=== PATIENT | male | born 1950 | race Caucasian/White ===

== ENCOUNTER 2017-12-09 11:18 | Inpatient (IN) ==
[~2017-12-09 11:18] MED LIST: Calcium Chloride Inj 1 GM/10 ML Syringe IV.PUSH ONE; Lidocaine 2% 100 MG/5 ML Syringe IV.PUSH ONE; Magnesium Sulfate Inj 40 MEQ/10 ML Vial IV.SIG ONE; Naloxone Inj 4 MG/10 ML MDV IV.SIG ONE; Sodium Bicarbonate 8.4% Inj 50 MEQ/50 ML Syringe IV.PUSH ONE
[2017-12-09] MEDS ORDERED: Midazolam Inj 5 MG/ML 1 ML Vial ONE (11:25)
[2017-12-09] MEDS ORDERED: Magnesium Sulfate Inj 2 GM in Sodium Chlor 0.9% Inj 96 ML IV.SIG ONE (11:36)
[2017-12-09] MEDS ORDERED: Lidocaine 2% 100 MG/5 ML Syringe IV.PUSH ONE (11:38)
[2017-12-09] MEDS ORDERED: Midazolam Inj 5 MG/ML 1 ML Vial IV.PUSH ONE (11:40)
[2017-12-09 11:58] LABS: Baso % (Auto) 0.4 % (0.0-2.0); Hematocrit 36.5 % (39.0-51.0); Hemoglobin 11.9 gm/dL (13.0-17.0); Lymph # (Auto) 1.3 th/mm3 (1.0-4.8); Lymph % (Auto) 21.5 % (9.0-44.0); Mean Corpuscular HGB Conc 32.6 % (32.0-36.0); Mean Corpuscular Hemoglobin 36.1 pg (27.0-34.0); Mean Corpuscular Volume 110.7 fL (80.0-100.0); Mean Platelet Volume 9.3 fL (7.0-11.0); Mono # (Auto) 0.4 th/mm3 (0.0-0.9); Mono % (Auto) 6.2 % (0.0-8.0); Neut # (Auto) 4.3 th/mm3 (1.8-7.7); Neut % (Auto) 71.9 % (16.0-70.0); Platelet Count 89 th/mm3 (150-450); Red Cell Distribution Width 15.1 % (11.6-17.2)
[2017-12-09 12:18] LABS: Anion Gap 16 meq/L (5-15); Blood Urea Nitrogen 29 mg/dL (7-18); Calcium 8.8 mg/dL (8.5-10.1); Carbon Dioxide 16.1 meq/L (21.0-32.0); Chloride 113 meq/L (98-107); Glomerular Filtration Rate 31 mL/min (>89); Magnesium 2.1 mg/dL (1.5-2.5); Potassium 4.3 meq/L (3.5-5.1); Sodium 145 meq/L (136-145)
--- NOTE | 2017-12-09 12:18 | XR ---
EXAM DATE: 12/09/2017 12:14 PM EDT AGE/SEX: 67 years / Male INDICATIONS: Chest pain today CLINICAL DATA: This is the patient's initial encounter. Patient reports that signs and symptoms have been present for 1 day and indicates a pain score of Nonresponsive. MEDICAL/SURGICAL HISTORY: Non-responsive. Non-responsive. COMPARISON: No prior exams available for comparison. FINDINGS: Heart is mildly enlarged. Lungs are free of acute airspace disease or significant congestion. Osseous structures are intact. CONCLUSION: Mild cardiomegaly without evidence of acute process. Electronically signed by: Gray Gonzalez MD 12/09/2017 12:17 PM EDT
[2017-12-09 12:20] LABS: Creatine Kinase 177 U/L (39-308); Glucose,Random 44 mg/dL (74-106); Troponin I 0.12 ng/mL (0.02-0.05)
[2017-12-09 12:37] LABS: Prothrombin Time 40.4 sec (9.8-11.6)
[2017-12-09 12:38] LABS: Activated Partial Thrombo Time 61.9 sec (24.3-30.1)
[2017-12-09 12:45] LABS: Creatine Kinase MB 4.8 ng/mL (0.5-3.6)
[2017-12-09] MEDS ORDERED: Sod Chloride 0.9% Inj 1,000 ML IV.SIG ONE (12:48)
--- NOTE | 2017-12-09 12:53 | ED ---
HPI General Chief complaint: Arrhythmia/Palpitations Stated complaint: Medical Time Seen by Provider: 12/09/17 11:36 Source: patient, EMS and RN notes reviewed Mode of arrival: EMS History of Present Illness HPI narrative: 67yM presenting with arrhythmia. The patient called EMS because he "wasn't feeling well", was found to be in monomorphic V tach with a pulse. He received 1/2 of a 150 mg amiodarone bolus prior to arrival with no change in rhythm. The patient reports dizziness and generalized weakness but denies chest pain, cough, palpitations, or vomiting. He says that he has a history of HTN and "heart problems" but does not remember the names of his medications or what kind of heart problems he has. Related Data Home Medications Medication Instructions Recorded Confirmed No Known Home Medications 12/09/17 12/09/17 Allergies Allergy/AdvReac Type Severity Reaction Status Date / Time No Known Allergies Allergy Verified 12/09/17 12:23 Review of Systems Except as stated in HPI: all other systems reviewed are negative [facility] Medical History Medical History Hypertension (Acute) Social History Social History Substance History: No History of Abuse Second Hand Smoke Exposure: No Smoking Status: Heavy tobacco smoker Tobacco Type: Cigarettes How Often Do You Have a Drink Containing Alcohol: 4 or more times a week Recent Travel in [facility] within the Last 8 Weeks: No Recent Out of Country Travel within the Last 8 Weeks: No Immunization History Tetanus Immunization: Unable to Assess Hx Influenza Vaccine This Season: Unable to Assess Exam Const Other: Alert, diaphoretic HENWA Head: normocephalic and atraumatic Eyes Pupils: PERRL Chest Chest: normal inspection of the chest Other: No sternotomy scar or pacemaker present Resp Other: Clear to auscultation bilaterally Cardio Other: Monomorphic V tach seen on monitoring engineer at rate of 180-200 Strong radial pulses GI Inspection: non-distended Palpation: soft and nontender Neuro General: alert, awake and oriented x3 Other: Moves all extremities, answers questions appropriately Course Hospital Course: ED Procedure Note- Electrical cardioversion Time out called, patient identified by 2 identifiers Given 2 mg IV versed prior to procedure for sedation Kept on monitoring engineer/ defibrillator/ continuous pulse ox throughout the procedure The pads were placed on right upper and left lateral chest The patient received synchronized cardioversion at 150 J He immediately converted to normal sinus tachycardia in 110s Tolerated the procedure well, no immediate complications Initial Documented Vital Signs Pulse Rate 224 H 12/09/17 11:20 Respiratory Rate 20 12/09/17 11:20 Blood Pressure 153/84 H 12/09/17 11:20 Last Documented Vital Signs Temperature 99 F 12/09/17 11:22 Pulse Rate 112 H 12/09/17 14:05 Respiratory Rate 20 12/09/17 14:05 Blood Pressure 142/93 H 12/09/17 14:05 Pulse Oximetry 99 12/09/17 14:05 Critical Care Time Critical Care Time: Yes Total Critical Care Time: 30 Attestation: Total critical care time 30 minutes. This includes examining and stabilizing the patient, gathering a history from a source other than the patient (i.e., chart review, EMS providers), formulating a differential diagnosis, ordering and interpreting laboratory tests and EKG, ordering and interpreting radiology tests, discussing the patient's care with other providers (HEP), management of arrhythmias and profound hypoglycemia, re- evaluation at frequent intervals, and documentation. Amount of time is separate from teaching, counseling the patient and/or family, and exclusive of procedures. Medical Decision Making MDM Narrative Medical decision making narrative: Assessment: 67yM presenting with V tach Plan: Patient received amio bolus prior to arrival Attempted to give IV lidocaine with no change in rhythm Electrical cardioversion successfully performed with conversion to sinus tachycardia Patient also received 2 g magnesium sulfate IVP Labs showed profound hypoglycemia which improved after 1 amp D50. Patient reports that he does not have a known history of diabetes. CXR Patient will require admission for cardiac monitoring and further workup. He understands and agrees. Consult placed to EP, case discussed with Dr. Amaral of [facility]. Differential Diagnosis Differential Diagnosis: Differential diagnosis includes, but is not limited to: ACS, electrolyte abnormality, cardiomyopathy, infection, hypoglycemia Lab Data Result diagrams: 12/09/17 11:30 12/09/17 11:30 Lab Results 12/09/17 12/09/17 12/09/17 Range/Units 11:30 11:30 11:30 WBC 6.0 (4.0-11.0) th/mm3 RBC 3.30 L (4.50-5.90) mil/mm3 Hgb 11.9 L (13.0-17.0) gm/dL POC Hgb (Calc) (13.0-17.0) g/dL Hct 36.5 L (39.0-51.0) % POC Hct (39-51.0) % MCV 110.7 H (80.0-100.0) fL MCH 36.1 H (27.0-34.0) pg MCHC 32.6 (32.0-36.0) % RDW 15.1 (11.6-17.2) % Plt Count 89 L (150-450) th/mm3 MPV 9.3 (7.0-11.0) fL Prelim Diff (Auto) Slide review pending Neut % (Auto) 71.9 H (16.0-70.0) % Lymph % (Auto) 21.5 (9.0-44.0) % Craven % (Auto) 6.2 (0.0-8.0) % Eos % (Auto) 0.0 (0.0-4.0) % Baso % (Auto) 0.4 (0.0-2.0) % Neut # (Auto) 4.3 (1.8-7.7) th/mm3 Lymph # (Auto) 1.3 (1.0-4.8) th/mm3 Craven # (Auto) 0.4 (0.0-0.9) th/mm3 Eos # (Auto) 0.0 (0.0-0.4) th/mm3 Baso # (Auto) 0.0 (0.0-0.2) th/mm3 WBC Differential . Diff Scan Auto diff confirmed Differential Comment . PT 40.4 H (9.8-11.6) sec INR 4.0 Ratio APTT 61.9 H (24.3-30.1) sec POC Sodium (137-144) mmol/L Sodium 145 (136-145) meq/L POC Potassium (3.6-5.0) mmol/L Potassium 4.3 (3.5-5.1) meq/L POC Chloride (102-111) mmol/L Chloride 113 H (98-107) meq/L Carbon Dioxide 16.1 L (21.0-32.0) meq/L Anion Gap 16 H (5-15) meq/L POC BUN (5-21) mg/dL BUN 29 H (7-18) mg/dL Creatinine 2.15 H (0.60-1.30) mg/dL POC Creatinine (0.6-1.3) mg/dL Estimated GFR 31 L (>89) mL/min POC Glucose (68-110) mg/dL Random Glucose 44 L* (74-106) mg/dL Calcium 8.8 (8.5-10.1) mg/dL Magnesium 2.1 (1.5-2.5) mg/dL Total Creatine Kinase 177 (39-308) U/L CK-MB (CK-2) 4.8 H (0.5-3.6) ng/mL Troponin I 0.12 H (0.02-0.05) ng/mL B-Natriuretic Peptide (0-100) pg/mL 12/09/17 12/09/17 12/09/17 Range/Units 11:30 11:30 12:16 WBC (4.0-11.0) th/mm3 RBC (4.50-5.90) mil/mm3 Hgb (13.0-17.0) gm/dL POC Hgb (Calc) 16.0 (13.0-17.0) g/dL Hct (39.0-51.0) % POC Hct 47.0 (39-51.0) % MCV (80.0-100.0) fL MCH (27.0-34.0) pg MCHC (32.0-36.0) % RDW (11.6-17.2) % Plt Count (150-450) th/mm3 MPV (7.0-11.0) fL Prelim Diff (Auto) Neut % (Auto) (16.0-70.0) % Lymph % (Auto) (9.0-44.0) % Craven % (Auto) (0.0-8.0) % Eos % (Auto) (0.0-4.0) % Baso % (Auto) (0.0-2.0) % Neut # (Auto) (1.8-7.7) th/mm3 Lymph # (Auto) (1.0-4.8) th/mm3 Craven # (Auto) (0.0-0.9) th/mm3 Eos # (Auto) (0.0-0.4) th/mm3 Baso # (Auto) (0.0-0.2) th/mm3 WBC Differential Diff Scan Differential Comment PT (9.8-11.6) sec INR Ratio APTT (24.3-30.1) sec POC Sodium 144 (137-144) mmol/L Sodium (136-145) meq/L POC Potassium 4.2 (3.6-5.0) mmol/L Potassium (3.5-5.1) meq/L POC Chloride 115 H (102-111) mmol/L Chloride (98-107) meq/L Carbon Dioxide (21.0-32.0) meq/L Anion Gap (5-15) meq/L POC BUN 26 H (5-21) mg/dL BUN (7-18) mg/dL Creatinine (0.60-1.30) mg/dL POC Creatinine 1.8 H (0.6-1.3) mg/dL Estimated GFR (>89) mL/min POC Glucose 47 L* 35 L* (68-110) mg/dL Random Glucose (74-106) mg/dL Calcium (8.5-10.1) mg/dL Magnesium (1.5-2.5) mg/dL Total Creatine Kinase (39-308) U/L CK-MB (CK-2) (0.5-3.6) ng/mL Troponin I (0.02-0.05) ng/mL B-Natriuretic Peptide 490 H (0-100) pg/mL 12/09/17 12/09/17 Range/Units 12:40 14:28 WBC (4.0-11.0) th/mm3 RBC (4.50-5.90) mil/mm3 Hgb (13.0-17.0) gm/dL POC Hgb (Calc) (13.0-17.0) g/dL Hct (39.0-51.0) % POC Hct (39-51.0) % MCV (80.0-100.0) fL MCH (27.0-34.0) pg MCHC (32.0-36.0) % RDW (11.6-17.2) % Plt Count (150-450) th/mm3 MPV (7.0-11.0) fL Prelim Diff (Auto) Neut % (Auto) (16.0-70.0) % Lymph % (Auto) (9.0-44.0) % Craven % (Auto) (0.0-8.0) % Eos % (Auto) (0.0-4.0) % Baso % (Auto) (0.0-2.0) % Neut # (Auto) (1.8-7.7) th/mm3 Lymph # (Auto) (1.0-4.8) th/mm3 Craven # (Auto) (0.0-0.9) th/mm3 Eos # (Auto) (0.0-0.4) th/mm3 Baso # (Auto) (0.0-0.2) th/mm3 WBC Differential Diff Scan Differential Comment PT (9.8-11.6) sec INR Ratio APTT (24.3-30.1) sec POC Sodium (137-144) mmol/L Sodium (136-145) meq/L POC Potassium (3.6-5.0) mmol/L Potassium (3.5-5.1) meq/L POC Chloride (102-111) mmol/L Chloride (98-107) meq/L Carbon Dioxide (21.0-32.0) meq/L Anion Gap (5-15) meq/L POC BUN (5-21) mg/dL BUN (7-18) mg/dL Creatinine (0.60-1.30) mg/dL POC Creatinine (0.6-1.3) mg/dL Estimated GFR (>89) mL/min POC Glucose 108 73 (68-110) mg/dL Random Glucose (74-106) mg/dL Calcium (8.5-10.1) mg/dL Magnesium (1.5-2.5) mg/dL Total Creatine Kinase (39-308) U/L CK-MB (CK-2) (0.5-3.6) ng/mL Troponin I (0.02-0.05) ng/mL B-Natriuretic Peptide (0-100) pg/mL Imaging Data Radiologist's impression: Abdomen/Bladder Ultrasound 12/09/17 00:00 CONCLUSION: 1. Mild right-sided hydronephrosis. Mild ascites and bilateral pleural effusions. Chest X-Ray 12/09/17 11:36 CONCLUSION: Mild cardiomegaly without evidence of acute process. ECG Data Attestation: I personally reviewed and interpreted this ECG as follows: Interpretation: Rate: 118 BPM Rhythm: Sinus [place]: Normal Intervals: RBBB, LAFB, QTc 420 ms Q waves: III, aVF T waves: Inverted in V2-V5 ST segments: No significant elevations or depressions Impression: Sinus tachycardia, T wave inversions in anterior leads, new when compared to EKG from 09/29/2013. Discharge Plan Discharge Disposition Patient Disposition: 30 Still Patient Discharge Condition Condition: Stable Discharge Details Diagnosis: V tach, Hypoglycemia, Encounter for cardioversion procedure, Elevated troponin Physicians Team ED Provider: Hayde Petty Primary Care Provider: Primary Care Mary Glaser Attending Provider: Yusuf Amaral Discharge Interventions Interventions: Vital Signs Last Done: 12/09/17 11:29 Status ED Status: Admitted Patient
[2017-12-09] MEDS ORDERED: Bisacodyl 10 MG Supp RECTAL PRN (13:31)
[2017-12-09] MEDS ORDERED: Temazepam 15 MG Capsule PO PRN (13:31)
[2017-12-09] MEDS ORDERED: KCL 20 mEq/D5W/NaCl 0.45% Inj 1,000 ML IV.CONT SCH (13:45)
--- NOTE | 2017-12-09 14:41 | US ---
EXAM DATE: 12/09/2017 2:13 PM EDT AGE/SEX: 67 years / Male INDICATIONS: Elevated lab values. CLINICAL DATA: This is the patient's initial encounter. Patient reports that signs and symptoms have been present for 1 day and indicates a pain score of 1/10. MEDICAL/SURGICAL HISTORY: Hypertension. None. COMPARISON: No prior exams available for comparison. MEASUREMENTS: Right Kidney:__11.0 x 5.8 x 5.8 cm Left Kidney:__9.5 x 4.6 x 5.2 cm FINDINGS: Right Kidney: Mild dilatation of the right renal pelvis. Left Kidney: Normal echotexture and cortical thickness. No mass or hydronephrosis. Bladder: Within normal limits given the degree of distension. Other: Mild ascites. Incidental pleural effusions. CONCLUSION: 1. Mild right-sided hydronephrosis. Mild ascites and bilateral pleural effusions. Electronically signed by: Mohinder Price MD 12/09/2017 2:40 PM EDT
--- NOTE | 2017-12-09 18:52 | MB ---
cc: Efe Mcconnell MD DATE: 12/09/2017 REASON FOR CONSULTATION: Sustained ventricular tachycardia. HISTORY OF PRESENT ILLNESS: Jaxson Saunders is a 67-year-old homeless admitted with sustained V-tach. He did not convert with amiodarone and had to be cardioverted in the ER. He has been is mild sinus tachycardia since then. The patient states he has not been able to walk the last 2 months, that he has been dizzy any time he gets up for the last 2 months. He drinks 6 beers a day and smokes 1/2 to 2 packs a day since he was 16. He [address] on the streets. He says he has 12 siblings, but does have contact with any of them. Denies any chest pain or shortness of breath. He does have some swelling in his feet. He says he last went to the doctor [place] 5 [place] ago. The patient has a chronic right bundle branch block. He denies any acute shortness of breath, or anginal symptoms. PAST MEDICAL HISTORY: Notable for previous abnormal EKG, previous acid reflux, right bundle branch block, tobacco use and alcohol use disorder. He says he quit drinking; however, a month ago. SOCIAL HISTORY: Notable for living on the street. He spent 2 years in the [employer] in 1968. He did go to [place]. He smokes and drinks as described above. REVIEW OF SYSTEMS: Otherwise noncontributory. PHYSICAL EXAMINATION: GENERAL: Reveals a man who appears older than his stated age. There is fresh vomit on the floor. He says he vomited prior to my coming in. VITAL SIGNS: Charted. He has got mild sinus tachycardia. HEENT: Unremarkable. NECK: No bruits. CHEST: Shows diminished breath sounds. CARDIAC: Soft S1, S2. Regular rate and rhythm. Mildly tachycardic. ABDOMEN: Soft. EXTREMITIES: Reveal diminished pedal pulses, but intact femoral pulses. DIAGNOSTIC STUDIES: EKG shows sinus tachycardia, right bundle branch block, left anterior fascicular block. The strips show ventricular tachycardia, rate of 223 beats per minute. LABORATORY STUDIES: Charted. ____ is 1.8. Hematocrit is 36.5. INR is elevated at 4.0. Creatinine is elevated at 2.15. Troponin is elevated at 0.12. BNP is elevated at 490. IMAGING STUDIES: His chest x-ray was read as well as cardiomegaly without evidence of an acute process. IMPRESSION: Acute sustained ventricular tachycardia, status post cardioversion, now on IV amiodarone, currently stable, mildly tachycardic. PLAN: We will add a beta jennie. He will need a cardiac catheterization, but the creatinine is elevated. I would like to see if this comes down with him being more stable. He is to be watched for delirium tremens. There is going to be difficulty manage him since he does not have a home. Likely will need a catheterization, possible revascularization and probably will need an AICD. He will probably need to stay on the amiodarone. Further therapy to be determined. MD KYARA Tompkins/RONEY , 06:33 PM , 06:41 PM
[2017-12-09] MEDS ORDERED: Haloperidol Inj 5 MG/ML Ampul IV.PUSH PRN (19:29)
[2017-12-09] MEDS ORDERED: LORazepam 1 MG Tablet PO PRN (19:29)
--- NOTE | 2017-12-09 19:35 | P.HPIM ---
History of Present Illness Primary Care Physician: No Primary Care Physician History of Present Illness: 67-year-old homeless with a self-reported history of hypertension who called 911 due to a 1 day history of shortness of breath, fatigue. He was brought in by EMS, found to have monomorphic tachycardia which did not convert with amiodarone, however did convert after electric cardioversion. Patient says he is feeling better. He denies having any fevers, chills, nausea, vomiting, however has vomited on the floor. He does say that due to his shortness of breath, he has not eaten in over 2 days. Inpatient Certification: I certify that the inpatient services were ordered in accordance with Medicare regulations governing the order. This includes certification that hospital inpatient services are reasonable and necessary and in the case of services not specified as inpatient-only under 42 CFR 419.22(n), that they are appropriately provided as inpatient services in accordance to with the 2-midnight benchmark under 43 CFR 412.3(e) Estimated Total Length of Stay (Days): 2 Plans for Post Hospital Care: Home Review of Systems All other systems reviewed negative except as stated in HPI PMFSH - History History Provided By: Harvest Crew Supervisor / EMT - Medical History Medical History: Medical History (Last Reviewed 12/09/17 @ 12:51 by Hayde Petty DO) Hypertension - Surgical History Surgical History: Surgical History (Last Updated 12/09/17 @ 19:32 by Yusuf Amaral MD) No history of previous surgery - Family History Family History: Family History (Last Updated 12/09/17 @ 19:32 by Yusuf Amaral MD) Father CAD (coronary artery disease) - Tobacco History Second Hand Smoke Exposure: No Tobacco Use In Past 30 Days: Yes Smoking Status: Heavy tobacco smoker Tobacco Type: Cigarettes - Alcohol History How Often Do You Have a Drink Containing Alcohol: 4 or more times a week - Substance Use History Substance History: No History of Abuse - Travel History Recent Travel in the [place] Within the Last 8 Weeks: No Recent Travel Out of the Country Within the Last 8 Weeks: No - Immunization History Tetanus Immunization: Unable to Assess Hx Influenza Vaccine This Season: Unable to Assess Medications and Allergies Active Medications: Active Medications Al Hydroxide/Mg Hydroxide (Milk Of Magnesia Liq) 30 ml PO Q12H PRN PRN Reason: Mild Constipation Bisacodyl (Dulcolax Supp) 10 mg RECTAL DAILY PRN PRN Reason: SEVERE CONSITIPATION Flumazenil (Romazecon Inj) 0.2 mg IV.PUSH Q1M PRN PRN Reason: OVERSEDATION Haloperidol Lactate (Haldol Inj) 1 mg IV.PUSH Q15M PRN PRN Reason: for severe agitation Amiodarone HCl 450 mg/ (Dextrose) 250 mls @ 33.33 mls/hr IV.CONT TITRATE PRN; Protocol PRN Reason: Per Protocol Last Titration: 12/09/17 15:13 Dose: 1 mg/min, 33.33 mls/hr Potassium Chloride/Dextrose/Sod Cl (D5w/1/2ns + Kcl 20 Meq Inj) 1,000 mls @ 100 mls/hr IV.CONT .Q10H ORTIZ Last Infusion: 12/09/17 14:16 Dose: 100 mls/hr Lactulose (Lactulose Liq) 30 ml PO DAILY PRN PRN Reason: SEVERE CONSITIPATION Lorazepam (Ativan) 1 mg PO Q4H PRN PRN Reason: for CIWA 8-10 Lorazepam (Ativan) 2 mg PO Q2H PRN PRN Reason: for CIWA 11-14 Lorazepam (Ativan Inj) 2 mg IV.PUSH Q2H PRN PRN Reason: for CIWA 11-14 Lorazepam (Ativan Inj) 2 mg IV.PUSH Q1H PRN PRN Reason: for CIWA 15-20 Lorazepam (Ativan Inj) 2 mg IV.PUSH Q15M PRN PRN Reason: for CIWA > 20 Lorazepam (Ativan Inj) 1 mg IV.PUSH Q4H PRN PRN Reason: for CIWA 8-10 Multivitamins (Theragran) 1 tab PO DAILY ORTIZ Sennosides (Senokot) 17.2 mg PO Q12H PRN PRN Reason: Moderate Constipation Sodium Chloride (Ns Flush) 2 ml IV.FLUSH UNSCH PRN PRN Reason: FLUSH AFTER USING IV ACCESS Allergies Allergy/AdvReac Type Severity Reaction Status Date / Time No Known Allergies Allergy Verified 12/09/17 12:23 Home Medications Medication Instructions Recorded Confirmed Type No Known Home Medications 12/09/17 12/09/17 History Exam Vital signs: Vital Signs 12/09/17 11:20 12/09/17 11:22 12/09/17 11:26 Temperature 99 F Pulse Rate 224 H 220 H 240 H Respiratory Rate 20 20 Blood Pressure 153/84 H 121/60 153/84 H Pulse Oximetry 96 12/09/17 11:27 12/09/17 11:28 12/09/17 11:29 Temperature Pulse Rate 222 H 240 H 118 H Respiratory Rate Blood Pressure Pulse Oximetry 12/09/17 11:30 12/09/17 11:35 12/09/17 11:46 Temperature Pulse Rate 120 H 117 H 113 H Respiratory Rate 20 Blood Pressure 94/42 L 103/63 108/70 Pulse Oximetry 100 12/09/17 11:47 12/09/17 11:55 12/09/17 12:11 Temperature Pulse Rate 117 H 116 H 115 H Respiratory Rate 18 18 Blood Pressure 107/72 112/76 Pulse Oximetry 93 L 96 95 12/09/17 12:20 12/09/17 12:45 12/09/17 13:28 Temperature Pulse Rate 116 H 116 H 112 H Respiratory Rate 18 18 Blood Pressure 121/88 132/83 142/93 H Pulse Oximetry 95 96 12/09/17 14:05 12/09/17 15:39 Temperature Pulse Rate 112 H 105 H Respiratory Rate 20 16 Blood Pressure 142/93 H 105/64 Pulse Oximetry 99 99 Intake & Output 12/09/17 12/09/17 12/10/17 06:59 18:59 06:59 Intake Total 1240 / 1240 Balance 1240 / 1240 Weight 77.111 kg Intake: IV 1000 / 1000 NS Inj 1,000 ML @ Wide Open IV. 1000 / 1000 SIG BOLUS ONE Rx#:[id number] Oral 240 / 240 Narrative: GENERAL: Patient lying in bed. Sleeping, wakes up for exam. Somnolent, oriented 3. SKIN: Warm and dry. HEAD: Atraumatic. Normocephalic. EYES: Pupils equal and round. No scleral icterus. No injection or drainage. ENT: No nasal bleeding or discharge. Mucous membranes pink and moist. NECK: Trachea midline. No JVD. CARDIOVASCULAR: Regular rate and rhythm. RESPIRATORY: No accessory muscle use. Clear to auscultation. Breath sounds equal bilaterally. GASTROINTESTINAL: Abdomen soft, non-tender, nondistended. Hepatic and splenic margins not palpable. MUSCULOSKELETAL: Extremities without clubbing, cyanosis, or edema. No obvious deformities. NEUROLOGICAL: Awake and alert. No obvious cranial nerve deficits. Motor grossly within normal limits. Five out of 5 muscle strength in the arms and legs. Normal speech. PSYCHIATRIC: Appropriate mood and affect; insight and judgment normal. Results - Labs CBC & Chem 7: 12/09/17 11:30 12/09/17 11:30 Labs: Short CBC 12/09/17 Range/Units 11:30 WBC 6.0 (4.0-11.0) th/mm3 Hgb 11.9 L (13.0-17.0) gm/dL Hct 36.5 L (39.0-51.0) % Plt Count 89 L (150-450) th/mm3 BMP 12/09/17 11:30 Sodium 145 Potassium 4.3 Chloride 113 H Carbon Dioxide 16.1 L BUN 29 H Creatinine 2.15 H Calcium 8.8 Cardiac Enzymes 12/09/17 Range/Units 11:30 Total Creatine Kinase 177 (39-308) U/L CK-MB (CK-2) 4.8 H (0.5-3.6) ng/mL Troponin I 0.12 H (0.02-0.05) ng/mL - Imaging Impressions Abdomen/Bladder Ultrasound 12/09/17 00:00 CONCLUSION: 1. Mild right-sided hydronephrosis. Mild ascites and bilateral pleural effusions. Chest X-Ray 12/09/17 11:36 CONCLUSION: Mild cardiomegaly without evidence of acute process. Caprini VTE Risk Assessment Caprini VTE Risk Assessment: Moderate/High Risk (score >= 2) Caprini Risk Assessment Model: Point Value = 1 Point Value = 2 Point Value = 3 Point Value = 5 Age 41-60 Minor surgery BMI > 25 kg/m2 Swollen legs Varicose veins or History of unexplained or recurrent spontaneous Oral contraceptives or hormone replacement Sepsis (< 1 month) Serious lung disease, including pneumonia (< 1 month) Abnormal pulmonary function Acute myocardial infarction Congestive heart failure (< 1 month) History of inflammatory bowel disease Medical patient at bed rest Age 61-74 Arthroscopic surgery Major open surgery (> 45 min) Laparoscopic surgery (> 45 min) Malignancy Confined to bed (> 72 hours) Immobilizing plaster cast Central venous access Age >= 75 History of VTE Family history of VTE Factor V Leiden Prothrombin [id number] Lupus anticoagulant Anticardiolipin antibodies Elevated serum homocysteine Heparin-induced thrombocytopenia Other congenital or acquired thrombophilia Stroke (< 1 month) Elective arthroplasty Hip, pelvis, or leg fracture Acute spinal cord injury (< 1 month) Prophylaxis Regimen: Total Risk Factor Score Risk Level Prophylaxis Regimen 0-1 Low Early ambulation 2 Moderate Order ONE of the following: *Sequential Compression Device (SCD) *Heparin 5000 units SQ BID 3-4 Higher Order ONE of the following medications: *Heparin 5000 units SQ TID *Enoxaparin/Lovenox 40 mg SQ daily (WT < 150 kg, CrCl > 30 mL/min) *Enoxaparin/Lovenox 30 mg SQ daily (WT < 150 kg, CrCl > 10-29 mL/min) *Enoxaparin/Lovenox 30 mg SQ BID (WT < 150 kg, CrCl > 30 mL/min) AND/OR *Sequential Compression Device (SCD) 5 or more Highest Order ONE of the following medications: *Heparin 5000 units SQ TID (Preferred with Epidurals) *Enoxaparin/Lovenox 40 mg SQ daily (WT < 150 kg, CrCl > 30 mL/min) *Enoxaparin/Lovenox 30 mg SQ daily (WT < 150 kg, CrCl > 10-29 mL/min) *Enoxaparin/Lovenox 30 mg SQ BID (WT < 150 kg, CrCl > 30 mL/min) AND *Sequential Compression Device (SCD) Assessment and Plan - Plan //Monomorphic V. tach //Troponin elevation to 0.12. This is likely demand related secondary to ventricular tachycardia. = On amiodarone drip = Patient does not appear to be clinically fluid overloaded. BNP elevation likely secondary to tachycardia. = Urine drug screen pending. = Negative chest x-ray for acute process = Admit CIC. Cardiology consulted. Echocardiogram pending. Trend EKGs and troponins. //Hypoglycemia. Likely secondary to 2 day fast per patient history. Will place on D5 half-normal. Monitor labs. = We will check cortisol, TSH //Renal insufficiency. Creatinine 2.1 on admission. Uncertain chronicity. IV fluids and continue to monitor. //Tobacco abuse. Cessation counseling provided. //Alcohol abuse. Patient reports heavy drinking 2 other physicians, however reports quitting [address] on CIWA protocol. Discussed Condition With: Patient, nurse, ER physician.
[2017-12-09 19:38] LABS: Troponin I 0.36 ng/mL (0.02-0.05)
[2017-12-09 20:02] LABS: CKMB Percent 2.4 % (0.0-4.0); Creatine Kinase MB 7.7 ng/mL (0.5-3.6)
[2017-12-09 21:20] LABS: Alanine Aminotransferase 399 U/L (12-78); Alkaline Phosphatase 101 U/L (45-117); Anion Gap 23 meq/L (5-15); Aspartate Aminotransferase 892 U/L (15-37); Blood Urea Nitrogen 32 mg/dL (7-18); Calcium 8.9 mg/dL (8.5-10.1); Carbon Dioxide 7.9 meq/L (21.0-32.0); Chloride 110 meq/L (98-107); Glomerular Filtration Rate 25 mL/min (>89); Glucose,Random 89 mg/dL (74-106); Potassium 5.3 meq/L (3.5-5.1); Sodium 141 meq/L (136-145); Total Protein 7.4 g/dL (6.4-8.2)
[2017-12-09] MEDS ORDERED: Thiamine Inj 500 MG in Sodium Chlor 0.9% Inj 500 ML IV.SIG ONE (23:23)
[2017-12-10 00:13] LABS: ABG PCO2 19 mmHg (38-42); ABG PO2 96 mmHG (61-120)
[2017-12-10] MEDS: Sodium Bicarbonate 8.4% Inj 50 MEQ in Dextrose 5% in Water Inj 950 ML IV.CONT SCH ×2 (01:16)
[2017-12-10 03:12] LABS: Baso % (Auto) 0.3 % (0.0-2.0); Hematocrit 47.8 % (39.0-51.0); Hemoglobin 14.8 gm/dL (13.0-17.0); Lymph # (Auto) 1.3 th/mm3 (1.0-4.8); Lymph % (Auto) 9.2 % (9.0-44.0); Mean Corpuscular Volume 116.2 fL (80.0-100.0); Mean Platelet Volume 9.8 fL (7.0-11.0); Mono # (Auto) 1.3 th/mm3 (0.0-0.9); Mono % (Auto) 9.3 % (0.0-8.0); Neut # (Auto) 11.4 th/mm3 (1.8-7.7); Neut % (Auto) 81.2 % (16.0-70.0); Platelet Count 97 th/mm3 (150-450); Red Blood Count 4.12 mil/mm3 (4.50-5.90); Red Cell Distribution Width 16.3 % (11.6-17.2)
[2017-12-10 03:39] LABS: Alanine Aminotransferase 791 U/L (12-78); Albumin 3.7 g/dL (3.4-5.0); Alkaline Phosphatase 104 U/L (45-117); Anion Gap 25 meq/L (5-15); Aspartate Aminotransferase 2148 U/L (15-37); Blood Urea Nitrogen 36 mg/dL (7-18); Calcium 8.8 mg/dL (8.5-10.1); Carbon Dioxide 9.4 meq/L (21.0-32.0); Chloride 109 meq/L (98-107); Glomerular Filtration Rate 23 mL/min (>89); Glucose,Random 92 mg/dL (74-106); Potassium 6.2 meq/L (3.5-5.1); Sodium 143 meq/L (136-145); Total Protein 7.1 g/dL (6.4-8.2); Troponin I 0.41 ng/mL (0.02-0.05)
[2017-12-10 03:41] LABS: Platelet Morphology Normal (Normal)
[2017-12-10] MEDS ORDERED: Dextrose 50% in Water 50 ML Vial IV.PUSH ONE (04:24)
[2017-12-10] MEDS ORDERED: Sodium Polystyrene Sulfonate/Sorbitol Liq 15 GM/60 ML UDC PO ONE (04:28)
[2017-12-10] MEDS ORDERED: Calcium Chloride Inj 1 GM in Sodium Chlor 0.9% Inj 100 ML IV.SIG ONE (05:00)
[2017-12-10 05:07] LABS: INR 2.8 Ratio; Prothrombin Time 28.4 sec (9.8-11.6)
[2017-12-10 05:09] LABS: Amphetamine Screen,Urine Neg (Neg); Barbiturate Screen,Urine Neg (Neg); Cannabinoid Screen,Urine Neg (Neg); Cocaine Screen,Urine Neg (Neg)
[2017-12-10 05:09] LABS: Amorphous Sediment,Urine Rare /hpf; Bacteria,Urine Rare /hpf; Bilirubin,Urine Negative (Negative); Clarity,Urine Cloudy (Clear); Color,Urine Amber (Yellw/Straw); Glucose,Urine (UA) 50 mg/dL (Negative); Hyaline Casts,Urine 57 /lpf (0-3); Leukocyte Esterase,Urine Negative (Negative); Mucus,Urine Few /lpf (Occasional); Nitrite,Urine Negative (Negative); Specific Gravity,Urine 1.018 (1.002-1.035); Squamous Epithelial Cell,Urine <1 /hpf (0-5); Urobilinogen,Urine 4 or Greater mg/dL (Less than 2)
[2017-12-10 05:11] LABS: Opiate Screen,Urine Neg (Neg)
[2017-12-10] MEDS ORDERED: Sod Chloride 0.9% Inj 1,000 ML IV.SIG ONE (06:18)
--- NOTE | 2017-12-10 09:15 | P.PNIM ---
Subjective Interval history: Patient sleeping, wakes up for exam. Tells me the year. He denies any pain. Somnolent. Physical Exam Vital signs: Vital Signs 12/09/17 11:20 12/09/17 11:22 12/09/17 11:26 Temperature 99 F Pulse Rate 224 H 220 H 240 H Respiratory Rate 20 20 Blood Pressure 153/84 H 121/60 153/84 H Pulse Oximetry 96 12/09/17 11:27 12/09/17 11:28 12/09/17 11:29 Temperature Pulse Rate 222 H 240 H 118 H Respiratory Rate Blood Pressure Pulse Oximetry 12/09/17 11:30 12/09/17 11:35 12/09/17 11:46 Temperature Pulse Rate 120 H 117 H 113 H Respiratory Rate 20 Blood Pressure 94/42 L 103/63 108/70 Pulse Oximetry 100 12/09/17 11:47 12/09/17 11:55 12/09/17 12:11 Temperature Pulse Rate 117 H 116 H 115 H Respiratory Rate 18 18 Blood Pressure 107/72 112/76 Pulse Oximetry 93 L 96 95 12/09/17 12:20 12/09/17 12:45 12/09/17 13:28 Temperature Pulse Rate 116 H 116 H 112 H Respiratory Rate 18 18 Blood Pressure 121/88 132/83 142/93 H Pulse Oximetry 95 96 12/09/17 14:05 12/09/17 15:39 12/09/17 20:00 Temperature 97.6 F Pulse Rate 112 H 105 H 100 H Respiratory Rate 20 16 16 Blood Pressure 142/93 H 105/64 121/82 Pulse Oximetry 99 99 100 12/10/17 00:00 12/10/17 03:00 12/10/17 04:00 Temperature 97.5 F L 97.3 F L Pulse Rate 100 H 101 H 102 H Respiratory Rate 16 16 Blood Pressure 115/82 112/68 Pulse Oximetry 100 100 12/10/17 05:00 12/10/17 06:00 Temperature Pulse Rate 100 H 100 H Respiratory Rate Blood Pressure Pulse Oximetry Intake & Output 12/09/17 12/10/17 12/10/17 18:59 06:59 18:59 Intake Total 1240 / 1240 Output Total 400 / 400 Balance 1240 / 1240 -400 / -400 Weight 77.111 kg 77 kg Intake: IV 1000 / 1000 NS Inj 1,000 ML @ Wide Open IV. 1000 / 1000 SIG BOLUS ONE Rx#:[id number] Oral 240 / 240 Output: Urine 400 / 400 Results - Labs CBC & Chem 7: 12/10/17 02:52 12/10/17 02:52 Laboratory Results - last 24 hr 12/09/17 12/09/17 12/09/17 04:44 11:30 11:30 WBC 6.0 RBC 3.30 L Hgb 11.9 L POC Hgb (Calc) Hct 36.5 L POC Hct MCV 110.7 H MCH 36.1 H MCHC 32.6 RDW 15.1 Plt Count 89 L MPV 9.3 Prelim Diff (Auto) Slide review pending Neut % (Auto) 71.9 H Lymph % (Auto) 21.5 [place] % (Auto) 6.2 Eos % (Auto) 0.0 Baso % (Auto) 0.4 Neut # (Auto) 4.3 Lymph # (Auto) 1.3 [place] # (Auto) 0.4 Eos # (Auto) 0.0 Baso # (Auto) 0.0 WBC Differential . Diff Scan Auto diff confirmed Differential Comment . Platelet Estimate Platelet Morphology PT 40.4 H INR 4.0 APTT 61.9 H Puncture Site Patient Temperature O2 Saturation ABG pH ABG pCO2 ABG pO2 ABG HCO3 ABG O2 Content ABG Base Excess ABG Methemoglobin Cornelio Test Hemoglobin Carboxyhemoglobin O2 Delivery Device Inspired O2 Critical Value POC Sodium Sodium POC Potassium Potassium POC Chloride Chloride Carbon Dioxide Anion Gap POC BUN BUN Creatinine POC Creatinine Estimated GFR POC Glucose Random Glucose Osmolality Lactic Acid Calcium Magnesium Total Bilirubin Direct Bilirubin Indirect Bilirubin AST ALT Alkaline Phosphatase Total Creatine Kinase CK-MB (CK-2) CK-MB (CK-2) % Troponin I B-Natriuretic Peptide Total Protein Albumin TSH Cortisol Urine Color Fide Urine Clarity Cloudy H Urine pH 5.0 Ur Specific [place] 1.018 Urine Protein 100 H Urine Glucose (UA) 50 Urine Ketones Trace Urine Occult Blood Moderate H Urine Nitrate Negative Urine Bilirubin Negative Urine Urobilinogen 4 or greater Ur Leukocyte Esterase Negative Urine RBC 3 Urine WBC 3 Ur Squamous Epith Cells <1 Amorphous Sediment Rare H Urine Bacteria Rare H Hyaline Casts 57 Urine Mucus Few H Micro UA Comment Cath-culture ind Urine Culture Comments Cath-cult indicated Urine Opiates Screen Ur Barbiturates Screen Ur Amphetamines Screen U Benzodiazepines Scrn Urine Cocaine Screen U Cannabinoids Screen 12/09/17 12/09/17 12/09/17 11:30 11:30 11:30 WBC RBC Hgb POC Hgb (Calc) 16.0 Hct POC Hct 47.0 MCV MCH MCHC RDW Plt Count MPV Prelim Diff (Auto) Neut % (Auto) Lymph % (Auto) [place] % (Auto) Eos % (Auto) Baso % (Auto) Neut # (Auto) Lymph # (Auto) [place] # (Auto) Eos # (Auto) Baso # (Auto) WBC Differential Diff Scan Differential Comment Platelet Estimate Platelet Morphology PT INR APTT Puncture Site Patient Temperature O2 Saturation ABG pH ABG pCO2 ABG pO2 ABG HCO3 ABG O2 Content ABG Base Excess ABG Methemoglobin Cornelio Test Hemoglobin Carboxyhemoglobin O2 Delivery Device Inspired O2 Critical Value POC Sodium 144 Sodium 145 POC Potassium 4.2 Potassium 4.3 POC Chloride 115 H Chloride 113 H Carbon Dioxide 16.1 L Anion Gap 16 H POC BUN 26 H BUN 29 H Creatinine 2.15 H POC Creatinine 1.8 H Estimated GFR 31 L POC Glucose 47 L* Random Glucose 44 L* Osmolality Lactic Acid Calcium 8.8 Magnesium 2.1 Total Bilirubin Direct Bilirubin Indirect Bilirubin AST ALT Alkaline Phosphatase Total Creatine Kinase 177 CK-MB (CK-2) 4.8 H CK-MB (CK-2) % Troponin I 0.12 H B-Natriuretic Peptide 490 H Total Protein Albumin TSH Cortisol Urine Color Urine Clarity Urine pH Ur Specific [place] Urine Protein Urine Glucose (UA) Urine Ketones Urine Occult Blood Urine Nitrate Urine Bilirubin Urine Urobilinogen Ur Leukocyte Esterase Urine RBC Urine WBC Ur Squamous Epith Cells Amorphous Sediment Urine Bacteria Hyaline Casts Urine Mucus Micro UA Comment Urine Culture Comments Urine Opiates Screen Ur Barbiturates Screen Ur Amphetamines Screen U Benzodiazepines Scrn Urine Cocaine Screen U Cannabinoids Screen 12/09/17 12/09/17 12/09/17 12:16 12:40 14:28 WBC RBC Hgb POC Hgb (Calc) Hct POC Hct MCV MCH MCHC RDW Plt Count MPV Prelim Diff (Auto) Neut % (Auto) Lymph % (Auto) [place] % (Auto) Eos % (Auto) Baso % (Auto) Neut # (Auto) Lymph # (Auto) [place] # (Auto) Eos # (Auto) Baso # (Auto) WBC Differential Diff Scan Differential Comment Platelet Estimate Platelet Morphology PT INR APTT Puncture Site Patient Temperature O2 Saturation ABG pH ABG pCO2 ABG pO2 ABG HCO3 ABG O2 Content ABG Base Excess ABG Methemoglobin Cornelio Test Hemoglobin Carboxyhemoglobin O2 Delivery Device Inspired O2 Critical Value POC Sodium Sodium POC Potassium Potassium POC Chloride Chloride Carbon Dioxide Anion Gap POC BUN BUN Creatinine POC Creatinine Estimated GFR POC Glucose 35 L* 108 73 Random Glucose Osmolality Lactic Acid Calcium Magnesium Total Bilirubin Direct Bilirubin Indirect Bilirubin AST ALT Alkaline Phosphatase Total Creatine Kinase CK-MB (CK-2) CK-MB (CK-2) % Troponin I B-Natriuretic Peptide Total Protein Albumin TSH Cortisol Urine Color Urine Clarity Urine pH Ur Specific [place] Urine Protein Urine Glucose (UA) Urine Ketones Urine Occult Blood Urine Nitrate Urine Bilirubin Urine Urobilinogen Ur Leukocyte Esterase Urine RBC Urine WBC Ur Squamous Epith Cells Amorphous Sediment Urine Bacteria Hyaline Casts Urine Mucus Micro UA Comment Urine Culture Comments Urine Opiates Screen Ur Barbiturates Screen Ur Amphetamines Screen U Benzodiazepines Scrn Urine Cocaine Screen U Cannabinoids Screen 12/09/17 12/09/17 12/09/17 15:54 18:42 20:28 WBC RBC Hgb POC Hgb (Calc) Hct POC Hct MCV MCH MCHC RDW Plt Count MPV Prelim Diff (Auto) Neut % (Auto) Lymph % (Auto) [place] % (Auto) Eos % (Auto) Baso % (Auto) Neut # (Auto) Lymph # (Auto) [place] # (Auto) Eos # (Auto) Baso # (Auto) WBC Differential Diff Scan Differential Comment Platelet Estimate Platelet Morphology PT INR APTT Puncture Site Patient Temperature O2 Saturation ABG pH ABG pCO2 ABG pO2 ABG HCO3 ABG O2 Content ABG Base Excess ABG Methemoglobin Cornelio Test Hemoglobin Carboxyhemoglobin O2 Delivery Device Inspired O2 Critical Value POC Sodium Sodium POC Potassium Potassium POC Chloride Chloride Carbon Dioxide Anion Gap POC BUN BUN Creatinine POC Creatinine Estimated GFR POC Glucose 73 Random Glucose Osmolality Lactic Acid Calcium Magnesium Total Bilirubin Direct Bilirubin Indirect Bilirubin AST ALT Alkaline Phosphatase Total Creatine Kinase 323 H CK-MB (CK-2) 7.7 H CK-MB (CK-2) % 2.4 Troponin I 0.36 H B-Natriuretic Peptide Total Protein Albumin TSH Cortisol 71.9 Urine Color Urine Clarity Urine pH Ur Specific [place] Urine Protein Urine Glucose (UA) Urine Ketones Urine Occult Blood Urine Nitrate Urine Bilirubin Urine Urobilinogen Ur Leukocyte Esterase Urine RBC Urine WBC Ur Squamous Epith Cells Amorphous Sediment Urine Bacteria Hyaline Casts Urine Mucus Micro UA Comment Urine Culture Comments Urine Opiates Screen Ur Barbiturates Screen Ur Amphetamines Screen U Benzodiazepines Scrn Urine Cocaine Screen U Cannabinoids Screen 12/09/17 12/09/17 12/10/17 20:28 23:55 02:02 WBC RBC Hgb POC Hgb (Calc) Hct POC Hct MCV MCH MCHC RDW Plt Count MPV Prelim Diff (Auto) Neut % (Auto) Lymph % (Auto) [place] % (Auto) Eos % (Auto) Baso % (Auto) Neut # (Auto) Lymph # (Auto) [place] # (Auto) Eos # (Auto) Baso # (Auto) WBC Differential Diff Scan Differential Comment Platelet Estimate Platelet Morphology PT INR APTT Puncture Site Left radial Patient Temperature 98.6 O2 Saturation 94 ABG pH 7.25 L* ABG pCO2 19 L* ABG pO2 96 ABG HCO3 8 L* ABG O2 Content 19.1 ABG Base Excess -18.0 L ABG Methemoglobin 1.3 Cornelio Test Y Hemoglobin 14.4 Carboxyhemoglobin 0.7 O2 Delivery Device Room air Inspired O2 21 Critical Value Yes POC Sodium Sodium 141 POC Potassium Potassium 5.3 H D POC Chloride Chloride 110 H Carbon Dioxide 7.9 L Anion Gap 23 H POC BUN BUN 32 H Creatinine 2.52 H POC Creatinine Estimated GFR 25 L POC Glucose Random Glucose 89 Osmolality Lactic Acid 12.1 H* Calcium 8.9 Magnesium Total Bilirubin 5.4 H Direct Bilirubin 3.5 H Indirect Bilirubin 1.9 H AST 892 H ALT 399 H Alkaline Phosphatase 101 Total Creatine Kinase CK-MB (CK-2) CK-MB (CK-2) % Troponin I B-Natriuretic Peptide Total Protein 7.4 Albumin 3.0 L TSH 6.680 H Cortisol Urine Color Urine Clarity Urine pH Ur Specific [place] Urine Protein Urine Glucose (UA) Urine Ketones Urine Occult Blood Urine Nitrate Urine Bilirubin Urine Urobilinogen Ur Leukocyte Esterase Urine RBC Urine WBC Ur Squamous Epith Cells Amorphous Sediment Urine Bacteria Hyaline Casts Urine Mucus Micro UA Comment Urine Culture Comments Urine Opiates Screen Ur Barbiturates Screen Ur Amphetamines Screen U Benzodiazepines Scrn Urine Cocaine Screen U Cannabinoids Screen 12/10/17 12/10/17 12/10/17 02:52 02:52 02:52 WBC 14.0 H D RBC 4.12 L Hgb 14.8 D POC Hgb (Calc) Hct 47.8 POC Hct MCV 116.2 H D MCH 36.0 H MCHC 31.0 L RDW 16.3 Plt Count 97 L MPV 9.8 Prelim Diff (Auto) Slide review pending Neut % (Auto) 81.2 H Lymph % (Auto) 9.2 [place] % (Auto) 9.3 H Eos % (Auto) 0.0 Baso % (Auto) 0.3 Neut # (Auto) 11.4 H Lymph # (Auto) 1.3 [place] # (Auto) 1.3 H Eos # (Auto) 0.0 Baso # (Auto) 0.0 WBC Differential . Diff Scan Auto diff confirmed Differential Comment . Platelet Estimate Low L Platelet Morphology Normal PT INR APTT Puncture Site Patient Temperature O2 Saturation ABG pH ABG pCO2 ABG pO2 ABG HCO3 ABG O2 Content ABG Base Excess ABG Methemoglobin Cornelio Test Hemoglobin Carboxyhemoglobin O2 Delivery Device Inspired O2 Critical Value POC Sodium Sodium 143 POC Potassium Potassium 6.2 H D POC Chloride Chloride 109 H Carbon Dioxide 9.4 L Anion Gap 25 H POC BUN BUN 36 H Creatinine 2.80 H POC Creatinine Estimated GFR 23 L POC Glucose Random Glucose 92 Osmolality Lactic Acid Calcium 8.8 Magnesium Total Bilirubin 6.2 H Direct Bilirubin Indirect Bilirubin AST 2148 H ALT 791 H Alkaline Phosphatase 104 Total Creatine Kinase CK-MB (CK-2) CK-MB (CK-2) % Troponin I 0.41 H B-Natriuretic Peptide 741 H Total Protein 7.1 Albumin 3.7 D TSH Cortisol Urine Color Urine Clarity Urine pH Ur Specific [place] Urine Protein Urine Glucose (UA) Urine Ketones Urine Occult Blood Urine Nitrate Urine Bilirubin Urine Urobilinogen Ur Leukocyte Esterase Urine RBC Urine WBC Ur Squamous Epith Cells Amorphous Sediment Urine Bacteria Hyaline Casts Urine Mucus Micro UA Comment Urine Culture Comments Urine Opiates Screen Ur Barbiturates Screen Ur Amphetamines Screen U Benzodiazepines Scrn Urine Cocaine Screen U Cannabinoids Screen 12/10/17 12/10/17 12/10/17 02:52 04:41 04:41 WBC RBC Hgb POC Hgb (Calc) Hct POC Hct MCV MCH MCHC RDW Plt Count MPV Prelim Diff (Auto) Neut % (Auto) Lymph % (Auto) [place] % (Auto) Eos % (Auto) Baso % (Auto) Neut # (Auto) Lymph # (Auto) [place] # (Auto) Eos # (Auto) Baso # (Auto) WBC Differential Diff Scan Differential Comment Platelet Estimate Platelet Morphology PT 28.4 H D INR 2.8 APTT Puncture Site Patient Temperature O2 Saturation ABG pH ABG pCO2 ABG pO2 ABG HCO3 ABG O2 Content ABG Base Excess ABG Methemoglobin Cornelio Test Hemoglobin Carboxyhemoglobin O2 Delivery Device Inspired O2 Critical Value POC Sodium Sodium POC Potassium Potassium POC Chloride Chloride Carbon Dioxide Anion Gap POC BUN BUN Creatinine POC Creatinine Estimated GFR POC Glucose Random Glucose Osmolality 323 H Lactic Acid 10.6 H* Calcium Magnesium Total Bilirubin Direct Bilirubin Indirect Bilirubin AST ALT Alkaline Phosphatase Total Creatine Kinase CK-MB (CK-2) CK-MB (CK-2) % Troponin I B-Natriuretic Peptide Total Protein Albumin TSH Cortisol Urine Color Urine Clarity Urine pH Ur Specific [place] Urine Protein Urine Glucose (UA) Urine Ketones Urine Occult Blood Urine Nitrate Urine Bilirubin Urine Urobilinogen Ur Leukocyte Esterase Urine RBC Urine WBC Ur Squamous Epith Cells Amorphous Sediment Urine Bacteria Hyaline Casts Urine Mucus Micro UA Comment Urine Culture Comments Urine Opiates Screen Ur Barbiturates Screen Ur Amphetamines Screen U Benzodiazepines Scrn Urine Cocaine Screen U Cannabinoids Screen 12/10/17 04:44 WBC RBC Hgb POC Hgb (Calc) Hct POC Hct MCV MCH MCHC RDW Plt Count MPV Prelim Diff (Auto) Neut % (Auto) Lymph % (Auto) [place] % (Auto) Eos % (Auto) Baso % (Auto) Neut # (Auto) Lymph # (Auto) [place] # (Auto) Eos # (Auto) Baso # (Auto) WBC Differential Diff Scan Differential Comment Platelet Estimate Platelet Morphology PT INR APTT Puncture Site Patient Temperature O2 Saturation ABG pH ABG pCO2 ABG pO2 ABG HCO3 ABG O2 Content ABG Base Excess ABG Methemoglobin Cornelio Test Hemoglobin Carboxyhemoglobin O2 Delivery Device Inspired O2 Critical Value POC Sodium Sodium POC Potassium Potassium POC Chloride Chloride Carbon Dioxide Anion Gap POC BUN BUN Creatinine POC Creatinine Estimated GFR POC Glucose Random Glucose Osmolality Lactic Acid Calcium Magnesium Total Bilirubin Direct Bilirubin Indirect Bilirubin AST ALT Alkaline Phosphatase Total Creatine Kinase CK-MB (CK-2) CK-MB (CK-2) % Troponin I B-Natriuretic Peptide Total Protein Albumin TSH Cortisol Urine Color Urine Clarity Urine pH Ur Specific [place] Urine Protein Urine Glucose (UA) Urine Ketones Urine Occult Blood Urine Nitrate Urine Bilirubin Urine Urobilinogen Ur Leukocyte Esterase Urine RBC Urine WBC Ur Squamous Epith Cells Amorphous Sediment Urine Bacteria Hyaline Casts Urine Mucus Micro UA Comment Urine Culture Comments Urine Opiates Screen Neg Ur Barbiturates Screen Neg Ur Amphetamines Screen Neg U Benzodiazepines Scrn Pos H Urine Cocaine Screen Neg U Cannabinoids Screen Neg - Imaging Impressions Abdomen/Bladder Ultrasound 12/09/17 00:00 CONCLUSION: 1. Mild right-sided hydronephrosis. Mild ascites and bilateral pleural effusions. Chest X-Ray 12/09/17 11:36 CONCLUSION: Mild cardiomegaly without evidence of acute process. Assessment and Plan - Plan //Monomorphic V. tach //Troponin elevation to 0.3. This is likely demand related secondary to ventricular tachycardia. = On amiodarone drip = Patient does not appear to be clinically fluid overloaded. BNP elevation likely secondary to tachycardia. = Urine drug screen pending. = Negative chest x-ray for acute process = Admit CIC. Cardiology consulted. Echocardiogram pending. Trend EKGs and troponins. = Continues on telemetry. //Hypoglycemia. //Malnutrition = likely secondary to 2 day fast per patient history. Also could be secondary to liver failure. Will place on D5 half-normal. Monitor labs. = We will check cortisol, TSH = Cortisol within expected range. TSH 6.6, = Continue D5 fluids. //Acute kidney injury. Creatinine 2.1 on admission. Uncertain chronicity. IV fluids and continue to monitor. = 12/10. Worsening. Creatinine 2.8. With BNP elevated in the 700s. Continue on moderate fluids. Consult nephrology. //Hyperkalemia. Potassium 6.2. = Received insulin, D50 overnight, as well as Kayexalate. = Recheck level stat and consult nephrology. //Anion gap metabolic acidosis //Lactic acidosis = likely secondary to lactic acid. Could be secondary to fulminant liver failure. -Recheck lactate. 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 = Start on steroids for suspected alcoholic liver failure. consult gastroenterology. Appreciate assistance. //Leukocytosis. Likely secondary to stress. No signs of infection. = Nonetheless, given patient's current palate, will order a CT abdomen, start on broad-spectrum antibiotics. //Tobacco abuse. Cessation counseling provided. //Alcohol abuse. Patient reports heavy drinking to other physicians, however reports quitting [address] on CIWA protocol. Discharge Planning: Continue inpatient management. Patient is homeless.
[2017-12-10] MEDS ORDERED: Piperacil/Tazo 4.5 GM Premix 4.5 GM/100 ML BAG IV.SIG SCH (10:15)
[2017-12-10] MEDS ORDERED: Atropine Inj 1 MG/10 ML Syringe ONE (10:40)
[2017-12-10] MEDS ORDERED: Lidocaine 2% 100 MG/5 ML Syringe ONE (10:41)
[2017-12-10 10:45] LABS: Calcium 7.8 mg/dL (8.5-10.1); Carbon Dioxide 20.2 meq/L (21.0-32.0); Potassium 4.6 meq/L (3.5-5.1)
--- NOTE | 2017-12-10 11:03 | P.PNCA ---
Subjective Interval history: Recived IV ativan early AM. Very lethargic. No angina Physical Exam Vital signs: Vital Signs 12/09/17 11:20 12/09/17 11:22 12/09/17 11:26 Temperature 99 F Pulse Rate 224 H 220 H 240 H Respiratory Rate 20 20 Blood Pressure 153/84 H 121/60 153/84 H Pulse Oximetry 96 12/09/17 11:27 12/09/17 11:28 12/09/17 11:29 Temperature Pulse Rate 222 H 240 H 118 H Respiratory Rate Blood Pressure Pulse Oximetry 12/09/17 11:30 12/09/17 11:35 12/09/17 11:46 Temperature Pulse Rate 120 H 117 H 113 H Respiratory Rate 20 Blood Pressure 94/42 L 103/63 108/70 Pulse Oximetry 100 12/09/17 11:47 12/09/17 11:55 12/09/17 12:11 Temperature Pulse Rate 117 H 116 H 115 H Respiratory Rate 18 18 Blood Pressure 107/72 112/76 Pulse Oximetry 93 L 96 95 12/09/17 12:20 12/09/17 12:45 12/09/17 13:28 Temperature Pulse Rate 116 H 116 H 112 H Respiratory Rate 18 18 Blood Pressure 121/88 132/83 142/93 H Pulse Oximetry 95 96 12/09/17 14:05 12/09/17 15:39 12/09/17 20:00 Temperature 97.6 F Pulse Rate 112 H 105 H 100 H Respiratory Rate 20 16 16 Blood Pressure 142/93 H 105/64 121/82 Pulse Oximetry 99 99 100 12/10/17 00:00 12/10/17 03:00 12/10/17 04:00 Temperature 97.5 F L 97.3 F L Pulse Rate 100 H 101 H 102 H Respiratory Rate 16 16 Blood Pressure 115/82 112/68 Pulse Oximetry 100 100 12/10/17 05:00 12/10/17 06:00 12/10/17 07:00 Temperature Pulse Rate 100 H 100 H 100 H Respiratory Rate Blood Pressure Pulse Oximetry 12/10/17 08:00 12/10/17 09:00 12/10/17 09:43 Temperature 97.6 F Pulse Rate 100 H 100 H Respiratory Rate 24 Blood Pressure 114/70 Pulse Oximetry 100 98 12/10/17 10:00 08/08/18 10:05 Temperature Pulse Rate 110 H Respiratory Rate Blood Pressure Pulse Oximetry 90 L Intake & Output 12/09/17 12/10/17 12/10/17 18:59 06:59 18:59 Intake Total 1240 / 1240 Output Total 400 / 400 Balance 1240 / 1240 -400 / -400 Weight 77.111 kg 77 kg Intake: IV 1000 / 1000 NS Inj 1,000 ML @ Wide Open IV. 1000 / 1000 SIG BOLUS ONE Rx#:[id number] Oral 240 / 240 Output: Urine 400 / 400 Narrative: Lethargic. No resp distress. Chest clear. CV S1S2 RRR. +S3. Abd soft Ext no edema Echo dilated RA/RV severe TR. LVEF about 20% with global hypo Tele: no further VT on IV amio Assessment and Plan - Assessment (1) Acute renal failure Code(s): N17.9 - Acute kidney failure, unspecified Status: Acute (2) High transaminase levels Code(s): R74.0 - Nonspecific elevation of levels of transaminase and lactic acid dehydrogenase [LDH] Status: Acute (3) Cardiomyopathy Code(s): I42.9 - Cardiomyopathy, unspecified Status: Acute - Plan Will need cardiac cath with poss revasc and will need AICD. Need creatinine to stabilize before cath.
[2017-12-10 11:10] LABS: Creatine Kinase 628 U/L (39-308)
[2017-12-10] MEDS: MethylPREDNISolone Sod Succinate Inj 40 MG/ML Vial IV.PUSH SCH ×3 (11:30→23:15)
[2017-12-10 11:32] LABS: CKMB Percent 2.7 % (0.0-4.0); Creatine Kinase MB 17.2 ng/mL (0.5-3.6)
[2017-12-10 11:54] LABS: Hepatitis A IgM Antibody Nonreactive (Nonreactive); Hepatitits B Surface Antigen Nonreactive (Nonreactive)
[2017-12-10] MEDS: Sodium Bicarbonate 8.4% Inj 150 MEQ in Dextrose 5% in Water Inj 850 ML IV.CONT SCH ×2 (12:02)
--- NOTE | 2017-12-10 13:05 | P.CONGI ---
History of Present Illness Consult date: 12/10/17 Consult reason: Liver failure Chief complaint: V Tach, Hypoglycemia, elevated troponin History of Present Illness: This is a 67 yo M who was brought to the hospital by EMS with complaints of weakness and SOB, was found to be in V tach on transfer that was unresponsive to Amiodarone but eventually converted to sinus rhythm after cardioversion. Pt was initially being managed on cardiac intermediate care but was transferred to ICU today due to increasing somnolence. Our service has been consulted to evaluate pt for elevated LFTs with coagulopathy and thrombocytopenia. Pt would open his yes during my exam but then fell right back asleep so I was unable to obtain any history from him. According to chart pt did admit to heavy drinking but reported that he quit three days prior to admission. Pt has also been found to be Hepatitic C positive, unable to evaluate for risk factors and unsure if he has received treatment in the past. <Yanna Huynh - Last Filed: 12/10/17 14:35> Review of Systems unobtainable due to mental condition <Yanna Huynh - Last Filed: 12/10/17 14:35> PMFSH - History History Provided By: Membership Sales Representative / EMT - Medical History Medical History: Medical History (Last Reviewed 12/10/17 @ 07:14 by Saul Gan RN) Hypertension - Surgical History Surgical History: Surgical History (Last Updated 12/09/17 @ 19:32 by Yusuf Amaral MD) No history of previous surgery - Family History Family History: Family History (Last Updated 12/09/17 @ 19:32 by Yusuf Amaral MD) Father CAD (coronary artery disease) - Tobacco History Second Hand Smoke Exposure: No Tobacco Use In Past 30 Days: Yes Smoking Status: Heavy tobacco smoker Tobacco Type: Cigarettes - Alcohol History How Often Do You Have a Drink Containing Alcohol: 4 or more times a week - Substance Use History Substance History: No History of Abuse - Travel History Recent Travel in the [place] Within the Last 8 Weeks: No Recent Travel Out of the Country Within the Last 8 Weeks: No - Immunization History Tetanus Immunization: Unable to Assess Hx Influenza Vaccine This Season: Unable to Assess <Yanna Huynh - Last Filed: 12/10/17 14:35> - Medical History Medical History: Medical History (Last Reviewed 12/10/17 @ 07:14 by Saul Gan RN) Hypertension - Surgical History Surgical History: Surgical History (Last Updated 12/09/17 @ 19:32 by Yusuf Amaral MD) No history of previous surgery - Family History Family History: Family History (Last Updated 12/09/17 @ 19:32 by Yusuf Amaral MD) Father CAD (coronary artery disease) <Bree Lofton - Last Filed: 12/10/17 18:15> Medications and Allergies Active Medications: Active Medications Al Hydroxide/Mg Hydroxide (Milk Of Magnesia Liq) 30 ml PO Q12H PRN PRN Reason: Mild Constipation Bisacodyl (Dulcolax Supp) 10 mg RECTAL DAILY PRN PRN Reason: SEVERE CONSITIPATION Flumazenil (Romazecon Inj) 0.2 mg IV.PUSH Q1M PRN PRN Reason: OVERSEDATION Haloperidol Lactate (Haldol Inj) 1 mg IV.PUSH Q15M PRN PRN Reason: for severe agitation Amiodarone HCl 450 mg/ (Dextrose) 250 mls @ 33.33 mls/hr IV.CONT TITRATE PRN; Protocol PRN Reason: Per Protocol Last Admin: 12/10/17 12:30 Dose: 0.5 mg/min, 16.66 mls/hr Piperacillin/Tazobactam/Dextrose (Zosyn 4.5 Gm Premix) 4.5 gm in 100 mls @ 200 mls/hr IV.SIG Q8H SRAVAN Last Infusion: 12/10/17 12:23 Dose: Infused Sodium Bicarbonate 150 meq/ (Dextrose) 1,000 mls @ 84 mls/hr IV.CONT .[id number] SRAVAN Last Admin: 12/10/17 12:02 Dose: 84 mls/hr Lactulose (Lactulose Liq) 30 ml PO DAILY PRN PRN Reason: SEVERE CONSITIPATION Lactulose (Lactulose Liq) 30 ml PO BID SRAVAN Lorazepam (Ativan) 1 mg PO Q4H PRN PRN Reason: for CIWA 8-10 Last Admin: 12/09/17 21:25 Dose: 1 mg Lorazepam (Ativan) 2 mg PO Q2H PRN PRN Reason: for CIWA 11-14 Lorazepam (Ativan Inj) 2 mg IV.PUSH Q2H PRN PRN Reason: for CIWA 11-14 Last Admin: 12/10/17 04:31 Dose: 2 mg Lorazepam (Ativan Inj) 2 mg IV.PUSH Q1H PRN PRN Reason: for CIWA 15-20 Lorazepam (Ativan Inj) 2 mg IV.PUSH Q15M PRN PRN Reason: for CIWA > 20 Lorazepam (Ativan Inj) 1 mg IV.PUSH Q4H PRN PRN Reason: for CIWA 8-10 Methylprednisolone Sodium Succinate (Solumedrol Inj) 40 mg IV.PUSH Q6H [facility] Last Admin: 12/10/17 11:30 Dose: 40 mg Multivitamins (Theragran) 1 tab PO DAILY [facility] Last Admin: 12/10/17 12:13 Dose: Not Given Pentoxifylline (Trental Sr) 400 mg PO TID SRAVAN Prochlorperazine Edisylate (Compazine Inj) 5 mg IV.PUSH Q4H PRN PRN Reason: NAUSEA OR VOMITING Last Admin: 12/10/17 00:13 Dose: 5 mg Rifaximin (Xifaxan) 550 mg PO Q12HR [facility] Sennosides (Senokot) 17.2 mg PO Q12H PRN PRN Reason: Moderate Constipation Sodium Chloride (Ns Flush) 2 ml IV.FLUSH UNSCH PRN PRN Reason: FLUSH AFTER USING IV ACCESS Thiamine HCl (Vitamin B1) 100 mg PO BID [facility] Last Admin: 12/10/17 12:13 Dose: Not Given <Yanna Huynh - Last Filed: 12/10/17 14:35> Active Medications: Active Medications Al Hydroxide/Mg Hydroxide (Milk Of Saadia Liq) 30 ml PO Q12H PRN PRN Reason: Mild Constipation Albuterol (Duoneb Neb (Sravan)) 1 ampul NEB Q6HR NEB SRAVAN Albuterol (Duoneb Neb (Prn)) 1 ampul NEB Q2HR NEB PRN PRN Reason: SHORTNESS OF BREATH Last Admin: 12/10/17 17:56 Dose: 1 ampul Bisacodyl (Dulcolax Supp) 10 mg RECTAL DAILY PRN PRN Reason: SEVERE CONSITIPATION Carvedilol (Coreg) 3.125 mg PO BID [facility] Flumazenil (Romazecon Inj) 0.2 mg IV.PUSH Q1M PRN PRN Reason: OVERSEDATION Haloperidol Lactate (Haldol Inj) 1 mg IV.PUSH Q15M PRN PRN Reason: for severe agitation Amiodarone HCl 450 mg/ (Dextrose) 250 mls @ 33.33 mls/hr IV.CONT TITRATE PRN; Protocol PRN Reason: Per Protocol Last Admin: 12/10/17 12:30 Dose: 0.5 mg/min, 16.66 mls/hr Sodium Bicarbonate 150 meq/ (Dextrose) 1,000 mls @ 50 mls/hr IV.CONT .Q20H [facility] Last Admin: 12/10/17 12:02 Dose: 84 mls/hr Piperacillin/Tazobactam/Dextrose (Zosyn 3.375 Gm Premix) 50 mls @ 100 mls/hr IV.SIG Q8H [facility] Esmolol HCl (Brevibloc 2,500 Mg/Ns 250 Ml Premix) 2,500 mg in 250 mls @ 23.1 mls/hr IV.CONT TITRATE PRN; Protocol PRN Reason: Per Protocol Lactulose (Lactulose Liq) 30 ml PO BID [facility] Methylprednisolone Sodium Succinate (Solumedrol Inj) 40 mg IV.PUSH Q6H [facility] Last Admin: 12/10/17 17:00 Dose: 40 mg Multivitamins (Theragran) 1 tab PO DAILY [facility] Last Admin: 12/10/17 12:13 Dose: Not Given Pentoxifylline (Trental Sr) 400 mg PO TID [facility] Last Admin: 12/10/17 18:02 Dose: 400 mg Prochlorperazine Edisylate (Compazine Inj) 5 mg IV.PUSH Q4H PRN PRN Reason: NAUSEA OR VOMITING Last Admin: 12/10/17 00:13 Dose: 5 mg Rifaximin (Xifaxan) 550 mg PO Q12HR [facility] Sennosides (Senokot) 17.2 mg PO Q12H PRN PRN Reason: Moderate Constipation Sodium Chloride (Ns Flush) 2 ml IV.FLUSH UNSCH PRN PRN Reason: FLUSH AFTER USING IV ACCESS Thiamine HCl (Vitamin B1) 100 mg PO BID [facility] Last Admin: 12/10/17 12:13 Dose: Not Given <Bree Lofton - Last Filed: 12/10/17 18:15> Allergies Allergy/AdvReac Type Severity Reaction Status Date / Time No Known Allergies Allergy Verified 12/09/17 12:23 Home Medications Medication Instructions Recorded Confirmed Type No Known Home Medications 12/09/17 12/09/17 History Exam Vital signs: Vital Signs 12/09/17 13:28 12/09/17 14:05 12/09/17 15:39 Temperature Pulse Rate 112 H 112 H 105 H Respiratory Rate 20 16 Blood Pressure 142/93 H 142/93 H 105/64 Pulse Oximetry 99 99 12/09/17 20:00 12/10/17 00:00 12/10/17 03:00 Temperature 97.6 F 97.5 F L Pulse Rate 100 H 100 H 101 H Respiratory Rate 16 16 Blood Pressure 121/82 115/82 Pulse Oximetry 100 100 12/10/17 04:00 12/10/17 05:00 12/10/17 06:00 Temperature 97.3 F L Pulse Rate 102 H 100 H 100 H Respiratory Rate 16 Blood Pressure 112/68 Pulse Oximetry 100 12/10/17 07:00 12/10/17 08:00 12/10/17 09:00 Temperature 97.6 F Pulse Rate 100 H 100 H 100 H Respiratory Rate 24 Blood Pressure 114/70 Pulse Oximetry 100 12/10/17 09:43 12/10/17 10:00 12/10/17 10:05 Temperature Pulse Rate 110 H Respiratory Rate Blood Pressure Pulse Oximetry 98 90 L Intake & Output 12/09/17 12/10/17 12/10/17 18:59 06:59 18:59 Intake Total 1240 / 1240 350 / 350 Output Total 400 / 400 Balance 1240 / 1240 -400 / -400 350 / 350 Weight 77.111 kg 77 kg Intake: IV 1000 / 1000 350 / 350 Cordarone Inj 450 MG In D5W Inj 250 / 250 241 ML @ 1 MG/MIN 33.33 mls/hr IV.CONT TITRATE PRN Rx#: [id number] Zosyn 4.5 GM Premix 4.5 gm In 100 / 100 100 ml @ 200 mls/hr IV.SIG Q8H SRAVAN Rx#:[id number] NS Inj 1,000 ML @ Wide Open IV. 1000 / 1000 SIG BOLUS ONE Rx#:[id number] Oral 240 / 240 Output: Urine 400 / 400 - Constitutional somnolent - Routine HEENT Exam Head: Present: normocephalic, atraumatic Eye: Present: conjunctival icterus - Routine Respiratory Exam Absent: accessory muscle use - Routine Abdominal Exam Present: soft, normoactive bowel sounds, distended - Routine Skin Exam Present: dry, warm <Yanna Huynh - Last Filed: 12/10/17 14:35> Vital signs: Vital Signs 12/09/17 20:00 12/10/17 00:00 12/10/17 03:00 Temperature 97.6 F 97.5 F L Pulse Rate 100 H 100 H 101 H Respiratory Rate 16 16 Blood Pressure 121/82 115/82 Pulse Oximetry 100 100 12/10/17 04:00 12/10/17 05:00 12/10/17 06:00 Temperature 97.3 F L Pulse Rate 102 H 100 H 100 H Respiratory Rate 16 Blood Pressure 112/68 Pulse Oximetry 100 12/10/17 07:00 12/10/17 08:00 12/10/17 09:00 Temperature 97.6 F Pulse Rate 100 H 100 H 100 H Respiratory Rate 24 Blood Pressure 114/70 Pulse Oximetry 100 12/10/17 09:43 12/10/17 10:00 12/10/17 10:05 Temperature Pulse Rate 110 H Respiratory Rate Blood Pressure Pulse Oximetry 98 90 L 12/10/17 16:11 12/10/17 17:56 Temperature Pulse Rate 93 H Respiratory Rate 24 Blood Pressure Pulse Oximetry 97 Intake & Output 12/09/17 12/10/17 12/10/17 18:59 06:59 18:59 Intake Total 1240 / 1240 350 / 350 Output Total 400 / 400 Balance 1240 / 1240 -400 / -400 350 / 350 Weight 77.111 kg 77 kg Intake: IV 1000 / 1000 350 / 350 Cordarone Inj 450 MG In D5W Inj 250 / 250 241 ML @ 1 MG/MIN 33.33 mls/hr IV.CONT TITRATE PRN Rx#: [id number] Zosyn 4.5 GM Premix 4.5 gm In 100 / 100 100 ml @ 200 mls/hr IV.SIG Q8H SRAVAN Rx#:[id number] NS Inj 1,000 ML @ Wide Open IV. 1000 / 1000 SIG BOLUS ONE Rx#:[id number] Oral 240 / 240 Output: Urine 400 / 400 Other: Date of Last Bowel Movement 12/10/17 <Bree Lofton - Last Filed: 12/10/17 18:15> Results - Labs CBC & Chem 7: 12/10/17 02:52 12/10/17 09:21 Labs: Laboratory Results - last 24 hr 12/09/17 12/09/17 12/09/17 04:44 11:30 14:28 WBC RBC Hgb Hct MCV MCH MCHC RDW Plt Count MPV Prelim Diff (Auto) Neut % (Auto) Lymph % (Auto) [place] % (Auto) Eos % (Auto) Baso % (Auto) Neut # (Auto) Lymph # (Auto) [place] # (Auto) Eos # (Auto) Baso # (Auto) WBC Differential Diff Scan Differential Comment Platelet Estimate Platelet Morphology PT INR Puncture Site Patient Temperature O2 Saturation ABG pH ABG pCO2 ABG pO2 ABG HCO3 ABG O2 Content ABG Base Excess ABG Methemoglobin Cornelio Test Hemoglobin Carboxyhemoglobin O2 Delivery Device Inspired O2 Critical Value Sodium Potassium Chloride Carbon Dioxide Anion Gap BUN Creatinine Estimated GFR POC Glucose 73 Random Glucose Osmolality Lactic Acid Calcium Total Bilirubin Direct Bilirubin Indirect Bilirubin AST ALT Alkaline Phosphatase Total Creatine Kinase CK-MB (CK-2) CK-MB (CK-2) % Troponin I B-Natriuretic Peptide 490 H Total Protein Albumin Vitamin B12 Folate TSH Cortisol Urine Color Fide Urine Clarity Cloudy H Urine pH 5.0 Ur Specific [place] 1.018 Urine Protein 100 H Urine Glucose (UA) 50 Urine Ketones Trace Urine Occult Blood Moderate H Urine Nitrate Negative Urine Bilirubin Negative Urine Urobilinogen 4 or greater Ur Leukocyte Esterase Negative Urine RBC 3 Urine WBC 3 Ur Squamous Epith Cells <1 Amorphous Sediment Rare H Urine Bacteria Rare H Hyaline Casts 57 Urine Mucus Few H Micro UA Comment Cath-culture ind Urine Culture Comments Cath-cult indicated Urine Opiates Screen Ur Barbiturates Screen Ur Amphetamines Screen U Benzodiazepines Scrn Urine Cocaine Screen U Cannabinoids Screen Hepatitis A IgM Ab Hep Bs Antigen Hep B Core IgM Ab Hep C IgG Ab 12/09/17 12/09/17 12/09/17 15:54 18:42 20:28 WBC RBC Hgb Hct MCV MCH MCHC RDW Plt Count MPV Prelim Diff (Auto) Neut % (Auto) Lymph % (Auto) [place] % (Auto) Eos % (Auto) Baso % (Auto) Neut # (Auto) Lymph # (Auto) [place] # (Auto) Eos # (Auto) Baso # (Auto) WBC Differential Diff Scan Differential Comment Platelet Estimate Platelet Morphology PT INR Puncture Site Patient Temperature O2 Saturation ABG pH ABG pCO2 ABG pO2 ABG HCO3 ABG O2 Content ABG Base Excess ABG Methemoglobin Cornelio Test Hemoglobin Carboxyhemoglobin O2 Delivery Device Inspired O2 Critical Value Sodium Potassium Chloride Carbon Dioxide Anion Gap BUN Creatinine Estimated GFR POC Glucose 73 Random Glucose Osmolality Lactic Acid Calcium Total Bilirubin Direct Bilirubin Indirect Bilirubin AST ALT Alkaline Phosphatase Total Creatine Kinase 323 H CK-MB (CK-2) 7.7 H CK-MB (CK-2) % 2.4 Troponin I 0.36 H B-Natriuretic Peptide Total Protein Albumin Vitamin B12 Folate TSH Cortisol 71.9 Urine Color Urine Clarity Urine pH Ur Specific [place] Urine Protein Urine Glucose (UA) Urine Ketones Urine Occult Blood Urine Nitrate Urine Bilirubin Urine Urobilinogen Ur Leukocyte Esterase Urine RBC Urine WBC Ur Squamous Epith Cells Amorphous Sediment Urine Bacteria Hyaline Casts Urine Mucus Micro UA Comment Urine Culture Comments Urine Opiates Screen Ur Barbiturates Screen Ur Amphetamines Screen U Benzodiazepines Scrn Urine Cocaine Screen U Cannabinoids Screen Hepatitis A IgM Ab Hep Bs Antigen Hep B Core IgM Ab Hep C IgG Ab 12/09/17 12/09/17 12/10/17 20:28 23:55 02:02 WBC RBC Hgb Hct MCV MCH MCHC RDW Plt Count MPV Prelim Diff (Auto) Neut % (Auto) Lymph % (Auto) [place] % (Auto) Eos % (Auto) Baso % (Auto) Neut # (Auto) Lymph # (Auto) [place] # (Auto) Eos # (Auto) Baso # (Auto) WBC Differential Diff Scan Differential Comment Platelet Estimate Platelet Morphology PT INR Puncture Site Left radial Patient Temperature 98.6 O2 Saturation 94 ABG pH 7.25 L* ABG pCO2 19 L* ABG pO2 96 ABG HCO3 8 L* ABG O2 Content 19.1 ABG Base Excess -18.0 L ABG Methemoglobin 1.3 Cornelio Test Y Hemoglobin 14.4 Carboxyhemoglobin 0.7 O2 Delivery Device Room air Inspired O2 21 Critical Value Yes Sodium 141 Potassium 5.3 H D Chloride 110 H Carbon Dioxide 7.9 L Anion Gap 23 H BUN 32 H Creatinine 2.52 H Estimated GFR 25 L POC Glucose Random Glucose 89 Osmolality Lactic Acid 12.1 H* Calcium 8.9 Total Bilirubin 5.4 H Direct Bilirubin 3.5 H Indirect Bilirubin 1.9 H AST 892 H ALT 399 H Alkaline Phosphatase 101 Total Creatine Kinase CK-MB (CK-2) CK-MB (CK-2) % Troponin I B-Natriuretic Peptide Total Protein 7.4 Albumin 3.0 L Vitamin B12 Folate TSH 6.680 H Cortisol Urine Color Urine Clarity Urine pH Ur Specific [place] Urine Protein Urine Glucose (UA) Urine Ketones Urine Occult Blood Urine Nitrate Urine Bilirubin Urine Urobilinogen Ur Leukocyte Esterase Urine RBC Urine WBC Ur Squamous Epith Cells Amorphous Sediment Urine Bacteria Hyaline Casts Urine Mucus Micro UA Comment Urine Culture Comments Urine Opiates Screen Ur Barbiturates Screen Ur Amphetamines Screen U Benzodiazepines Scrn Urine Cocaine Screen U Cannabinoids Screen Hepatitis A IgM Ab Hep Bs Antigen Hep B Core IgM Ab Hep C IgG Ab 12/10/17 12/10/17 12/10/17 02:52 02:52 02:52 WBC 14.0 H D RBC 4.12 L Hgb 14.8 D Hct 47.8 MCV 116.2 H D MCH 36.0 H MCHC 31.0 L RDW 16.3 Plt Count 97 L MPV 9.8 Prelim Diff (Auto) Slide review pending Neut % (Auto) 81.2 H Lymph % (Auto) 9.2 [place] % (Auto) 9.3 H Eos % (Auto) 0.0 Baso % (Auto) 0.3 Neut # (Auto) 11.4 H Lymph # (Auto) 1.3 [place] # (Auto) 1.3 H Eos # (Auto) 0.0 Baso # (Auto) 0.0 WBC Differential . Diff Scan Auto diff confirmed Differential Comment . Platelet Estimate Low L Platelet Morphology Normal PT INR Puncture Site Patient Temperature O2 Saturation ABG pH ABG pCO2 ABG pO2 ABG HCO3 ABG O2 Content ABG Base Excess ABG Methemoglobin Cornelio Test Hemoglobin Carboxyhemoglobin O2 Delivery Device Inspired O2 Critical Value Sodium 143 Potassium 6.2 H D Chloride 109 H Carbon Dioxide 9.4 L Anion Gap 25 H BUN 36 H Creatinine 2.80 H Estimated GFR 23 L POC Glucose Random Glucose 92 Osmolality Lactic Acid Calcium 8.8 Total Bilirubin 6.2 H Direct Bilirubin Indirect Bilirubin AST 2148 H ALT 791 H Alkaline Phosphatase 104 Total Creatine Kinase CK-MB (CK-2) CK-MB (CK-2) % Troponin I 0.41 H B-Natriuretic Peptide 741 H Total Protein 7.1 Albumin 3.7 D Vitamin B12 Folate TSH Cortisol Urine Color Urine Clarity Urine pH Ur Specific [place] Urine Protein Urine Glucose (UA) Urine Ketones Urine Occult Blood Urine Nitrate Urine Bilirubin Urine Urobilinogen Ur Leukocyte Esterase Urine RBC Urine WBC Ur Squamous Epith Cells Amorphous Sediment Urine Bacteria Hyaline Casts Urine Mucus Micro UA Comment Urine Culture Comments Urine Opiates Screen Ur Barbiturates Screen Ur Amphetamines Screen U Benzodiazepines Scrn Urine Cocaine Screen U Cannabinoids Screen Hepatitis A IgM Ab Hep Bs Antigen Hep B Core IgM Ab Hep C IgG Ab 12/10/17 12/10/17 12/10/17 02:52 04:41 04:41 WBC RBC Hgb Hct MCV MCH MCHC RDW Plt Count MPV Prelim Diff (Auto) Neut % (Auto) Lymph % (Auto) [place] % (Auto) Eos % (Auto) Baso % (Auto) Neut # (Auto) Lymph # (Auto) [place] # (Auto) Eos # (Auto) Baso # (Auto) WBC Differential Diff Scan Differential Comment Platelet Estimate Platelet Morphology PT 28.4 H D INR 2.8 Puncture Site Patient Temperature O2 Saturation ABG pH ABG pCO2 ABG pO2 ABG HCO3 ABG O2 Content ABG Base Excess ABG Methemoglobin Cornelio Test Hemoglobin Carboxyhemoglobin O2 Delivery Device Inspired O2 Critical Value Sodium Potassium Chloride Carbon Dioxide Anion Gap BUN Creatinine Estimated GFR POC Glucose Random Glucose Osmolality 323 H Lactic Acid 10.6 H* Calcium Total Bilirubin Direct Bilirubin Indirect Bilirubin AST ALT Alkaline Phosphatase Total Creatine Kinase CK-MB (CK-2) CK-MB (CK-2) % Troponin I B-Natriuretic Peptide Total Protein Albumin Vitamin B12 Folate TSH Cortisol Urine Color Urine Clarity Urine pH Ur Specific [place] Urine Protein Urine Glucose (UA) Urine Ketones Urine Occult Blood Urine Nitrate Urine Bilirubin Urine Urobilinogen Ur Leukocyte Esterase Urine RBC Urine WBC Ur Squamous Epith Cells Amorphous Sediment Urine Bacteria Hyaline Casts Urine Mucus Micro UA Comment Urine Culture Comments Urine Opiates Screen Ur Barbiturates Screen Ur Amphetamines Screen U Benzodiazepines Scrn Urine Cocaine Screen U Cannabinoids Screen Hepatitis A IgM Ab Hep Bs Antigen Hep B Core IgM Ab Hep C IgG Ab 12/10/17 12/10/17 12/10/17 04:44 09:21 09:21 WBC RBC Hgb Hct MCV MCH MCHC RDW Plt Count MPV Prelim Diff (Auto) Neut % (Auto) Lymph % (Auto) [place] % (Auto) Eos % (Auto) Baso % (Auto) Neut # (Auto) Lymph # (Auto) [place] # (Auto) Eos # (Auto) Baso # (Auto) WBC Differential Diff Scan Differential Comment Platelet Estimate Platelet Morphology PT INR Puncture Site Patient Temperature O2 Saturation ABG pH ABG pCO2 ABG pO2 ABG HCO3 ABG O2 Content ABG Base Excess ABG Methemoglobin Cornelio Test Hemoglobin Carboxyhemoglobin O2 Delivery Device Inspired O2 Critical Value Sodium 142 Potassium 4.6 D Chloride 109 H Carbon Dioxide 20.2 L D Anion Gap 13 BUN 42 H Creatinine 2.48 H Estimated GFR 26 L POC Glucose Random Glucose 183 H Osmolality Lactic Acid Calcium 7.8 L D Total Bilirubin Direct Bilirubin Indirect Bilirubin AST ALT Alkaline Phosphatase Total Creatine Kinase CK-MB (CK-2) CK-MB (CK-2) % Troponin I B-Natriuretic Peptide Total Protein Albumin Vitamin B12 Folate TSH Cortisol Urine Color Urine Clarity Urine pH Ur Specific [place] Urine Protein Urine Glucose (UA) Urine Ketones Urine Occult Blood Urine Nitrate Urine Bilirubin Urine Urobilinogen Ur Leukocyte Esterase Urine RBC Urine WBC Ur Squamous Epith Cells Amorphous Sediment Urine Bacteria Hyaline Casts Urine Mucus Micro UA Comment Urine Culture Comments Urine Opiates Screen Neg Ur Barbiturates Screen Neg Ur Amphetamines Screen Neg U Benzodiazepines Scrn Pos H Urine Cocaine Screen Neg U Cannabinoids Screen Neg Hepatitis A IgM Ab Nonreactive Hep Bs Antigen Nonreactive Hep B Core IgM Ab Nonreactive Hep C IgG Ab Reactive H 12/10/17 09:21 WBC RBC Hgb Hct MCV MCH MCHC RDW Plt Count MPV Prelim Diff (Auto) Neut % (Auto) Lymph % (Auto) [place] % (Auto) Eos % (Auto) Baso % (Auto) Neut # (Auto) Lymph # (Auto) [place] # (Auto) Eos # (Auto) Baso # (Auto) WBC Differential Diff Scan Differential Comment Platelet Estimate Platelet Morphology PT INR Puncture Site Patient Temperature O2 Saturation ABG pH ABG pCO2 ABG pO2 ABG HCO3 ABG O2 Content ABG Base Excess ABG Methemoglobin Cornelio Test Hemoglobin Carboxyhemoglobin O2 Delivery Device Inspired O2 Critical Value Sodium Potassium Chloride Carbon Dioxide Anion Gap BUN Creatinine Estimated GFR POC Glucose Random Glucose Osmolality Lactic Acid Calcium Total Bilirubin Direct Bilirubin Indirect Bilirubin AST ALT Alkaline Phosphatase Total Creatine Kinase 628 H CK-MB (CK-2) 17.2 H CK-MB (CK-2) % 2.7 Troponin I B-Natriuretic Peptide Total Protein Albumin Vitamin B12 Greater than 2000 H Folate Greater than 20.0 H TSH Cortisol Urine Color Urine Clarity Urine pH Ur Specific [place] Urine Protein Urine Glucose (UA) Urine Ketones Urine Occult Blood Urine Nitrate Urine Bilirubin Urine Urobilinogen Ur Leukocyte Esterase Urine RBC Urine WBC Ur Squamous Epith Cells Amorphous Sediment Urine Bacteria Hyaline Casts Urine Mucus Micro UA Comment Urine Culture Comments Urine Opiates Screen Ur Barbiturates Screen Ur Amphetamines Screen U Benzodiazepines Scrn Urine Cocaine Screen U Cannabinoids Screen Hepatitis A IgM Ab Hep Bs Antigen Hep B Core IgM Ab Hep C IgG Ab - Imaging Impressions Abdomen/Bladder Ultrasound 12/09/17 00:00 CONCLUSION: 1. Mild right-sided hydronephrosis. Mild ascites and bilateral pleural effusions. <Yanna Huynh - Last Filed: 12/10/17 14:35> - Labs CBC & Chem 7: 12/10/17 02:52 12/10/17 09:21 Labs: Laboratory Results - last 24 hr 12/09/17 12/09/17 12/09/17 04:44 18:42 20:28 WBC RBC Hgb Hct MCV MCH MCHC RDW Plt Count MPV Prelim Diff (Auto) Neut % (Auto) Lymph % (Auto) [place] % (Auto) Eos % (Auto) Baso % (Auto) Neut # (Auto) Lymph # (Auto) [place] # (Auto) Eos # (Auto) Baso # (Auto) WBC Differential Diff Scan Differential Comment Platelet Estimate Platelet Morphology PT INR APTT Puncture Site Patient Temperature O2 Saturation ABG pH ABG pCO2 ABG pO2 ABG HCO3 ABG O2 Content ABG Base Excess ABG Methemoglobin Cornelio Test Hemoglobin Carboxyhemoglobin O2 Delivery Device Liter Flow Inspired O2 Critical Value Sodium Potassium Chloride Carbon Dioxide Anion Gap BUN Creatinine Estimated GFR POC Glucose Random Glucose Osmolality Lactic Acid Calcium Iron TIBC % Saturation Ferritin Total Bilirubin Direct Bilirubin Indirect Bilirubin AST ALT Alkaline Phosphatase Ammonia Total Creatine Kinase 323 H CK-MB (CK-2) 7.7 H CK-MB (CK-2) % 2.4 Troponin I 0.36 H B-Natriuretic Peptide Total Protein Albumin Vitamin B12 Folate TSH Cortisol 71.9 Urine Color Fide Urine Clarity Cloudy H Urine pH 5.0 Ur Specific [place] 1.018 Urine Protein 100 H Urine Glucose (UA) 50 Urine Ketones Trace Urine Occult Blood Moderate H Urine Nitrate Negative Urine Bilirubin Negative Urine Urobilinogen 4 or greater Ur Leukocyte Esterase Negative Urine RBC 3 Urine WBC 3 Ur Squamous Epith Cells <1 Amorphous Sediment Rare H Urine Bacteria Rare H Hyaline Casts 57 Urine Mucus Few H Micro UA Comment Cath-culture ind Urine Culture Comments Cath-cult indicated Urine Opiates Screen Acetaminophen Ur Barbiturates Screen Ur Amphetamines Screen U Benzodiazepines Scrn Urine Cocaine Screen U Cannabinoids Screen Hepatitis A IgM Ab Hep Bs Antigen Hep B Core IgM Ab Hep C IgG Ab 12/09/17 12/09/17 12/10/17 20:28 23:55 02:02 WBC RBC Hgb Hct MCV MCH MCHC RDW Plt Count MPV Prelim Diff (Auto) Neut % (Auto) Lymph % (Auto) [place] % (Auto) Eos % (Auto) Baso % (Auto) Neut # (Auto) Lymph # (Auto) [place] # (Auto) Eos # (Auto) Baso # (Auto) WBC Differential Diff Scan Differential Comment Platelet Estimate Platelet Morphology PT INR APTT Puncture Site Left radial Patient Temperature 98.6 O2 Saturation 94 ABG pH 7.25 L* ABG pCO2 19 L* ABG pO2 96 ABG HCO3 8 L* ABG O2 Content 19.1 ABG Base Excess -18.0 L ABG Methemoglobin 1.3 Cornelio Test Y Hemoglobin 14.4 Carboxyhemoglobin 0.7 O2 Delivery Device Room air Liter Flow Inspired O2 21 Critical Value Yes Sodium 141 Potassium 5.3 H D Chloride 110 H Carbon Dioxide 7.9 L Anion Gap 23 H BUN 32 H Creatinine 2.52 H Estimated GFR 25 L POC Glucose Random Glucose 89 Osmolality Lactic Acid 12.1 H* Calcium 8.9 Iron TIBC % Saturation Ferritin Total Bilirubin 5.4 H Direct Bilirubin 3.5 H Indirect Bilirubin 1.9 H AST 892 H ALT 399 H Alkaline Phosphatase 101 Ammonia Total Creatine Kinase CK-MB (CK-2) CK-MB (CK-2) % Troponin I B-Natriuretic Peptide Total Protein 7.4 Albumin 3.0 L Vitamin B12 Folate TSH 6.680 H Cortisol Urine Color Urine Clarity Urine pH Ur Specific [place] Urine Protein Urine Glucose (UA) Urine Ketones Urine Occult Blood Urine Nitrate Urine Bilirubin Urine Urobilinogen Ur Leukocyte Esterase Urine RBC Urine WBC Ur Squamous Epith Cells Amorphous Sediment Urine Bacteria Hyaline Casts Urine Mucus Micro UA Comment Urine Culture Comments Urine Opiates Screen Acetaminophen Ur Barbiturates Screen Ur Amphetamines Screen U Benzodiazepines Scrn Urine Cocaine Screen U Cannabinoids Screen Hepatitis A IgM Ab Hep Bs Antigen Hep B Core IgM Ab Hep C IgG Ab 12/10/17 12/10/17 12/10/17 02:52 02:52 02:52 WBC 14.0 H D RBC 4.12 L Hgb 14.8 D Hct 47.8 MCV 116.2 H D MCH 36.0 H MCHC 31.0 L RDW 16.3 Plt Count 97 L MPV 9.8 Prelim Diff (Auto) Slide review pending Neut % (Auto) 81.2 H Lymph % (Auto) 9.2 [place] % (Auto) 9.3 H Eos % (Auto) 0.0 Baso % (Auto) 0.3 Neut # (Auto) 11.4 H Lymph # (Auto) 1.3 [place] # (Auto) 1.3 H Eos # (Auto) 0.0 Baso # (Auto) 0.0 WBC Differential . Diff Scan Auto diff confirmed Differential Comment . Platelet Estimate Low L Platelet Morphology Normal PT INR APTT Puncture Site Patient Temperature O2 Saturation ABG pH ABG pCO2 ABG pO2 ABG HCO3 ABG O2 Content ABG Base Excess ABG Methemoglobin Cornelio Test Hemoglobin Carboxyhemoglobin O2 Delivery Device Liter Flow Inspired O2 Critical Value Sodium 143 Potassium 6.2 H D Chloride 109 H Carbon Dioxide 9.4 L Anion Gap 25 H BUN 36 H Creatinine 2.80 H Estimated GFR 23 L POC Glucose Random Glucose 92 Osmolality Lactic Acid Calcium 8.8 Iron TIBC % Saturation Ferritin Total Bilirubin 6.2 H Direct Bilirubin Indirect Bilirubin AST 2148 H ALT 791 H Alkaline Phosphatase 104 Ammonia Total Creatine Kinase CK-MB (CK-2) CK-MB (CK-2) % Troponin I 0.41 H B-Natriuretic Peptide 741 H Total Protein 7.1 Albumin 3.7 D Vitamin B12 Folate TSH Cortisol Urine Color Urine Clarity Urine pH Ur Specific [place] Urine Protein Urine Glucose (UA) Urine Ketones Urine Occult Blood Urine Nitrate Urine Bilirubin Urine Urobilinogen Ur Leukocyte Esterase Urine RBC Urine WBC Ur Squamous Epith Cells Amorphous Sediment Urine Bacteria Hyaline Casts Urine Mucus Micro UA Comment Urine Culture Comments Urine Opiates Screen Acetaminophen Ur Barbiturates Screen Ur Amphetamines Screen U Benzodiazepines Scrn Urine Cocaine Screen U Cannabinoids Screen Hepatitis A IgM Ab Hep Bs Antigen Hep B Core IgM Ab Hep C IgG Ab 12/10/17 12/10/17 12/10/17 02:52 04:41 04:41 WBC RBC Hgb Hct MCV MCH MCHC RDW Plt Count MPV Prelim Diff (Auto) Neut % (Auto) Lymph % (Auto) [place] % (Auto) Eos % (Auto) Baso % (Auto) Neut # (Auto) Lymph # (Auto) [place] # (Auto) Eos # (Auto) Baso # (Auto) WBC Differential Diff Scan Differential Comment Platelet Estimate Platelet Morphology PT 28.4 H D INR 2.8 APTT Puncture Site Patient Temperature O2 Saturation ABG pH ABG pCO2 ABG pO2 ABG HCO3 ABG O2 Content ABG Base Excess ABG Methemoglobin Cornelio Test Hemoglobin Carboxyhemoglobin O2 Delivery Device Liter Flow Inspired O2 Critical Value Sodium Potassium Chloride Carbon Dioxide Anion Gap BUN Creatinine Estimated GFR POC Glucose Random Glucose Osmolality 323 H Lactic Acid 10.6 H* Calcium Iron TIBC % Saturation Ferritin Total Bilirubin Direct Bilirubin Indirect Bilirubin AST ALT Alkaline Phosphatase Ammonia Total Creatine Kinase CK-MB (CK-2) CK-MB (CK-2) % Troponin I B-Natriuretic Peptide Total Protein Albumin Vitamin B12 Folate TSH Cortisol Urine Color Urine Clarity Urine pH Ur Specific [place] Urine Protein Urine Glucose (UA) Urine Ketones Urine Occult Blood Urine Nitrate Urine Bilirubin Urine Urobilinogen Ur Leukocyte Esterase Urine RBC Urine WBC Ur Squamous Epith Cells Amorphous Sediment Urine Bacteria Hyaline Casts Urine Mucus Micro UA Comment Urine Culture Comments Urine Opiates Screen Acetaminophen Ur Barbiturates Screen Ur Amphetamines Screen U Benzodiazepines Scrn Urine Cocaine Screen U Cannabinoids Screen Hepatitis A IgM Ab Hep Bs Antigen Hep B Core IgM Ab Hep C IgG Ab 12/10/17 12/10/17 12/10/17 04:44 09:21 09:21 WBC RBC Hgb Hct MCV MCH MCHC RDW Plt Count MPV Prelim Diff (Auto) Neut % (Auto) Lymph % (Auto) [place] % (Auto) Eos % (Auto) Baso % (Auto) Neut # (Auto) Lymph # (Auto) [place] # (Auto) Eos # (Auto) Baso # (Auto) WBC Differential Diff Scan Differential Comment Platelet Estimate Platelet Morphology PT INR APTT Puncture Site Patient Temperature O2 Saturation ABG pH ABG pCO2 ABG pO2 ABG HCO3 ABG O2 Content ABG Base Excess ABG Methemoglobin Cornelio Test Hemoglobin Carboxyhemoglobin O2 Delivery Device Liter Flow Inspired O2 Critical Value Sodium 142 Potassium 4.6 D Chloride 109 H Carbon Dioxide 20.2 L D Anion Gap 13 BUN 42 H Creatinine 2.48 H Estimated GFR 26 L POC Glucose Random Glucose 183 H Osmolality Lactic Acid Calcium 7.8 L D Iron TIBC % Saturation Ferritin Total Bilirubin Direct Bilirubin Indirect Bilirubin AST ALT Alkaline Phosphatase Ammonia Total Creatine Kinase CK-MB (CK-2) CK-MB (CK-2) % Troponin I B-Natriuretic Peptide Total Protein Albumin Vitamin B12 Folate TSH Cortisol Urine Color Urine Clarity Urine pH Ur Specific [place] Urine Protein Urine Glucose (UA) Urine Ketones Urine Occult Blood Urine Nitrate Urine Bilirubin Urine Urobilinogen Ur Leukocyte Esterase Urine RBC Urine WBC Ur Squamous Epith Cells Amorphous Sediment Urine Bacteria Hyaline Casts Urine Mucus Micro UA Comment Urine Culture Comments Urine Opiates Screen Neg Acetaminophen Ur Barbiturates Screen Neg Ur Amphetamines Screen Neg U Benzodiazepines Scrn Pos H Urine Cocaine Screen Neg U Cannabinoids Screen Neg Hepatitis A IgM Ab Nonreactive Hep Bs Antigen Nonreactive Hep B Core IgM Ab Nonreactive Hep C IgG Ab Reactive H 12/10/17 12/10/17 12/10/17 09:21 15:23 16:50 WBC RBC Hgb Hct MCV MCH MCHC RDW Plt Count MPV Prelim Diff (Auto) Neut % (Auto) Lymph % (Auto) [place] % (Auto) Eos % (Auto) Baso % (Auto) Neut # (Auto) Lymph # (Auto) [place] # (Auto) Eos # (Auto) Baso # (Auto) WBC Differential Diff Scan Differential Comment Platelet Estimate Platelet Morphology PT INR APTT Puncture Site Right radial Patient Temperature 98.6 O2 Saturation 93 ABG pH 7.39 ABG pCO2 33 L ABG pO2 80 ABG HCO3 20 L ABG O2 Content 18.1 ABG Base Excess -4.2 L ABG Methemoglobin 0.9 Cornelio Test Present Hemoglobin 13.8 Carboxyhemoglobin 1.3 O2 Delivery Device Nasal cannula Liter Flow 4.00 Inspired O2 21 Critical Value No Sodium Potassium Chloride Carbon Dioxide Anion Gap BUN Creatinine Estimated GFR POC Glucose Random Glucose Osmolality Lactic Acid Calcium Iron 116 TIBC 398 % Saturation 29.2 Ferritin 4137 H Total Bilirubin Direct Bilirubin Indirect Bilirubin AST ALT Alkaline Phosphatase Ammonia Total Creatine Kinase 628 H CK-MB (CK-2) 17.2 H CK-MB (CK-2) % 2.7 Troponin I B-Natriuretic Peptide Total Protein Albumin Vitamin B12 Greater than 2000 H Folate Greater than 20.0 H TSH Cortisol Urine Color Urine Clarity Urine pH Ur Specific [place] Urine Protein Urine Glucose (UA) Urine Ketones Urine Occult Blood Urine Nitrate Urine Bilirubin Urine Urobilinogen Ur Leukocyte Esterase Urine RBC Urine WBC Ur Squamous Epith Cells Amorphous Sediment Urine Bacteria Hyaline Casts Urine Mucus Micro UA Comment Urine Culture Comments Urine Opiates Screen Acetaminophen Ur Barbiturates Screen Ur Amphetamines Screen U Benzodiazepines Scrn Urine Cocaine Screen U Cannabinoids Screen Hepatitis A IgM Ab Hep Bs Antigen Hep B Core IgM Ab Hep C IgG Ab 12/10/17 12/10/17 12/10/17 17:09 17:09 17:09 WBC RBC Hgb Hct MCV MCH MCHC RDW Plt Count MPV Prelim Diff (Auto) Neut % (Auto) Lymph % (Auto) [place] % (Auto) Eos % (Auto) Baso % (Auto) Neut # (Auto) Lymph # (Auto) [place] # (Auto) Eos # (Auto) Baso # (Auto) WBC Differential Diff Scan Differential Comment Platelet Estimate Platelet Morphology PT INR APTT Puncture Site Patient Temperature O2 Saturation ABG pH ABG pCO2 ABG pO2 ABG HCO3 ABG O2 Content ABG Base Excess ABG Methemoglobin Cornelio Test Hemoglobin Carboxyhemoglobin O2 Delivery Device Liter Flow Inspired O2 Critical Value Sodium Potassium Chloride Carbon Dioxide Anion Gap BUN Creatinine Estimated GFR POC Glucose Random Glucose Osmolality Lactic Acid 3.6 H Calcium Iron TIBC % Saturation Ferritin Total Bilirubin Direct Bilirubin Indirect Bilirubin AST ALT Alkaline Phosphatase Ammonia 38 H Total Creatine Kinase CK-MB (CK-2) CK-MB (CK-2) % Troponin I B-Natriuretic Peptide Total Protein Albumin Vitamin B12 Folate TSH Cortisol Urine Color Urine Clarity Urine pH Ur Specific [place] Urine Protein Urine Glucose (UA) Urine Ketones Urine Occult Blood Urine Nitrate Urine Bilirubin Urine Urobilinogen Ur Leukocyte Esterase Urine RBC Urine WBC Ur Squamous Epith Cells Amorphous Sediment Urine Bacteria Hyaline Casts Urine Mucus Micro UA Comment Urine Culture Comments Urine Opiates Screen Acetaminophen Less than 2.0 L Ur Barbiturates Screen Ur Amphetamines Screen U Benzodiazepines Scrn Urine Cocaine Screen U Cannabinoids Screen Hepatitis A IgM Ab Hep Bs Antigen Hep B Core IgM Ab Hep C IgG Ab 12/10/17 12/10/17 17:09 18:03 WBC RBC Hgb Hct MCV MCH MCHC RDW Plt Count MPV Prelim Diff (Auto) Neut % (Auto) Lymph % (Auto) [place] % (Auto) Eos % (Auto) Baso % (Auto) Neut # (Auto) Lymph # (Auto) [place] # (Auto) Eos # (Auto) Baso # (Auto) WBC Differential Diff Scan Differential Comment Platelet Estimate Platelet Morphology PT 29.3 H INR 2.9 APTT 34.0 H D Puncture Site Patient Temperature O2 Saturation ABG pH ABG pCO2 ABG pO2 ABG HCO3 ABG O2 Content ABG Base Excess ABG Methemoglobin Cornelio Test Hemoglobin Carboxyhemoglobin O2 Delivery Device Liter Flow Inspired O2 Critical Value Sodium Potassium Chloride Carbon Dioxide Anion Gap BUN Creatinine Estimated GFR POC Glucose 119 H Random Glucose Osmolality Lactic Acid Calcium Iron TIBC % Saturation Ferritin Total Bilirubin Direct Bilirubin Indirect Bilirubin AST ALT Alkaline Phosphatase Ammonia Total Creatine Kinase CK-MB (CK-2) CK-MB (CK-2) % Troponin I B-Natriuretic Peptide Total Protein Albumin Vitamin B12 Folate TSH Cortisol Urine Color Urine Clarity Urine pH Ur Specific [place] Urine Protein Urine Glucose (UA) Urine Ketones Urine Occult Blood Urine Nitrate Urine Bilirubin Urine Urobilinogen Ur Leukocyte Esterase Urine RBC Urine WBC Ur Squamous Epith Cells Amorphous Sediment Urine Bacteria Hyaline Casts Urine Mucus Micro UA Comment Urine Culture Comments Urine Opiates Screen Acetaminophen Ur Barbiturates Screen Ur Amphetamines Screen U Benzodiazepines Scrn Urine Cocaine Screen U Cannabinoids Screen Hepatitis A IgM Ab Hep Bs Antigen Hep B Core IgM Ab Hep C IgG Ab - Imaging Impressions Chest X-Ray 12/10/17 00:00 CONCLUSION: Increasing bibasilar parenchymal changes much worse on the left. Developing pleural effusions. Liver Ultrasound 12/10/17 00:00 CONCLUSION: 1. Ultrasound findings suggesting some hepatic insufficiency. Liver is somewhat nodular with increased hepatic echotexture suggesting fatty infiltration/cirrhosis. 2. Abdominal ascites. Bilateral pleural effusions. 3. Mild pelvocaliectasis of the right renal collecting system. 4. Mild mural thickening of the gallbladder. This is nonspecific and may be secondary to passive congestion associated with the presumed hepatic insufficiency <Bree Lofton - Last Filed: 12/10/17 18:15> Assessment and Plan - Plan Assessment: - Elevated LFTs Labs consistent with cirrhosis. Hypoalbuminemia, coagulopathy, and thrombocytopenia Pt grunts but will not stay awake to answer any questions LFTs likely multifactorial given recent V tach, possibly shocked liver, also noted to have (+) Hep C antibody According to record, pt reported heavy drinking however according to admission note pt stated that he quit drinking 3 days prior to admission. Labs consistent with ETOH hepatitis Unsure of risk factors for Hepatitis C because pt unable to provide any history Unsure of any family history - V-tach in route to hospital- no response to Amiodarone- converted after cardioversion- cardiology following, planning on cardiac cath when creatinine improves Plan: [id number] agree with Methylprednisolone, will add Pentoxifylline STAT ammonia level Added Xifaxan and Lactulose- pt encephalopathic CHARIS, ASMA, AMA to r/o autoimmune etiology Iron profile to rule out hemochromatosis Ceruloplasmin to rule out Wilsons disease AAT to rule out deficiency Liver US Hep C antibody positive - ordered quant and genotype Pt may need NG tube if not taking PO and remains encephalopathic- discussed this with SHEILA Harper Alcohol withdraw protocol Further recommendations to follow Pt has been seen and examined by myself and Dr. Lofton and this note is written on her behalf <Yanna Huynh - Last Filed: 12/10/17 14:35> - Attending Attestation seen, examined agree with above lactulose/rifaximin if not able to take po insert ngt, lactulose enema <Bree Lofton - Last Filed: 12/10/17 18:15>
[2017-12-10] MEDS ORDERED: Diatrizoate Meglum/Diatrizoate Sod Liq 9 ML UDC PO ONE (13:48)
--- NOTE | 2017-12-10 14:27 | US ---
EXAM DATE: 12/10/2017 1:59 PM EDT AGE/SEX: 67 years / Male INDICATIONS: Abnormal labs. CLINICAL DATA: This is the patient's initial encounter. Patient reports that signs and symptoms have been present for 1 day and indicates a pain score of 0/10. MEDICAL/SURGICAL HISTORY: Hypertension. Gastroesophageal reflux disease. Cardiac issues. None . COMPARISON: [facility] [place], [place] KIDNEY/RENAL/BLADDER, 12/09/2017. . MEASUREMENTS: Liver:__ 16.5 cm. Common Bile Duct:__ 5mm. Right Kidney:__ 11.2 x 6.0 x 6.2 cm. FINDINGS: Liver: Liver is somewhat nodular with increased hepatic echotexture characteristic of some degree of fatty infiltration. Portal Vein: Hepatopedal flow seen in portal vein. Common Duct: No intraluminal mass or stone visualized. Gallbladder: Mural thickening measuring upwards of 5 mm in diameter. No gallstones or pericholecystic fluid, however Pancreas: The visualized portions are within normal limits Right Kidney: 2.2 cm midpole cyst. Suggestion of some mild pelvocaliectasis of the right renal colle cting system Other: Abdominal ascites. Bilateral pleural effusions. CONCLUSION: 1. Ultrasound findings suggesting some hepatic insufficiency. Liver is somewhat nodular with increas ed hepatic echotexture suggesting fatty infiltration/cirrhosis. 2. Abdominal ascites. Bilateral pleural effusions. 3. Mild pelvocaliectasis of the right renal collecting system. 4. Mild mural thickening of the gallbladder. This is nonspecific and may be secondary to passive con gestion associated with the presumed hepatic insufficiency Electronically signed by: Gilson Dumont MD 12/10/2017 2:25 PM EDT
--- NOTE | 2017-12-10 14:42 | ECHRPT ---
Indication: CARDIOMYOPATHY CONCLUSIONS The left ventricular systolic function is [id number] reduced with an estimated ejection fra ction in the range of 35-40%. Normal left ventricular size. Wall thickness is normal. No regional wall motion abnormalities are present. There is a flattened septum in systole consistent with right ventricle pressure overload. The right ventricle is moderately dilated. The right atrial size is moderately dilated. moderate to severe mitral valve regurgitation with posterior directed flow severe tricuspid valve regurgitation possible mild mitral stenosis with peak gradient = 6 mm hg severe hypokinesis to akinesis of apex with possible thrombus @ apex @ 5x6 mm BP: / HR: Rhythm: Sinus MEASUREMENTS (Male / Female) Normal Values Technical Quality:Excellent 2D ECHO LV Diastolic Diameter PLAX 5.0 cm 4.2 - 5.9 / 3.9 - 5.3 cm LV Systolic Diameter PLAX 4.3 cm IVS Diastolic Thickness 0.9 cm 0.6 - 1.0 / 0.6 - 0.9 cm LVPW Diastolic Thickness 0.9 cm 0.6 - 1.0 / 0.6 - 0.9 cm LV Relative Wall Thickness 0.4 RV Internal Dim ED PLAX 4.0 cm LVOT Diameter 1.9 cm LA Systolic Diameter LX 3.9 cm 3.0 - 4.0 / 2.7 - 3.8 cm LV Ejection Fraction MOD 4C 38.2 % LV Ejection Fraction 4C AL 36.6 % M-MODE Aortic Root Diameter MM 2.1 cm LA Systolic Diameter MM 3.8 cm LA Ao Ratio MM 1.8 AV Cusp Separation MM 1.1 cm DOPPLER AV Peak Velocity 137.0 cm/s AV Peak Gradient 7.5 mmHg LVOT Peak Velocity 83.4 cm/s LVOT Peak Gradient 2.8 mmHg AV Area Cont Eq pk 1.7 cm MV Area PHT 4.7 cm Mitral E Point Velocity 118.0 cm/s Mitral A Point Velocity 66.6 cm/s Mitral E to A Ratio 1.8 LV E' Lateral Velocity 11.6 cm/s Mitral E to LV E' Lateral Ratio 10.2 LV E' Septal Velocity 7.2 cm/s Mitral E to LV E' Septal Ratio 16.4 PV Peak Velocity 71.9 cm/s PV Peak Gradient 2.1 mmHg FINDINGS LEFT VENTRICLE The left ventricular systolic function is [id number] reduced with an estimated ejection fra ction in the range of 35-40%. Normal left ventricular size. Wall thickness is normal. No regional wall motion abnormalities are present. There is a flattened septum in systole consistent with right ventricle pressure overload. RIGHT VENTRICLE The right ventricle is moderately dilated. RIGHT ATRIUM The right atrial size is moderately dilated. MITRAL VALVE Structurally normal mitral valve. Mild mitral valve regurgitation. Kenny Alfredo MD, FACC, [facility] [place] (Electronically Signed) Final Date:10 December 2017 14:41
[2017-12-10 16:18] LABS: % Iron Saturation 29.2 % (20-50)
[2017-12-10] MEDS ORDERED: Heparin 10,000 UNITS/10 ML Vial (for IV use) IV.PUSH STA (16:20)
--- NOTE | 2017-12-10 16:22 | P.CONNP ---
<Xena Ferrara - Last Filed: 12/10/17 16:02> History of Present Illness Service: Nephrology Consult date: 12/10/17 Reason for Consult: Acute Renal Failure Primary Care Provider: No Primary Care Physician History of Present Illness: This is a 67 y/o home less man who came to ER for shortness of breath, dizziness , palpitations. He was in V tach, required cardioversion after no response to Amiodarone. He was on CIC, apparently became increasingly lethargic therefore was transferred to [facility]. He is in renal failure on arrival, Creatinine 2.1 that had increased to 2.8 and is 2.4 today. He is making urine. In addition he is in severe metabolic acidosis, per ABG his bicarb was 8. BMP today show improvement HcO3 was 9 and is now 22. Lactic acid elevated at 10. He is on a bicarb gtt. He is also in A fib, on amiodarone gtt. We were consulted for renal management. US showed mild right sided hydronephrosis. The patient is sleeping, very lethargic and does not awaken to answer questions. Of note he is a heavy smoker and drinker, apparently quit drinking a few days ago. Review of Systems unobtainable due to mental status PMFSH - History History Provided By: Leader Writer / EMT - Medical / Surgical Hx Neg / Unobtainable Medical Problems Denied: Unable to Obtain Surgical History: Unable to Obtain - Medical History Medical History: Medical History (Last Reviewed 12/10/17 @ 07:14 by Saul Gan RN) Hypertension - Surgical History Surgical History: Surgical History (Last Updated 12/09/17 @ 19:32 by Yusuf Amaral MD) No history of previous surgery - Family History Family History: Family History (Last Updated 12/09/17 @ 19:32 by Yusuf Amaral MD) Father CAD (coronary artery disease) - Tobacco History Second Hand Smoke Exposure: No Tobacco Use In Past 30 Days: Yes Smoking Status: Heavy tobacco smoker Tobacco Type: Cigarettes - Alcohol History How Often Do You Have a Drink Containing Alcohol: 4 or more times a week - Substance Use History Substance History: No History of Abuse - Travel History Recent Travel in the [place] Within the Last 8 Weeks: No Recent Travel Out of the Country Within the Last 8 Weeks: No - Immunization History Tetanus Immunization: Unable to Assess Hx Influenza Vaccine This Season: Unable to Assess Medications and Allergies Allergies Allergy/AdvReac Type Severity Reaction Status Date / Time No Known Allergies Allergy Verified 12/09/17 12:23 Home Medications Medication Instructions Recorded Confirmed Type No Known Home Medications 12/09/17 12/09/17 History Active Medications: Active Medications Al Hydroxide/Mg Hydroxide (Milk Of Magnesia Liq) 30 ml PO Q12H PRN PRN Reason: Mild Constipation Bisacodyl (Dulcolax Supp) 10 mg RECTAL DAILY PRN PRN Reason: SEVERE CONSITIPATION Flumazenil (Romazecon Inj) 0.2 mg IV.PUSH Q1M PRN PRN Reason: OVERSEDATION Haloperidol Lactate (Haldol Inj) 1 mg IV.PUSH Q15M PRN PRN Reason: for severe agitation Amiodarone HCl 450 mg/ (Dextrose) 250 mls @ 33.33 mls/hr IV.CONT TITRATE PRN; Protocol PRN Reason: Per Protocol Last Admin: 12/10/17 12:30 Dose: 0.5 mg/min, 16.66 mls/hr Sodium Bicarbonate 150 meq/ (Dextrose) 1,000 mls @ 84 mls/hr IV.CONT .[id number] SRAVAN Last Admin: 12/10/17 12:02 Dose: 84 mls/hr Piperacillin/Tazobactam/Dextrose (Zosyn 3.375 Gm Premix) 50 mls @ 100 mls/hr IV.SIG Q8H SRAVAN Lactulose (Lactulose Liq) 30 ml PO BID SRAVAN Lorazepam (Ativan) 1 mg PO Q4H PRN PRN Reason: for CIWA 8-10 Last Admin: 12/09/17 21:25 Dose: 1 mg Lorazepam (Ativan) 2 mg PO Q2H PRN PRN Reason: for CIWA 11-14 Lorazepam (Ativan Inj) 2 mg IV.PUSH Q2H PRN PRN Reason: for CIWA 11-14 Last Admin: 12/10/17 04:31 Dose: 2 mg Lorazepam (Ativan Inj) 2 mg IV.PUSH Q1H PRN PRN Reason: for CIWA 15-20 Lorazepam (Ativan Inj) 2 mg IV.PUSH Q15M PRN PRN Reason: for CIWA > 20 Lorazepam (Ativan Inj) 1 mg IV.PUSH Q4H PRN PRN Reason: for CIWA 8-10 Methylprednisolone Sodium Succinate (Solumedrol Inj) 40 mg IV.PUSH Q6H [facility] Last Admin: 12/10/17 11:30 Dose: 40 mg Multivitamins (Theragran) 1 tab PO DAILY [facility] Last Admin: 12/10/17 12:13 Dose: Not Given Pentoxifylline (Trental Sr) 400 mg PO TID [facility] Prochlorperazine Edisylate (Compazine Inj) 5 mg IV.PUSH Q4H PRN PRN Reason: NAUSEA OR VOMITING Last Admin: 12/10/17 00:13 Dose: 5 mg Rifaximin (Xifaxan) 550 mg PO Q12HR [facility] Sennosides (Senokot) 17.2 mg PO Q12H PRN PRN Reason: Moderate Constipation Sodium Chloride (Ns Flush) 2 ml IV.FLUSH UNSCH PRN PRN Reason: FLUSH AFTER USING IV ACCESS Thiamine HCl (Vitamin B1) 100 mg PO BID [facility] Last Admin: 12/10/17 12:13 Dose: Not Given Exam Vital signs: Vital Signs 12/09/17 20:00 12/10/17 00:00 12/10/17 03:00 Temperature 97.6 F 97.5 F L Pulse Rate 100 H 100 H 101 H Respiratory Rate 16 16 Blood Pressure 121/82 115/82 Pulse Oximetry 100 100 12/10/17 04:00 12/10/17 05:00 12/10/17 06:00 Temperature 97.3 F L Pulse Rate 102 H 100 H 100 H Respiratory Rate 16 Blood Pressure 112/68 Pulse Oximetry 100 12/10/17 07:00 12/10/17 08:00 12/10/17 09:00 Temperature 97.6 F Pulse Rate 100 H 100 H 100 H Respiratory Rate 24 Blood Pressure 114/70 Pulse Oximetry 100 12/10/17 09:43 12/10/17 10:00 12/10/17 10:05 Temperature Pulse Rate 110 H Respiratory Rate Blood Pressure Pulse Oximetry 98 90 L Intake & Output 12/09/17 12/10/17 12/10/17 18:59 06:59 18:59 Intake Total 1240 / 1240 350 / 350 Output Total 400 / 400 Balance 1240 / 1240 -400 / -400 350 / 350 Weight 77.111 kg 77 kg Intake: IV 1000 / 1000 350 / 350 Cordarone Inj 450 MG In D5W Inj 250 / 250 241 ML @ 1 MG/MIN 33.33 mls/hr IV.CONT TITRATE PRN Rx#: [id number] Zosyn 4.5 GM Premix 4.5 gm In 100 / 100 100 ml @ 200 mls/hr IV.SIG Q8H SRAVAN Rx#:[id number] NS Inj 1,000 ML @ Wide Open IV. 1000 / 1000 SIG BOLUS ONE Rx#:[id number] Oral 240 / 240 Output: Urine 400 / 400 - Constitutional no acute distress, chronically ill appearing, disheveled Comments: sleeping, restful, not in distress - Routine HEENT Exam Head: Present: normocephalic - Routine Neck Exam Present: supple, full ROM - Routine Respiratory Exam Present: CTA bilaterally. Absent: accessory muscle use - Routine Cardiovascular Exam Present: S1, S2, irregular rhythm, irregularly irregular - Routine Abdominal Exam Present: soft, normoactive bowel sounds. Absent: tenderness, guarding - Routine Extremities Exam Present: full ROM, pulses intact. Absent: edema - Routine Skin Exam Present: intact, dry, warm - Routine Neurological Exam Present: altered mental status, moving all extremities. Absent: facial asymmetry Results - Lab Results 12/10/17 02:52 12/10/17 09:21 Most recent lab results ABG pH 7.25 (7.380-7.420) L* 12/09/17 23:55 ABG pCO2 19 mmHg (38-42) L* 12/09/17 23:55 ABG pO2 96 mmHG (61-120) 12/09/17 23:55 ABG HCO3 8 mmol/L (22-26) L* 12/09/17 23:55 Calcium 7.8 mg/dL (8.5-10.1) L D 12/10/17 09:21 Magnesium 2.1 mg/dL (1.5-2.5) 12/09/17 11:30 - Image Kidney/bladder ultrasound: report reviewed Assessment and Plan - Assessment (1) Acute renal failure Code(s): N17.9 - Acute kidney failure, unspecified Status: Acute Plan: No labs available for comparison NATASHA most likely due to decreased renal perfusion due to hypotension; this may be secondary to V tach or A fib. Possibly infection. His renal function has improved overnight Hyperkalemia has corrected, IVF containing potassium were stopped. US shows right sided mild hydronephrosis, the significance of which is unclear. Repeat imaging in a few days. Have asked the RN for bladder scan, he has a condom cath on currently, is non oliguric. Repeat labs Avoid nephrotoxins. There is discussion about cardiac catheterization that ideally should wait until his renal function improves. Monitor fluid status, reduce IVF to 50 cc/hr given EF around 20%. (2) A-fib Code(s): I48.91 - Unspecified atrial fibrillation Status: Acute Plan: On amiodarone gtt. Cardiology following On Coumadin. (3) Metabolic acidosis Code(s): E87.2 - Acidosis Status: Acute Plan: Due to combination of renal failure and metabolic acidosis Continue bicarb drip. Follow labs. (4) Lactic acidosis Code(s): E87.2 - Acidosis Status: Acute Plan: Etiology unclear. Ct abdomen/pelvis ordered. (5) Elevated troponin Code(s): R74.8 - Abnormal levels of other serum enzymes Status: Acute Plan: Cardiology has evaluate Echo reviewed, severe CM May need heart cath this admission. (6) High transaminase levels Code(s): R74.0 - Nonspecific elevation of levels of transaminase and lactic acid dehydrogenase [LDH] Status: Acute Plan: With coagulopathy and thrombocytopenia. GI is following May have shock liver vs. intraabdominal process Ct ordered <Crispin Gastelum - Last Filed: 12/10/17 17:45> History of Present Illness Primary Care Provider: No Primary Care Physician [facility] - Medical History Medical History: Medical History (Last Reviewed 12/10/17 @ 07:14 by Saul Gan RN) Hypertension - Surgical History Surgical History: Surgical History (Last Updated 12/09/17 @ 19:32 by Yusuf Amaral MD) No history of previous surgery - Family History Family History: Family History (Last Updated 12/09/17 @ 19:32 by Yusuf Amaral MD) Father CAD (coronary artery disease) Medications and Allergies Active Medications: Active Medications Al Hydroxide/Mg Hydroxide (Milk Of Saadia Liq) 30 ml PO Q12H PRN PRN Reason: Mild Constipation Albuterol (Duoneb Neb (Sravan)) 1 ampul NEB Q6HR NEB SRAVAN Albuterol (Duoneb Neb (Prn)) 1 ampul NEB Q2HR NEB PRN PRN Reason: SHORTNESS OF BREATH Bisacodyl (Dulcolax Supp) 10 mg RECTAL DAILY PRN PRN Reason: SEVERE CONSITIPATION Carvedilol (Coreg) 3.125 mg PO BID SRAVAN Flumazenil (Romazecon Inj) 0.2 mg IV.PUSH Q1M PRN PRN Reason: OVERSEDATION Haloperidol Lactate (Haldol Inj) 1 mg IV.PUSH Q15M PRN PRN Reason: for severe agitation Amiodarone HCl 450 mg/ (Dextrose) 250 mls @ 33.33 mls/hr IV.CONT TITRATE PRN; Protocol PRN Reason: Per Protocol Last Admin: 12/10/17 12:30 Dose: 0.5 mg/min, 16.66 mls/hr Sodium Bicarbonate 150 meq/ (Dextrose) 1,000 mls @ 50 mls/hr IV.CONT .Q20H [facility] Last Admin: 12/10/17 12:02 Dose: 84 mls/hr Piperacillin/Tazobactam/Dextrose (Zosyn 3.375 Gm Premix) 50 mls @ 100 mls/hr IV.SIG Q8H SRAVAN Piperacillin/Tazobactam/Dextrose (Zosyn 3.375 Gm Premix) 50 mls @ 100 mls/hr IV.SIG Q8H SRAVAN Lactulose (Lactulose Liq) 30 ml PO BID [facility] Methylprednisolone Sodium Succinate (Solumedrol Inj) 40 mg IV.PUSH Q6H [facility] Last Admin: 12/10/17 17:00 Dose: 40 mg Multivitamins (Theragran) 1 tab PO DAILY [facility] Last Admin: 12/10/17 12:13 Dose: Not Given Pentoxifylline (Trental Sr) 400 mg PO TID [facility] Prochlorperazine Edisylate (Compazine Inj) 5 mg IV.PUSH Q4H PRN PRN Reason: NAUSEA OR VOMITING Last Admin: 12/10/17 00:13 Dose: 5 mg Rifaximin (Xifaxan) 550 mg PO Q12HR [facility] Sennosides (Senokot) 17.2 mg PO Q12H PRN PRN Reason: Moderate Constipation Sodium Chloride (Ns Flush) 2 ml IV.FLUSH UNSCH PRN PRN Reason: FLUSH AFTER USING IV ACCESS Thiamine HCl (Vitamin B1) 100 mg PO BID [facility] Last Admin: 12/10/17 12:13 Dose: Not Given Exam Vital signs: Vital Signs 12/09/17 20:00 12/10/17 00:00 12/10/17 03:00 Temperature 97.6 F 97.5 F L Pulse Rate 100 H 100 H 101 H Respiratory Rate 16 16 Blood Pressure 121/82 115/82 Pulse Oximetry 100 100 12/10/17 04:00 12/10/17 05:00 12/10/17 06:00 Temperature 97.3 F L Pulse Rate 102 H 100 H 100 H Respiratory Rate 16 Blood Pressure 112/68 Pulse Oximetry 100 12/10/17 07:00 12/10/17 08:00 12/10/17 09:00 Temperature 97.6 F Pulse Rate 100 H 100 H 100 H Respiratory Rate 24 Blood Pressure 114/70 Pulse Oximetry 100 12/10/17 09:43 12/10/17 10:00 12/10/17 10:05 Temperature Pulse Rate 110 H Respiratory Rate Blood Pressure Pulse Oximetry 98 90 L 12/10/17 16:11 Temperature Pulse Rate Respiratory Rate Blood Pressure Pulse Oximetry 97 Intake & Output 12/09/17 12/10/17 12/10/17 18:59 06:59 18:59 Intake Total 1240 / 1240 350 / 350 Output Total 400 / 400 Balance 1240 / 1240 -400 / -400 350 / 350 Weight 77.111 kg 77 kg Intake: IV 1000 / 1000 350 / 350 Cordarone Inj 450 MG In D5W Inj 250 / 250 241 ML @ 1 MG/MIN 33.33 mls/hr IV.CONT TITRATE PRN Rx#: [id number] Zosyn 4.5 GM Premix 4.5 gm In 100 / 100 100 ml @ 200 mls/hr IV.SIG Q8H SRAVAN Rx#:[id number] NS Inj 1,000 ML @ Wide Open IV. 1000 / 1000 SIG BOLUS ONE Rx#:[id number] Oral 240 / 240 Output: Urine 400 / 400 Other: Date of Last Bowel Movement 12/10/17 Results - Lab Results 12/10/17 02:52 12/10/17 09:21 Most recent lab results ABG pH 7.39 (7.380-7.420) 12/10/17 16:50 ABG pCO2 33 mmHg (38-42) L 12/10/17 16:50 ABG pO2 80 mmHg (61-120) 12/10/17 16:50 ABG HCO3 20 mmol/L (22-26) L 12/10/17 16:50 Calcium 7.8 mg/dL (8.5-10.1) L D 12/10/17 09:21 Magnesium 2.1 mg/dL (1.5-2.5) 12/09/17 11:30 Assessment and Plan - Assessment (1) Acute renal failure Code(s): N17.9 - Acute kidney failure, unspecified Status: Acute (2) A-fib Code(s): I48.91 - Unspecified atrial fibrillation Status: Acute (3) Metabolic acidosis Code(s): E87.2 - Acidosis Status: Acute (4) Lactic acidosis Code(s): E87.2 - Acidosis Status: Acute (5) Elevated troponin Code(s): R74.8 - Abnormal levels of other serum enzymes Status: Acute (6) High transaminase levels Code(s): R74.0 - Nonspecific elevation of levels of transaminase and lactic acid dehydrogenase [LDH] Status: Acute - Attending Attestation patient was seen and examined in the morning. Changed IVF to bicarbonate drip. Avoid nephrotoxins. Hyperkalemia was noted in the morning, improved with bicarbonate drip. Severe lactic acidosis could be due to tissue hypoperfusion, rule out mesenteric ischemia.
[2017-12-10] MEDS ORDERED: Heparin Drip 25,000 UNIT/250 ML BAG IV.CONT PRN (16:30)
--- NOTE | 2017-12-10 16:53 | XR ---
EXAM DATE: 12/10/2017 4:47 PM EDT AGE/SEX: 67 years / Male INDICATIONS: Short of breath. CLINICAL DATA: This is the patient's subsequent encounter. Patient reports that signs and symptoms h ave been present for 4 - 6 days and indicates a pain score of 0/10. MEDICAL/SURGICAL HISTORY: Non-responsive. Non-responsive. COMPARISON: C, CHEST 1V SINGLE AP, 12/09/2017. . FINDINGS: The heart is enlarged with increasing bibasilar parenchymal changes much worse on the left than the r ight. Trace bilateral pleural effusions are evident. Vascularity is congested. The portion of the bony skeleton visualized is unremarkable. CONCLUSION: Increasing bibasilar parenchymal changes much worse on the left. Developing pleural effusions. Electronically signed by: Swapnil Pedro MD 12/10/2017 4:51 PM EDT
[2017-12-10 16:54] LABS: ABG Base Excess -4.2 mmol/L (-2-2); ABG PCO2 33 mmHg (38-42); ABG PO2 80 mmHg (61-120)
--- NOTE | 2017-12-10 17:07 | P.CONCC ---
History of Present Illness Service: CRITICAL CARE Consult date: 12/10/17 Requesting Physician: Yusuf Amaral Reason for Consult: AMS, MEtabolic acidosis, CHF, VTAC Primary Care Provider: No Primary Care Physician Chief Complaint: AMS, metabolic acidosis, probable sepsis History of Present Illness: Patient is a 67-year-old homeless who was brought into the emergency department 12/09/17 for shortness of breath and tachycardia and was found to have sustained V-tach. He did not convert with amiodarone and was cardioverted in the ER. He is a very poor historian but gives history of long-standing alcohol and tobacco abuse. His workup in the ER revealed multiple abnormal labs including BUN 32 creatinine 2.5, bicarb was only 8 and lactic acid was 12.1. His liver enzymes were elevated and INR was 4. His bilirubin was 5.4 AST was 842 and ALT of 399. His discriminant function was elevated and patient was placed on IV steroids for alcoholic hepatitis. But patient gives a history of stopping alcohol approximately a month ago. Dr. Efe Mcconnell was consulted for V. tach and elevated troponin. He recommended continuing amiodarone possible cardiac catheterization and evaluation for AICD once the creatinine improves. A 2D echo official read: showed EF 35-40%, RV pressure overload RV dilation and severe TR and a possible apical thrombus with severe apical hypokinesis. I discussed with Dr. Mcconnell-his impression is global hypokinesis with EF 20%, he did not see an apical thrombus but he will re-evaluate. With possible apical thrombus patient was started on IV heparin by hospitalist. Patient was also continued on IV amiodarone Today patient was found to be more lethargic, less responsive and was transferred to the ICU. Critical care medicine was consulted. I evaluated the patient immediately. He is lethargic but wakes up on stimulation protecting airway. Chest x-ray shows increasing pulmonary infiltrates. CT abdomen pelvis chest and brain is pending at this time. Ammonia level is also pending but GI has started Xifaxan and lactulose. Lactic acid today is 10.3 and patient is currently receiving bicarbonate infusion. His metabolic acidosis has improved on ABG. However clinically his respiratory status has worsened. I will discontinue amiodarone infusion due to acute liver failure. Start him on Coreg 3.125 mg twice daily. Use as needed IV Lopressor for tachycardia. I will also discontinue the IV heparin due to severe coagulopathy. Discussed with Dr. Mcconnell Review of Systems unobtainable due to mental condition PMFSH - History History Provided By: [employer] / EMT - Medical / Surgical Hx Neg / Unobtainable Medical Problems Denied: Unable to Obtain - Medical History Medical History: Medical History (Last Reviewed 12/10/17 @ 07:14 by Saul Gan RN) Hypertension - Surgical History Surgical History: Surgical History (Last Updated 12/09/17 @ 19:32 by Yusuf Amaral MD) No history of previous surgery - Family History Family History: Family History (Last Updated 12/09/17 @ 19:32 by Yusuf Amaral MD) Father CAD (coronary artery disease) - Tobacco History Second Hand Smoke Exposure: No Tobacco Use In Past 30 Days: Yes Smoking Status: Heavy tobacco smoker Tobacco Type: Cigarettes - Alcohol History How Often Do You Have a Drink Containing Alcohol: 4 or more times a week - Substance Use History Substance History: No History of Abuse - Travel History Recent Travel in the [place] Within the Last 8 Weeks: No Recent Travel Out of the Country Within the Last 8 Weeks: No - Immunization History Tetanus Immunization: Unable to Assess Hx Influenza Vaccine This Season: Unable to Assess Medications and Allergies Active Medications: Active Medications Al Hydroxide/Mg Hydroxide (Milk Of Saadia Morfin) 30 ml PO Q12H PRN PRN Reason: Mild Constipation Bisacodyl (Dulcolax Supp) 10 mg RECTAL DAILY PRN PRN Reason: SEVERE CONSITIPATION Flumazenil (Romazecon Inj) 0.2 mg IV.PUSH Q1M PRN PRN Reason: OVERSEDATION Haloperidol Lactate (Haldol Inj) 1 mg IV.PUSH Q15M PRN PRN Reason: for severe agitation Heparin Sodium (Porcine) (Heparin Inj) 2,500 units IV.PUSH UNSCH PRN PRN Reason: aPTT 25-39 Amiodarone HCl 450 mg/ (Dextrose) 250 mls @ 33.33 mls/hr IV.CONT TITRATE PRN; Protocol PRN Reason: Per Protocol Last Admin: 12/10/17 12:30 Dose: 0.5 mg/min, 16.66 mls/hr Sodium Bicarbonate 150 meq/ (Dextrose) 1,000 mls @ 50 mls/hr IV.CONT .Q20H ORTIZ Last Admin: 12/10/17 12:02 Dose: 84 mls/hr Piperacillin/Tazobactam/Dextrose (Zosyn 3.375 Gm Premix) 50 mls @ 100 mls/hr IV.SIG Q8H [facility] Heparin Sodium/Dextrose (Heparin/D5w 25,000 U/250 Ml) 25,000 unit in 250 mls @ 14 mls/hr IV.CONT TITRATE PRN; Protocol PRN Reason: Per Protocol Lactulose (Lactulose Liq) 30 ml PO BID [facility] Lorazepam (Ativan) 1 mg PO Q4H PRN PRN Reason: for CIWA 8-10 Last Admin: 12/09/17 21:25 Dose: 1 mg Lorazepam (Ativan) 2 mg PO Q2H PRN PRN Reason: for CIWA 11-14 Lorazepam (Ativan Inj) 2 mg IV.PUSH Q2H PRN PRN Reason: for CIWA 11-14 Last Admin: 12/10/17 04:31 Dose: 2 mg Lorazepam (Ativan Inj) 2 mg IV.PUSH Q1H PRN PRN Reason: for CIWA 15-20 Lorazepam (Ativan Inj) 2 mg IV.PUSH Q15M PRN PRN Reason: for CIWA > 20 Lorazepam (Ativan Inj) 1 mg IV.PUSH Q4H PRN PRN Reason: for CIWA 8-10 Methylprednisolone Sodium Succinate (Solumedrol Inj) 40 mg IV.PUSH Q6H [facility] Last Admin: 12/10/17 17:00 Dose: 40 mg Multivitamins (Theragran) 1 tab PO DAILY [facility] Last Admin: 12/10/17 12:13 Dose: Not Given Pentoxifylline (Trental Sr) 400 mg PO TID [facility] Prochlorperazine Edisylate (Compazine Inj) 5 mg IV.PUSH Q4H PRN PRN Reason: NAUSEA OR VOMITING Last Admin: 12/10/17 00:13 Dose: 5 mg Rifaximin (Xifaxan) 550 mg PO Q12HR [facility] Sennosides (Senokot) 17.2 mg PO Q12H PRN PRN Reason: Moderate Constipation Sodium Chloride (Ns Flush) 2 ml IV.FLUSH UNSCH PRN PRN Reason: FLUSH AFTER USING IV ACCESS Thiamine HCl (Vitamin B1) 100 mg PO BID [facility] Last Admin: 12/10/17 12:13 Dose: Not Given Allergies Allergy/AdvReac Type Severity Reaction Status Date / Time No Known Allergies Allergy Verified 12/09/17 12:23 Home Medications Medication Instructions Recorded Confirmed Type No Known Home Medications 12/09/17 12/09/17 History Physical Exam Vital signs: Vital Signs 12/09/17 20:00 12/10/17 00:00 12/10/17 03:00 Temperature 97.6 F 97.5 F L Pulse Rate 100 H 100 H 101 H Respiratory Rate 16 16 Blood Pressure 121/82 115/82 Pulse Oximetry 100 100 12/10/17 04:00 12/10/17 05:00 12/10/17 06:00 Temperature 97.3 F L Pulse Rate 102 H 100 H 100 H Respiratory Rate 16 Blood Pressure 112/68 Pulse Oximetry 100 12/10/17 07:00 12/10/17 08:00 12/10/17 09:00 Temperature 97.6 F Pulse Rate 100 H 100 H 100 H Respiratory Rate 24 Blood Pressure 114/70 Pulse Oximetry 100 12/10/17 09:43 12/10/17 10:00 12/10/17 10:05 Temperature Pulse Rate 110 H Respiratory Rate Blood Pressure Pulse Oximetry 98 90 L 12/10/17 16:11 Temperature Pulse Rate Respiratory Rate Blood Pressure Pulse Oximetry 97 Intake & Output 12/09/17 12/10/17 12/10/17 18:59 06:59 18:59 Intake Total 1240 / 1240 350 / 350 Output Total 400 / 400 Balance 1240 / 1240 -400 / -400 350 / 350 Weight 77.111 kg 77 kg Intake: IV 1000 / 1000 350 / 350 Cordarone Inj 450 MG In D5W Inj 250 / 250 241 ML @ 1 MG/MIN 33.33 mls/hr IV.CONT TITRATE PRN Rx#: [id number] Zosyn 4.5 GM Premix 4.5 gm In 100 / 100 100 ml @ 200 mls/hr IV.SIG Q8H ORTIZ Rx#:[id number] NS Inj 1,000 ML @ Wide Open IV. 1000 / 1000 SIG BOLUS ONE Rx#:[id number] Oral 240 / 240 Output: Urine 400 / 400 Narrative: GENERAL: 67-year-old male, critically ill-appearing lethargic SKIN: Warm and dry. Mildly jaundiced HEAD: Atraumatic. Normocephalic. EYES: Pupils equal and round. Mild scleral icterus. ENT: No nasal bleeding or discharge. Mucous membranes dry NECK: Trachea midline. No JVD. CARDIOVASCULAR: Regular rate and rhythm. No murmurs RESPIRATORY: Mild to moderate accessory muscle use. Coarse rhonchi bilaterally GASTROINTESTINAL: Abdomen soft, non-tender, nondistended. Hepatic and splenic margins not palpable. MUSCULOSKELETAL: Extremities without clubbing, cyanosis, or edema. Poorly perfused extremities NEUROLOGICAL: Patient is very lethargic but wakes up follows commands. No obvious focal deficits Septic Shock Reassessment Septic shock perfusion: reassessment completed Assessment and Plan - Assessment and Plan Plan: NEURO: Acute metabolic encephalopathy Alcohol dependence -Metabolic encephalopathy could be secondary to sepsis versus hepatic encephalopathy -Check CT of the head -Ammonia level is pending however GI has started patient on lactulose and Xifaxan -Supplement multivitamin thiamine -Watch closely for alcohol withdrawal RESP: Respiratory insufficiency Probable COPD -DuoNeb every 6 hours scheduled and as needed -Aggressive pulmonary toilet -Check sputum culture, check CT of the chest CV: Sustained ventricular tachycardia Cardiomyopathy with ejection fraction approximately 20%, 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 If recurrent V. tach will start lidocaine infusion -Start Coreg 6.125 mg twice daily. Use as needed IV Lopressor for tachycardia -Discontinue IV heparin due to coagulopathy -Discussed with Dr. Mcconnell, patient will need cardiac catheterization once creatinine is improved -Lactic acidosis due to combination of poor perfusion, and liver failure -Continue to trend lactic acid GI: Acute hepatitis with liver failure Liver cirrhosis Alcohol dependence -N.p.o. except meds, IV Protonix -GI consult appreciated, await CT abdomen pelvis -Continue IV steroids for now as the discriminant function is elevated -Continue Xifaxan, lactulose : Acute kidney failure -Monitor renal function closely. Sesay catheter. -Nephrology following continue bicarb infusion -NATASHA most likely due to decreased renal perfusion -US shows right sided mild hydronephrosis ID: Probable sepsis -Follow-up on blood urine and sputum cultures -Started on empiric Zosyn HEME: Coagulopathy secondary to liver failure -Monitor CBC, coags -Correct INR with FFP if evidence of bleeding ENDO: Hyperkalemia Hypoglycemia -Currently potassium is corrected -Hypoglycemia secondary to liver failure and possible sepsis -Continue D5 bicarb infusion PROPH: -Bilateral lower extremity SCDs. Avoid chemical DVT prophylaxis -IV Protonix for GI prophylaxis LINES: -Utilize peripheral IVs, central line if needed CC time 77 min Very critical with multiorgan failure, worsening mental status and respiratory status. At high risk of decompensation and even . Prognosis is guarded Code Status: Full Discussed Condition With: Jayesh Mar
[2017-12-10] MEDS ORDERED: Piperacil/Tazo 3.375 GM Premix 50 ML IV.SIG SCH (17:08)
[2017-12-10] MEDS ORDERED: Metoprolol Inj 5 MG/5 ML Vial IV.PUSH ONE (17:46)
[2017-12-10] MEDS ORDERED: Metoprolol Inj 5 MG/5 ML Vial ONE (17:47)
[2017-12-10 17:49] LABS: INR 2.9 Ratio; Prothrombin Time 29.3 sec (9.8-11.6)
[2017-12-10] MEDS: Pentoxifylline 400 MG Controlled Release Tablet PO SCH ×3 (18:00→18:02)
[2017-12-10] MEDS ORDERED: Esmolol 2,500 mg/250 mL Premix 2,500 MG/250 ML BAG IV.CONT PRN (18:02)
--- NOTE | 2017-12-10 18:58 | CT ---
EXAM DATE: 12/10/2017 6:42 PM EDT AGE/SEX: 67 years / Male INDICATIONS: Distention. CLINICAL DATA: This is the patient's initial encounter. Patient reports that signs and symptoms have been present for 1 day and indicates a pain score of 4/10. MEDICAL/SURGICAL HISTORY: Hypertension. Renal failure, acute. None. RADIATION DOSE: 16.95 CTDI (mGy) ; Combined studies COMPARISON: No prior exams available for comparison. TECHNIQUE: Multiple contiguous axial images were obtained through the abdomen. Images were obtained using multiple row detector helical technique. Using automated exposure control and adjustment of the mA and/or kV according to patient size, radiation dose was kept as low as reasonably achievable to o btain optimal diagnostic quality images. DICOM format image data is available electronically for rev iew and comparison. FINDINGS: A noncontrast study was done. Moderate ascites present, etiology uncertain but the heart is enlarged. . No bowel obstruction or perceptible focal inflammatory changes. Noncontrast appearance of the liver, spleen, pancreas, adrenal glands and kidneys within normal limit s. Atherosclerotic abdominal aorta. No aneurysm. CONCLUSION: 1. No obstruction or focal acute inflammatory changes are demonstrated. 2. Moderate ascites. 3. Atherosclerotic aorta. 4. Enlarged heart. CT chest to follow. Electronically signed by: Zack Malave MD 12/10/2017 6:57 PM EDT
--- NOTE | 2017-12-10 19:03 | CT ---
EXAM DATE: 12/10/2017 6:34 PM EDT AGE/SEX: 67 years / Male INDICATIONS: Altered mental status. CLINICAL DATA: This is the patient's initial encounter. Patient reports that signs and symptoms have been present for 1 day and indicates a pain score of 0/10. MEDICAL/SURGICAL HISTORY: Hypertension. None. RADIATION DOSE: 67.49 CTDI (mGy) COMPARISON: No prior exams available for comparison. TECHNIQUE: CT of the head without contrast. Using automated exposure control and adjustment of the mA and/or kV according to patient size, radiation dose was kept as low as reasonably achievable to ob tain optimal diagnostic quality images. DICOM format image data is available electronically for revi ew and comparison. FINDINGS: Cerebrum: The ventricles are normal for age. No evidence of midline shift, mass lesion, hemorrhage or acute infarction. No extraaxial fluid collections are seen. 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 Posterior Fossa: The cerebellum and brainstem are intact. The 4th ventricle is midline. The cerebe llopontine angle is unremarkable. Extracranial: Intermediate attenuation debris seen in the visualized left maxillary air cell. Skull: The calvaria is intact. No evidence of skull fracture. CONCLUSION: 1. No acute intracranial abnormality. 2. Old left frontal lobe infarct. 3. Left maxillary sinus disease partly seen. Increased attenuation material present, probably inspis sated and desiccated debris although some blood in the sinus could appear similar. . Electronically signed by: Zack Malave MD 12/10/2017 7:02 PM EDT
--- NOTE | 2017-12-10 19:06 | CT ---
EXAM DATE: 12/10/2017 6:58 PM EDT AGE/SEX: 67 years / Male INDICATIONS: Respiratory distress. CLINICAL DATA: This is the patient's initial encounter. Patient reports that signs and symptoms have been present for 1 day and indicates a pain score of 2/10. MEDICAL/SURGICAL HISTORY: Hypertension. Renal failure, acute. None. RADIATION DOSE: 16.95 CTDI (mGy) ; Combined studies COMPARISON: No prior exams available for comparison. TECHNIQUE: Multiple contiguous axial images were obtained through the chest without contrast. Image s were obtained in suspended respiration using multiple row detector helical technique. Using automa luisa exposure control and adjustment of the mA and/or kV according to patient size, radiation dose was kept as low as reasonably achievable to obtain optimal diagnostic quality images. DICOM format imag e data is available electronically for review and comparison. FINDINGS: Moderate bilateral pleural effusions are present. There is bibasilar atelectasis. An area of pneumoni a possible in the left lower lobe, series 5 image 40. There is no pneumothorax. No mediastinal, hilar or axillary lymphadenopathy demonstrated. Heart is enlarged, especially right atrium. Coronary artery calcification present. CONCLUSION: 1. Moderate bilateral pleural effusions with compressive/dependent atelectasis. 2. A more focal area of consolidation involves the left lower lobe which may represent pneumonia in the proper clinical setting. Follow-up to resolution is recommended. 3. Enlarged heart, especially the right atrium. 4. Coronary artery calcification. Electronically signed by: Zack Malave MD 12/10/2017 7:05 PM EDT
[2017-12-10] MEDS ORDERED: Dextrose 50% in Water 50 ML Vial IV.PUSH PRN (20:00)
[2017-12-10] MEDS: rifAXIMin 550 MG Tablet PO SCH (20:08)
[2017-12-10] MEDS: Piperacil/Tazo 3.375 GM Premix 50 ML IV.SIG SCH (20:09)
[2017-12-10 20:29] LABS: Hematocrit 43.1 % (39.0-51.0); Mean Corpuscular HGB Conc 32.4 % (32.0-36.0); Mean Corpuscular Hemoglobin 35.6 pg (27.0-34.0); Mean Corpuscular Volume 109.7 fL (80.0-100.0); Mean Platelet Volume 9.9 fL (7.0-11.0); Platelet Count 75 th/mm3 (150-450); Red Blood Count 3.93 mil/mm3 (4.50-5.90); Red Cell Distribution Width 14.7 % (11.6-17.2); White Blood Count 16.3 th/mm3 (4.0-11.0)
[2017-12-10] MEDS ORDERED: Heparin 10,000 UNITS/10 ML Vial (for IV use) IV.PUSH PRN (22:11)
--- NOTE | 2017-12-10 22:43 | ECG ---
Date Performed: 12/09/2017 Time Performed: 13:04:57 PTAGE: 67 years EKG: SINUS TACHYCARDIA WITH OCCASIONAL SUPRAVENTRICULAR PREMATURE COMPLEXES LEFT ATRIAL ENLARGEM ENT RIGHT BUNDLE BRANCH BLOCK LEFT ANTERIOR FASCICULAR BLOCK ABNORMAL ECG PREVIOUS TRACING : 12/09/2017 11.31 Since the previous tracing, no significant change noted DOCTOR: Adeel Matamoros Interpretating Date/Time 12/10/2017 22:41:28
--- NOTE | 2017-12-10 22:46 | ECG ---
Date Performed: 12/09/2017 Time Performed: 11:31:41 PTAGE: 67 years EKG: SINUS TACHYCARDIA LEFT ATRIAL ENLARGEMENT RIGHT BUNDLE BRANCH BLOCK LEFT ANTERIOR FASCICULA R BLOCK ABNORMAL ECG INTERPRETATION BASED ON A DEFAULT AGE OF 40 YEARS PREVIOUS TRACING : 09/29/2013 11.28 Compared to previous tracing, SINUS TACHYCARDIA IS N EW DOCTOR: Adeel Matamoros Interpretating Date/Time 12/10/2017 22:44:49
[2017-12-11] MEDS: Sodium Bicarbonate 8.4% Inj 150 MEQ in Dextrose 5% in Water Inj 850 ML IV.CONT SCH ×2 (01:43)
[2017-12-11 04:43] LABS: Baso % (Auto) 0.1 % (0.0-2.0); Hematocrit 39.8 % (39.0-51.0); Hemoglobin 13.2 gm/dL (13.0-17.0); Lymph # (Auto) 0.6 th/mm3 (1.0-4.8); Lymph % (Auto) 4.2 % (9.0-44.0); Mean Corpuscular HGB Conc 33.1 % (32.0-36.0); Mean Corpuscular Hemoglobin 36.4 pg (27.0-34.0); Mean Platelet Volume 9.5 fL (7.0-11.0); Mono # (Auto) 0.4 th/mm3 (0.0-0.9); Mono % (Auto) 2.8 % (0.0-8.0); Neut # (Auto) 13.6 th/mm3 (1.8-7.7); Neut % (Auto) 92.9 % (16.0-70.0); Platelet Count 63 th/mm3 (150-450); Red Blood Count 3.62 mil/mm3 (4.50-5.90); Red Cell Distribution Width 14.8 % (11.6-17.2); White Blood Count 14.6 th/mm3 (4.0-11.0)
[2017-12-11 05:31] LABS: Alanine Aminotransferase 1306 U/L (12-78); Albumin 2.9 g/dL (3.4-5.0); Alkaline Phosphatase 84 U/L (45-117); Anion Gap 12 meq/L (5-15); Aspartate Aminotransferase 2861 U/L (15-37); Blood Urea Nitrogen 50 mg/dL (7-18); Calcium 8.5 mg/dL (8.5-10.1); Carbon Dioxide 23.5 meq/L (21.0-32.0); Chloride 106 meq/L (98-107); Glomerular Filtration Rate 32 mL/min (>89); Glucose,Random 135 mg/dL (74-106); Potassium 4.2 meq/L (3.5-5.1); Sodium 141 meq/L (136-145); Total Protein 5.9 g/dL (6.4-8.2)
[2017-12-11] MEDS: MethylPREDNISolone Sod Succinate Inj 40 MG/ML Vial IV.PUSH SCH ×4 (05:38→21:05)
[2017-12-11] MEDS: Piperacil/Tazo 3.375 GM Premix 50 ML IV.SIG SCH ×3 (05:38→20:08)
[2017-12-11 07:58] LABS: Platelet Morphology Normal (Normal)
[2017-12-11] MEDS: Pentoxifylline 400 MG Controlled Release Tablet PO SCH ×3 (08:11→18:05)
[2017-12-11] MEDS: rifAXIMin 550 MG Tablet PO SCH ×2 (08:11→21:05)
[2017-12-11] MEDS: Dextrose 5%/NaCl 0.45% Inj 1,000 ML IV.CONT SCH (10:13)
[2017-12-11] MEDS: Sodium Bicarbonate 8.4% Inj 50 MEQ in Dextrose 5% in Water Inj 950 ML IV.CONT SCH ×2 (10:14)
--- NOTE | 2017-12-11 10:38 | P.PNGI ---
Subjective Interval history: Pt awakens to name. Able to answer questions appropriately today. States was [facility] with [facility], has known Hepatitis C, treatment naive. <Yanna Huynh - Last Filed: 12/11/17 10:31> Physical Exam Vital signs: Vital Signs 12/10/17 11:00 12/10/17 12:00 12/10/17 13:00 Temperature 98 F Pulse Rate 97 H 100 H 106 H Respiratory Rate 20 Blood Pressure 104/66 Pulse Oximetry 94 L 12/10/17 14:00 12/10/17 15:00 12/10/17 16:00 Temperature 97.6 F Pulse Rate 99 H 73 99 H Respiratory Rate 19 Blood Pressure 112/85 Pulse Oximetry 100 12/10/17 16:11 12/10/17 17:00 12/10/17 17:56 Temperature Pulse Rate 98 H 93 H Respiratory Rate 24 Blood Pressure Pulse Oximetry 97 12/10/17 18:00 12/10/17 19:00 12/10/17 20:00 Temperature 97.9 F Pulse Rate 92 H 98 H 94 H Respiratory Rate 22 Blood Pressure 99/70 L Pulse Oximetry 97 12/10/17 20:34 12/10/17 21:00 12/10/17 22:00 Temperature Pulse Rate 91 H 85 84 Respiratory Rate 24 Blood Pressure Pulse Oximetry 95 12/10/17 23:00 12/11/17 00:00 12/11/17 01:00 Temperature 97.8 F Pulse Rate 87 86 86 Respiratory Rate 27 H Blood Pressure 113/71 Pulse Oximetry 98 12/11/17 02:00 12/11/17 03:00 12/11/17 04:00 Temperature 98.0 F Pulse Rate 86 84 86 Respiratory Rate 22 Blood Pressure 121/77 Pulse Oximetry 96 12/11/17 05:00 12/11/17 06:00 12/11/17 07:00 Temperature Pulse Rate 84 86 87 Respiratory Rate Blood Pressure Pulse Oximetry 12/11/17 08:00 12/11/17 08:18 12/11/17 08:19 Temperature 97.8 F Pulse Rate 92 H 96 H Respiratory Rate 23 24 Blood Pressure 114/81 Pulse Oximetry 93 L 91 L 12/11/17 09:00 12/11/17 10:00 Temperature Pulse Rate 88 92 H Respiratory Rate Blood Pressure Pulse Oximetry Intake & Output 12/10/17 12/11/17 12/11/17 18:59 06:59 18:59 Intake Total 820 / 820 1090 / 1090 1550 / 1550 Output Total 1150 / 1150 800 / 800 Balance -330 / -330 290 / 290 1550 / 1550 Weight 79.2 kg Intake: IV 460 / 460 1050 / 1050 1550 / 1550 Cordarone Inj 450 MG In D5W Inj 250 / 250 241 ML @ 1 MG/MIN 33.33 mls/hr IV.CONT TITRATE PRN Rx#: [id number] Sodium Bicarbonate 8.4% Inj 150 1000 / 1000 500 / 500 MEQ In D5W Inj 850 ML @ 50 mls /hr IV.CONT .Q20H ORTIZ Rx#: [id number] Zosyn 3.375 GM Premix 50 ML @ 50 / 50 50 / 50 100 mls/hr IV.SIG Q8H ORTIZ Rx#: [id number] Zosyn 4.5 GM Premix 4.5 gm In 100 / 100 100 ml @ 200 mls/hr IV.SIG Q8H ORTIZ Rx#:[id number] Oral 360 / 360 40 / 40 Output: Urine 700 / 700 Stool 100 / 100 Urine Amount (Catheter) 1150 / 1150 Condom 1150 / 1150 Other: # Incontinent Voids 1 Date of Last Bowel Movement 12/10/17 12/11/17 # Bowel Movements 3 - Constitutional no acute distress - Routine HEENT Exam Head: Present: normocephalic, atraumatic - Routine Respiratory Exam Absent: accessory muscle use - Routine Cardiovascular Exam Present: irregular rhythm - Routine Abdominal Exam Present: soft, normoactive bowel sounds, distended. Absent: tenderness - Routine Skin Exam Present: dry, warm - Routine Neurological Exam Present: alert, oriented X3 - Urinary Catheter Management Condom Cath placed during this visit: no <Yanna Huynh - Last Filed: 12/11/17 10:31> Vital signs: Vital Signs 12/10/17 17:56 12/10/17 18:00 12/10/17 19:00 Temperature Pulse Rate 93 H 92 H 98 H Respiratory Rate 24 Blood Pressure Pulse Oximetry 12/10/17 20:00 12/10/17 20:34 12/10/17 21:00 Temperature 97.9 F Pulse Rate 94 H 91 H 85 Respiratory Rate 22 24 Blood Pressure 99/70 L Pulse Oximetry 97 95 12/10/17 22:00 12/10/17 23:00 12/11/17 00:00 Temperature 97.8 F Pulse Rate 84 87 86 Respiratory Rate 27 H Blood Pressure 113/71 Pulse Oximetry 98 12/11/17 01:00 12/11/17 02:00 12/11/17 03:00 Temperature Pulse Rate 86 86 84 Respiratory Rate Blood Pressure Pulse Oximetry 12/11/17 04:00 12/11/17 05:00 12/11/17 06:00 Temperature 98.0 F Pulse Rate 86 84 86 Respiratory Rate 22 Blood Pressure 121/77 Pulse Oximetry 96 12/11/17 07:00 12/11/17 08:00 12/11/17 08:18 Temperature 97.8 F Pulse Rate 87 92 H Respiratory Rate 23 Blood Pressure 114/81 Pulse Oximetry 93 L 91 L 12/11/17 08:19 12/11/17 09:00 12/11/17 10:00 Temperature Pulse Rate 96 H 88 92 H Respiratory Rate 24 Blood Pressure Pulse Oximetry 12/11/17 11:00 12/11/17 12:00 12/11/17 12:44 Temperature 97.9 F Pulse Rate 83 82 82 Respiratory Rate 19 Blood Pressure 125/84 Pulse Oximetry 94 L 12/11/17 13:00 12/11/17 14:00 12/11/17 15:00 Temperature Pulse Rate 88 84 84 Respiratory Rate Blood Pressure Pulse Oximetry Intake & Output 12/10/17 12/11/17 12/11/17 18:59 06:59 18:59 Intake Total 820 / 820 1090 / 1090 1600 / 1600 Output Total 1150 / 1150 800 / 800 Balance -330 / -330 290 / 290 1600 / 1600 Weight 79.2 kg Intake: IV 460 / 460 1050 / 1050 1600 / 1600 Cordarone Inj 450 MG In D5W Inj 250 / 250 241 ML @ 1 MG/MIN 33.33 mls/hr IV.CONT TITRATE PRN Rx#: [id number] Sodium Bicarbonate 8.4% Inj 150 1000 / 1000 500 / 500 MEQ In D5W Inj 850 ML @ 50 mls /hr IV.CONT .Q20H ORTIZ Rx#: [id number] Zosyn 3.375 GM Premix 50 ML @ 50 / 50 100 / 100 100 mls/hr IV.SIG Q8H ORTIZ Rx#: [id number] Zosyn 4.5 GM Premix 4.5 gm In 100 / 100 100 ml @ 200 mls/hr IV.SIG Q8H ORTIZ Rx#:[id number] Oral 360 / 360 40 / 40 Output: Urine 700 / 700 Stool 100 / 100 Urine Amount (Catheter) 1150 / 1150 Condom 1150 / 1150 Other: # Incontinent Voids 1 Date of Last Bowel Movement 12/10/17 12/11/17 # Bowel Movements 3 - Urinary Catheter Management Condom Cath placed during this visit: no <Bree Lofton - Last Filed: 12/11/17 17:44> Results - Labs CBC & Chem 7: 12/11/17 04:15 12/11/17 04:15 Laboratory Results - last 24 hr 12/10/17 12/10/17 12/10/17 09:21 09:21 09:21 WBC RBC Hgb Hct MCV MCH MCHC RDW Plt Count MPV Prelim Diff (Auto) Neut % (Auto) Lymph % (Auto) [place] % (Auto) Eos % (Auto) Baso % (Auto) Neut # (Auto) Lymph # (Auto) [place] # (Auto) Eos # (Auto) Baso # (Auto) WBC Differential Diff Scan Differential Comment Platelet Estimate Platelet Morphology PT INR APTT Puncture Site Patient Temperature O2 Saturation ABG pH ABG pCO2 ABG pO2 ABG HCO3 ABG O2 Content ABG Base Excess ABG Methemoglobin Cornelio Test Hemoglobin Carboxyhemoglobin O2 Delivery Device Liter Flow Inspired O2 Critical Value Sodium 142 Potassium 4.6 D Chloride 109 H Carbon Dioxide 20.2 L D Anion Gap 13 BUN 42 H Creatinine 2.48 H Estimated GFR 26 L POC Glucose Random Glucose 183 H Lactic Acid Calcium 7.8 L D Iron TIBC % Saturation Ferritin Total Bilirubin AST ALT Alkaline Phosphatase Ammonia Total Creatine Kinase 628 H CK-MB (CK-2) 17.2 H CK-MB (CK-2) % 2.7 Total Protein Albumin Vitamin B12 Greater than 2000 H Folate Greater than 20.0 H Acetaminophen Hepatitis A IgM Ab Nonreactive Hep Bs Antigen Nonreactive Hep B Core IgM Ab Nonreactive Hep C IgG Ab Reactive H 12/10/17 12/10/17 12/10/17 15:23 16:50 17:09 WBC RBC Hgb Hct MCV MCH MCHC RDW Plt Count MPV Prelim Diff (Auto) Neut % (Auto) Lymph % (Auto) [place] % (Auto) Eos % (Auto) Baso % (Auto) Neut # (Auto) Lymph # (Auto) [place] # (Auto) Eos # (Auto) Baso # (Auto) WBC Differential Diff Scan Differential Comment Platelet Estimate Platelet Morphology PT INR APTT Puncture Site Right radial Patient Temperature 98.6 O2 Saturation 93 ABG pH 7.39 ABG pCO2 33 L ABG pO2 80 ABG HCO3 20 L ABG O2 Content 18.1 ABG Base Excess -4.2 L ABG Methemoglobin 0.9 Cornelio Test Present Hemoglobin 13.8 Carboxyhemoglobin 1.3 O2 Delivery Device Nasal cannula Liter Flow 4.00 Inspired O2 21 Critical Value No Sodium Potassium Chloride Carbon Dioxide Anion Gap BUN Creatinine Estimated GFR POC Glucose Random Glucose Lactic Acid Calcium Iron 116 TIBC 398 % Saturation 29.2 Ferritin 4137 H Total Bilirubin AST ALT Alkaline Phosphatase Ammonia 38 H Total Creatine Kinase CK-MB (CK-2) CK-MB (CK-2) % Total Protein Albumin Vitamin B12 Folate Acetaminophen Hepatitis A IgM Ab Hep Bs Antigen Hep B Core IgM Ab Hep C IgG Ab 12/10/17 12/10/17 12/10/17 17:09 17:09 17:09 WBC RBC Hgb Hct MCV MCH MCHC RDW Plt Count MPV Prelim Diff (Auto) Neut % (Auto) Lymph % (Auto) [place] % (Auto) Eos % (Auto) Baso % (Auto) Neut # (Auto) Lymph # (Auto) [place] # (Auto) Eos # (Auto) Baso # (Auto) WBC Differential Diff Scan Differential Comment Platelet Estimate Platelet Morphology PT 29.3 H INR 2.9 APTT 34.0 H D Puncture Site Patient Temperature O2 Saturation ABG pH ABG pCO2 ABG pO2 ABG HCO3 ABG O2 Content ABG Base Excess ABG Methemoglobin Cornelio Test Hemoglobin Carboxyhemoglobin O2 Delivery Device Liter Flow Inspired O2 Critical Value Sodium Potassium Chloride Carbon Dioxide Anion Gap BUN Creatinine Estimated GFR POC Glucose Random Glucose Lactic Acid 3.6 H Calcium Iron TIBC % Saturation Ferritin Total Bilirubin AST ALT Alkaline Phosphatase Ammonia Total Creatine Kinase CK-MB (CK-2) CK-MB (CK-2) % Total Protein Albumin Vitamin B12 Folate Acetaminophen Less than 2.0 L Hepatitis A IgM Ab Hep Bs Antigen Hep B Core IgM Ab Hep C IgG Ab 12/10/17 12/10/17 12/10/17 18:03 20:07 20:07 WBC 16.3 H RBC 3.93 L Hgb 14.0 Hct 43.1 MCV 109.7 H D MCH 35.6 H MCHC 32.4 RDW 14.7 Plt Count 75 L MPV 9.9 Prelim Diff (Auto) Neut % (Auto) Lymph % (Auto) [place] % (Auto) Eos % (Auto) Baso % (Auto) Neut # (Auto) Lymph # (Auto) [place] # (Auto) Eos # (Auto) Baso # (Auto) WBC Differential Diff Scan Differential Comment Platelet Estimate Platelet Morphology PT INR APTT Puncture Site Patient Temperature O2 Saturation ABG pH ABG pCO2 ABG pO2 ABG HCO3 ABG O2 Content ABG Base Excess ABG Methemoglobin Cornelio Test Hemoglobin Carboxyhemoglobin O2 Delivery Device Liter Flow Inspired O2 Critical Value Sodium Potassium Chloride Carbon Dioxide Anion Gap BUN Creatinine Estimated GFR POC Glucose 119 H Random Glucose Lactic Acid 2.5 H Calcium Iron TIBC % Saturation Ferritin Total Bilirubin AST ALT Alkaline Phosphatase Ammonia Total Creatine Kinase CK-MB (CK-2) CK-MB (CK-2) % Total Protein Albumin Vitamin B12 Folate Acetaminophen Hepatitis A IgM Ab Hep Bs Antigen Hep B Core IgM Ab Hep C IgG Ab 12/11/17 12/11/17 12/11/17 00:56 04:13 04:15 WBC 14.6 H RBC 3.62 L Hgb 13.2 Hct 39.8 MCV 110.0 H MCH 36.4 H MCHC 33.1 RDW 14.8 Plt Count 63 L MPV 9.5 Prelim Diff (Auto) Slide review pending Neut % (Auto) 92.9 H Lymph % (Auto) 4.2 L [place] % (Auto) 2.8 Eos % (Auto) 0.0 Baso % (Auto) 0.1 Neut # (Auto) 13.6 H Lymph # (Auto) 0.6 L [place] # (Auto) 0.4 Eos # (Auto) 0.0 Baso # (Auto) 0.0 WBC Differential . Diff Scan Auto diff confirmed Differential Comment . Platelet Estimate Low L Platelet Morphology Normal PT INR APTT Puncture Site Patient Temperature O2 Saturation ABG pH ABG pCO2 ABG pO2 ABG HCO3 ABG O2 Content ABG Base Excess ABG Methemoglobin Cornelio Test Hemoglobin Carboxyhemoglobin O2 Delivery Device Liter Flow Inspired O2 Critical Value Sodium Potassium Chloride Carbon Dioxide Anion Gap BUN Creatinine Estimated GFR POC Glucose 117 H Random Glucose Lactic Acid 2.5 H Calcium Iron TIBC % Saturation Ferritin Total Bilirubin AST ALT Alkaline Phosphatase Ammonia Total Creatine Kinase CK-MB (CK-2) CK-MB (CK-2) % Total Protein Albumin Vitamin B12 Folate Acetaminophen Hepatitis A IgM Ab Hep Bs Antigen Hep B Core IgM Ab Hep C IgG Ab 12/11/17 12/11/17 04:15 05:32 WBC RBC Hgb Hct MCV MCH MCHC RDW Plt Count MPV Prelim Diff (Auto) Neut % (Auto) Lymph % (Auto) [place] % (Auto) Eos % (Auto) Baso % (Auto) Neut # (Auto) Lymph # (Auto) [place] # (Auto) Eos # (Auto) Baso # (Auto) WBC Differential Diff Scan Differential Comment Platelet Estimate Platelet Morphology PT INR APTT Puncture Site Patient Temperature O2 Saturation ABG pH ABG pCO2 ABG pO2 ABG HCO3 ABG O2 Content ABG Base Excess ABG Methemoglobin Cornelio Test Hemoglobin Carboxyhemoglobin O2 Delivery Device Liter Flow Inspired O2 Critical Value Sodium 141 Potassium 4.2 Chloride 106 Carbon Dioxide 23.5 Anion Gap 12 BUN 50 H Creatinine 2.06 H Estimated GFR 32 L POC Glucose 141 H Random Glucose 135 H Lactic Acid Calcium 8.5 Iron TIBC % Saturation Ferritin Total Bilirubin 3.5 H AST 2861 H ALT 1306 H Alkaline Phosphatase 84 Ammonia Total Creatine Kinase CK-MB (CK-2) CK-MB (CK-2) % Total Protein 5.9 L D Albumin 2.9 L D Vitamin B12 Folate Acetaminophen Hepatitis A IgM Ab Hep Bs Antigen Hep B Core IgM Ab Hep C IgG Ab - Imaging Impressions Chest CT 12/10/17 00:00 CONCLUSION: 1. Moderate bilateral pleural effusions with compressive/dependent atelectasis. 2. A more focal area of consolidation involves the left lower lobe which may represent pneumonia in the proper clinical setting. Follow-up to resolution is recommended. 3. Enlarged heart, especially the right atrium. 4. Coronary artery calcification. Chest X-Ray 12/10/17 00:00 CONCLUSION: Increasing bibasilar parenchymal changes much worse on the left. Developing pleural effusions. Head CT 12/10/17 00:00 CONCLUSION: 1. No acute intracranial abnormality. 2. Old left frontal lobe infarct. 3. Left maxillary sinus disease partly seen. Increased attenuation material present, probably inspissated and desiccated debris although some blood in the sinus could appear similar. . Liver Ultrasound 12/10/17 00:00 CONCLUSION: 1. Ultrasound findings suggesting some hepatic insufficiency. Liver is somewhat nodular with increased hepatic echotexture suggesting fatty infiltration/cirrhosis. 2. Abdominal ascites. Bilateral pleural effusions. 3. Mild pelvocaliectasis of the right renal collecting system. 4. Mild mural thickening of the gallbladder. This is nonspecific and may be secondary to passive congestion associated with the presumed hepatic insufficiency Abdomen/Pelvis CT 12/10/17 09:15 CONCLUSION: 1. No obstruction or focal acute inflammatory changes are demonstrated. 2. Moderate ascites. 3. Atherosclerotic aorta. 4. Enlarged heart. CT chest to follow. <Yanna Huynh - Last Filed: 12/11/17 10:31> - Labs CBC & Chem 7: 12/11/17 04:15 12/11/17 04:15 Laboratory Results - last 24 hr 12/10/17 12/10/17 12/10/17 17:09 17:09 17:09 WBC RBC Hgb Hct MCV MCH MCHC RDW Plt Count MPV Prelim Diff (Auto) Neut % (Auto) Lymph % (Auto) [place] % (Auto) Eos % (Auto) Baso % (Auto) Neut # (Auto) Lymph # (Auto) [place] # (Auto) Eos # (Auto) Baso # (Auto) WBC Differential Diff Scan Differential Comment Platelet Estimate Platelet Morphology PT INR APTT Sodium Potassium Chloride Carbon Dioxide Anion Gap BUN Creatinine Estimated GFR POC Glucose Random Glucose Lactic Acid 3.6 H Calcium Total Bilirubin AST ALT Alkaline Phosphatase Ammonia 38 H Total Protein Albumin Acetaminophen Less than 2.0 L Blood Type Blood Type Recheck Blood Bank Comment 12/10/17 12/10/17 12/10/17 17:09 18:03 20:07 WBC 16.3 H RBC 3.93 L Hgb 14.0 Hct 43.1 MCV 109.7 H D MCH 35.6 H MCHC 32.4 RDW 14.7 Plt Count 75 L MPV 9.9 Prelim Diff (Auto) Neut % (Auto) Lymph % (Auto) [place] % (Auto) Eos % (Auto) Baso % (Auto) Neut # (Auto) Lymph # (Auto) [place] # (Auto) Eos # (Auto) Baso # (Auto) WBC Differential Diff Scan Differential Comment Platelet Estimate Platelet Morphology PT 29.3 H INR 2.9 APTT 34.0 H D Sodium Potassium Chloride Carbon Dioxide Anion Gap BUN Creatinine Estimated GFR POC Glucose 119 H Random Glucose Lactic Acid Calcium Total Bilirubin AST ALT Alkaline Phosphatase Ammonia Total Protein Albumin Acetaminophen Blood Type Blood Type Recheck Blood Bank Comment 12/10/17 12/11/17 12/11/17 20:07 00:56 04:13 WBC RBC Hgb Hct MCV MCH MCHC RDW Plt Count MPV Prelim Diff (Auto) Neut % (Auto) Lymph % (Auto) [place] % (Auto) Eos % (Auto) Baso % (Auto) Neut # (Auto) Lymph # (Auto) [place] # (Auto) Eos # (Auto) Baso # (Auto) WBC Differential Diff Scan Differential Comment Platelet Estimate Platelet Morphology PT INR APTT Sodium Potassium Chloride Carbon Dioxide Anion Gap BUN Creatinine Estimated GFR POC Glucose 117 H Random Glucose Lactic Acid 2.5 H 2.5 H Calcium Total Bilirubin AST ALT Alkaline Phosphatase Ammonia Total Protein Albumin Acetaminophen Blood Type Blood Type Recheck Blood Bank Comment 12/11/17 12/11/17 12/11/17 04:15 04:15 05:32 WBC 14.6 H RBC 3.62 L Hgb 13.2 Hct 39.8 MCV 110.0 H MCH 36.4 H MCHC 33.1 RDW 14.8 Plt Count 63 L MPV 9.5 Prelim Diff (Auto) Slide review pending Neut % (Auto) 92.9 H Lymph % (Auto) 4.2 L [place] % (Auto) 2.8 Eos % (Auto) 0.0 Baso % (Auto) 0.1 Neut # (Auto) 13.6 H Lymph # (Auto) 0.6 L [place] # (Auto) 0.4 Eos # (Auto) 0.0 Baso # (Auto) 0.0 WBC Differential . Diff Scan Auto diff confirmed Differential Comment . Platelet Estimate Low L Platelet Morphology Normal PT INR APTT Sodium 141 Potassium 4.2 Chloride 106 Carbon Dioxide 23.5 Anion Gap 12 BUN 50 H Creatinine 2.06 H Estimated GFR 32 L POC Glucose 141 H Random Glucose 135 H Lactic Acid Calcium 8.5 Total Bilirubin 3.5 H AST 2861 H ALT 1306 H Alkaline Phosphatase 84 Ammonia Total Protein 5.9 L D Albumin 2.9 L D Acetaminophen Blood Type Blood Type Recheck Blood Bank Comment 12/11/17 12/11/17 11:53 12:13 WBC RBC Hgb Hct MCV MCH MCHC RDW Plt Count MPV Prelim Diff (Auto) Neut % (Auto) Lymph % (Auto) [place] % (Auto) Eos % (Auto) Baso % (Auto) Neut # (Auto) Lymph # (Auto) [place] # (Auto) Eos # (Auto) Baso # (Auto) WBC Differential Diff Scan Differential Comment Platelet Estimate Platelet Morphology PT INR APTT Sodium Potassium Chloride Carbon Dioxide Anion Gap BUN Creatinine Estimated GFR POC Glucose 155 H Random Glucose Lactic Acid Calcium Total Bilirubin AST ALT Alkaline Phosphatase Ammonia Total Protein Albumin Acetaminophen Blood Type B Positive Blood Type Recheck Required Blood Bank Comment Microbiology 12/09/17 04:44 Catheterized Urine Urine Culture - Preliminary No growth in 24 hours - Imaging Impressions Chest CT 12/10/17 00:00 CONCLUSION: 1. Moderate bilateral pleural effusions with compressive/dependent atelectasis. 2. A more focal area of consolidation involves the left lower lobe which may represent pneumonia in the proper clinical setting. Follow-up to resolution is recommended. 3. Enlarged heart, especially the right atrium. 4. Coronary artery calcification. Head CT 12/10/17 00:00 CONCLUSION: 1. No acute intracranial abnormality. 2. Old left frontal lobe infarct. 3. Left maxillary sinus disease partly seen. Increased attenuation material present, probably inspissated and desiccated debris although some blood in the sinus could appear similar. . Abdomen/Pelvis CT 12/10/17 09:15 CONCLUSION: 1. No obstruction or focal acute inflammatory changes are demonstrated. 2. Moderate ascites. 3. Atherosclerotic aorta. 4. Enlarged heart. CT chest to follow. <Bree Lofton - Last Filed: 12/11/17 17:44> Assessment and Plan - Plan Assessment: - Elevated LFTs Labs consistent with cirrhosis. Hypoalbuminemia, coagulopathy, and thrombocytopenia Pt grunts but will not stay awake to answer any questions LFTs likely multifactorial given recent V tach, possibly shocked liver, also noted to have (+) Hep C antibody According to record, pt reported heavy drinking however according to admission note pt stated that he quit drinking 3 days prior to admission. Labs consistent with ETOH hepatitis Unsure of risk factors for Hepatitis C because pt unable to provide any history Unsure of any family history - V-tach in route to hospital- no response to Amiodarone- converted after cardioversion- cardiology following, planning on cardiac cath when creatinine improves (12/11) Pt easily awakens today to his name. States known cirrhosis, [facility], known Hepatitis C, treatment naive. Denies history of IV drug use, current or previous illicit drug use, tattoos, high risk sexual behavior, and previous blood transfusions. Pt reports he was drinking about four beers a day prior to coming in but has been trying to quit, states last ETOH was two days ago. Ammonia slightly elevated, pt on Xifaxan and Lactulose Liver GARIBAY pending Increase in LFTs today, likely shocked liver Liver US --> Ultrasound findings suggesting some hepatic insufficiency. Liver is somewhat nodular with increased hepatic echotexture suggesting fatty infiltration/cirrhosis. Abdominal ascites. Bilateral pleural effusions. Mild pelvocaliectasis of the right renal collecting system. Mild mural thickening of the gallbladder. This is nonspecific and may be secondary to passive congestion associated with the presumed hepatic insufficiency. Pt does not think he has had previous EGD or colonoscopy Plan: Liver work up pending Solumedrol and Pentoxifylline Lactulose and Xifaxan Hep C antibody positive - ordered quant and genotype Alcohol withdraw protocol Further recommendations to follow Pt has been seen and examined by myself and Dr. Lofton and this note is written on her behalf <Yanna Huynh - Last Filed: 12/11/17 10:31> - Attending Attestation seen, examined agree with above <Bree Lofton - Last Filed: 12/11/17 17:44>
--- NOTE | 2017-12-11 11:55 | P.PNCC ---
Subjective Subjective Remarks/Hospital Course: Patient is a 67-year-old homeless who was brought into the emergency department 12/09/17 for shortness of breath and tachycardia and was found to have sustained V-tach. He did not convert with amiodarone and was cardioverted in the ER. He is a very poor historian but gives history of long-standing alcohol and tobacco abuse. His workup in the ER revealed multiple abnormal labs including BUN 32 creatinine 2.5, bicarb was only 8 and lactic acid was 12.1. His liver enzymes were elevated and INR was 4. His bilirubin was 5.4 AST was 842 and ALT of 399. His discriminant function was elevated and patient was placed on IV steroids for alcoholic hepatitis. But patient gives a history of stopping alcohol approximately a month ago. Dr. Efe Mcconnell was consulted for V. tach and elevated troponin. He recommended continuing amiodarone possible cardiac catheterization and evaluation for AICD once the creatinine improves. A 2D echo official read: showed EF 35-40%, RV pressure overload RV dilation and severe TR and a possible apical thrombus with severe apical hypokinesis. I discussed with Dr. Mcconnell-his impression is global hypokinesis with EF 20%, he did not see an apical thrombus but he will re-evaluate. With possible apical thrombus patient was started on IV heparin by hospitalist. Patient was also continued on IV amiodarone Today patient was found to be more lethargic, less responsive and was transferred to the ICU. Critical care medicine was consulted. I evaluated the patient immediately. He is lethargic but wakes up on stimulation protecting airway. Chest x-ray shows increasing pulmonary infiltrates. CT abdomen pelvis chest and brain is pending at this time. Ammonia level is also pending but GI has started Xifaxan and lactulose. Lactic acid today is 10.3 and patient is currently receiving bicarbonate infusion. His metabolic acidosis has improved on ABG. However clinically his respiratory status has worsened. I will discontinue amiodarone infusion due to acute liver failure. Start him on Coreg 3.125 mg twice daily. Use as needed IV Lopressor for tachycardia. I will also discontinue the IV heparin due to severe coagulopathy. Discussed with Dr. Mcconnell SUBJ: Clinically slightly improved less lethargic. More awake. Creatinine slightly improved to 2 now. Lactic acid almost cleared 2.5 now. AST/ALT continues to increase 2861/1306. CT chest/abd shows moderate pleural effusion, moderate ascites, left lower lobe infiltrate. Urine output 700 mL in 24 hours. Plan for paracentesis to rule out SBP Objective Vital Signs / I&O: Vital Signs 12/10/17 12:00 12/10/17 13:00 12/10/17 14:00 Temperature 98 F Pulse Rate 100 H 106 H 99 H Respiratory Rate 20 Blood Pressure 104/66 Pulse Oximetry 94 L 12/10/17 15:00 12/10/17 16:00 12/10/17 16:11 Temperature 97.6 F Pulse Rate 73 99 H Respiratory Rate 19 Blood Pressure 112/85 Pulse Oximetry 100 97 12/10/17 17:00 12/10/17 17:56 12/10/17 18:00 Temperature Pulse Rate 98 H 93 H 92 H Respiratory Rate 24 Blood Pressure Pulse Oximetry 12/10/17 19:00 12/10/17 20:00 12/10/17 20:34 Temperature 97.9 F Pulse Rate 98 H 94 H 91 H Respiratory Rate 22 24 Blood Pressure 99/70 L Pulse Oximetry 97 95 12/10/17 21:00 12/10/17 22:00 12/10/17 23:00 Temperature Pulse Rate 85 84 87 Respiratory Rate Blood Pressure Pulse Oximetry 12/11/17 00:00 12/11/17 01:00 12/11/17 02:00 Temperature 97.8 F Pulse Rate 86 86 86 Respiratory Rate 27 H Blood Pressure 113/71 Pulse Oximetry 98 12/11/17 03:00 12/11/17 04:00 12/11/17 05:00 Temperature 98.0 F Pulse Rate 84 86 84 Respiratory Rate 22 Blood Pressure 121/77 Pulse Oximetry 96 12/11/17 06:00 12/11/17 07:00 12/11/17 08:00 Temperature 97.8 F Pulse Rate 86 87 92 H Respiratory Rate 23 Blood Pressure 114/81 Pulse Oximetry 93 L 12/11/17 08:18 12/11/17 08:19 12/11/17 09:00 Temperature Pulse Rate 96 H 88 Respiratory Rate 24 Blood Pressure Pulse Oximetry 91 L 12/11/17 10:00 Temperature Pulse Rate 92 H Respiratory Rate Blood Pressure Pulse Oximetry Intake & Output 12/10/17 12/11/17 12/11/17 18:59 06:59 18:59 Intake Total 820 / 820 1090 / 1090 1550 / 1550 Output Total 1150 / 1150 800 / 800 Balance -330 / -330 290 / 290 1550 / 1550 Weight 79.2 kg Intake: IV 460 / 460 1050 / 1050 1550 / 1550 Cordarone Inj 450 MG In D5W Inj 250 / 250 241 ML @ 1 MG/MIN 33.33 mls/hr IV.CONT TITRATE PRN Rx#: [id number] Sodium Bicarbonate 8.4% Inj 150 1000 / 1000 500 / 500 MEQ In D5W Inj 850 ML @ 50 mls /hr IV.CONT .Q20H ORTIZ Rx#: [id number] Zosyn 3.375 GM Premix 50 ML @ 50 / 50 50 / 50 100 mls/hr IV.SIG Q8H ORTIZ Rx#: [id number] Zosyn 4.5 GM Premix 4.5 gm In 100 / 100 100 ml @ 200 mls/hr IV.SIG Q8H ORTIZ Rx#:[id number] Oral 360 / 360 40 / 40 Output: Urine 700 / 700 Stool 100 / 100 Urine Amount (Catheter) 1150 / 1150 Condom 1150 / 1150 Other: # Incontinent Voids 1 Date of Last Bowel Movement 12/10/17 12/11/17 # Bowel Movements 3 Result Diagrams: 12/11/17 04:15 12/11/17 04:15 Objective Remarks: GENERAL: 67-year-old male, slightly lethargic somnolent but wakes up easily SKIN: Warm and dry. Mildly jaundiced HEAD: Atraumatic. Normocephalic. EYES: Pupils equal and round. Mild scleral icterus. ENT: No nasal bleeding or discharge. Mucous membranes dry NECK: Trachea midline. No JVD. CARDIOVASCULAR: Regular rate and rhythm. No murmurs RESPIRATORY: No accessory muscle use. Few Coarse rhonchi bilaterally GASTROINTESTINAL: Abdomen soft, non-tender, nondistended. Hepatic and splenic margins not palpable. Moderate ascites on ultrasound MUSCULOSKELETAL: Poorly perfused extremities NEUROLOGICAL: Patient is but improved level of alertness today. Follows commands no focal deficits Assessment and Plan - Assessment and Plan Plan: NEURO: Acute metabolic encephalopathy Alcohol dependence -Metabolic encephalopathy could be secondary to sepsis, possible hepatic encephalopathy -CT of the head-Old left frontal lobe infarct. -Ammonia level 34 GI has started patient on lactulose and Xifaxan -Supplement multivitamin thiamine -Watch closely for alcohol withdrawal, CIWA protocol discontinued due to lethargy RESP: Respiratory insufficiency Probable COPD -DuoNeb every 6 hours scheduled and as needed -Aggressive pulmonary toilet -F/u sputum culture, CT of the chest-left lower lobe infiltrate and moderate effusions -Effusions most likely from third spacing -Check urine for Legionella continue Zosyn CV: Sustained ventricular tachycardia Cardiomyopathy with ejection fraction approximately 20%, most likely alcoholic cardiomyopathy Mild troponin elevation Possible apical thrombus Severe lactic acidosis -Patient was cardioverted in the emergency department, and placed on IV amiodarone infusion -Discontinued amiodarone due to liver failure. If recurrent V. tach will start lidocaine infusion -Started on Coreg 6.125 mg twice daily. Use as needed IV Lopressor for tachycardia -Briefly on esmolol yesterday for A. fib flutter with RVR -Discontinued IV heparin due to coagulopathy -Discussed with Dr. Mcconnell, patient will need cardiac catheterization once creatinine is improved -Lactic acidosis due to combination of poor perfusion, and liver failure, now cleared GI: Acute hepatitis with liver failure Liver cirrhosis Ascites -N.p.o. except meds, IV Protonix -GI consult appreciated, CT abdomen pelvis with moderate ascites -Plan for diagnostic and therapeutic paracentesis -Continue IV steroids for now as the discriminant function is elevated -Continue Xifaxan, lactulose : Acute kidney failure -Monitor renal function closely. Sesay catheter. -Nephrology following continue bicarb infusion -NATASHA most likely due to decreased renal perfusion -US shows right sided mild hydronephrosis ID: Probable sepsis -R/o SBP. Await paracentesis -Follow-up on blood urine and sputum cultures. Check urine for Legionella -Started on empiric Zosyn HEME: Coagulopathy secondary to liver failure -Monitor CBC, coags -Correct INR with FFP for paracentesis ENDO: Hyperkalemia Hypoglycemia -Currently potassium is corrected -Hypoglycemia secondary to liver failure and possible sepsis -Continue bicarb infusion PROPH: -Bilateral lower extremity SCDs. Avoid chemical DVT prophylaxis due to coagulopathy -IV Protonix for GI prophylaxis LINES: -Utilize peripheral IVs, central line if needed Level 3 Re-consult hospitalist to assume care in am Critically ill but steadily improving. Code Status: Full
--- NOTE | 2017-12-11 12:39 | P.PNNP ---
Subjective Interval history: He is more alert today. Renal function improving. <Xena Ferrara - Last Filed: 12/11/17 12:36> Physical Exam Vital signs: Vital Signs 12/10/17 13:00 12/10/17 14:00 12/10/17 15:00 Temperature Pulse Rate 106 H 99 H 73 Respiratory Rate Blood Pressure Pulse Oximetry 12/10/17 16:00 12/10/17 16:11 12/10/17 17:00 Temperature 97.6 F Pulse Rate 99 H 98 H Respiratory Rate 19 Blood Pressure 112/85 Pulse Oximetry 100 97 12/10/17 17:56 12/10/17 18:00 12/10/17 19:00 Temperature Pulse Rate 93 H 92 H 98 H Respiratory Rate 24 Blood Pressure Pulse Oximetry 12/10/17 20:00 12/10/17 20:34 12/10/17 21:00 Temperature 97.9 F Pulse Rate 94 H 91 H 85 Respiratory Rate 22 24 Blood Pressure 99/70 L Pulse Oximetry 97 95 12/10/17 22:00 12/10/17 23:00 12/11/17 00:00 Temperature 97.8 F Pulse Rate 84 87 86 Respiratory Rate 27 H Blood Pressure 113/71 Pulse Oximetry 98 12/11/17 01:00 12/11/17 02:00 12/11/17 03:00 Temperature Pulse Rate 86 86 84 Respiratory Rate Blood Pressure Pulse Oximetry 12/11/17 04:00 12/11/17 05:00 12/11/17 06:00 Temperature 98.0 F Pulse Rate 86 84 86 Respiratory Rate 22 Blood Pressure 121/77 Pulse Oximetry 96 12/11/17 07:00 12/11/17 08:00 12/11/17 08:18 Temperature 97.8 F Pulse Rate 87 92 H Respiratory Rate 23 Blood Pressure 114/81 Pulse Oximetry 93 L 91 L 12/11/17 08:19 12/11/17 09:00 12/11/17 10:00 Temperature Pulse Rate 96 H 88 92 H Respiratory Rate 24 Blood Pressure Pulse Oximetry Intake & Output 12/10/17 12/11/17 12/11/17 18:59 06:59 18:59 Intake Total 820 / 820 1090 / 1090 1550 / 1550 Output Total 1150 / 1150 800 / 800 Balance -330 / -330 290 / 290 1550 / 1550 Weight 79.2 kg Intake: IV 460 / 460 1050 / 1050 1550 / 1550 Cordarone Inj 450 MG In D5W Inj 250 / 250 241 ML @ 1 MG/MIN 33.33 mls/hr IV.CONT TITRATE PRN Rx#: [id number] Sodium Bicarbonate 8.4% Inj 150 1000 / 1000 500 / 500 MEQ In D5W Inj 850 ML @ 50 mls /hr IV.CONT .Q20H ORTIZ Rx#: [id number] Zosyn 3.375 GM Premix 50 ML @ 50 / 50 50 / 50 100 mls/hr IV.SIG Q8H ORTIZ Rx#: [id number] Zosyn 4.5 GM Premix 4.5 gm In 100 / 100 100 ml @ 200 mls/hr IV.SIG Q8H ORTIZ Rx#:[id number] Oral 360 / 360 40 / 40 Output: Urine 700 / 700 Stool 100 / 100 Urine Amount (Catheter) 1150 / 1150 Condom 1150 / 1150 Other: # Incontinent Voids 1 Date of Last Bowel Movement 12/10/17 12/11/17 # Bowel Movements 3 - Constitutional no acute distress, average body habitus - Routine HEENT Exam Head: Present: normocephalic - Routine Neck Exam Present: supple, full ROM - Routine Respiratory Exam Present: CTA bilaterally. Absent: accessory muscle use - Routine Cardiovascular Exam Present: RRR, S1, S2 - Routine Abdominal Exam Present: soft, normoactive bowel sounds - Routine Skin Exam Present: intact, dry, warm - Routine Neurological Exam Present: alert, CN II-XII intact, moving all extremities - Detailed Neurological Exam: Coma Scale Eye Opening: Spontaneous Verbal Response: Oriented Motor Response: Obey commands Sean Coma Scale Total: 15 - Routine Psychiatric Exam Present: normal affect, normal thought process - Urinary Catheter Management Condom Cath placed during this visit: no <Xena Ferrara - Last Filed: 12/11/17 12:36> Vital signs: Vital Signs 12/10/17 17:00 12/10/17 17:56 12/10/17 18:00 Temperature Pulse Rate 98 H 93 H 92 H Respiratory Rate 24 Blood Pressure Pulse Oximetry 12/10/17 19:00 12/10/17 20:00 12/10/17 20:34 Temperature 97.9 F Pulse Rate 98 H 94 H 91 H Respiratory Rate 22 24 Blood Pressure 99/70 L Pulse Oximetry 97 95 12/10/17 21:00 12/10/17 22:00 12/10/17 23:00 Temperature Pulse Rate 85 84 87 Respiratory Rate Blood Pressure Pulse Oximetry 12/11/17 00:00 12/11/17 01:00 12/11/17 02:00 Temperature 97.8 F Pulse Rate 86 86 86 Respiratory Rate 27 H Blood Pressure 113/71 Pulse Oximetry 98 12/11/17 03:00 12/11/17 04:00 12/11/17 05:00 Temperature 98.0 F Pulse Rate 84 86 84 Respiratory Rate 22 Blood Pressure 121/77 Pulse Oximetry 96 12/11/17 06:00 12/11/17 07:00 12/11/17 08:00 Temperature 97.8 F Pulse Rate 86 87 92 H Respiratory Rate 23 Blood Pressure 114/81 Pulse Oximetry 93 L 12/11/17 08:18 12/11/17 08:19 12/11/17 09:00 Temperature Pulse Rate 96 H 88 Respiratory Rate 24 Blood Pressure Pulse Oximetry 91 L 12/11/17 10:00 12/11/17 11:00 12/11/17 12:00 Temperature 97.9 F Pulse Rate 92 H 83 82 Respiratory Rate 19 Blood Pressure 125/84 Pulse Oximetry 94 L 12/11/17 12:44 12/11/17 13:00 12/11/17 14:00 Temperature Pulse Rate 82 88 84 Respiratory Rate Blood Pressure Pulse Oximetry 12/11/17 15:00 Temperature Pulse Rate 84 Respiratory Rate Blood Pressure Pulse Oximetry Intake & Output 12/10/17 12/11/17 12/11/17 18:59 06:59 18:59 Intake Total 820 / 820 1090 / 1090 1600 / 1600 Output Total 1150 / 1150 800 / 800 Balance -330 / -330 290 / 290 1600 / 1600 Weight 79.2 kg Intake: IV 460 / 460 1050 / 1050 1600 / 1600 Cordarone Inj 450 MG In D5W Inj 250 / 250 241 ML @ 1 MG/MIN 33.33 mls/hr IV.CONT TITRATE PRN Rx#: [id number] Sodium Bicarbonate 8.4% Inj 150 1000 / 1000 500 / 500 MEQ In D5W Inj 850 ML @ 50 mls /hr IV.CONT .Q20H ORTIZ Rx#: [id number] Zosyn 3.375 GM Premix 50 ML @ 50 / 50 100 / 100 100 mls/hr IV.SIG Q8H ORTIZ Rx#: [id number] Zosyn 4.5 GM Premix 4.5 gm In 100 / 100 100 ml @ 200 mls/hr IV.SIG Q8H ORTIZ Rx#:[id number] Oral 360 / 360 40 / 40 Output: Urine 700 / 700 Stool 100 / 100 Urine Amount (Catheter) 1150 / 1150 Condom 1150 / 1150 Other: # Incontinent Voids 1 Date of Last Bowel Movement 12/10/17 12/11/17 # Bowel Movements 3 - Urinary Catheter Management Condom Cath placed during this visit: no <Crispin Gastelum - Last Filed: 12/11/17 16:55> Assessment and Plan - Assessment (1) Acute renal failure Code(s): N17.9 - Acute kidney failure, unspecified Status: Acute Plan: No labs available for comparison NATASHA most likely due to decreased renal perfusion due to hypotension; this may be secondary to V tach or A fib. Possibly infection. His renal function is improvign Stop bicarb gtt change IVF to D51/2. US shows right sided mild hydronephrosis, the significance of which is unclear. Repeat imaging in a few days. He has a condom cath on currently, is non oliguric. Repeat labs daily Avoid nephrotoxins. There is discussion about cardiac catheterization that ideally should wait until his renal function improves. Monitor fluid status. (2) A-fib Code(s): I48.91 - Unspecified atrial fibrillation Status: Acute Plan: Off amiodarone and heparin gtt. On esmolol gtt. Cardiology following (3) Metabolic acidosis Code(s): E87.2 - Acidosis Status: Acute Plan: Improved. Due to combination of renal failure and metabolic acidosis Follow labs. (4) Lactic acidosis Code(s): E87.2 - Acidosis Status: Acute Plan: Etiology unclear. Ct abdomen/pelvis negative. Improving. (5) Elevated troponin Code(s): R74.8 - Abnormal levels of other serum enzymes Status: Acute Plan: Cardiology following Echo reviewed, severe CM May need heart cath this admission. (6) High transaminase levels Code(s): R74.0 - Nonspecific elevation of levels of transaminase and lactic acid dehydrogenase [LDH] Status: Acute Plan: With coagulopathy and thrombocytopenia. GI is following hep C positive May have shock liver vs. intraabdominal process <Xena Ferrara - Last Filed: 12/11/17 12:36> - Assessment (1) Acute renal failure Code(s): N17.9 - Acute kidney failure, unspecified Status: Acute (2) A-fib Code(s): I48.91 - Unspecified atrial fibrillation Status: Acute (3) Metabolic acidosis Code(s): E87.2 - Acidosis Status: Acute (4) Lactic acidosis Code(s): E87.2 - Acidosis Status: Acute (5) Elevated troponin Code(s): R74.8 - Abnormal levels of other serum enzymes Status: Acute (6) High transaminase levels Code(s): R74.0 - Nonspecific elevation of levels of transaminase and lactic acid dehydrogenase [LDH] Status: Acute - Attending Attestation patient was seen and examined. Agree with above assessment and plan. <Crispin Gastelum - Last Filed: 12/11/17 16:55>
--- NOTE | 2017-12-11 14:04 | P.PNCA ---
Subjective Interval history: no complaints Physical Exam Vital signs: Vital Signs 12/10/17 15:00 12/10/17 16:00 12/10/17 16:11 Temperature 97.6 F Pulse Rate 73 99 H Respiratory Rate 19 Blood Pressure 112/85 Pulse Oximetry 100 97 12/10/17 17:00 12/10/17 17:56 12/10/17 18:00 Temperature Pulse Rate 98 H 93 H 92 H Respiratory Rate 24 Blood Pressure Pulse Oximetry 12/10/17 19:00 12/10/17 20:00 12/10/17 20:34 Temperature 97.9 F Pulse Rate 98 H 94 H 91 H Respiratory Rate 22 24 Blood Pressure 99/70 L Pulse Oximetry 97 95 12/10/17 21:00 12/10/17 22:00 12/10/17 23:00 Temperature Pulse Rate 85 84 87 Respiratory Rate Blood Pressure Pulse Oximetry 12/11/17 00:00 12/11/17 01:00 12/11/17 02:00 Temperature 97.8 F Pulse Rate 86 86 86 Respiratory Rate 27 H Blood Pressure 113/71 Pulse Oximetry 98 12/11/17 03:00 12/11/17 04:00 12/11/17 05:00 Temperature 98.0 F Pulse Rate 84 86 84 Respiratory Rate 22 Blood Pressure 121/77 Pulse Oximetry 96 12/11/17 06:00 12/11/17 07:00 12/11/17 08:00 Temperature 97.8 F Pulse Rate 86 87 92 H Respiratory Rate 23 Blood Pressure 114/81 Pulse Oximetry 93 L 12/11/17 08:18 12/11/17 08:19 12/11/17 09:00 Temperature Pulse Rate 96 H 88 Respiratory Rate 24 Blood Pressure Pulse Oximetry 91 L 12/11/17 10:00 12/11/17 11:00 12/11/17 12:00 Temperature 97.9 F Pulse Rate 92 H 83 82 Respiratory Rate 19 Blood Pressure 125/84 Pulse Oximetry 94 L 12/11/17 12:44 12/11/17 13:00 Temperature Pulse Rate 82 88 Respiratory Rate Blood Pressure Pulse Oximetry Intake & Output 12/10/17 12/11/17 12/11/17 18:59 06:59 18:59 Intake Total 820 / 820 1090 / 1090 1550 / 1550 Output Total 1150 / 1150 800 / 800 Balance -330 / -330 290 / 290 1550 / 1550 Weight 79.2 kg Intake: IV 460 / 460 1050 / 1050 1550 / 1550 Cordarone Inj 450 MG In D5W Inj 250 / 250 241 ML @ 1 MG/MIN 33.33 mls/hr IV.CONT TITRATE PRN Rx#: [id number] Sodium Bicarbonate 8.4% Inj 150 1000 / 1000 500 / 500 MEQ In D5W Inj 850 ML @ 50 mls /hr IV.CONT .Q20H ORTIZ Rx#: [id number] Zosyn 3.375 GM Premix 50 ML @ 50 / 50 50 / 50 100 mls/hr IV.SIG Q8H ORTIZ Rx#: [id number] Zosyn 4.5 GM Premix 4.5 gm In 100 / 100 100 ml @ 200 mls/hr IV.SIG Q8H ORTIZ Rx#:[id number] Oral 360 / 360 40 / 40 Output: Urine 700 / 700 Stool 100 / 100 Urine Amount (Catheter) 1150 / 1150 Condom 1150 / 1150 Other: # Incontinent Voids 1 Date of Last Bowel Movement 12/10/17 12/11/17 # Bowel Movements 3 Narrative: Awake Neck ++JVD Chest: diminished BS CV S1S2 soft, soft S3 Abd soft Ext tr edema - Urinary Catheter Management Condom Cath placed during this visit: no Assessment and Plan - Assessment (1) Acute renal failure Code(s): N17.9 - Acute kidney failure, unspecified Status: Acute (2) High transaminase levels Code(s): R74.0 - Nonspecific elevation of levels of transaminase and lactic acid dehydrogenase [LDH] Status: Acute (3) Cardiomyopathy Code(s): I42.9 - Cardiomyopathy, unspecified Status: Acute - Plan Amio D/C'd due to elevated LFT's. Creatinine still elevated.
[2017-12-11 22:08] LABS: Prothrombin Time 19.9 sec (9.8-11.6)
[2017-12-12] MEDS: MethylPREDNISolone Sod Succinate Inj 40 MG/ML Vial IV.PUSH SCH ×4 (05:12→21:33)
[2017-12-12] MEDS: Piperacil/Tazo 3.375 GM Premix 50 ML IV.SIG SCH ×3 (05:12→20:25)
[2017-12-12 05:19] LABS: Baso % (Auto) 0.1 % (0.0-2.0); Hematocrit 42.3 % (39.0-51.0); Hemoglobin 14.1 gm/dL (13.0-17.0); Lymph # (Auto) 0.5 th/mm3 (1.0-4.8); Lymph % (Auto) 3.3 % (9.0-44.0); Mean Corpuscular HGB Conc 33.4 % (32.0-36.0); Mean Corpuscular Hemoglobin 36.3 pg (27.0-34.0); Mean Corpuscular Volume 108.7 fL (80.0-100.0); Mean Platelet Volume 10.3 fL (7.0-11.0); Mono # (Auto) 0.4 th/mm3 (0.0-0.9); Mono % (Auto) 2.6 % (0.0-8.0); Neut # (Auto) 13.4 th/mm3 (1.8-7.7); Platelet Count 61 th/mm3 (150-450); Red Blood Count 3.89 mil/mm3 (4.50-5.90); Red Cell Distribution Width 14.9 % (11.6-17.2); White Blood Count 14.2 th/mm3 (4.0-11.0)
[2017-12-12 05:58] LABS: Platelet Morphology Normal (Normal)
--- NOTE | 2017-12-12 07:55 | P.PNCA ---
Subjective Interval history: no complaints elicited but he is always quiet/ sleeping but arousable Physical Exam Vital signs: Vital Signs 12/11/17 08:00 12/11/17 08:18 12/11/17 08:19 Temperature 97.8 F Pulse Rate 92 H 96 H Respiratory Rate 23 24 Blood Pressure 114/81 Pulse Oximetry 93 L 91 L 12/11/17 09:00 12/11/17 10:00 12/11/17 11:00 Temperature Pulse Rate 88 92 H 83 Respiratory Rate Blood Pressure Pulse Oximetry 12/11/17 12:00 12/11/17 12:44 12/11/17 13:00 Temperature 97.9 F Pulse Rate 82 82 88 Respiratory Rate 19 Blood Pressure 125/84 Pulse Oximetry 94 L 12/11/17 14:00 12/11/17 15:00 12/11/17 16:00 Temperature 97.9 F Pulse Rate 84 84 84 Respiratory Rate 22 Blood Pressure 120/88 Pulse Oximetry 22 L 12/11/17 17:00 12/11/17 18:00 12/11/17 18:12 Temperature 98.0 F Pulse Rate 87 87 85 Respiratory Rate 20 Blood Pressure 138/93 H Pulse Oximetry 93 L 12/11/17 18:31 12/11/17 19:00 12/11/17 20:00 Temperature 98.1 F 98.9 F Pulse Rate 85 84 86 Respiratory Rate 27 H 22 Blood Pressure 138/93 H 133/82 Pulse Oximetry 88 L 92 L 12/11/17 21:00 12/11/17 21:46 12/11/17 22:00 Temperature Pulse Rate 90 85 86 Respiratory Rate 22 Blood Pressure Pulse Oximetry 94 L 12/11/17 23:00 12/12/17 00:00 12/12/17 01:00 Temperature 98.8 F Pulse Rate 88 86 88 Respiratory Rate 18 Blood Pressure 140/93 H Pulse Oximetry 93 L 94 L 12/12/17 02:00 12/12/17 03:00 12/12/17 03:49 Temperature Pulse Rate 85 84 86 Respiratory Rate 18 Blood Pressure Pulse Oximetry 98 12/12/17 04:00 12/12/17 05:00 12/12/17 06:00 Temperature 97.6 F Pulse Rate 82 82 86 Respiratory Rate 17 Blood Pressure 126/74 Pulse Oximetry 96 Intake & Output 12/11/17 12/12/17 12/12/17 18:59 06:59 18:59 Intake Total 2181 / 2181 100 / 100 Output Total 1000 / 1000 850 / 850 Balance 1181 / 1181 -750 / -750 Weight 79.4 kg Intake: IV 1600 / 1600 100 / 100 Sodium Bicarbonate 8.4% Inj 150 500 / 500 MEQ In D5W Inj 850 ML @ 50 mls /hr IV.CONT .Q20H ORTIZ Rx#: [id number] Zosyn 3.375 GM Premix 50 ML @ 100 / 100 100 / 100 100 mls/hr IV.SIG Q8H ORTIZ Rx#: [id number] Intake (Blood Product) Amt 581 / 581 Plasma Thawed 5 Day Cp2d Unit 273 / 273 [id number] Plasma Thawed 5 Day Cp2d Unit 308 / 308 [id number] Output: Urine 650 / 650 Stool 400 / 400 200 / 200 Urine Amount (Catheter) 600 / 600 Condom 600 / 600 Other: # Voids 4 Date of Last Bowel Movement 12/12/17 Narrative: Lethargic Neck +JVD Chest: diminished BS CV S1S2 soft, soft S3 Abd soft Ext no edema Tele: 5 beat run of VT 20:58 - Urinary Catheter Management Condom Cath placed during this visit: no Assessment and Plan - Assessment (1) Acute renal failure Code(s): N17.9 - Acute kidney failure, unspecified Status: Acute Plan: creatinine is failing to improve. High risk for cardiac cath cath. Will wait as advised by renal. Even when we do a cath it will be somewhat pointless - he is not a good candidate for any form of revascularization (2) Cardiomyopathy Code(s): I42.9 - Cardiomyopathy, unspecified Status: Acute Plan: Severe. EF only 20%. Etiology unclear. Doubt recent [place] (3) Multi-organ system dysfunction Status: Acute Plan: Severe cardiac, liver and renal disease, prior CVA, reduced mental status (4) Homeless single person Code(s): Z59.0 - Homelessness Status: Acute (5) Advanced cirrhosis of liver Code(s): K74.60 - Unspecified cirrhosis of liver Status: Acute Plan: INR elevated. (6) V tach Code(s): I47.2 - Ventricular tachycardia Status: Acute Plan: Sustained VT on admision requiring cardioversion. off amio due to cirrhosis. - Plan Prognosis very poor - I don't see any "endgame" where he can ever be well. He has too much multiorgan system disease and is homeless on top of that. Consider palliative care consult. Dr. Barcenas crayon painter over weekend and will see prn. Please call if questions.
--- NOTE | 2017-12-12 09:07 | P.PN ---
Physical Exam Vital signs: Vital Signs 12/11/17 10:00 12/11/17 11:00 12/11/17 12:00 Temperature 97.9 F Pulse Rate 92 H 83 82 Respiratory Rate 19 Blood Pressure 125/84 Pulse Oximetry 94 L 12/11/17 12:44 12/11/17 13:00 12/11/17 14:00 Temperature Pulse Rate 82 88 84 Respiratory Rate Blood Pressure Pulse Oximetry 12/11/17 15:00 12/11/17 16:00 12/11/17 17:00 Temperature 97.9 F Pulse Rate 84 84 87 Respiratory Rate 22 Blood Pressure 120/88 Pulse Oximetry 22 L 12/11/17 18:00 12/11/17 18:12 12/11/17 18:31 Temperature 98.0 F 98.1 F Pulse Rate 87 85 85 Respiratory Rate 20 27 H Blood Pressure 138/93 H 138/93 H Pulse Oximetry 93 L 88 L 12/11/17 19:00 12/11/17 20:00 12/11/17 21:00 Temperature 98.9 F Pulse Rate 84 86 90 Respiratory Rate 22 Blood Pressure 133/82 Pulse Oximetry 92 L 12/11/17 21:46 12/11/17 22:00 12/11/17 23:00 Temperature Pulse Rate 85 86 88 Respiratory Rate 22 Blood Pressure Pulse Oximetry 94 L 12/12/17 00:00 12/12/17 01:00 12/12/17 02:00 Temperature 98.8 F Pulse Rate 86 88 85 Respiratory Rate 18 Blood Pressure 140/93 H Pulse Oximetry 93 L 94 L 12/12/17 03:00 12/12/17 03:49 12/12/17 04:00 Temperature 97.6 F Pulse Rate 84 86 82 Respiratory Rate 18 17 Blood Pressure 126/74 Pulse Oximetry 98 96 12/12/17 05:00 12/12/17 06:00 12/12/17 08:54 Temperature Pulse Rate 82 86 80 Respiratory Rate 16 Blood Pressure Pulse Oximetry 96 Intake & Output 12/11/17 12/12/17 12/12/17 18:59 06:59 18:59 Intake Total 2181 / 2181 100 / 100 Output Total 1000 / 1000 850 / 850 Balance 1181 / 1181 -750 / -750 Weight 79.4 kg Intake: IV 1600 / 1600 100 / 100 Sodium Bicarbonate 8.4% Inj 150 500 / 500 MEQ In D5W Inj 850 ML @ 50 mls /hr IV.CONT .Q20H ORTIZ Rx#: [id number] Zosyn 3.375 GM Premix 50 ML @ 100 / 100 100 / 100 100 mls/hr IV.SIG Q8H ORTIZ Rx#: [id number] Intake (Blood Product) Amt 581 / 581 Plasma Thawed 5 Day Cp2d Unit 273 / 273 [id number] Plasma Thawed 5 Day Cp2d Unit 308 / 308 [id number] Output: Urine 650 / 650 Stool 400 / 400 200 / 200 Urine Amount (Catheter) 600 / 600 Condom 600 / 600 Other: # Voids 4 Date of Last Bowel Movement 12/12/17 Narrative: Subjective In bed he is more awake and alert. less agitated off restraints. Oriented to name and place, knows the president, nor oriented in time. No fever ro chills./ Denies chest pain or sob No n/v/d/c. Physical exam GENERAL: 67-year-old male, slightly lethargic somnolent but wakes up easily SKIN: Warm and dry. Mildly jaundiced ENT: No nasal bleeding or discharge. Mucous membranes dry CARDIOVASCULAR: Regular rate and rhythm. No murmurs RESPIRATORY: No accessory muscle use. Few Coarse rhonchi bilaterally GASTROINTESTINAL: Abdomen soft, non-tender, nondistended. Hepatic and splenic margins not palpable. Moderate ascites on ultrasound MUSCULOSKELETAL: Poorly perfused extremities NEUROLOGICAL: Patient is but improved level of alertness today. Follows commands no focal deficits Assessment and Plan - Assessment and Plan Plan: NEURO: Acute metabolic encephalopathy Alcohol dependence -Metabolic encephalopathy could be secondary to sepsis, possible hepatic encephalopathy -CT of the head-Old left frontal lobe infarct. -Ammonia level 34 GI has started patient on lactulose and Xifaxan -Supplement multivitamin thiamine -Watch closely for alcohol withdrawal, CIWA protocol discontinued due to lethargy RESP: Respiratory insufficiency Probable COPD -DuoNeb every 6 hours scheduled and as needed -Aggressive pulmonary toilet -F/u sputum culture, CT of the chest-left lower lobe infiltrate and moderate effusions -Effusions most likely from third spacing -Check urine for Legionella continue Zosyn CV: Sustained ventricular tachycardia Cardiomyopathy with ejection fraction approximately 20%, most likely alcoholic cardiomyopathy Mild troponin elevation Possible apical thrombus Severe lactic acidosis -Patient was cardioverted in the emergency department, and placed on IV amiodarone infusion -Discontinued amiodarone due to liver failure. If recurrent V. tach will start lidocaine infusion -Started on Coreg 6.125 mg twice daily. Use as needed IV Lopressor for tachycardia -Briefly on esmolol yesterday for A. fib flutter with RVR -Discontinued IV heparin due to coagulopathy -Discussed with Dr. Mcconnell, patient will need cardiac catheterization once creatinine is improved -Lactic acidosis due to combination of poor perfusion, and liver failure, now cleared - Patient with very poor prognosis. Patient with multiorgan system disease, not a candidate for any intervention per cardiology and to Consider palliative care consult. -Consult palliative care GI: Acute hepatitis with liver failure Liver cirrhosis Ascites -N.p.o. except meds, IV Protonix -GI consult appreciated, CT abdomen pelvis with moderate ascites -Plan for diagnostic and therapeutic paracentesis -Continue IV steroids for now as the discriminant function is elevated -Continue Xifaxan, lactulose : Acute kidney failure -Monitor renal function closely. Sesay catheter. -Nephrology following continue bicarb infusion -NATASHA most likely due to decreased renal perfusion -US shows right sided mild hydronephrosis ID: Probable sepsis -R/o SBP. Await paracentesis -Follow-up on blood urine and sputum cultures. Check urine for Legionella -Started on empiric Zosyn HEME: Coagulopathy secondary to liver failure -Monitor CBC, coags -Correct INR with FFP for paracentesis ENDO: Hyperkalemia Hypoglycemia -Currently potassium is corrected -Hypoglycemia secondary to liver failure and possible sepsis -Continue bicarb infusion PROPH: -Bilateral lower extremity SCDs. Avoid chemical DVT prophylaxis due to coagulopathy -IV Protonix for GI prophylaxis LINES: -Utilize peripheral IVs, central line if needed Level 3 Re-consult hospitalist to assume care in am Steadily improving. Palliative care consult for goals of care Code Status: Full Discussed with ICU nurse, patient DC plan ; Patient is deteriorating with veru poor prognosis, consult palliative care - Urinary Catheter Management Condom Cath placed during this visit: no Results - Labs CBC & Chem 7: 12/12/17 03:57 12/12/17 12:42 Laboratory Results - last 24 hr 12/11/17 12/11/17 12/11/17 11:53 12:13 21:48 WBC RBC Hgb Hct MCV MCH MCHC RDW Plt Count MPV Prelim Diff (Auto) Neut % (Auto) Lymph % (Auto) Whitfield % (Auto) Eos % (Auto) Baso % (Auto) Neut # (Auto) Lymph # (Auto) Whitfield # (Auto) Eos # (Auto) Baso # (Auto) WBC Differential Diff Scan Differential Comment Platelet Estimate Platelet Morphology PT 19.9 H INR 2.0 POC Glucose 155 H Blood Type B Positive Blood Type Recheck Required Blood Bank Comment 12/12/17 12/12/17 12/12/17 01:35 03:57 05:31 WBC 14.2 H RBC 3.89 L Hgb 14.1 Hct 42.3 MCV 108.7 H MCH 36.3 H MCHC 33.4 RDW 14.9 Plt Count 61 L MPV 10.3 Prelim Diff (Auto) Slide review pending Neut % (Auto) 94.0 H Lymph % (Auto) 3.3 L Whitfield % (Auto) 2.6 Eos % (Auto) 0.0 Baso % (Auto) 0.1 Neut # (Auto) 13.4 H Lymph # (Auto) 0.5 L Whitfield # (Auto) 0.4 Eos # (Auto) 0.0 Baso # (Auto) 0.0 WBC Differential . Diff Scan Auto diff confirmed Differential Comment . Platelet Estimate Low L Platelet Morphology Normal PT INR POC Glucose 151 H 146 H Blood Type Blood Type Recheck Blood Bank Comment Microbiology 12/09/17 04:44 Catheterized Urine Urine Culture - Final No growth in 48 hours 12/11/17 16:12 Urine - Clean Catch Urine Legionella Antigen - Final Presumptive negative for Legionella pneumophila serogroup 1 antigen in urine, suggesting no recent or recurrent infection. Infection due to Legionella cannot be ruled out since other serogroups and species may cause disease, antigen may not be present in urine in early infection, and the level of antigen present in the urine may be below the detection limit of the test.
[2017-12-12] MEDS: rifAXIMin 550 MG Tablet PO SCH ×2 (09:59→20:26)
[2017-12-12] MEDS: Pentoxifylline 400 MG Controlled Release Tablet PO SCH ×3 (09:59→17:32)
[2017-12-12] MEDS: Dextrose 5%/NaCl 0.45% Inj 1,000 ML IV.CONT SCH (13:06)
[2017-12-12 13:16] LABS: Alpha 1 Antitrypsin 172 mg/dL (100 - 190); Smooth Muscle Total Auto Abs Negative (Negative)
[2017-12-12 13:20] LABS: Albumin 2.6 g/dL (3.4-5.0); Calcium 8.3 mg/dL (8.5-10.1); Carbon Dioxide 26.5 meq/L (21.0-32.0); Phosphorus 2.8 mg/dL (2.5-4.9); Potassium 3.8 meq/L (3.5-5.1)
--- NOTE | 2017-12-12 14:07 | P.PNNP ---
Subjective Interval history: He is sleeping, not in distress. Renal function is better. <Xena Ferrara - Last Filed: 12/12/17 14:02> Physical Exam Vital signs: Vital Signs 12/11/17 15:00 12/11/17 16:00 12/11/17 17:00 Temperature 97.9 F Pulse Rate 84 84 87 Respiratory Rate 22 Blood Pressure 120/88 Pulse Oximetry 22 L 12/11/17 18:00 12/11/17 18:12 12/11/17 18:31 Temperature 98.0 F 98.1 F Pulse Rate 87 85 85 Respiratory Rate 20 27 H Blood Pressure 138/93 H 138/93 H Pulse Oximetry 93 L 88 L 12/11/17 19:00 12/11/17 20:00 12/11/17 21:00 Temperature 98.9 F Pulse Rate 84 86 90 Respiratory Rate 22 Blood Pressure 133/82 Pulse Oximetry 92 L 12/11/17 21:46 12/11/17 22:00 12/11/17 23:00 Temperature Pulse Rate 85 86 88 Respiratory Rate 22 Blood Pressure Pulse Oximetry 94 L 12/12/17 00:00 12/12/17 01:00 12/12/17 02:00 Temperature 98.8 F Pulse Rate 86 88 85 Respiratory Rate 18 Blood Pressure 140/93 H Pulse Oximetry 93 L 94 L 12/12/17 03:00 12/12/17 03:49 12/12/17 04:00 Temperature 97.6 F Pulse Rate 84 86 82 Respiratory Rate 18 17 Blood Pressure 126/74 Pulse Oximetry 98 96 12/12/17 05:00 12/12/17 06:00 12/12/17 07:00 Temperature Pulse Rate 82 86 80 Respiratory Rate Blood Pressure Pulse Oximetry 12/12/17 08:00 12/12/17 08:54 12/12/17 09:00 Temperature 99.9 F H Pulse Rate 82 80 86 Respiratory Rate 19 16 Blood Pressure 166/67 H Pulse Oximetry 97 96 12/12/17 10:00 12/12/17 11:00 12/12/17 12:00 Temperature 99.3 F Pulse Rate 84 83 81 Respiratory Rate 19 Blood Pressure 128/88 Pulse Oximetry 95 12/12/17 13:00 Temperature Pulse Rate 81 Respiratory Rate Blood Pressure Pulse Oximetry 95 Intake & Output 12/11/17 12/12/17 12/12/17 18:59 06:59 18:59 Intake Total 2181 / 2181 100 / 100 1000 / 1000 Output Total 1000 / 1000 850 / 850 Balance 1181 / 1181 -750 / -750 1000 / 1000 Weight 79.4 kg Intake: IV 1600 / 1600 100 / 100 1000 / 1000 D5W/1/2 NS Inj 1,000 ML @ 42 1000 / 1000 mls/hr IV.CONT .[id number] [facility] Rx# :[id number] Sodium Bicarbonate 8.4% Inj 150 500 / 500 MEQ In D5W Inj 850 ML @ 50 mls /hr IV.CONT .Q20H [facility]TIZ Rx#: [id number] Zosyn 3.375 GM Premix 50 ML @ 100 / 100 100 / 100 100 mls/hr IV.SIG Q8H [facility]TIZ Rx#: [id number] Intake (Blood Product) Amt 581 / 581 Plasma Thawed 5 Day Cp2d Unit 273 / 273 [id number] Plasma Thawed 5 Day Cp2d Unit 308 / 308 [id number] Output: Urine 650 / 650 Stool 400 / 400 200 / 200 Urine Amount (Catheter) 600 / 600 Condom 600 / 600 Other: # Voids 4 Date of Last Bowel Movement 12/12/17 12/12/17 - Constitutional no acute distress, chronically ill appearing, disheveled, cooperative - Routine HEENT Exam Head: Present: normocephalic - Routine Respiratory Exam Present: CTA bilaterally. Absent: accessory muscle use - Routine Cardiovascular Exam Present: RRR, S1, S2 - Routine Abdominal Exam Present: soft, normoactive bowel sounds - Routine Extremities Exam Present: full ROM. Absent: edema - Routine Skin Exam Present: intact, dry, warm - Routine Neurological Exam Present: CN II-XII intact, moving all extremities. Absent: normal reflexes, altered mental status, abnormal gait - Detailed Neurological Exam: Coma Scale Eye Opening: Spontaneous Verbal Response: Oriented Motor Response: Localizing Sean Coma Scale Total: 14 - Routine Psychiatric Exam Present: normal affect, normal thought process, cooperative. Absent: depressed , agitated - Urinary Catheter Management Condom Cath placed during this visit: no <Xena Ferrara - Last Filed: 12/12/17 14:02> Vital signs: Vital Signs 12/11/17 15:00 12/11/17 16:00 12/11/17 17:00 Temperature 97.9 F Pulse Rate 84 84 87 Respiratory Rate 22 Blood Pressure 120/88 Pulse Oximetry 22 L 12/11/17 18:00 12/11/17 18:12 12/11/17 18:31 Temperature 98.0 F 98.1 F Pulse Rate 87 85 85 Respiratory Rate 20 27 H Blood Pressure 138/93 H 138/93 H Pulse Oximetry 93 L 88 L 12/11/17 19:00 12/11/17 20:00 12/11/17 21:00 Temperature 98.9 F Pulse Rate 84 86 90 Respiratory Rate 22 Blood Pressure 133/82 Pulse Oximetry 92 L 12/11/17 21:46 12/11/17 22:00 12/11/17 23:00 Temperature Pulse Rate 85 86 88 Respiratory Rate 22 Blood Pressure Pulse Oximetry 94 L 12/12/17 00:00 12/12/17 01:00 12/12/17 02:00 Temperature 98.8 F Pulse Rate 86 88 85 Respiratory Rate 18 Blood Pressure 140/93 H Pulse Oximetry 93 L 94 L 12/12/17 03:00 12/12/17 03:49 12/12/17 04:00 Temperature 97.6 F Pulse Rate 84 86 82 Respiratory Rate 18 17 Blood Pressure 126/74 Pulse Oximetry 98 96 12/12/17 05:00 12/12/17 06:00 12/12/17 07:00 Temperature Pulse Rate 82 86 80 Respiratory Rate Blood Pressure Pulse Oximetry 12/12/17 08:00 12/12/17 08:54 12/12/17 09:00 Temperature 99.9 F H Pulse Rate 82 80 86 Respiratory Rate 19 16 Blood Pressure 166/67 H Pulse Oximetry 97 96 12/12/17 10:00 12/12/17 11:00 12/12/17 12:00 Temperature 99.3 F Pulse Rate 84 83 81 Respiratory Rate 19 Blood Pressure 128/88 Pulse Oximetry 95 12/12/17 13:00 Temperature Pulse Rate 81 Respiratory Rate Blood Pressure Pulse Oximetry 95 Intake & Output 12/11/17 12/12/17 12/12/17 18:59 06:59 18:59 Intake Total 2181 / 2181 100 / 100 1000 / 1000 Output Total 1000 / 1000 850 / 850 Balance 1181 / 1181 -750 / -750 1000 / 1000 Weight 79.4 kg Intake: IV 1600 / 1600 100 / 100 1000 / 1000 D5W/1/2 NS Inj 1,000 ML @ 42 1000 / 1000 mls/hr IV.CONT .[id number] [facility]TIZ Rx# :[id number] Sodium Bicarbonate 8.4% Inj 150 500 / 500 MEQ In D5W Inj 850 ML @ 50 mls /hr IV.CONT .Q20H ORTIZ Rx#: [id number] Zosyn 3.375 GM Premix 50 ML @ 100 / 100 100 / 100 100 mls/hr IV.SIG Q8H ORTIZ Rx#: [id number] Intake (Blood Product) Amt 581 / 581 Plasma Thawed 5 Day Cp2d Unit 273 / 273 [id number] Plasma Thawed 5 Day Cp2d Unit 308 / 308 [id number] Output: Urine 650 / 650 Stool 400 / 400 200 / 200 Urine Amount (Catheter) 600 / 600 Condom 600 / 600 Other: # Voids 4 Date of Last Bowel Movement 12/12/17 12/12/17 - Urinary Catheter Management Condom Cath placed during this visit: no <Crispin Gastelum - Last Filed: 12/12/17 14:57> Assessment and Plan - Assessment (1) Acute renal failure Code(s): N17.9 - Acute kidney failure, unspecified Status: Acute Plan: No labs available for comparison NATASHA most likely due to decreased renal perfusion due to hypotension; this may be secondary to V tach or A fib. His renal function is improved. IVF is now D51/2. US shows right sided mild hydronephrosis, the significance of which is unclear. consider repeating imaging in a few days. He is non oliguric. Repeat labs daily Avoid nephrotoxins. There is discussion about cardiac catheterization that ideally should wait until his renal function improves. Monitor fluid status. (2) A-fib Code(s): I48.91 - Unspecified atrial fibrillation Status: Acute Plan: Off amiodarone, heparin, and esmolol gtt. Cardiology following (3) Metabolic acidosis Code(s): E87.2 - Acidosis Status: Acute Plan: Improved. Due to combination of renal failure and metabolic acidosis (4) Lactic acidosis Code(s): E87.2 - Acidosis Status: Acute Plan: Etiology unclear. Ct abdomen/pelvis negative. Improving. (5) Elevated troponin Code(s): R74.8 - Abnormal levels of other serum enzymes Status: Acute Plan: Cardiology following Echo reviewed, severe CM May need heart cath this admission. (6) High transaminase levels Code(s): R74.0 - Nonspecific elevation of levels of transaminase and lactic acid dehydrogenase [LDH] Status: Acute Plan: With coagulopathy and thrombocytopenia. GI is following hep C positive May have shock liver vs. intraabdominal process - Plan His renal function is normal. We will sign off at this time. <Xena Ferrara - Last Filed: 12/12/17 14:02> - Assessment (1) Acute renal failure Code(s): N17.9 - Acute kidney failure, unspecified Status: Acute (2) A-fib Code(s): I48.91 - Unspecified atrial fibrillation Status: Acute (3) Metabolic acidosis Code(s): E87.2 - Acidosis Status: Acute (4) Lactic acidosis Code(s): E87.2 - Acidosis Status: Acute (5) Elevated troponin Code(s): R74.8 - Abnormal levels of other serum enzymes Status: Acute (6) High transaminase levels Code(s): R74.0 - Nonspecific elevation of levels of transaminase and lactic acid dehydrogenase [LDH] Status: Acute - Attending Attestation patient was seen and examined. Agree with above assessment and plan. Renal function has improved. We will sign off at this time. IVF can be stopped. <Crispin Gastelum - Last Filed: 12/12/17 14:57>
--- NOTE | 2017-12-12 15:53 | P.PNGI ---
Subjective Interval history: No abdominal pain no nausea no vomiting Resting in the bed awake today and responds to verbal stimuli States he is hungry, plan to trial cardiac diet today Heart rhythm noted sinus arrhythmia in the 80s Physical Exam Vital signs: Vital Signs 12/11/17 16:00 12/11/17 17:00 12/11/17 18:00 Temperature 97.9 F Pulse Rate 84 87 87 Respiratory Rate 22 Blood Pressure 120/88 Pulse Oximetry 22 L 12/11/17 18:12 12/11/17 18:31 12/11/17 19:00 Temperature 98.0 F 98.1 F Pulse Rate 85 85 84 Respiratory Rate 20 27 H Blood Pressure 138/93 H 138/93 H Pulse Oximetry 93 L 88 L 12/11/17 20:00 12/11/17 21:00 12/11/17 21:46 Temperature 98.9 F Pulse Rate 86 90 85 Respiratory Rate 22 22 Blood Pressure 133/82 Pulse Oximetry 92 L 94 L 12/11/17 22:00 12/11/17 23:00 12/12/17 00:00 Temperature 98.8 F Pulse Rate 86 88 86 Respiratory Rate 18 Blood Pressure 140/93 H Pulse Oximetry 93 L 12/12/17 01:00 12/12/17 02:00 12/12/17 03:00 Temperature Pulse Rate 88 85 84 Respiratory Rate Blood Pressure Pulse Oximetry 94 L 12/12/17 03:49 12/12/17 04:00 12/12/17 05:00 Temperature 97.6 F Pulse Rate 86 82 82 Respiratory Rate 18 17 Blood Pressure 126/74 Pulse Oximetry 98 96 12/12/17 06:00 12/12/17 07:00 12/12/17 08:00 Temperature 99.9 F H Pulse Rate 86 80 82 Respiratory Rate 19 Blood Pressure 166/67 H Pulse Oximetry 97 12/12/17 08:54 12/12/17 09:00 12/12/17 10:00 Temperature Pulse Rate 80 86 84 Respiratory Rate 16 Blood Pressure Pulse Oximetry 96 12/12/17 11:00 12/12/17 12:00 12/12/17 13:00 Temperature 99.3 F Pulse Rate 83 81 81 Respiratory Rate 19 Blood Pressure 128/88 Pulse Oximetry 95 95 Intake & Output 12/11/17 12/12/17 12/12/17 18:59 06:59 18:59 Intake Total 2181 / 2181 100 / 100 1000 / 1000 Output Total 1000 / 1000 850 / 850 Balance 1181 / 1181 -750 / -750 1000 / 1000 Weight 79.4 kg Intake: IV 1600 / 1600 100 / 100 1000 / 1000 D5W/1/2 NS Inj 1,000 ML @ 42 1000 / 1000 mls/hr IV.CONT .[id number] ORTIZ Rx# :[id number] Sodium Bicarbonate 8.4% Inj 150 500 / 500 MEQ In D5W Inj 850 ML @ 50 mls /hr IV.CONT .Q20H ORTIZ Rx#: [id number] Zosyn 3.375 GM Premix 50 ML @ 100 / 100 100 / 100 100 mls/hr IV.SIG Q8H ORTIZ Rx#: [id number] Intake (Blood Product) Amt 581 / 581 Plasma Thawed 5 Day Cp2d Unit 273 / 273 [id number] Plasma Thawed 5 Day Cp2d Unit 308 / 308 [id number] Output: Urine 650 / 650 Stool 400 / 400 200 / 200 Urine Amount (Catheter) 600 / 600 Condom 600 / 600 Other: # Voids 4 Date of Last Bowel Movement 12/12/17 12/12/17 - Constitutional no acute distress (At wrist), average body habitus - Routine HEENT Exam Head: Present: normocephalic ENT: Present: mucous membranes dry - Routine Cardiovascular Exam Present: murmur (Sinus arrhythmia in the 80s) - Routine Abdominal Exam Present: normoactive bowel sounds (Round, no tenderness no abdominal pain) - Routine Skin Exam Present: intact - Routine Neurological Exam Present: alert (Responding to simple questions) - Urinary Catheter Management Condom Cath placed during this visit: no Results - Labs CBC & Chem 7: 12/12/17 03:57 12/12/17 12:42 Laboratory Results - last 24 hr 12/09/17 12/10/17 12/10/17 20:28 15:23 15:23 WBC RBC Hgb Hct MCV MCH MCHC RDW Plt Count MPV Prelim Diff (Auto) Neut % (Auto) Lymph % (Auto) [place] % (Auto) Eos % (Auto) Baso % (Auto) Neut # (Auto) Lymph # (Auto) [place] # (Auto) Eos # (Auto) Baso # (Auto) WBC Differential Diff Scan Differential Comment Platelet Estimate Platelet Morphology PT INR Sodium Potassium Chloride Carbon Dioxide Anion Gap BUN Creatinine Estimated GFR POC Glucose Random Glucose Calcium Phosphorus Albumin [id number] 172 Thiamine 204 H CHARIS Screen Neg Anti-Smooth Muscle Ab Negative Blood Type Blood Type Recheck Blood Bank Comment 12/11/17 12/11/17 12/12/17 11:53 21:48 01:35 WBC RBC Hgb Hct MCV MCH MCHC RDW Plt Count MPV Prelim Diff (Auto) Neut % (Auto) Lymph % (Auto) [place] % (Auto) Eos % (Auto) Baso % (Auto) Neut # (Auto) Lymph # (Auto) [place] # (Auto) Eos # (Auto) Baso # (Auto) WBC Differential Diff Scan Differential Comment Platelet Estimate Platelet Morphology PT 19.9 H INR 2.0 Sodium Potassium Chloride Carbon Dioxide Anion Gap BUN Creatinine Estimated GFR POC Glucose 151 H Random Glucose Calcium Phosphorus Albumin [id number]-[id number] Thiamine CHARIS Screen Anti-Smooth Muscle Ab Blood Type B Positive Blood Type Recheck Required Blood Bank Comment 12/12/17 12/12/17 12/12/17 03:57 05:31 12:42 WBC 14.2 H RBC 3.89 L Hgb 14.1 Hct 42.3 MCV 108.7 H MCH 36.3 H MCHC 33.4 RDW 14.9 Plt Count 61 L MPV 10.3 Prelim Diff (Auto) Slide review pending Neut % (Auto) 94.0 H Lymph % (Auto) 3.3 L [place] % (Auto) 2.6 Eos % (Auto) 0.0 Baso % (Auto) 0.1 Neut # (Auto) 13.4 H Lymph # (Auto) 0.5 L [place] # (Auto) 0.4 Eos # (Auto) 0.0 Baso # (Auto) 0.0 WBC Differential . Diff Scan Auto diff confirmed Differential Comment . Platelet Estimate Low L Platelet Morphology Normal PT INR Sodium 144 Potassium 3.8 Chloride 108 H Carbon Dioxide 26.5 Anion Gap 10 BUN 39 H Creatinine 1.25 Estimated GFR 57 L POC Glucose 146 H Random Glucose 154 H Calcium 8.3 L Phosphorus 2.8 Albumin 2.6 L Onmwa-9-Uykahjgbnba Thiamine CHARIS Screen Anti-Smooth Muscle Ab Blood Type Blood Type Recheck Blood Bank Comment Microbiology 12/11/17 04:15 Blood - Peripheral Aerobic Blood Culture - Preliminary No growth in 1 day 12/11/17 04:15 Blood - Peripheral Anaerobic Blood Culture - Preliminary No growth in 1 day 12/11/17 04:20 Blood - Peripheral Aerobic Blood Culture - Preliminary No growth in 1 day 12/11/17 04:20 Blood - Peripheral Anaerobic Blood Culture - Preliminary No growth in 1 day 12/09/17 04:44 Catheterized Urine Urine Culture - Final No growth in 48 hours 12/11/17 16:12 Urine - Clean Catch Urine Legionella Antigen - Final Presumptive negative for Legionella pneumophila serogroup 1 antigen in urine, suggesting no recent or recurrent infection. Infection due to Legionella cannot be ruled out since other serogroups and species may cause disease, antigen may not be present in urine in early infection, and the level of antigen present in the urine may be below the detection limit of the test. Assessment and Plan - Plan Assessment: - Elevated LFTs Labs consistent with cirrhosis. Hypoalbuminemia, coagulopathy, and thrombocytopenia Pt grunts but will not stay awake to answer any questions LFTs likely multifactorial given recent V tach, possibly shocked liver, also noted to have (+) Hep C antibody According to record, pt reported heavy drinking however according to admission note pt stated that he quit drinking 3 days prior to admission. Labs consistent with ETOH hepatitis Unsure of risk factors for Hepatitis C because pt unable to provide any history Unsure of any family history - V-tach in route to hospital- no response to Amiodarone- converted after cardioversion- cardiology following, planning on cardiac cath when creatinine improves (12/11) Pt easily awakens today to his name. States known cirrhosis, diagnosed a year ago by the [place], known Hepatitis C, treatment naive. Denies history of IV drug use, current or previous illicit drug use, tattoos, high risk sexual behavior, and previous blood transfusions. Pt reports he was drinking about four beers a day prior to coming in but has been trying to quit, states last ETOH was two days ago. Ammonia slightly elevated, pt on Xifaxan and Lactulose Liver GARIBAY pending Increase in LFTs today, likely shocked liver Liver US --> Ultrasound findings suggesting some hepatic insufficiency. Liver is somewhat nodular with increased hepatic echotexture suggesting fatty infiltration/cirrhosis. Abdominal ascites. Bilateral pleural effusions. Mild pelvocaliectasis of the right renal collecting system. Mild mural thickening of the gallbladder. This is nonspecific and may be secondary to passive congestion associated with the presumed hepatic insufficiency. Pt does not think he has had previous EGD or colonoscopy 12/12/17, patient resting in the bed more alert today and notes that he is hungry No abdominal pain no nausea no vomiting. Current liver workup in process , alcoholic hepatitis and cirrhosis workup Current labs show so far, hemoglobin 14.1, WBC count 14.2 elevated possibly related to steroids, PT/INR decreased to 2, hemochromatosis pending, reactive hep C with RNA genotype PCR pending. CHARIS negative IgA pending a.m. a pending a.m. as a negative IgA and celiac disease pending. Patient does appear to be gradually improving. Plan Diet cardiac today Liver workup labs pending Bowel regimen Lactulose, Xifaxan, Trental Vitamins, thiamine Monitor labs Further recommendations to follow after liver workup complete Patient was seen per myself and Dr. Lofton, note was written on her behalf
[2017-12-13] MEDS: Piperacil/Tazo 3.375 GM Premix 50 ML IV.SIG SCH ×3 (03:28→17:08)
[2017-12-13] MEDS: MethylPREDNISolone Sod Succinate Inj 40 MG/ML Vial IV.PUSH SCH ×4 (03:28→22:00)
[2017-12-13 04:37] LABS: Baso % (Auto) 0.2 % (0.0-2.0); Hematocrit 44.7 % (39.0-51.0); Hemoglobin 14.8 gm/dL (13.0-17.0); Lymph # (Auto) 0.3 th/mm3 (1.0-4.8); Lymph % (Auto) 2.5 % (9.0-44.0); Mean Corpuscular Hemoglobin 36.1 pg (27.0-34.0); Mean Corpuscular Volume 109.3 fL (80.0-100.0); Mean Platelet Volume 10.9 fL (7.0-11.0); Mono # (Auto) 0.5 th/mm3 (0.0-0.9); Mono % (Auto) 3.7 % (0.0-8.0); Neut # (Auto) 11.8 th/mm3 (1.8-7.7); Neut % (Auto) 93.6 % (16.0-70.0); Platelet Count 59 th/mm3 (150-450); Red Blood Count 4.09 mil/mm3 (4.50-5.90); Red Cell Distribution Width 14.8 % (11.6-17.2); White Blood Count 12.6 th/mm3 (4.0-11.0)
[2017-12-13 05:01] LABS: Alkaline Phosphatase 76 U/L (45-117); Total Protein 5.6 g/dL (6.4-8.2)
[2017-12-13 05:11] LABS: Alanine Aminotransferase 605 U/L (12-78); Albumin 2.6 g/dL (3.4-5.0); Anion Gap 8 meq/L (5-15); Aspartate Aminotransferase 521 U/L (15-37); Blood Urea Nitrogen 37 mg/dL (7-18); Calcium 8.4 mg/dL (8.5-10.1); Carbon Dioxide 29.6 meq/L (21.0-32.0); Chloride 107 meq/L (98-107); Glomerular Filtration Rate 56 mL/min (>89); Glucose,Random 146 mg/dL (74-106); Potassium 3.6 meq/L (3.5-5.1); Sodium 145 meq/L (136-145)
[2017-12-13 05:51] LABS: Platelet Morphology Normal (Normal)
[2017-12-13] MEDS: rifAXIMin 550 MG Tablet PO SCH ×2 (08:01→20:14)
[2017-12-13] MEDS: Pentoxifylline 400 MG Controlled Release Tablet PO SCH ×3 (08:01→17:08)
--- NOTE | 2017-12-13 08:30 | P.PN ---
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 He did not convert with amiodarone and was cardioverted in the ER. He is a very poor historian but gives history of long-standing alcohol and tobacco abuse. His workup in the ER revealed multiple abnormal labs including BUN 32 creatinine 2.5, bicarb was only 8 and lactic acid was 12.1. His liver enzymes were elevated and INR was 4. His bilirubin was 5.4 AST was 842 and ALT of 399. His discriminant function was elevated and patient was placed on IV steroids for alcoholic hepatitis. But patient gives a history of stopping alcohol approximately a month ago. Dr. Efe Mcconnell was consulted for V. tach and elevated troponin. He recommended continuing amiodarone possible cardiac catheterization and evaluation for AICD once the creatinine improves. A 2D echo official read: showed EF 35-40%, RV pressure overload RV dilation and severe TR and a possible apical thrombus with severe apical hypokinesis. I discussed with Dr. Mcconnell-his impression is global hypokinesis with EF 20%, he did not see an apical thrombus but he will re-evaluate. With possible apical thrombus patient was started on IV heparin by hospitalist. Patient was also continued on IV amiodarone Today patient was found to be more lethargic, less responsive and was transferred to the ICU. Critical care medicine was consulted. I evaluated the patient immediately. He is lethargic but wakes up on stimulation protecting airway. Chest x-ray shows increasing pulmonary infiltrates. CT abdomen pelvis chest and brain is pending at this time. Ammonia level is also pending but GI has started Xifaxan and lactulose. Lactic acid today is 10.3 and patient is currently receiving bicarbonate infusion. His metabolic acidosis has improved on ABG. However clinically his respiratory status has worsened. I will discontinue amiodarone infusion due to acute liver failure. Start him on Coreg 3.125 mg twice daily. Use as needed IV Lopressor for tachycardia. I will also discontinue the IV heparin due to severe coagulopathy. Discussed with Dr. Mcconnell Clinically slightly improved less lethargic. More awake. Creatinine slightly improved to 2 now. Lactic acid almost cleared 2.5 now. AST/ALT continues to increase 2861/1306. CT chest/abd shows moderate pleural effusion, moderate ascites, left lower lobe infiltrate. Urine output 700 mL in 24 hours. Plan for paracentesis to rule out SBP 12/13: Seen in his bedroom, at this time appropriate, alert and oriented, no nausea, vomit or diarrhea. Physical Exam Vital signs: Vital Signs 12/12/17 08:54 12/12/17 09:00 12/12/17 10:00 Temperature Pulse Rate 80 86 84 Respiratory Rate 16 Blood Pressure Pulse Oximetry 96 12/12/17 11:00 12/12/17 12:00 12/12/17 13:00 Temperature 99.3 F Pulse Rate 83 81 81 Respiratory Rate 19 Blood Pressure 128/88 Pulse Oximetry 95 95 12/12/17 14:00 12/12/17 15:00 12/12/17 15:59 Temperature Pulse Rate 85 85 87 Respiratory Rate 16 Blood Pressure Pulse Oximetry 12/12/17 16:00 12/12/17 17:00 12/12/17 18:00 Temperature 98.7 F Pulse Rate 85 85 85 Respiratory Rate 15 Blood Pressure 106/67 Pulse Oximetry 95 95 12/12/17 19:00 12/12/17 20:00 12/12/17 20:48 Temperature 97.9 F Pulse Rate 86 92 H 83 Respiratory Rate 23 19 Blood Pressure 122/79 Pulse Oximetry 95 93 L 12/12/17 21:00 12/12/17 22:00 12/12/17 23:00 Temperature Pulse Rate 86 86 86 Respiratory Rate Blood Pressure Pulse Oximetry 12/13/17 00:00 12/13/17 01:00 12/13/17 02:00 Temperature Pulse Rate 96 H 86 86 Respiratory Rate 22 Blood Pressure 145/90 H Pulse Oximetry 95 12/13/17 03:00 12/13/17 04:00 12/13/17 04:32 Temperature 95.9 F L Pulse Rate 86 87 81 Respiratory Rate 13 14 Blood Pressure 137/87 Pulse Oximetry 100 12/13/17 05:00 12/13/17 06:00 12/13/17 07:00 Temperature Pulse Rate 86 86 77 Respiratory Rate Blood Pressure Pulse Oximetry 12/13/17 07:40 Temperature Pulse Rate Respiratory Rate Blood Pressure Pulse Oximetry 92 L Intake & Output 12/12/17 12/13/17 12/13/17 18:59 06:59 18:59 Intake Total 1470 / 1470 340 / 340 Output Total 1850 / 1850 775 / 775 Balance -380 / -380 -435 / -435 Weight 81.3 kg Intake: IV 1050 / 1050 100 / 100 D5W/1/2 NS Inj 1,000 ML @ 42 1000 / 1000 mls/hr IV.CONT .[id number] ORTIZ Rx# :[id number] Zosyn 3.375 GM Premix 50 ML @ 50 / 50 100 / 100 100 mls/hr IV.SIG Q8H ORTIZ Rx#: [id number] Oral 420 / 420 240 / 240 Output: Urine 650 / 650 Stool 200 / 200 100 / 100 Urine Amount (Catheter) 1000 / 1000 675 / 675 Condom 1000 / 1000 675 / 675 Other: # Voids 4 # Incontinent Voids 1 Date of Last Bowel Movement 12/12/17 12/13/17 Narrative: GENERAL: Alert and oriented in no acute distress. SKIN: Warm and dry. Mildly jaundiced ENT: No nasal bleeding or discharge. Mucous membranes dry CARDIOVASCULAR: Regular rate and rhythm. No murmurs RESPIRATORY: No accessory muscle use. Few Coarse rhonchi bilaterally GASTROINTESTINAL: Abdomen soft, non-tender, nondistended. Hepatic and splenic margins not palpable. Moderate ascites on ultrasound MUSCULOSKELETAL: Poorly perfused extremities NEUROLOGICAL: No focal deficits. - Urinary Catheter Management Condom Cath placed during this visit: no Results - Labs CBC & Chem 7: 12/13/17 03:37 12/13/17 03:37 Laboratory Results - last 24 hr 12/09/17 12/09/17 12/10/17 18:42 20:28 15:23 WBC RBC Hgb Hct MCV MCH MCHC RDW Plt Count MPV Prelim Diff (Auto) Neut % (Auto) Lymph % (Auto) [place] % (Auto) Eos % (Auto) Baso % (Auto) Neut # (Auto) Lymph # (Auto) [place] # (Auto) Eos # (Auto) Baso # (Auto) WBC Differential Diff Scan Differential Comment Platelet Estimate Platelet Morphology Sodium Potassium Chloride Carbon Dioxide Anion Gap BUN Creatinine Estimated GFR Random Glucose Insulin Level Less than 1.0 L Calcium Phosphorus Total Bilirubin AST ALT Alkaline Phosphatase Total Protein Albumin Ghdqv-4-Hpyjzuacpgw Thiamine 204 H CHARIS Screen Neg Anti-Smooth Muscle Ab 12/10/17 12/12/17 12/13/17 15:23 12:42 03:37 WBC 12.6 H RBC 4.09 L Hgb 14.8 Hct 44.7 MCV 109.3 H MCH 36.1 H MCHC 33.0 RDW 14.8 Plt Count 59 L MPV 10.9 Prelim Diff (Auto) Slide review pending Neut % (Auto) 93.6 H Lymph % (Auto) 2.5 L [place] % (Auto) 3.7 Eos % (Auto) 0.0 Baso % (Auto) 0.2 Neut # (Auto) 11.8 H Lymph # (Auto) 0.3 L [place] # (Auto) 0.5 Eos # (Auto) 0.0 Baso # (Auto) 0.0 WBC Differential . Diff Scan Auto diff confirmed Differential Comment . Platelet Estimate Low L Platelet Morphology Normal Sodium 144 Potassium 3.8 Chloride 108 H Carbon Dioxide 26.5 Anion Gap 10 BUN 39 H Creatinine 1.25 Estimated GFR 57 L Random Glucose 154 H Insulin Level Calcium 8.3 L Phosphorus 2.8 Total Bilirubin AST ALT Alkaline Phosphatase Total Protein Albumin 2.6 L Zmlht-2-Tvudhwbfunt 172 Thiamine CHARIS Screen Anti-Smooth Muscle Ab Negative 12/13/17 03:37 WBC RBC Hgb Hct MCV MCH MCHC RDW Plt Count MPV Prelim Diff (Auto) Neut % (Auto) Lymph % (Auto) [place] % (Auto) Eos % (Auto) Baso % (Auto) Neut # (Auto) Lymph # (Auto) [place] # (Auto) Eos # (Auto) Baso # (Auto) WBC Differential Diff Scan Differential Comment Platelet Estimate Platelet Morphology Sodium 145 Potassium 3.6 Chloride 107 Carbon Dioxide 29.6 Anion Gap 8 BUN 37 H Creatinine 1.28 Estimated GFR 56 L Random Glucose 146 H Insulin Level Calcium 8.4 L Phosphorus Total Bilirubin 2.5 H AST 521 H ALT 605 H Alkaline Phosphatase 76 Total Protein 5.6 L Albumin 2.6 L Gtnag-3-Futqpngwbdt Thiamine CHARIS Screen Anti-Smooth Muscle Ab Microbiology 12/11/17 04:15 Blood - Peripheral Aerobic Blood Culture - Preliminary No growth in 1 day 12/11/17 04:15 Blood - Peripheral Anaerobic Blood Culture - Preliminary No growth in 1 day 12/11/17 04:20 Blood - Peripheral Aerobic Blood Culture - Preliminary No growth in 1 day 12/11/17 04:20 Blood - Peripheral Anaerobic Blood Culture - Preliminary No growth in 1 day 12/09/17 04:44 Catheterized Urine Urine Culture - Final No growth in 48 hours Assessment and Plan - Plan 1. 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 Ammonia level 34 on Lactulose and Xifaxan, Supplement Multivitamin Thiamine Watch closely for alcohol withdrawal, CIWA protocol discontinued due to Lethargy 2. Respiratory Insufficiency/COPD Bronchodilator, Mucolytic and Incentive spirometry CT of the chest-left lower lobe infiltrate and moderate effusions -Effusions most likely from third spacing -Check urine for Legionella continue Zosyn 3. Sustained Ventricular Tachycardia, Cardiomyopathy with EF 20%, questioned Alcoholic Cardiomyopathy/possible apical thrombus Severe Lactic acidosis. Patient cardioverted in ER, was on IV Amiodarone, discontinued due to Liver failure, given Lidocaine infusion on Coreg, was on Esmolol for Atrial Flutter with RVR. Discontinued Heparin due to coagulopathy, for Cardiac Cath once Creatinine Improves. Improved Metabolic Acidosis very poor prognosis as per Specialists. Palliative Care Following. 4. Acute Hepatitis with liver failure/Liver cirrhosis/Ascites continue IV steroids, discriminating factor elevated. continue Xifaxan and Lactulose. 5. Acute Kidney Failure, Sesay cath, Nephrology following continue Bicarbonate Infusion, NATASHA most likely due to us shows right sided mild hydronephrosis 6. Probable Sepsis, to rule out SBP, following, blood culture, sputum culture, continue Zosyn 7. Coagulopathy secondary to Liver failure follow tomorrow with new CBC and BMP. Bilateral lower extremity SCDs. Avoid chemical DVT prophylaxis due to coagulopathy IV Protonix for GI prophylaxis Palliative care consult for goals of care Code Status: Full Code. Discussed Condition With: Patient and nurse. Discharge Planning: Patient is deteriorating with veru poor prognosis, consult palliative care
[2017-12-13] MEDS: Dextrose 5%/NaCl 0.45% Inj 1,000 ML IV.CONT SCH (09:44)
--- NOTE | 2017-12-13 16:54 | P.PNGI ---
Subjective Interval history: Pt is resting in bed, feeling nauseous but can't throw up, no abd pain or bleeding <Leoncio Anderson - Last Filed: 12/13/17 16:44> Physical Exam Vital signs: Vital Signs 12/12/17 17:00 12/12/17 18:00 12/12/17 19:00 Temperature Pulse Rate 85 85 86 Respiratory Rate Blood Pressure Pulse Oximetry 95 12/12/17 20:00 12/12/17 20:48 12/12/17 21:00 Temperature 97.9 F Pulse Rate 92 H 83 86 Respiratory Rate 23 19 Blood Pressure 122/79 Pulse Oximetry 95 93 L 12/12/17 22:00 12/12/17 23:00 12/13/17 00:00 Temperature Pulse Rate 86 86 96 H Respiratory Rate 22 Blood Pressure 145/90 H Pulse Oximetry 95 12/13/17 01:00 12/13/17 02:00 12/13/17 03:00 Temperature Pulse Rate 86 86 86 Respiratory Rate Blood Pressure Pulse Oximetry 12/13/17 04:00 12/13/17 04:32 12/13/17 05:00 Temperature 95.9 F L Pulse Rate 87 81 86 Respiratory Rate 13 14 Blood Pressure 137/87 Pulse Oximetry 100 12/13/17 06:00 12/13/17 07:00 12/13/17 07:40 Temperature Pulse Rate 86 77 Respiratory Rate Blood Pressure Pulse Oximetry 94 L 12/13/17 08:00 12/13/17 10:00 12/13/17 12:00 Temperature 98.5 F 96.2 F L Pulse Rate 90 85 84 Respiratory Rate 23 15 Blood Pressure 126/70 141/90 H Pulse Oximetry 91 L 94 L 12/13/17 14:00 12/13/17 15:07 Temperature Pulse Rate 89 85 Respiratory Rate 20 Blood Pressure Pulse Oximetry Intake & Output 12/12/17 12/13/17 12/13/17 18:59 06:59 18:59 Intake Total 1470 / 1470 340 / 340 1050 / 1050 Output Total 1850 / 1850 775 / 775 Balance -380 / -380 -435 / -435 1050 / 1050 Weight 81.3 kg Intake: IV 1050 / 1050 100 / 100 1050 / 1050 D5W/1/2 NS Inj 1,000 ML @ 42 1000 / 1000 1000 / 1000 mls/hr IV.CONT .[id number] [facility] Rx# :[id number] Zosyn 3.375 GM Premix 50 ML @ 50 / 50 100 / 100 50 / 50 100 mls/hr IV.SIG Q8H [facility] Rx#: [id number] Oral 420 / 420 240 / 240 Output: Urine 650 / 650 Stool 200 / 200 100 / 100 Urine Amount (Catheter) 1000 / 1000 675 / 675 Condom 1000 / 1000 675 / 675 Other: # Voids 4 # Incontinent Voids 1 Date of Last Bowel Movement 12/12/17 12/13/17 12/13/17 - Constitutional no acute distress - Routine HEENT Exam Head: Present: normocephalic ENT: Present: mucous membranes moist - Routine Neck Exam Present: supple - Routine Respiratory Exam Present: CTA bilaterally - Routine Abdominal Exam Present: soft, normoactive bowel sounds, tenderness - Routine Extremities Exam Absent: edema - Routine Skin Exam Present: intact, dry. Absent: jaundice - Routine Neurological Exam Present: alert, oriented X3 - Urinary Catheter Management Condom Cath placed during this visit: no <Leoncio Anderson - Last Filed: 12/13/17 16:44> Vital signs: Vital Signs 12/12/17 20:00 12/12/17 20:48 12/12/17 21:00 Temperature 97.9 F Pulse Rate 92 H 83 86 Respiratory Rate 23 19 Blood Pressure 122/79 Pulse Oximetry 95 93 L 12/12/17 22:00 12/12/17 23:00 12/13/17 00:00 Temperature Pulse Rate 86 86 96 H Respiratory Rate 22 Blood Pressure 145/90 H Pulse Oximetry 95 12/13/17 01:00 12/13/17 02:00 12/13/17 03:00 Temperature Pulse Rate 86 86 86 Respiratory Rate Blood Pressure Pulse Oximetry 12/13/17 04:00 12/13/17 04:32 12/13/17 05:00 Temperature 95.9 F L Pulse Rate 87 81 86 Respiratory Rate 13 14 Blood Pressure 137/87 Pulse Oximetry 100 12/13/17 06:00 12/13/17 07:00 12/13/17 07:40 Temperature Pulse Rate 86 77 Respiratory Rate Blood Pressure Pulse Oximetry 94 L 12/13/17 08:00 12/13/17 10:00 12/13/17 12:00 Temperature 98.5 F 96.2 F L Pulse Rate 90 85 84 Respiratory Rate 23 15 Blood Pressure 126/70 141/90 H Pulse Oximetry 91 L 94 L 12/13/17 14:00 12/13/17 15:07 12/13/17 16:00 Temperature 97.8 F Pulse Rate 89 85 78 Respiratory Rate 20 13 Blood Pressure 132/72 Pulse Oximetry 98 12/13/17 18:00 Temperature Pulse Rate 82 Respiratory Rate Blood Pressure Pulse Oximetry Intake & Output 12/13/17 12/13/17 12/14/17 06:59 18:59 06:59 Intake Total 340 / 340 1340 / 1340 Output Total 775 / 775 600 / 600 Balance -435 / -435 740 / 740 Weight 81.3 kg Intake: IV 100 / 100 1100 / 1100 D5W/1/2 NS Inj 1,000 ML @ 42 1000 / 1000 mls/hr IV.CONT .[id number] [facility] Rx# :[id number] Zosyn 3.375 GM Premix 50 ML @ 100 / 100 100 / 100 100 mls/hr IV.SIG Q6H [facility] Rx#: [id number] Oral 240 / 240 240 / 240 Output: Urine 600 / 600 Stool 100 / 100 Urine Amount (Catheter) 675 / 675 Condom 675 / 675 Other: # Voids 4 Date of Last Bowel Movement 12/13/17 12/13/17 # Bowel Movements 6 - Urinary Catheter Management Condom Cath placed during this visit: no <Bree Lofton - Last Filed: 12/13/17 19:37> Results - Labs CBC & Chem 7: 12/13/17 03:37 12/13/17 03:37 Laboratory Results - last 24 hr 12/09/17 12/13/17 12/13/17 18:42 03:37 03:37 WBC 12.6 H RBC 4.09 L Hgb 14.8 Hct 44.7 MCV 109.3 H MCH 36.1 H MCHC 33.0 RDW 14.8 Plt Count 59 L MPV 10.9 Prelim Diff (Auto) Slide review pending Neut % (Auto) 93.6 H Lymph % (Auto) 2.5 L [place] % (Auto) 3.7 Eos % (Auto) 0.0 Baso % (Auto) 0.2 Neut # (Auto) 11.8 H Lymph # (Auto) 0.3 L [place] # (Auto) 0.5 Eos # (Auto) 0.0 Baso # (Auto) 0.0 WBC Differential . Diff Scan Auto diff confirmed Differential Comment . Platelet Estimate Low L Platelet Morphology Normal Sodium 145 Potassium 3.6 Chloride 107 Carbon Dioxide 29.6 Anion Gap 8 BUN 37 H Creatinine 1.28 Estimated GFR 56 L Random Glucose 146 H Insulin Level Less than 1.0 L Calcium 8.4 L Total Bilirubin 2.5 H AST 521 H ALT 605 H Alkaline Phosphatase 76 Total Protein 5.6 L Albumin 2.6 L Microbiology 12/11/17 04:15 Blood - Peripheral Aerobic Blood Culture - Preliminary No growth in 2 days 12/11/17 04:15 Blood - Peripheral Anaerobic Blood Culture - Preliminary No growth in 2 days 12/11/17 04:20 Blood - Peripheral Aerobic Blood Culture - Preliminary No growth in 2 days 12/11/17 04:20 Blood - Peripheral Anaerobic Blood Culture - Preliminary No growth in 2 days <Leoncio Anderson - Last Filed: 12/13/17 16:44> - Labs CBC & Chem 7: 12/13/17 03:37 12/13/17 03:37 Laboratory Results - last 24 hr 12/09/17 12/13/17 12/13/17 18:42 03:37 03:37 WBC 12.6 H RBC 4.09 L Hgb 14.8 Hct 44.7 MCV 109.3 H MCH 36.1 H MCHC 33.0 RDW 14.8 Plt Count 59 L MPV 10.9 Prelim Diff (Auto) Slide review pending Neut % (Auto) 93.6 H Lymph % (Auto) 2.5 L [place] % (Auto) 3.7 Eos % (Auto) 0.0 Baso % (Auto) 0.2 Neut # (Auto) 11.8 H Lymph # (Auto) 0.3 L [place] # (Auto) 0.5 Eos # (Auto) 0.0 Baso # (Auto) 0.0 WBC Differential . Diff Scan Auto diff confirmed Differential Comment . Platelet Estimate Low L Platelet Morphology Normal Sodium 145 Potassium 3.6 Chloride 107 Carbon Dioxide 29.6 Anion Gap 8 BUN 37 H Creatinine 1.28 Estimated GFR 56 L Random Glucose 146 H Insulin Level Less than 1.0 L Calcium 8.4 L Total Bilirubin 2.5 H AST 521 H ALT 605 H Alkaline Phosphatase 76 Total Protein 5.6 L Albumin 2.6 L Microbiology 12/11/17 04:15 Blood - Peripheral Aerobic Blood Culture - Preliminary No growth in 2 days 12/11/17 04:15 Blood - Peripheral Anaerobic Blood Culture - Preliminary No growth in 2 days 12/11/17 04:20 Blood - Peripheral Aerobic Blood Culture - Preliminary No growth in 2 days 12/11/17 04:20 Blood - Peripheral Anaerobic Blood Culture - Preliminary No growth in 2 days <Bree Lofton - Last Filed: 12/13/17 19:37> Assessment and Plan - Plan Assessment: - Elevated LFTs Labs consistent with cirrhosis. Hypoalbuminemia, coagulopathy, and thrombocytopenia Pt grunts but will not stay awake to answer any questions LFTs likely multifactorial given recent V tach, possibly shocked liver, also noted to have (+) Hep C antibody According to record, pt reported heavy drinking however according to admission note pt stated that he quit drinking 3 days prior to admission. Labs consistent with ETOH hepatitis Unsure of risk factors for Hepatitis C because pt unable to provide any history Unsure of any family history - V-tach in route to hospital- no response to Amiodarone- converted after cardioversion- cardiology following, planning on cardiac cath when creatinine improves (12/11) Pt easily awakens today to his name. States known cirrhosis, [facility], known Hepatitis C, treatment naive. Denies history of IV drug use, current or previous illicit drug use, tattoos, high risk sexual behavior, and previous blood transfusions. Pt reports he was drinking about four beers a day prior to coming in but has been trying to quit, states last ETOH was two days ago. Ammonia slightly elevated, pt on Xifaxan and Lactulose Liver GARIBAY pending Increase in LFTs today, likely shocked liver Liver US --> Ultrasound findings suggesting some hepatic insufficiency. Liver is somewhat nodular with increased hepatic echotexture suggesting fatty infiltration/cirrhosis. Abdominal ascites. Bilateral pleural effusions. Mild pelvocaliectasis of the right renal collecting system. Mild mural thickening of the gallbladder. This is nonspecific and may be secondary to passive congestion associated with the presumed hepatic insufficiency. Pt does not think he has had previous EGD or colonoscopy 12/12/17, patient resting in the bed more alert today and notes that he is hungry No abdominal pain no nausea no vomiting. Current liver workup in process , alcoholic hepatitis and cirrhosis workup Current labs show so far, hemoglobin 14.1, WBC count 14.2 elevated possibly related to steroids, PT/INR decreased to 2, hemochromatosis pending, reactive hep C with RNA genotype PCR pending. CHARIS negative IgA pending a.m. a pending a.m. as a negative IgA and celiac disease pending. Patient does appear to be gradually improving. 12/13/17 LFTs trending down, nauseous today, liver work up in process. hemochromatosis pending, reactive hep C with RNA genotype PCR pending. CHARIS negative IgA pending, AMA pending, ASMA negative IgA and celiac disease pending. A1A 172, Ceruloplasmin pending, Fe 4137, iron sat 29 Plan HAMLET Liver workup labs pending Bowel regimen Lactulose, Xifaxan, Trental Alcohol cessation Monitor labs Patient was seen per myself and Dr. Lofton, note was written on her behalf <Leoncio Anderson - Last Filed: 12/13/17 16:44> - Attending Attestation agree with above <Bree Lofton - Last Filed: 12/13/17 19:37>
[2017-12-14] MEDS: Piperacil/Tazo 3.375 GM Premix 50 ML IV.SIG SCH ×5 (01:33→23:16)
[2017-12-14] MEDS ORDERED: Morphine Inj 4 MG/ML Vial IV.PUSH ONE (03:22)
[2017-12-14] MEDS: MethylPREDNISolone Sod Succinate Inj 40 MG/ML Vial IV.PUSH SCH ×4 (03:31→21:02)
[2017-12-14 05:36] LABS: Baso % (Auto) 0.3 % (0.0-2.0); Hematocrit 47.2 % (39.0-51.0); Hemoglobin 15.7 gm/dL (13.0-17.0); Lymph # (Auto) 0.5 th/mm3 (1.0-4.8); Lymph % (Auto) 3.7 % (9.0-44.0); Mean Corpuscular HGB Conc 33.3 % (32.0-36.0); Mean Corpuscular Hemoglobin 36.1 pg (27.0-34.0); Mean Corpuscular Volume 108.5 fL (80.0-100.0); Mean Platelet Volume 11.2 fL (7.0-11.0); Mono # (Auto) 0.6 th/mm3 (0.0-0.9); Mono % (Auto) 4.5 % (0.0-8.0); Neut # (Auto) 11.5 th/mm3 (1.8-7.7); Neut % (Auto) 91.5 % (16.0-70.0); Platelet Count 52 th/mm3 (150-450); Red Blood Count 4.35 mil/mm3 (4.50-5.90); Red Cell Distribution Width 14.8 % (11.6-17.2); White Blood Count 12.5 th/mm3 (4.0-11.0)
[2017-12-14 06:04] LABS: Alanine Aminotransferase 483 U/L (12-78)
[2017-12-14 06:07] LABS: Alkaline Phosphatase 80 U/L (45-117); Total Protein 5.9 g/dL (6.4-8.2)
[2017-12-14 06:09] LABS: Albumin 2.8 g/dL (3.4-5.0); Anion Gap 10 meq/L (5-15); Aspartate Aminotransferase 283 U/L (15-37); Blood Urea Nitrogen 33 mg/dL (7-18); Calcium 8.4 mg/dL (8.5-10.1); Carbon Dioxide 27.8 meq/L (21.0-32.0); Chloride 106 meq/L (98-107); Glomerular Filtration Rate 61 mL/min (>89); Glucose,Random 166 mg/dL (74-106); Potassium 3.3 meq/L (3.5-5.1); Sodium 144 meq/L (136-145)
--- NOTE | 2017-12-14 08:22 | P.PN ---
Subjective Interval history: corrections specialist Notes: Patient is a 67-year-old homeless who was brought into the emergency department 12/09/17 for shortness of breath and tachycardia and was found to have sustained V-tach. He did not convert with amiodarone and was cardioverted in the ER. He is a very poor historian but gives history of long-standing alcohol and tobacco abuse. His workup in the ER revealed multiple abnormal labs including BUN 32 creatinine 2.5, bicarb was only 8 and lactic acid was 12.1. His liver enzymes were elevated and INR was 4. His bilirubin was 5.4 AST was 842 and ALT of 399. His discriminant function was elevated and patient was placed on IV steroids for alcoholic hepatitis. But patient gives a history of stopping alcohol approximately a month ago. Dr. Efe Mcconnell was consulted for V. tach and elevated troponin. He recommended continuing amiodarone possible cardiac catheterization and evaluation for AICD once the creatinine improves. A 2D echo official read: showed EF 35-40%, RV pressure overload RV dilation and severe TR and a possible apical thrombus with severe apical hypokinesis. I discussed with Dr. Mcconnell-his impression is global hypokinesis with EF 20%, he did not see an apical thrombus but he will re-evaluate. With possible apical thrombus patient was started on IV heparin by hospitalist. Patient was also continued on IV amiodarone Today patient was found to be more lethargic, less responsive and was transferred to the ICU. Critical care medicine was consulted. I evaluated the patient immediately. He is lethargic but wakes up on stimulation protecting airway. Chest x-ray shows increasing pulmonary infiltrates. CT abdomen pelvis chest and brain is pending at this time. Ammonia level is also pending but GI has started Xifaxan and lactulose. Lactic acid today is 10.3 and patient is currently receiving bicarbonate infusion. His metabolic acidosis has improved on ABG. However clinically his respiratory status has worsened. I will discontinue amiodarone infusion due to acute liver failure. Start him on Coreg 3.125 mg twice daily. Use as needed IV Lopressor for tachycardia. I will also discontinue the IV heparin due to severe coagulopathy. Discussed with Dr. Mcconnell Clinically slightly improved less lethargic. More awake. Creatinine slightly improved to 2 now. Lactic acid almost cleared 2.5 now. AST/ALT continues to increase 2861/1306. CT chest/abd shows moderate pleural effusion, moderate ascites, left lower lobe infiltrate. Urine output 700 mL in 24 hours. Plan for paracentesis to rule out SBP 12/13: Seen in his bedroom, at this time appropriate, alert and oriented. 12/14: GI specialist awaiting for Hemochromatosis tests, PCR pending for Hepatitis C, AMA pending, CHARIS negative, IgA pending, ASMA negative IgA and celiac disease pending, A1A 172, Ceruloplasmin pending, Fe 4137, Iron sat 29, Stable discussed with nurse Miss Decker, replaced Potassium today in 3.3, has Thrombocytopenia today 53 following no signs of bleeding. No nausea, vomit or diarrhea. Physical Exam Vital signs: Vital Signs 12/13/17 10:00 12/13/17 12:00 12/13/17 14:00 Temperature 96.2 F L Pulse Rate 85 84 89 Respiratory Rate 15 Blood Pressure 141/90 H Pulse Oximetry 94 L 12/13/17 15:07 12/13/17 16:00 12/13/17 18:00 Temperature 97.8 F Pulse Rate 85 78 82 Respiratory Rate 20 13 Blood Pressure 132/72 Pulse Oximetry 98 12/13/17 20:00 12/13/17 20:51 12/13/17 22:00 Temperature 97.7 F Pulse Rate 93 H 83 88 Respiratory Rate 16 18 Blood Pressure 143/96 H Pulse Oximetry 92 L 95 12/14/17 00:00 12/14/17 02:00 12/14/17 03:27 Temperature 97.6 F Pulse Rate 92 H 101 H 99 H Respiratory Rate 22 20 Blood Pressure 132/98 H Pulse Oximetry 93 L 12/14/17 04:00 12/14/17 06:00 12/14/17 07:37 Temperature 97.8 F Pulse Rate 94 H 86 Respiratory Rate 13 Blood Pressure 143/82 H Pulse Oximetry 97 91 L Intake & Output 12/13/17 12/14/17 12/14/17 18:59 06:59 18:59 Intake Total 1340 / 1340 340 / 340 Output Total 600 / 600 400 / 400 Balance 740 / 740 -60 / -60 Weight 81.3 kg Intake: IV 1100 / 1100 100 / 100 D5W/1/2 NS Inj 1,000 ML @ 42 1000 / 1000 mls/hr IV.CONT .[id number] [facility] Rx# :[id number] Zosyn 3.375 GM Premix 50 ML @ 100 / 100 100 / 100 100 mls/hr IV.SIG Q6H [facility] Rx#: [id number] Oral 240 / 240 240 / 240 Output: Urine 600 / 600 400 / 400 Other: # Voids 4 1 # Incontinent Voids 1 Date of Last Bowel Movement 12/13/17 12/13/17 # Bowel Movements 6 2 Narrative: GENERAL: Alert and oriented in no acute distress. SKIN: Warm and dry. Mildly jaundiced ENT: No nasal bleeding or discharge. Mucous membranes dry CARDIOVASCULAR: Regular rate and rhythm. No murmurs RESPIRATORY: Clear to auscultation bilateral, no wheezing or crackles. GASTROINTESTINAL: Abdomen soft, non-tender, nondistended. MUSCULOSKELETAL: No clubbing cyanosis or edema. NEUROLOGICAL: No focal deficits. - Urinary Catheter Management Condom Cath placed during this visit: no Results - Labs CBC & Chem 7: 12/14/17 03:55 12/14/17 03:55 Laboratory Results - last 24 hr 12/14/17 12/14/17 12/14/17 00:57 03:55 03:55 WBC 12.5 H RBC 4.35 L Hgb 15.7 Hct 47.2 MCV 108.5 H MCH 36.1 H MCHC 33.3 RDW 14.8 Plt Count 52 L MPV 11.2 H Prelim Diff (Auto) Slide review pending Neut % (Auto) 91.5 H Lymph % (Auto) 3.7 L [place] % (Auto) 4.5 Eos % (Auto) 0.0 Baso % (Auto) 0.3 Neut # (Auto) 11.5 H Lymph # (Auto) 0.5 L [place] # (Auto) 0.6 Eos # (Auto) 0.0 Baso # (Auto) 0.0 Differential Comment . Sodium 144 Potassium 3.3 L Chloride 106 Carbon Dioxide 27.8 Anion Gap 10 BUN 33 H Creatinine 1.18 Estimated GFR 61 L POC Glucose 161 H Random Glucose 166 H Calcium 8.4 L Total Bilirubin 2.9 H AST 283 H ALT 483 H Alkaline Phosphatase 80 Total Protein 5.9 L Albumin 2.8 L Microbiology 12/11/17 04:15 Blood - Peripheral Aerobic Blood Culture - Preliminary No growth in 2 days 12/11/17 04:15 Blood - Peripheral Anaerobic Blood Culture - Preliminary No growth in 2 days 12/11/17 04:20 Blood - Peripheral Aerobic Blood Culture - Preliminary No growth in 2 days 12/11/17 04:20 Blood - Peripheral Anaerobic Blood Culture - Preliminary No growth in 2 days Assessment and Plan - Plan 1. Acute Metabolic Encephalopathy/alcohol dependence Improved. 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 Ammonia level 34 on Lactulose and Xifaxan, Supplement Multivitamin Thiamine Continue CIWA protocol, no signs of Withdrawal. 2. Respiratory Insufficiency/COPD Bronchodilator, Mucolytic and Incentive spirometry CT of the chest-left lower lobe infiltrate and moderate effusions -Effusions most likely from third spacing -Check urine for Legionella continue Zosyn 3. Sustained Ventricular Tachycardia, Cardiomyopathy with EF 20%, questioned Alcoholic Cardiomyopathy/possible apical thrombus Severe Lactic acidosis. Patient cardioverted in ER, was on IV Amiodarone, discontinued due to Liver failure, given Lidocaine infusion on Coreg, was on Esmolol for Atrial Flutter with RVR. Discontinued Heparin due to coagulopathy, for Cardiac Cath once Creatinine Improves. Improved Metabolic Acidosis very poor prognosis as per Specialists. Palliative Care Following. 4. Acute Hepatitis with liver failure/Liver cirrhosis/Ascites continue IV steroids, discriminating factor elevated. continue Xifaxan and Lactulose. 5. Acute Kidney Failure, Sesay cath, Nephrology following continue Bicarbonate Infusion, NATASHA most likely due to us shows right sided mild hydronephrosis 6. Probable Sepsis, to rule out SBP, following, blood culture, sputum culture, continue Zosyn 7. Coagulopathy secondary to Liver failure 8. thrombocytopenia platelet count today 57 9. Hypokalemia replaced and following. Bilateral lower extremity SCDs. Avoid chemical DVT prophylaxis due to coagulopathy and Thrombocytopenia [id number] IV Protonix for GI prophylaxis Palliative care consult for goals of care Code Status: Full code Discussed Condition With: Patient and nurse Miss Decker Discharge Planning: Patient is deteriorating with veru poor prognosis, consult palliative care
[2017-12-14 08:25] LABS: Platelet Morphology Normal (Normal)
[2017-12-14] MEDS: rifAXIMin 550 MG Tablet PO SCH ×3 (09:07→20:24)
[2017-12-14] MEDS: Pentoxifylline 400 MG Controlled Release Tablet PO SCH ×3 (09:07→17:39)
[2017-12-14] MEDS: Dextrose 5%/NaCl 0.45% Inj 1,000 ML IV.CONT SCH (09:38)
[2017-12-14] MEDS: Acetaminophen 325 MG Tablet PO PRN ×2 (12:08→17:40)
[2017-12-14] MEDS: Magnesium Oxide 400 MG Tablet PO SCH (17:41)
[2017-12-15 01:13] LABS: Calcium 8.3 mg/dL (8.5-10.1); Carbon Dioxide 30.5 meq/L (21.0-32.0); Potassium 4.5 meq/L (3.5-5.1)
[2017-12-15] MEDS: Acetaminophen 325 MG Tablet PO PRN (02:15)
[2017-12-15] MEDS: Piperacil/Tazo 3.375 GM Premix 50 ML IV.SIG SCH ×3 (05:19→17:51)
[2017-12-15] MEDS: MethylPREDNISolone Sod Succinate Inj 40 MG/ML Vial IV.PUSH SCH ×4 (05:20→22:05)
--- NOTE | 2017-12-15 08:16 | P.PN ---
Subjective Interval history: color specialist Notes: Patient is a 67-year-old homeless who was brought into the emergency department 12/09/17 for shortness of breath and tachycardia and was found to have sustained V-tach. He did not convert with amiodarone and was cardioverted in the ER. He is a very poor historian but gives history of long-standing alcohol and tobacco abuse. His workup in the ER revealed multiple abnormal labs including BUN 32 creatinine 2.5, bicarb was only 8 and lactic acid was 12.1. His liver enzymes were elevated and INR was 4. His bilirubin was 5.4 AST was 842 and ALT of 399. His discriminant function was elevated and patient was placed on IV steroids for alcoholic hepatitis. But patient gives a history of stopping alcohol approximately a month ago. Dr. Efe Mcconnell was consulted for V. tach and elevated troponin. He recommended continuing amiodarone possible cardiac catheterization and evaluation for AICD once the creatinine improves. A 2D echo official read: showed EF 35-40%, RV pressure overload RV dilation and severe TR and a possible apical thrombus with severe apical hypokinesis. I discussed with Dr. Mcconnell-his impression is global hypokinesis with EF 20%, he did not see an apical thrombus but he will re-evaluate. With possible apical thrombus patient was started on IV heparin by hospitalist. Patient was also continued on IV amiodarone Today patient was found to be more lethargic, less responsive and was transferred to the ICU. Critical care medicine was consulted. I evaluated the patient immediately. He is lethargic but wakes up on stimulation protecting airway. Chest x-ray shows increasing pulmonary infiltrates. CT abdomen pelvis chest and brain is pending at this time. Ammonia level is also pending but GI has started Xifaxan and lactulose. Lactic acid today is 10.3 and patient is currently receiving bicarbonate infusion. His metabolic acidosis has improved on ABG. However clinically his respiratory status has worsened. I will discontinue amiodarone infusion due to acute liver failure. Start him on Coreg 3.125 mg twice daily. Use as needed IV Lopressor for tachycardia. I will also discontinue the IV heparin due to severe coagulopathy. Discussed with Dr. Mcconnell Clinically slightly improved less lethargic. More awake. Creatinine slightly improved to 2 now. Lactic acid almost cleared 2.5 now. AST/ALT continues to increase 2861/1306. CT chest/abd shows moderate pleural effusion, moderate ascites, left lower lobe infiltrate. Urine output 700 mL in 24 hours. Plan for paracentesis to rule out SBP 12/13: Seen in his bedroom, at this time appropriate, alert and oriented. 12/14: GI specialist awaiting for Hemochromatosis tests, PCR pending for Hepatitis C, AMA pending, CHARIS negative, IgA pending, ASMA negative IgA and celiac disease pending, A1A 172, Ceruloplasmin pending, Fe 4137, Iron sat 29, Stable discussed with nurse Miss Decker, replaced Potassium today in 3.3, has Thrombocytopenia today 53 following no signs of bleeding. No nausea, vomit or diarrhea. 12/15: Seen in his bedroom and discussed with his Nurse Miss Decker the patient is not eating well he states he has some difficulty to eat, specially for solid food, he will get Cardiac Catheterization next 12/17/17, and possible EGD for tomorrow performed Barium Swallow was negative. No nausea, vomit or diarrhea. Physical Exam Vital signs: Vital Signs 12/14/17 08:52 12/14/17 10:00 12/14/17 12:00 Temperature 98 F Pulse Rate 84 81 74 Respiratory Rate 16 10 L Blood Pressure 143/98 H Pulse Oximetry 92 L 12/14/17 12:40 12/14/17 14:00 12/14/17 15:16 Temperature Pulse Rate 89 86 Respiratory Rate 0 L 22 Blood Pressure Pulse Oximetry 12/14/17 16:00 12/14/17 18:00 12/14/17 20:00 Temperature 97.7 F 97.8 F Pulse Rate 82 76 93 H Respiratory Rate 16 22 Blood Pressure 135/87 132/95 H Pulse Oximetry 90 L 96 12/14/17 21:07 12/14/17 22:00 12/15/17 00:00 Temperature 97.1 F L Pulse Rate 87 86 84 Respiratory Rate 18 16 Blood Pressure 117/82 Pulse Oximetry 97 96 12/15/17 01:00 12/15/17 02:00 12/15/17 04:00 Temperature 97.7 F Pulse Rate 79 93 H Respiratory Rate 13 Blood Pressure 131/90 Pulse Oximetry 92 L 92 L 12/15/17 05:00 12/15/17 06:00 Temperature Pulse Rate 97 H Respiratory Rate Blood Pressure Pulse Oximetry 93 L Intake & Output 12/14/17 12/15/17 12/15/17 18:59 06:59 18:59 Intake Total 1710 / 1710 350 / 350 Balance 1710 / 1710 350 / 350 Weight 81.3 kg Intake: IV 1050 / 1050 150 / 150 D5W/1/2 NS Inj 1,000 ML @ 42 1000 / 1000 mls/hr IV.CONT .[id number] [facility] Rx# :[id number] Zosyn 3.375 GM Premix 50 ML @ 50 / 50 150 / 150 100 mls/hr IV.SIG Q6H [facility] Rx#: [id number] Oral 660 / 660 200 / 200 Other: # Voids 10 2 Date of Last Bowel Movement 12/14/17 12/15/17 # Bowel Movements 5 2 Narrative: GENERAL: Alert and oriented in no acute distress. SKIN: Warm and dry. Mildly jaundiced ENT: No nasal bleeding or discharge. Mucous membranes dry CARDIOVASCULAR: Regular rate and rhythm. No murmurs RESPIRATORY: Clear to auscultation bilateral, no wheezing or crackles. GASTROINTESTINAL: Abdomen soft, non-tender, nondistended. MUSCULOSKELETAL: No clubbing cyanosis or edema. NEUROLOGICAL: No focal deficits. - Urinary Catheter Management Condom Cath placed during this visit: no Results - Labs CBC & Chem 7: 12/16/17 12:25 12/16/17 10:00 Laboratory Results - last 24 hr 12/10/17 12/14/17 12/14/17 15:23 03:55 13:33 WBC Differential . Diff Scan Auto diff confirmed Platelet Estimate Low L Platelet Morphology Normal Sodium Potassium Chloride Carbon Dioxide Anion Gap BUN Creatinine Estimated GFR POC Glucose 178 H Random Glucose Calcium Endomysial Ab Titer ND Endomysial IgA Ab ND Tiss Transglutamin IgA Less than 1 12/14/17 12/15/17 17:07 00:29 WBC Differential Diff Scan Platelet Estimate Platelet Morphology Sodium 146 H Potassium 4.5 D Chloride 108 H Carbon Dioxide 30.5 Anion Gap 8 BUN 28 H Creatinine 1.14 Estimated GFR 64 L POC Glucose 162 H Random Glucose 179 H Calcium 8.3 L Endomysial Ab Titer Endomysial IgA Ab Tiss Transglutamin IgA Microbiology 12/11/17 04:15 Blood - Peripheral Aerobic Blood Culture - Preliminary No growth in 3 days 12/11/17 04:15 Blood - Peripheral Anaerobic Blood Culture - Preliminary No growth in 3 days 12/11/17 04:20 Blood - Peripheral Aerobic Blood Culture - Preliminary No growth in 3 days 12/11/17 04:20 Blood - Peripheral Anaerobic Blood Culture - Preliminary No growth in 3 days Assessment and Plan - Plan 1. Acute Metabolic Encephalopathy/alcohol dependence Improved. 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 Ammonia level 34 on Lactulose and Xifaxan, Supplement Multivitamin Thiamine Continue CIWA protocol, no signs of Withdrawal. 2. Respiratory Insufficiency/COPD Bronchodilator, Mucolytic and Incentive spirometry CT of the chest-left lower lobe infiltrate and moderate effusions -Effusions most likely from third spacing -Legionella Negative.continue Zosyn 3. Sustained Ventricular Tachycardia, Cardiomyopathy with EF 20%, questioned Alcoholic Cardiomyopathy/possible apical thrombus Severe Lactic acidosis. Patient cardioverted in ER, was on IV Amiodarone, discontinued due to Liver failure, given Lidocaine infusion on Coreg, was on Esmolol for Atrial Flutter with RVR. Discontinued Heparin due to coagulopathy, for Cardiac Cath scheduled for 4. Acute Hepatitis with liver failure/Liver cirrhosis/Ascites continue IV steroids, discriminating factor elevated. continue Xifaxan and Lactulose. 5. Acute Kidney Failure Improved. 6. Probable Sepsis, to rule out SBP, following, blood culture, sputum culture, continue Zosyn 7. Coagulopathy secondary to Liver failure 8. thrombocytopenia platelet count today 52 9. Alcoholic Hepatitis Piyushmaria de jesus Discriminant factor today is 41.3 on Steroids. 10. Dysphagia status post WNL Barium Swallow and will have EGD for tomorrow after clearance by Cardiology Bilateral lower extremity SCDs. Avoid chemical DVT prophylaxis due to coagulopathy and Thrombocytopenia 12365 IV Protonix for GI prophylaxis Palliative care consult for goals of care Code Status: Full code. Discussed Condition With: patient and nurse. Discharge Planning: Patient is deteriorating with veru poor prognosis, consult palliative care
[2017-12-15] MEDS: Pentoxifylline 400 MG Controlled Release Tablet PO SCH ×4 (08:23→17:51)
[2017-12-15] MEDS: Magnesium Oxide 400 MG Tablet PO SCH (08:23)
[2017-12-15] MEDS: rifAXIMin 550 MG Tablet PO SCH ×2 (08:23→22:05)
--- NOTE | 2017-12-15 10:35 | P.PNCA ---
Subjective Interval history: No complaints Physical Exam Vital signs: Vital Signs 12/14/17 12:00 12/14/17 12:40 12/14/17 14:00 Temperature 98 F Pulse Rate 74 89 Respiratory Rate 10 L 0 L Blood Pressure 143/98 H Pulse Oximetry 92 L 12/14/17 15:16 12/14/17 16:00 12/14/17 18:00 Temperature 97.7 F Pulse Rate 86 82 76 Respiratory Rate 22 16 Blood Pressure 135/87 Pulse Oximetry 90 L 12/14/17 20:00 12/14/17 21:07 12/14/17 22:00 Temperature 97.8 F Pulse Rate 93 H 87 86 Respiratory Rate 22 18 Blood Pressure 132/95 H Pulse Oximetry 96 97 12/15/17 00:00 12/15/17 01:00 12/15/17 02:00 Temperature 97.1 F L Pulse Rate 84 79 Respiratory Rate 16 Blood Pressure 117/82 Pulse Oximetry 96 92 L 12/15/17 04:00 12/15/17 05:00 12/15/17 06:00 Temperature 97.7 F Pulse Rate 93 H 97 H Respiratory Rate 13 Blood Pressure 131/90 Pulse Oximetry 92 L 93 L 12/15/17 08:00 12/15/17 08:25 Temperature 98.7 F Pulse Rate 98 H Respiratory Rate 20 Blood Pressure 157/98 H Pulse Oximetry 100 99 Intake & Output 12/14/17 12/15/17 12/15/17 18:59 06:59 18:59 Intake Total 1710 / 1710 350 / 350 Balance 1710 / 1710 350 / 350 Weight 81.3 kg Intake: IV 1050 / 1050 150 / 150 D5W/1/2 NS Inj 1,000 ML @ 42 1000 / 1000 mls/hr IV.CONT .[id number] [facility] Rx# :[id number] Zosyn 3.375 GM Premix 50 ML @ 50 / 50 150 / 150 100 mls/hr IV.SIG Q6H [facility] Rx#: [id number] Oral 660 / 660 200 / 200 Other: # Voids 10 2 Date of Last Bowel Movement 12/14/17 12/15/17 12/15/17 # Bowel Movements 5 2 Narrative: Much more alert today No JVD Chest Clear CV S1S2 RRR No edema - Urinary Catheter Management Condom Cath placed during this visit: no Assessment and Plan - Assessment (1) Acute renal failure Code(s): N17.9 - Acute kidney failure, unspecified Status: Acute Plan: creatinine has improved. Will plan cath Friday (2) Cardiomyopathy Code(s): I42.9 - Cardiomyopathy, unspecified Status: Acute Plan: Severe. EF only 20%. Etiology unclear. Doubt recent CA (3) Multi-organ system dysfunction Status: Acute Plan: Severe cardiac, liver and renal disease, prior CVA, reduced mental status (4) Homeless single person Code(s): Z59.0 - Homelessness Status: Acute (5) Advanced cirrhosis of liver Code(s): K74.60 - Unspecified cirrhosis of liver Status: Acute Plan: INR elevated. Thrombocytopenic. (6) V tach Code(s): I47.2 - Ventricular tachycardia Status: Acute Plan: Sustained VT on admision requiring cardioversion. off amio due to cirrhosis. - Plan Plan cardiac cath Friday via radial approach.
--- NOTE | 2017-12-15 10:41 | P.CONPAL ---
Consult Service: Palliative Care Requesting Physician: Jigna Recinos Reason for Consult: a. To assist with evaluation and management of symptoms including: leg pain, dizziness, dysphagia b. To assist medical decision maker(s) with: better understanding of current medical conditions; weighing benefits/burdens of medical treatment options; making medical treatment decisions. Primary Care Provider: No Primary Care Physician History of Present Illness History of Present Illness: This 67-year-old man resented to the ED D on 12/09/17 via EMS with complaints of "not feeling well". When EMS arrived was found to be in monomorphic V. tach with a pulse. They administered amiodarone without changes. Patient also reported dizziness and generalized weakness but was denying chest pain cough palpitations or vomiting. He reported a known history of hypertension and heart problems but could not remember names of medications. Patient later also reported had not eaten for about 2 days. He is apparently homeless. Has also reported some providers history of heavy alcohol consumption. * In the ED he underwent cardioversion with some sedation. He was reported to immediately convert to normal sinus tachycardia 110s. He received 2 g of magnesium sulfate, as well as D50 for hypoglycemia blood glucose 44. Troponin 0 0.12, total CK 177, CK-2 4.8. Mild anemia hemoglobin 11.9/hematocrit 36.5. CXR= mild cardiomegaly without evidence of acute process. Abdomen bladder ultrasound= mild right-sided hydronephrosis, mild ascites, bilateral pleural effusions. CT brain: No acute abnormality old left frontal lobe infarct. Left maxillary sinus disease. * Cardiology consulted: Patient had acute sustained V. tach post cardioversion. Now stable. Add beta-jennie. Will need cardiac catheterization once creatinine improved. May require revascularization, probable AICD. Will probably require staying on amiodarone. * Ultrasound liver: Findings of some hepatic insufficiency. Liver somewhat nodular with increased hepatic echotexture suggesting fatty infiltration or cirrhosis. Abdominal ascites. Mild mural thickening of gallbladder nonspecific may be secondary to passive congestion associated with presumed hepatic insufficiency. * Abdomen pelvis CT: Moderate ascites noted.heart is enlarged. No bowel obstruction no perceptible focal inflammatory changes. * Chest CT: Moderate bilateral pleural effusions with compressive/dependent atelectasis. More focal area consolidation left lower lobe which may represent pneumonia clinical setting. Enlarged heart especially right atrium. Coronary artery calcification. * GI consulted: Elevated LFTs consistent with cirrhosis. Hypoalbuminemia, coagulopathy and thrombocytopenia. Possible shock liver could also be contributing to LFTs. Positive hep C antibody. Unknown if he has ever undergone treatment. Labs consistent with EtOH hepatitis. Additional labs pending. Patient may require NG tube. Started on lactulose, rifaximin. * 12/10patient more lethargic less responsive was transferred to the ICU. Critical care consulted. He was lethargic but seemed to protect airway. CXR notes increased pulmonary infiltrates. Lactic acid 10.3, receiving bicarbonate infusion. Amiodarone discontinued due to acute liver failure. IV heparin discontinued due to coagulopathy. * 12/10 2D echo= LV systolic function moderate to severely reduced with EF in the range of 35-40%. No regional wall motion abnormalities. Flattened septum in systole consistent with a right ventricle pressure overload. Moderately dilated right ventricle right atria. Moderate to severe mitral valve regurg. Severe tricuspid valve regurg. * Nephrology consulted: Severe lactic acidosis may be secondary to perfusion rule out mesenteric ischemia. IV fluid changed to bicarbonate drip. * 12/11 slight clinical improvement less lethargic. Creatinine improving. Lactic acid improving. AST and ALT however continue to increase 2861, 1306. Plan for possible paracentesis to rule out SBP. * 12/12 cardiology notes overall prognosis very poor, patient high risk for cardiac catheterization. Will await nephrology recommendations. Even if they proceed with cath it will be somewhat "pointless " as not a good candidate for revascularization.. Live Truck Operator notes "do not see any end game " where he can ever be well. He has multiorgan system diseases and homeless. Recommends palliative consultation. * Palliative care consulted to assist with clarification of goals of medical treatment. * 12/13 LFTs trending down. Patient with nausea. GI continues to follow additional diagnostics pending. Patient continued on lactulose, Xifaxan, Trental. * 12/15 -no new imaging. leukocytosis noted on yesterday's lab though downtrending in general. Thrombocytopenia noted as well 52, no reported signs of bleeding. Chemistry today noted with mild hypernatremia 6. BUN elevated at 28 though down from 33, downtrending. Patient able to ambulate well around the room with a walker. Pt seen in room no visitors present. Observe him ambulating slowly with walker. He is alert, oriented x3. He answers most questions appropriately however with further questions regarding reason for hospitalization, medical hx etc he appears to be poor historian and to have poor insight into conditions, possibly forgetful. When asked why he is in the hospital he tells me because he is homeless. I asked him medically what made him decide to seek treatment, he tells me because he was sleeping on the ground in a parking lot and they sent him to the hospital. I again asked him if he called 911 and what prompted that , then at that point he indicated his legs were bothering him and that is why he called 911. Asked him what happened in the ER or what they told him was causing his illness he tells me he does not know. Review with him he had V. tach a very severe and life-threatening arrhythmia and that they had to shock him he agrees with this. Ask him if he understands what the image editor said is going on with his heart or what the recommendations would be he is unable to tell me anything further. Gently explore with him that image editor says there may be other procedures indicated however because of many other medical issues there may not be a good way to fix his heart etc. I explained that if his heart continued to have that type of arrhythmia he could from that. He then tells me that his regular doctor told him that, "that you could from that ", and that he had something going on with his heart. He is unable to further elaborate. In obtaining ROS he is at times a poor historian. He does endorse swelling to his legs intermittent though improved during hospitalization. He endorses intermittent cramping to his legs why he says he came to the hospital. He denies chest pain. Denies any GI complaints. Tells me he is having trouble swallowing, though indicates that this just started during acute hospitalization , and that prior to being in the hospital he was eating fine. Endorses that it hurts to swallow and feels like he cannot even pass water. Denies ever having issue before. [Though nursing tells me that he reported he has partially underwent possible GI workup for this]. Upon exploring his goals related to his medical conditions he indicates that he is working on trying to find an apartment so that he can have a good bed to sleep and, that he just wants to have a place with the bed so that he can sleep 7 days a week. He then tells me that this "will be like when Isaias went to [facility] and can sleep 25/11." Attempt to explore CODE STATUS, ventilator etc.; he does not seem to fully understand life support or CPR and indicates that he is the kind of person who leaves some things up to God, but then he likes to decide other things himself. Upon exploring psychosocial history he indicates he has 12 siblings but that he has not spoken with them in some time because some of them are old in their 70s indicates he does not really need to talk to them and they do not really want to talk to him either. He indicates not and no children. He tells me he does not know all of his siblings numbers because his old phone with them and it was stolen however he does have some other numbers in his wallet, he provided me with these numbers so I may put in the chart however when I asked if I might call them and update them he tells me know he will take care of that if he needs to. Attempt to explore whom he would want as a contact or decision- maker in an emergency situation and he tells me no one. Ask if there is a particular sibling among them that he would want called if he became critically ill or unconscious or passed and he indicates none of them. In terms of substances used he tells me he has been trying to cut down on smoking and drinking and that he is now drinking 1 drink a day and smoking 1 cigarette a day , though previously smoked and drank much more. Discussed with primary nurse, as well as case management. Will discuss w med attending. Case management has spoken with 1 of the representatives at the [facility] who indicates that he does follow up there periodically. Also indicates that at one point he had been on the [facility] housing assistance program however he voluntarily removed himself from this. Function/Cognitive Trajectory: Apparently independent with ADLs prior to this admission. Homeless. Some difficulty walking due to dizziness, leg pain. Review of Systems other (pt poor historian ) Constitutional: Reports daytime sleepiness, Denies chills, Denies weakness Eyes: Reports requires corrective lenses, Denies change in vision Ears, Nose, Mouth, and Throat: Reports pain with swallowing, Reports other ( difficulty swallowing ), Denies hoarseness, Denies mouth pain Cardiovascular: Reports fainting (near syncope), Reports leg pain with activity , Reports leg swelling, Reports shortness of breath, Reports shortness of breath with activity, Reports other ("leg cramps" when laying down, walking ), Denies chest pain, Denies shortness of breath when lying down Respiratory: Reports shortness of breath with activity, Denies chest congestion , Denies cough Gastrointestinal: Reports pain with swallowing, Denies abdominal pain, Denies constipation, Denies nausea, Denies vomiting Genitourinary: Denies blood in urine, Denies decreased urination, Denies difficulty urinating Musculoskeletal: Denies back pain, Denies body aches Skin/Breast: Denies rash Neurologic: Reports dizziness, Reports fainting, Denies localized weakness, Denies seizure-like activity Psychiatric: Denies change in appetite PMF - History History Provided By: Community Health Representative / EMT - Medical / Surgical Hx Neg / Unobtainable Medical Problems Denied: Unable to Obtain - Medical History Medical History: Medical History (Last Reviewed 12/15/17 @ 10:37 by DE Brandt) Hypertension - Surgical History Surgical History: Surgical History (Last Updated 12/09/17 @ 19:32 by Yusuf Amaral MD) No history of previous surgery - Family History Family History: Family History (Last Reviewed 12/15/17 @ 10:37 by ED Brandt) Father CAD (coronary artery disease) - Tobacco History Second Hand Smoke Exposure: No Tobacco Use In Past 30 Days: Yes Smoking Status: Heavy tobacco smoker Tobacco Type: Cigarettes Packs Per Day: 1.5 - Alcohol History How Often Do You Have a Drink Containing Alcohol: 4 or more times a week - Substance Use History Substance History: No History of Abuse - Travel History Recent Travel in the [place] Within the Last 8 Weeks: No Recent Travel Out of the Country Within the Last 8 Weeks: No - Immunization History Tetanus Immunization: Unsure Hx Influenza Vaccine This Season: No Medications and Allergies Active Medications: Active Medications Acetaminophen (Tylenol) 650 mg PO Q4H PRN PRN Reason: PAIN 1-10 AND/OR FEVER >101F Last Admin: 12/15/17 02:15 Dose: 650 mg Al Hydroxide/Mg Hydroxide (Milk Of Magnesia Liq) 30 ml PO Q12H PRN PRN Reason: Mild Constipation Albuterol (Duoneb Neb (Prn)) 1 ampul NEB Q2HR NEB PRN PRN Reason: SHORTNESS OF BREATH Last Admin: 12/10/17 17:56 Dose: 1 ampul Bisacodyl (Dulcolax Supp) 10 mg RECTAL DAILY PRN PRN Reason: SEVERE CONSITIPATION Carvedilol (Coreg) 3.125 mg PO BID [facility] Last Admin: 12/15/17 08:23 Dose: 3.125 mg Dextrose (D50w Vial) 50 ml IV.PUSH UNSCH PRN PRN Reason: PER HYPOGLYCEMIA PROTOCOL Flumazenil (Romazecon Inj) 0.2 mg IV.PUSH Q1M PRN PRN Reason: OVERSEDATION Glucagon (Glucagon Inj) 1 mg OTHER PRN PRN PRN Reason: for Hypoglycemia Protocol Haloperidol Lactate (Haldol Inj) 1 mg IV.PUSH Q15M PRN PRN Reason: for severe agitation Amiodarone HCl 450 mg/ (Dextrose) 250 mls @ 33.33 mls/hr IV.CONT TITRATE PRN; Protocol PRN Reason: Per Protocol Last Titration: 12/11/17 07:00 Dose: 0 mg/min, 0 mls/hr Esmolol HCl (Brevibloc 2,500 Mg/Ns 250 Ml Premix) 2,500 mg in 250 mls @ 23.1 mls/hr IV.CONT TITRATE PRN; Protocol PRN Reason: Per Protocol Last Titration: 12/11/17 07:00 Dose: 0 mcg/kg/min, 0 mls/hr Dextrose/Sodium Chloride (D5w/1/2 Ns Inj) 1,000 mls @ 42 mls/hr IV.CONT .[id number] [facility] Last Admin: 12/14/17 09:38 Dose: 42 mls/hr Piperacillin/Tazobactam/Dextrose (Zosyn 3.375 Gm Premix) 50 mls @ 100 mls/hr IV.SIG Q6H [facility] Last Infusion: 12/15/17 05:58 Dose: Infused Lactulose (Lactulose Liq) 30 ml PO BID [facility] Last Admin: 12/15/17 08:23 Dose: 30 ml Magnesium Oxide (Mag-Ox) 400 mg PO DAILY [facility] Last Admin: 12/15/17 08:23 Dose: 400 mg Methylprednisolone Sodium Succinate (Solumedrol Inj) 40 mg IV.PUSH Q6H [facility] Last Admin: 12/15/17 05:20 Dose: 40 mg Multivitamins (Theragran) 1 tab PO DAILY [facility] Last Admin: 12/15/17 08:23 Dose: 1 tab Pentoxifylline (Trental Sr) 400 mg PO TID [facility] Last Admin: 12/14/17 17:39 Dose: 400 mg Prochlorperazine Edisylate (Compazine Inj) 5 mg IV.PUSH Q4H PRN PRN Reason: NAUSEA OR VOMITING Last Admin: 12/14/17 21:32 Dose: 5 mg Rifaximin (Xifaxan) 550 mg PO Q12HR [facility] Last Admin: 12/15/17 08:23 Dose: 550 mg Sennosides (Senokot) 17.2 mg PO Q12H PRN PRN Reason: Moderate Constipation Sodium Chloride (Ns Flush) 2 ml IV.FLUSH UNSCH PRN PRN Reason: FLUSH AFTER USING IV ACCESS Last Admin: 12/15/17 08:24 Dose: 2 ml Thiamine HCl (Vitamin B1) 100 mg PO BID [facility] Last Admin: 12/15/17 08:23 Dose: 100 mg Allergies Allergy/AdvReac Type Severity Reaction Status Date / Time No Known Allergies Allergy Verified 12/09/17 12:23 Home Medications Medication Instructions Recorded Confirmed Type No Known Home Medications 12/09/17 12/09/17 History Advance Directives Living Will: No Healthcare Surrogate: No Ethical and Legal Issues: Patient is alert and oriented 3. However he appears to have somewhat limited or poor insight into medical conditions. Appears he has been following up with [facility]. Not clear that he has full insight and ability to make medical decisions at this time. He indicates he does not have advanced directives or health care surrogate. He indicates he has 12 siblings he provided me the name of 3 today. He is not and has no children. He does not wish to designate anyone as a healthcare surrogate. Per [place] statutes if patient incapacitated proxy decision making would fall to majority of the 12 siblings. Physical Exam Vital Signs: Vital Signs - 24 hr 12/14/17 12:00 12/14/17 12:40 12/14/17 14:00 Temperature 98 F Pulse Rate 74 89 Respiratory Rate 10 L 0 L Blood Pressure 143/98 H Pulse Oximetry 92 L 12/14/17 15:16 12/14/17 16:00 12/14/17 18:00 Temperature 97.7 F Pulse Rate 86 82 76 Respiratory Rate 22 16 Blood Pressure 135/87 Pulse Oximetry 90 L 12/14/17 20:00 12/14/17 21:07 12/14/17 22:00 Temperature 97.8 F Pulse Rate 93 H 87 86 Respiratory Rate 22 18 Blood Pressure 132/95 H Pulse Oximetry 96 97 12/15/17 00:00 12/15/17 01:00 12/15/17 02:00 Temperature 97.1 F L Pulse Rate 84 79 Respiratory Rate 16 Blood Pressure 117/82 Pulse Oximetry 96 92 L 12/15/17 04:00 12/15/17 05:00 12/15/17 06:00 Temperature 97.7 F Pulse Rate 93 H 97 H Respiratory Rate 13 Blood Pressure 131/90 Pulse Oximetry 92 L 93 L 12/15/17 08:00 12/15/17 08:25 Temperature 98.7 F Pulse Rate 98 H Respiratory Rate 20 Blood Pressure 157/98 H Pulse Oximetry 100 99 I&O: Intake & Output 12/13/17 12/14/17 12/15/17 12/16/17 06:59 06:59 06:59 06:59 Intake Total 1810 / 1810 1680 / 1680 2059 Output Total 2625 / 2625 1000 / 1000 Balance -815 / -815 680 / 680 2059 Weight 81.3 kg 81.3 kg 81.3 kg Physical Exam: CONSTITUTIONAL/GENERAL: This is an adequately nourished patient, in no apparent distress, alert cooperative TUBES/LINES/DRAINS:PIV BUE SKIN: No jaundice, rashes, or lesions. chronic vascular discoloration Bilateral lower legs No wounds seen anteriorly. skin warm, dry however feet cool to touch. HEAD: Atraumatic. Normocephalic. EYES: Pupils equal and round and reactive. Extraocular motions intact. No scleral icterus. No injection or drainage. Fundi not examined. ENT: Hearing grossly normal. Nose without bleeding or purulent drainage. Throat without visible erythema, exudates, masses, or lesions. poor dentition NECK: Trachea midline. Supple, nontender. No palpable thyroid enlargement or nodularity. CARDIOVASCULAR: Regular rate and rhythm . Trace pedal edema. Trace edema left hand. Feet cool, pedal pulses faint. RESPIRATORY/CHEST: Symmetric, unlabored respirations. Clear to auscultation. Breath sounds equal bilaterally. GASTROINTESTINAL: Abdomen soft, rounded, non-tender, nondistended. No palpable masses. +ascites. No guarding. Bowel sounds present. GENITOURINARY: Without palpable bladder distension. MUSCULOSKELETAL: Extremities without clubbing, cyanosis. Trace edema lower legs/ pedal. No joint tenderness or effusion noted. No calf tenderness. No mottling or clubbing. chronic vascular discoloration Bilateral lower legs. Rt clavicle larger than right, nontender. LYMPHATICS: No palpable cervical or supraclavicular adenopathy. NEUROLOGICAL: Awake and alert, oriented x3. Limited to poor insight about medical conditions/prognosis. Motor and sensory grossly within normal limits. Follows commands. Moves all extremities. PSYCHIATRIC: No obvious anxiety/depression. no apparent hallucinations or other psychotic thought process. Diagnostic Tests Laboratory: Laboratory Results - last 72 hr 12/09/17 12/09/17 12/10/17 18:42 20:28 15:23 WBC RBC Hgb Hct MCV MCH MCHC RDW Plt Count MPV Prelim Diff (Auto) Neut % (Auto) Lymph % (Auto) [place] % (Auto) Eos % (Auto) Baso % (Auto) Neut # (Auto) Lymph # (Auto) [place] # (Auto) Eos # (Auto) Baso # (Auto) WBC Differential Diff Scan Differential Comment Platelet Estimate Platelet Morphology Sodium Potassium Chloride Carbon Dioxide Anion Gap BUN Creatinine Estimated GFR POC Glucose Random Glucose Insulin Level Less than 1.0 L Calcium Phosphorus Total Bilirubin AST ALT Alkaline Phosphatase Total Protein Albumin Vsyix-9-Rrpjckoqzhd Thiamine 204 H CHARIS Screen Neg Anti-Smooth Muscle Ab Endomysial Ab Titer Endomysial IgA Ab Tiss Transglutamin IgA 12/10/17 12/10/17 12/12/17 15:23 15:23 12:42 WBC RBC Hgb Hct MCV MCH MCHC RDW Plt Count MPV Prelim Diff (Auto) Neut % (Auto) Lymph % (Auto) [place] % (Auto) Eos % (Auto) Baso % (Auto) Neut # (Auto) Lymph # (Auto) [place] # (Auto) Eos # (Auto) Baso # (Auto) WBC Differential Diff Scan Differential Comment Platelet Estimate Platelet Morphology Sodium 144 Potassium 3.8 Chloride 108 H Carbon Dioxide 26.5 Anion Gap 10 BUN 39 H Creatinine 1.25 Estimated GFR 57 L POC Glucose Random Glucose 154 H Insulin Level Calcium 8.3 L Phosphorus 2.8 Total Bilirubin AST ALT Alkaline Phosphatase Total Protein Albumin 2.6 L Mbveq-0-Yjczeoztllb 172 Thiamine CHARIS Screen Anti-Smooth Muscle Ab Negative Endomysial Ab Titer ND Endomysial IgA Ab ND Tiss Transglutamin IgA Less than 1 12/13/17 12/13/17 12/14/17 03:37 03:37 00:57 WBC 12.6 H RBC 4.09 L Hgb 14.8 Hct 44.7 MCV 109.3 H MCH 36.1 H MCHC 33.0 RDW 14.8 Plt Count 59 L MPV 10.9 Prelim Diff (Auto) Slide review pending Neut % (Auto) 93.6 H Lymph % (Auto) 2.5 L [place] % (Auto) 3.7 Eos % (Auto) 0.0 Baso % (Auto) 0.2 Neut # (Auto) 11.8 H Lymph # (Auto) 0.3 L [place] # (Auto) 0.5 Eos # (Auto) 0.0 Baso # (Auto) 0.0 WBC Differential . Diff Scan Auto diff confirmed Differential Comment . Platelet Estimate Low L Platelet Morphology Normal Sodium 145 Potassium 3.6 Chloride 107 Carbon Dioxide 29.6 Anion Gap 8 BUN 37 H Creatinine 1.28 Estimated GFR 56 L POC Glucose 161 H Random Glucose 146 H Insulin Level Calcium 8.4 L Phosphorus Total Bilirubin 2.5 H AST 521 H ALT 605 H Alkaline Phosphatase 76 Total Protein 5.6 L Albumin 2.6 L Dtdxi-6-Gqwaenevyjk Thiamine CHARIS Screen Anti-Smooth Muscle Ab Endomysial Ab Titer Endomysial IgA Ab Tiss Transglutamin IgA 12/14/17 12/14/17 12/14/17 03:55 03:55 13:33 WBC 12.5 H RBC 4.35 L Hgb 15.7 Hct 47.2 MCV 108.5 H MCH 36.1 H MCHC 33.3 RDW 14.8 Plt Count 52 L MPV 11.2 H Prelim Diff (Auto) Slide review pending Neut % (Auto) 91.5 H Lymph % (Auto) 3.7 L [place] % (Auto) 4.5 Eos % (Auto) 0.0 Baso % (Auto) 0.3 Neut # (Auto) 11.5 H Lymph # (Auto) 0.5 L [place] # (Auto) 0.6 Eos # (Auto) 0.0 Baso # (Auto) 0.0 WBC Differential . Diff Scan Auto diff confirmed Differential Comment . Platelet Estimate Low L Platelet Morphology Normal Sodium 144 Potassium 3.3 L Chloride 106 Carbon Dioxide 27.8 Anion Gap 10 BUN 33 H Creatinine 1.18 Estimated GFR 61 L POC Glucose 178 H Random Glucose 166 H Insulin Level Calcium 8.4 L Phosphorus Total Bilirubin 2.9 H AST 283 H ALT 483 H Alkaline Phosphatase 80 Total Protein 5.9 L Albumin 2.8 L Wymaj-3-Wikgfiwvete Thiamine CHARIS Screen Anti-Smooth Muscle Ab Endomysial Ab Titer Endomysial IgA Ab Tiss Transglutamin IgA 12/14/17 12/15/17 17:07 00:29 WBC RBC Hgb Hct MCV MCH MCHC RDW Plt Count MPV Prelim Diff (Auto) Neut % (Auto) Lymph % (Auto) [place] % (Auto) Eos % (Auto) Baso % (Auto) Neut # (Auto) Lymph # (Auto) [place] # (Auto) Eos # (Auto) Baso # (Auto) WBC Differential Diff Scan Differential Comment Platelet Estimate Platelet Morphology Sodium 146 H Potassium 4.5 D Chloride 108 H Carbon Dioxide 30.5 Anion Gap 8 BUN 28 H Creatinine 1.14 Estimated GFR 64 L POC Glucose 162 H Random Glucose 179 H Insulin Level Calcium 8.3 L Phosphorus Total Bilirubin AST ALT Alkaline Phosphatase Total Protein Albumin Aqngx-8-Usvbzpgrire Thiamine CHARIS Screen Anti-Smooth Muscle Ab Endomysial Ab Titer Endomysial IgA Ab Tiss Transglutamin IgA Result Diagrams: 12/14/17 03:55 12/15/17 00:29 Microbiology: Microbiology 12/11/17 04:15 Aerobic Blood Culture - Preliminary Blood - Peripheral No growth in 3 days Anaerobic Blood Culture - Preliminary No growth in 3 days 12/11/17 04:20 Aerobic Blood Culture - Preliminary Blood - Peripheral No growth in 3 days Anaerobic Blood Culture - Preliminary No growth in 3 days 12/09/17 04:44 Urine Culture - Final Catheterized Urine No growth in 48 hours Imaging: Abdomen/Bladder Ultrasound 12/09/17 00:00 CONCLUSION: 1. Mild right-sided hydronephrosis. Mild ascites and bilateral pleural effusions. Chest X-Ray 12/09/17 11:36 CONCLUSION: Mild cardiomegaly without evidence of acute process. Chest CT 12/10/17 00:00 CONCLUSION: 1. Moderate bilateral pleural effusions with compressive/dependent atelectasis. 2. A more focal area of consolidation involves the left lower lobe which may represent pneumonia in the proper clinical setting. Follow-up to resolution is recommended. 3. Enlarged heart, especially the right atrium. 4. Coronary artery calcification. Chest X-Ray 12/10/17 00:00 CONCLUSION: Increasing bibasilar parenchymal changes much worse on the left. Developing pleural effusions. Head CT 12/10/17 00:00 CONCLUSION: 1. No acute intracranial abnormality. 2. Old left frontal lobe infarct. 3. Left maxillary sinus disease partly seen. Increased attenuation material present, probably inspissated and desiccated debris although some blood in the sinus could appear similar. Liver Ultrasound 12/10/17 00:00 CONCLUSION: 1. Ultrasound findings suggesting some hepatic insufficiency. Liver is somewhat nodular with increased hepatic echotexture suggesting fatty infiltration/cirrhosis. 2. Abdominal ascites. Bilateral pleural effusions. 3. Mild pelvocaliectasis of the right renal collecting system. 4. Mild mural thickening of the gallbladder. This is nonspecific and may be secondary to passive congestion associated with the presumed hepatic insufficiency Abdomen/Pelvis CT 12/10/17 09:15 CONCLUSION: 1. No obstruction or focal acute inflammatory changes are demonstrated. 2. Moderate ascites. 3. Atherosclerotic aorta. 4. Enlarged heart. CT chest to follow. Patient/Family Conference Family Conference Location: Bedside Issues Discussed: Met with patient approximately 30 minutes at bedside. Discussion included the following: * Palliative care role, purpose, approach * Additional medical, psychosocial, and spiritual history * Patients general health, functional status, and cognitive changes in the months leading up to the current hospitalization * Patient understanding of the current medical problems * Patient understanding of prognosis * Patients goals of care as best understood from advance directives and/or conversations and/or values * Current medical treatment options and benefits/burdens of those options * attempted to explore CODE STATUS * explore HCS/family contact * Questions answered to the best of my ability * Palliative care contact information provided Pt seen in room no visitors present. Observe him ambulating slowly with walker. He is alert, oriented x3. He answers most questions appropriately however with further questions regarding reason for hospitalization, medical hx etc he appears to be poor historian and to have poor insight into conditions, possibly forgetful. When asked why he is in the hospital he tells me because he is homeless. I asked him medically what made him decide to seek treatment, he tells me because he was sleeping on the ground in a parking lot and they sent him to the hospital. I again asked him if he called 911 and what prompted that , then at that point he indicated his legs were bothering him and that is why he called 911. Asked him what happened in the ER or what they told him was causing his illness he tells me he does not know. Review with him he had V. tach a very severe and life-threatening arrhythmia and that they had to shock him he agrees with this. Ask him if he understands what the image editor said is going on with his heart or what the recommendations would be he is unable to tell me anything further. Gently explore with him that image editor says there may be other procedures indicated however because of many other medical issues there may not be a good way to fix his heart etc. I explained that if his heart continued to have that type of arrhythmia he could from that. He then tells me that his regular doctor told him that, "that you could from that ", and that he had something going on with his heart. He is unable to further elaborate. In obtaining ROS he is at times a poor historian. He does endorse swelling to his legs intermittent though improved during hospitalization. He endorses intermittent cramping to his legs why he says he came to the hospital. He denies chest pain. Denies any GI complaints. Tells me he is having trouble swallowing, though indicates that this just started during acute hospitalization , and that prior to being in the hospital he was eating fine. Endorses that it hurts to swallow and feels like he cannot even pass water. Denies ever having issue before. [Though nursing tells me that he reported he has partially underwent possible GI workup for this]. Upon exploring his goals related to his medical conditions he indicates that he is working on trying to find an apartment so that he can have a good bed to sleep and, that he just wants to have a place with the bed so that he can sleep 7 days a week. He then tells me that this "will be like when Isaias went to [facility] and can sleep 24/7." Attempt to explore CODE STATUS, ventilator etc.; he does not seem to fully understand life support or CPR and indicates that he is the kind of person who we have some things up to God, but then he likes to decide other things himself. Upon exploring psychosocial history he indicates he has 12 siblings but that he has not spoken with them in some time because some of them are old in their 70s indicates he does not really need to talk to them and they do not really want to talk to him either. He indicates not and no children. He tells me he does not know all of his siblings numbers because his old phone with them and it was stolen however he does have some other numbers in his wallet, he provided me with these numbers so I may put in the chart however when I asked if I might call them and update them he tells me know he will take care of that if he needs to. Attempt to explore whom he would want as a contact or decision- maker in an emergency situation and he tells me no one. Ask if there is a particular sibling among them that he would want called if he became critically ill or unconscious or passed and he indicates none of them. In terms of substances used he tells me he has been trying to cut down on smoking and drinking and that he is now drinking 1 drink a day and smoking 1 cigarette a day , though previously smoked and drank much more. Assessment and Plan - Disease Oriented Problem List (1) V tach (2) Hypoglycemia (3) Elevated troponin (4) Acute renal failure (5) High transaminase levels (6) Cardiomyopathy (7) Hypertension Pertinent Non-Medical Issues: Psychosocial: Most recently patient is homeless. He served in the [employer], spent time in [place]. Follows with [facility] [place]. Spiritual: Believes in God, but does not want eap counselor visit Legal:Patient is alert and oriented 3. However he appears to have somewhat limited or poor insight into medical conditions. Appears [facility] Not clear that he has full insight and ability to make medical decisions at this time. He indicates he does not have advanced directives or health care surrogate. He indicates he has 12 siblings he provided me the name of 3 today. He is not and has no children. He does not wish to designate anyone as a healthcare surrogate. Per [place] statutes if patient incapacitated proxy decision making would fall to majority of the 12 siblings. Ethical issues impacting care: No ethical issues identified Important Contacts: Brother Jus [phone] brother Tamica [phone] Sister Kecia [phone] Jaqueline Carleebernardino [place] [facility] / clinical social work therapist @ [place] [phone] . Prognosis: This patient was admitted with complaints of overall "not feeling well". EMS found him to be in V. tach, he required cardioversion course. Cardiology notes he may require cardiac catheterization however this would have limited benefit due to patient would not be a candidate for revascularization. + cardiomyopathy , EF 20 % per cardiology. Overall patient with poor long-term prognosis secondary to multiorgan disease status including cardiac, liver, which may be compounded by his homeless status and inability to care for self. Some acute renal dysfunction which appears to be improving. Plan: * Legal decision maker:Patient is alert and oriented 3. However he appears to have somewhat limited or poor insight into medical conditions. Appears he has been following up with medical appointments at the [facility]. Not clear that he has full insight and ability to make medical decisions at this time. He indicates he does not have advanced directives or health care surrogate. He indicates he has 12 siblings he provided me the name of 3 today. He is not and has no children. He does not wish to designate anyone as a healthcare surrogate. Per [place] statutes if patient incapacitated proxy decision making would fall to majority of the 12 siblings. * Consider PSYCH consult to opine on pt capacity to make medical decisions, as pt history, etc appears to fluctuate * Goals: Patient is most focused on establishing housing for a comfortable place to sleep following hospital discharge. He also indicates that he would agree to having his swallowing evaluated though was not certain if he wants to stay in the hospital for this. He appears to have poor insight into his medical conditions and prognosis. * CODE STATUS: Full code * SYMPTOMS: --Leg pain- poss 2/2 hypomagnesia,? Vascular disease, indicates has improved during hospitalization. CV following, patient not a candidate for revascularization, cardiac catheterization would be of limited benefit-- cardiology notes plan cardiac cath Friday via radial approach. --Dizziness-not currently endorsing any dizziness but endorses out of the hospital dizziness and near syncope when he first would try to walk. This may be multifactorial as he appears to have vascular disease, he was also hypoglycemic upon admission have been reported to have poor oral intake. + V. tach event during presentation may have with cardiac ectopy. CT brain negative for acute process. --Dysphagia-patient endorses pain with swallowing as well as difficulty swallowing onset during acute hospitalization. However he reported to nursing that this is been a known issue and that he had underwent a partial GI workup for this outpatient. He reports difficulty swallowing water and pills. He feels like it will not go down. He indicates prior to hospitalization his appetite was good and he was eating and swallowing fine though again this is not what he told nursing. Consider Speech therapy evaluation, barium swallow study if indicated per ST * Palliative care will continue to follow during hospital course as condition evolves, to assist patient/decision-maker with understanding of medical conditions, weighing benefits/burdens of treatment options, for clarification of goals of treatment. Additionally will assist with any symptoms of palliative concern Appreciation Thank you for the opportunity to participate in the care of Jaxson Saunders. Attestation Attestation: To help prompt me to consider important information that might be impacting today's encounter and assessment, information from prior notes written by myself or my colleagues may have been "brought forward" into today's note. My signature on this note, however, is an attestation that I personally performed the exam, history, and/or decision-making noted today, and, unless otherwise indicated, the interactions with patient, family, and staff as well as the review of records all occurred today. I also attest that the listed assessment and stated plan reflect my best clinical judgment today based on the combination of historical information, prior notes, and today's exam/ interactions. When time spent is documented, it refers only to time spent today by the signer, or if indicated, combined time spent today by collaborating physician/nurse practitioner.
--- NOTE | 2017-12-15 14:29 | P.PNGI ---
Subjective Interval history: Pt sitting on couch. Alert and oriented x 3. Denies nausea, vomiting, abdominal pain. Per RN pt tried leaving yesterday, pt states it is because he did not feel well. Pt now complaining of dysphagia, only with solids, began while in the hospital. States he feels like his food gets stuck and he tries to regurgitate the food after meals. Has had EGD in the past but unsure when or any abnormal findings. <Yanna Huynh - Last Filed: 12/15/17 14:29> Physical Exam Vital signs: Vital Signs 12/14/17 12:40 12/14/17 14:00 12/14/17 15:16 Temperature Pulse Rate 89 86 Respiratory Rate 0 L 22 Blood Pressure Pulse Oximetry 12/14/17 16:00 12/14/17 18:00 12/14/17 20:00 Temperature 97.7 F 97.8 F Pulse Rate 82 76 93 H Respiratory Rate 16 22 Blood Pressure 135/87 132/95 H Pulse Oximetry 90 L 96 12/14/17 21:07 12/14/17 22:00 12/15/17 00:00 Temperature 97.1 F L Pulse Rate 87 86 84 Respiratory Rate 18 16 Blood Pressure 117/82 Pulse Oximetry 97 96 12/15/17 01:00 12/15/17 02:00 12/15/17 04:00 Temperature 97.7 F Pulse Rate 79 93 H Respiratory Rate 13 Blood Pressure 131/90 Pulse Oximetry 92 L 92 L 12/15/17 05:00 12/15/17 06:00 12/15/17 08:00 Temperature 98.7 F Pulse Rate 97 H 98 H Respiratory Rate 20 Blood Pressure 157/98 H Pulse Oximetry 93 L 100 12/15/17 08:25 Temperature Pulse Rate Respiratory Rate Blood Pressure Pulse Oximetry 99 Intake & Output 12/14/17 12/15/17 12/15/17 18:59 06:59 18:59 Intake Total 1710 / 1710 350 / 350 Balance 1710 / 1710 350 / 350 Weight 81.3 kg Intake: IV 1050 / 1050 150 / 150 D5W/1/2 NS Inj 1,000 ML @ 42 1000 / 1000 mls/hr IV.CONT .[id number] [facility] Rx# :[id number] Zosyn 3.375 GM Premix 50 ML @ 50 / 50 150 / 150 100 mls/hr IV.SIG Q6H [facility] Rx#: [id number] Oral 660 / 660 200 / 200 Other: # Voids 10 2 Date of Last Bowel Movement 12/14/17 12/15/17 12/15/17 # Bowel Movements 5 2 - Constitutional no acute distress - Routine HEENT Exam Head: Present: normocephalic, atraumatic - Routine Respiratory Exam Absent: accessory muscle use - Routine Abdominal Exam Present: soft, normoactive bowel sounds, distended. Absent: tenderness - Routine Skin Exam Present: dry, warm - Routine Neurological Exam Present: alert, oriented X3 - Urinary Catheter Management Condom Cath placed during this visit: no <Yanna Huynh - Last Filed: 12/15/17 14:29> Vital signs: Vital Signs 12/14/17 22:00 12/15/17 00:00 12/15/17 01:00 Temperature 97.1 F L Pulse Rate 86 84 Respiratory Rate 16 Blood Pressure 117/82 Pulse Oximetry 96 92 L 12/15/17 02:00 12/15/17 04:00 12/15/17 05:00 Temperature 97.7 F Pulse Rate 79 93 H Respiratory Rate 13 Blood Pressure 131/90 Pulse Oximetry 92 L 93 L 12/15/17 06:00 12/15/17 08:00 12/15/17 08:25 Temperature 98.7 F Pulse Rate 97 H 98 H Respiratory Rate 20 Blood Pressure 157/98 H Pulse Oximetry 100 99 12/15/17 12:00 12/15/17 14:00 12/15/17 16:00 Temperature 97.9 F 97.7 F Pulse Rate 93 H 83 83 Respiratory Rate 18 14 Blood Pressure 145/108 H 145/106 H Pulse Oximetry 93 L 100 12/15/17 18:00 12/15/17 20:39 Temperature Pulse Rate 94 H Respiratory Rate Blood Pressure Pulse Oximetry 100 Intake & Output 12/15/17 12/15/17 12/16/17 06:59 18:59 06:59 Intake Total 350 / 350 1490 / 1490 50 / 50 Balance 350 / 350 1490 / 1490 50 / 50 Weight 81.3 kg Intake: IV 150 / 150 1050 / 1050 50 / 50 D5W/1/2 NS Inj 1,000 ML @ 42 1000 / 1000 mls/hr IV.CONT .[id number] [facility] Rx# :[id number] Zosyn 3.375 GM Premix 50 ML @ 150 / 150 50 / 50 50 / 50 100 mls/hr IV.SIG Q6H [facility] Rx#: [id number] Oral 200 / 200 440 / 440 Other: # Voids 2 4 Date of Last Bowel Movement 12/15/17 12/15/17 # Bowel Movements 2 1 - Urinary Catheter Management Condom Cath placed during this visit: no <Robbie Ball - Last Filed: 12/15/17 21:51> Results - Labs CBC & Chem 7: 12/14/17 03:55 12/15/17 00:29 Laboratory Results - last 24 hr 12/10/17 12/14/17 12/14/17 15:23 13:33 17:07 Sodium Potassium Chloride Carbon Dioxide Anion Gap BUN Creatinine Estimated GFR POC Glucose 178 H 162 H Random Glucose Calcium Endomysial Ab Titer ND Endomysial IgA Ab ND Tiss Transglutamin IgA Less than 1 12/15/17 00:29 Sodium 146 H Potassium 4.5 D Chloride 108 H Carbon Dioxide 30.5 Anion Gap 8 BUN 28 H Creatinine 1.14 Estimated GFR 64 L POC Glucose Random Glucose 179 H Calcium 8.3 L Endomysial Ab Titer Endomysial IgA Ab Tiss Transglutamin IgA Microbiology 12/11/17 04:15 Blood - Peripheral Aerobic Blood Culture - Preliminary No growth in 4 days 12/11/17 04:15 Blood - Peripheral Anaerobic Blood Culture - Preliminary No growth in 4 days 12/11/17 04:20 Blood - Peripheral Aerobic Blood Culture - Preliminary No growth in 4 days 12/11/17 04:20 Blood - Peripheral Anaerobic Blood Culture - Preliminary No growth in 4 days <Yanna Huynh - Last Filed: 12/15/17 14:29> - Labs CBC & Chem 7: 12/14/17 03:55 12/15/17 00:29 Laboratory Results - last 24 hr 12/10/17 12/10/17 12/15/17 15:23 15:23 00:29 Sodium 146 H Potassium 4.5 D Chloride 108 H Carbon Dioxide 30.5 Anion Gap 8 BUN 28 H Creatinine 1.14 Estimated GFR 64 L POC Glucose Random Glucose 179 H Calcium 8.3 L Ceruloplasmin 36 Endomysial Ab Titer ND Endomysial IgA Ab ND Tiss Transglutamin IgA Less than 1 12/15/17 12/15/17 12:33 18:18 Sodium Potassium Chloride Carbon Dioxide Anion Gap BUN Creatinine Estimated GFR POC Glucose 221 H 161 H Random Glucose Calcium Ceruloplasmin Endomysial Ab Titer Endomysial IgA Ab Tiss Transglutamin IgA Microbiology 12/11/17 04:15 Blood - Peripheral Aerobic Blood Culture - Preliminary No growth in 4 days 12/11/17 04:15 Blood - Peripheral Anaerobic Blood Culture - Preliminary No growth in 4 days 12/11/17 04:20 Blood - Peripheral Aerobic Blood Culture - Preliminary No growth in 4 days 12/11/17 04:20 Blood - Peripheral Anaerobic Blood Culture - Preliminary No growth in 4 days - Imaging Impressions Barium Swallow X-Ray 12/15/17 00:00 CONCLUSION: Negative exam. <Robbie Ball - Last Filed: 12/15/17 21:51> Assessment and Plan - Plan Assessment: - Elevated LFTs Labs consistent with cirrhosis. Hypoalbuminemia, coagulopathy, and thrombocytopenia Pt grunts but will not stay awake to answer any questions LFTs likely multifactorial given recent V tach, possibly shocked liver, also noted to have (+) Hep C antibody According to record, pt reported heavy drinking however according to admission note pt stated that he quit drinking 3 days prior to admission. Labs consistent with ETOH hepatitis known cirrhosis, diagnosed a year ago by the [place], known Hepatitis C, treatment naive. Denies history of IV drug use, current or previous illicit drug use, tattoos, high risk sexual behavior, and previous blood transfusions. Pt reports he was drinking about four beers a day prior to coming in but has been trying to quit, states last ETOH was two days prior to admission Liver US --> Ultrasound findings suggesting some hepatic insufficiency. Liver is somewhat nodular with increased hepatic echotexture suggesting fatty infiltration/cirrhosis. Abdominal ascites. Bilateral pleural effusions. Mild pelvocaliectasis of the right renal collecting system. Mild mural thickening of the gallbladder. This is nonspecific and may be secondary to passive congestion associated with the presumed hepatic insufficiency. CT abdomen and pelvis W IV contrast (12/10) No obstruction or focal acute inflammatory changes are demonstrated. Moderate ascites. Liver Work UP CHARIS and ASMA negative. Celiac panel negative. [id number], hfe pending Ceruloplasmin and AMA pending. Hep C genotype and quant pending - Dysphagia- pt reports since admission has been having difficulty with swallowing solid food, feels that the food gets stuck and tries to regurgitate it back up. Has been unable to swallow his pills. Denies history of dysphagia at home. Can not recall when his last EGD was - V-tach in route to hospital- no response to Amiodarone- converted after cardioversion- cardiology following, planning on cardiac cath on Sunday 12/17 (12/15) Pt complaining of dysphagia since being in hospital, only with solids no issues with liquids. Having difficulty with swallowing pills. Cardiology planning on cath 12/17, will order [employer]GE MAINTAINER eval and barium swallow, possible EGD pending on cath findings and cardiology clearance Rest of liver work up still pending Pt is alert and oriented x 3 today Plan Barium swallow BRIDGE MAINTAINER eval Cardiac cath Friday ? EGD depending on findings and cardiology clearance Ceruloplasmin pending AMA pending Hep c genotype and quant pending- treatment OP HFE pending Lactulose, Xifaxan, Trental, Solumedrol Alcohol cessation Monitor labs Further recommendations to follow Patient has been seen and examined by myself and Dr. Ball and this note is written on his behalf <Yanna Huynh - Last Filed: 12/15/17 14:29> - Plan Patient was seen and examined, agree with above note, plan to do upper endoscopy if cleared by cardiology after Friday and meanwhile will order barium swallow for evaluation of his dysphagia Most likely alcohol related and hepatitis C related cirrhosis, continue current management <Robbie Ball - Last Filed: 12/15/17 21:51>
--- NOTE | 2017-12-15 15:18 | FL ---
EXAM DATE: 12/15/2017 3:13 PM EDT AGE/SEX: 67 years / Male INDICATIONS: Dysphagia. CLINICAL DATA: This is the patient's initial encounter. Patient reports that signs and symptoms have been present for 2 days and indicates a pain score of 6/10. MEDICAL/SURGICAL HISTORY: Hepatitis C. Hypertension. Gastroesophageal reflux disease. liver failure, cardiac issues None. COMPARISON: No prior exams available for comparison. FLUORO TIME: 1.3 IMAGE COUNT: 5 FINDINGS: Air-contrast views of the hypopharynx demonstrate a normal mucosal surface without filling defect. R apid sequence images of the hypopharynx and cervical esophagus during the passage of barium demonstra te a normal swallowing function. No evidence of aspiration. Multiphasic examination of the esophagu s demonstrates no esophageal fold thickening, ulceration, or filling defect. The gastroesophageal ju nction is normal in configuration without evidence of hiatal hernia. CONCLUSION: Negative exam. Electronically signed by: Gilson Dumont MD 12/15/2017 3:16 PM EDT
[2017-12-15] MEDS: Dextrose 5%/NaCl 0.45% Inj 1,000 ML IV.CONT SCH (15:43)
[2017-12-15 17:50] LABS: Ceruloplasmin 36 mg/dL (18-36)
[2017-12-15 23:52] LABS: IgA Serum 207 mg/dL (81-463); Tissue Transglutaminase Ab IgG ND U/mL (())
[2017-12-16] MEDS: Piperacil/Tazo 3.375 GM Premix 50 ML IV.SIG SCH ×5 (01:51→23:54)
[2017-12-16] MEDS: MethylPREDNISolone Sod Succinate Inj 40 MG/ML Vial IV.PUSH SCH ×4 (04:38→21:11)
[2017-12-16] MEDS: rifAXIMin 550 MG Tablet PO SCH ×2 (08:54→21:11)
[2017-12-16] MEDS: Pentoxifylline 400 MG Controlled Release Tablet PO SCH ×3 (08:54→18:54)
[2017-12-16] MEDS: Magnesium Oxide 400 MG Tablet PO SCH (08:54)
[2017-12-16 09:52] LABS: HCV Genotype NOT DETECTED (Not Detecte)
--- NOTE | 2017-12-16 09:58 | P.PNCA ---
Subjective Interval history: No CV complaints Physical Exam Vital signs: Vital Signs 12/15/17 12:00 12/15/17 14:00 12/15/17 16:00 Temperature 97.9 F 97.7 F Pulse Rate 93 H 83 83 Respiratory Rate 18 14 Blood Pressure 145/108 H 145/106 H Pulse Oximetry 93 L 100 12/15/17 18:00 12/15/17 20:00 12/15/17 20:39 Temperature 97.9 F Pulse Rate 94 H 96 H Respiratory Rate 21 Blood Pressure 143/98 H Pulse Oximetry 100 100 12/15/17 22:00 12/16/17 00:00 12/16/17 00:33 Temperature Pulse Rate 86 89 Respiratory Rate 16 16 Blood Pressure Pulse Oximetry 97 12/16/17 04:00 Temperature 98.4 F Pulse Rate 108 H Respiratory Rate 20 Blood Pressure 155/102 H Pulse Oximetry 96 Intake & Output 12/15/17 12/16/17 12/16/17 18:59 06:59 18:59 Intake Total 1490 / 1490 390 / 390 Balance 1490 / 1490 390 / 390 Weight 79.8 kg Intake: IV 1050 / 1050 150 / 150 D5W/1/2 NS Inj 1,000 ML @ 42 1000 / 1000 mls/hr IV.CONT .[id number] [facility] Rx# :[id number] Zosyn 3.375 GM Premix 50 ML @ 50 / 50 150 / 150 100 mls/hr IV.SIG Q6H [facility] Rx#: [id number] Oral 440 / 440 240 / 240 Other: # Voids 4 4 Date of Last Bowel Movement 12/15/17 12/15/17 # Bowel Movements 1 3 Narrative: Much more alert today No JVD Chest Clear CV S1S2 RRR No edema - Urinary Catheter Management Condom Cath placed during this visit: no Assessment and Plan - Assessment (1) Acute renal failure Code(s): N17.9 - Acute kidney failure, unspecified Status: Acute Plan: creatinine has improved. Will plan cath Friday (2) Cardiomyopathy Code(s): I42.9 - Cardiomyopathy, unspecified Status: Acute Plan: Severe. EF only 20%. Etiology unclear. Doubt recent IN (3) Multi-organ system dysfunction Status: Acute Plan: Severe cardiac, liver and renal disease, prior CVA, reduced mental status (4) Homeless single person Code(s): Z59.0 - Homelessness Status: Acute (5) Advanced cirrhosis of liver Code(s): K74.60 - Unspecified cirrhosis of liver Status: Acute Plan: INR elevated. Thrombocytopenic. (6) V tach Code(s): I47.2 - Ventricular tachycardia Status: Acute Plan: Sustained VT on admision requiring cardioversion. off amio due to cirrhosis. - Plan Plan cardiac cath Friday via radial approach. I would like EGDE first. Will see if they can do today or I can delay cath. Cleared by me for EGDE.
--- NOTE | 2017-12-16 10:58 | P.PNGI ---
Subjective Interval history: Pt sitting on bedside chair. Complaining of his abdomen feeling sore today. Denies nausea and vomiting. Continued dysphagia. Had some orange juice and a few bites of applesauce with his medication this morning Physical Exam Vital signs: Vital Signs 12/15/17 12:00 12/15/17 14:00 12/15/17 16:00 Temperature 97.9 F 97.7 F Pulse Rate 93 H 83 83 Respiratory Rate 18 14 Blood Pressure 145/108 H 145/106 H Pulse Oximetry 93 L 100 12/15/17 18:00 12/15/17 20:00 12/15/17 20:39 Temperature 97.9 F Pulse Rate 94 H 96 H Respiratory Rate 21 Blood Pressure 143/98 H Pulse Oximetry 100 100 12/15/17 22:00 12/16/17 00:00 12/16/17 00:33 Temperature Pulse Rate 86 89 Respiratory Rate 16 16 Blood Pressure Pulse Oximetry 97 12/16/17 04:00 Temperature 98.4 F Pulse Rate 108 H Respiratory Rate 20 Blood Pressure 155/102 H Pulse Oximetry 96 Intake & Output 12/15/17 12/16/17 12/16/17 18:59 06:59 18:59 Intake Total 1490 / 1490 390 / 390 Balance 1490 / 1490 390 / 390 Weight 79.8 kg Intake: IV 1050 / 1050 150 / 150 D5W/1/2 NS Inj 1,000 ML @ 42 1000 / 1000 mls/hr IV.CONT .[id number] ORTIZ Rx# :[id number] Zosyn 3.375 GM Premix 50 ML @ 50 / 50 150 / 150 100 mls/hr IV.SIG Q6H ORTIZ Rx#: [id number] Oral 440 / 440 240 / 240 Other: # Voids 4 4 Date of Last Bowel Movement 12/15/17 12/15/17 # Bowel Movements 1 3 - Constitutional no acute distress - Routine HEENT Exam Head: Present: normocephalic, atraumatic - Routine Respiratory Exam Absent: accessory muscle use - Routine Abdominal Exam Present: soft, normoactive bowel sounds, distended. Absent: tenderness - Routine Skin Exam Present: dry, warm - Routine Neurological Exam Present: alert, oriented X3 - Urinary Catheter Management Condom Cath placed during this visit: no Results - Labs CBC & Chem 7: 12/16/17 12:25 12/16/17 10:00 Laboratory Results - last 24 hr 12/10/17 12/10/17 12/15/17 15:23 15:23 12:33 POC Glucose 221 H Ceruloplasmin 36 IgA 207 Tiss Transglutamin IgG ND Celiac Disease Interp HCV RNA Genotype Not detected 12/15/17 12/16/17 18:18 06:07 POC Glucose 161 H 127 H Ceruloplasmin IgA Tiss Transglutamin IgG Celiac Disease Interp HCV RNA Genotype Microbiology 12/11/17 04:15 Blood - Peripheral Aerobic Blood Culture - Preliminary No growth in 4 days 12/11/17 04:15 Blood - Peripheral Anaerobic Blood Culture - Preliminary No growth in 4 days 12/11/17 04:20 Blood - Peripheral Aerobic Blood Culture - Preliminary No growth in 4 days 12/11/17 04:20 Blood - Peripheral Anaerobic Blood Culture - Preliminary No growth in 4 days - Imaging Impressions Barium Swallow X-Ray 12/15/17 00:00 CONCLUSION: Negative exam. Assessment and Plan - Plan Assessment: - Elevated LFTs Labs consistent with cirrhosis. Hypoalbuminemia, coagulopathy, and thrombocytopenia Pt grunts but will not stay awake to answer any questions LFTs likely multifactorial given recent V tach, possibly shocked liver, also noted to have (+) Hep C antibody According to record, pt reported heavy drinking however according to admission note pt stated that he quit drinking 3 days prior to admission. Labs consistent with ETOH hepatitis known cirrhosis, diagnosed a year ago by the [place], known Hepatitis C, treatment naive. Denies history of IV drug use, current or previous illicit drug use, tattoos, high risk sexual behavior, and previous blood transfusions. Pt reports he was drinking about four beers a day prior to coming in but has been trying to quit, states last ETOH was two days prior to admission Liver US --> Ultrasound findings suggesting some hepatic insufficiency. Liver is somewhat nodular with increased hepatic echotexture suggesting fatty infiltration/cirrhosis. Abdominal ascites. Bilateral pleural effusions. Mild pelvocaliectasis of the right renal collecting system. Mild mural thickening of the gallbladder. This is nonspecific and may be secondary to passive congestion associated with the presumed hepatic insufficiency. CT abdomen and pelvis W IV contrast (12/10) No obstruction or focal acute inflammatory changes are demonstrated. Moderate ascites. Liver Work UP CHARIS and ASMA negative. Celiac panel negative. AAT-172 Ferritin-[id number], hfe pending Ceruloplasmin-36. AMA pending. Hep C genotype not detected. - Dysphagia- pt reports since admission has been having difficulty with swallowing solid food, feels that the food gets stuck and tries to regurgitate it back up. Has been unable to swallow his pills. Denies history of dysphagia at home. Can not recall when his last EGD was - V-tach in route to hospital- no response to Amiodarone- converted after cardioversion- cardiology following, planning on cardiac cath on Sunday 12/17 (12/15) Pt complaining of dysphagia since being in hospital, only with solids no issues with liquids. Having difficulty with swallowing pills. Cardiology planning on cath 12/17, will order SUBCONTRACT ADMINISTRATOR eval and barium swallow, possible EGD pending on cath findings and cardiology clearance Rest of liver work up still pending Pt is alert and oriented x 3 today (12/16) Pt with continued dysphagia. Had some orange juice and a few bites of applesauce this morning to take his medication. Pt was made NPO, I removed his breakfast tray from the table. Per cardiology they would like us to do EGD prior to pt having cardiac cath that is planned for tomorrow. Pt agreeable to proceed with EGD today. Complaining of some abdominal soreness. Denies nausea, vomiting. Barium swallow normal. Speech evaluated pt who states he tolerated all consistencies without any over s/symptoms of aspiration Addendum- EGD cancelled- platelet count came back at 31, INR still pending Plan EGD on hold Repeat labs ordered when I saw pt earlier today revealed plts-31 and INR is still pending Cardiac cath Friday AMA pending HFE pending Lactulose, Xifaxan, Trental, Solumedrol Alcohol cessation Monitor labs Further recommendations to follow Pt has been seen and examined by myself and Dr. Ball and this note is written on his behalf
[2017-12-16 11:20] LABS: Alanine Aminotransferase 408 U/L (12-78); Albumin 3.4 g/dL (3.4-5.0); Alkaline Phosphatase 89 U/L (45-117); Anion Gap 11 meq/L (5-15); Aspartate Aminotransferase 225 U/L (15-37); Blood Urea Nitrogen 34 mg/dL (7-18); Calcium 8.8 mg/dL (8.5-10.1); Carbon Dioxide 32.5 meq/L (21.0-32.0); Chloride 102 meq/L (98-107); Glomerular Filtration Rate 52 mL/min (>89); Glucose,Random 173 mg/dL (74-106); Potassium 3.7 meq/L (3.5-5.1); Total Protein 6.9 g/dL (6.4-8.2)
[2017-12-16 11:45] LABS: Sodium 145 meq/L (136-145)
--- NOTE | 2017-12-16 12:12 | P.PNPAL ---
Reason for Visit Reason for visit: a. To assist with evaluation and management of symptoms including: leg pain, dizziness, dysphagia b. To assist medical decision maker(s) with: better understanding of current medical conditions; weighing benefits/burdens of medical treatment options; making medical treatment decisions. Subjective Subjective/Interval History: Patient seen today to follow-up on throat pain, dysphagia following initial consultation yesterday, as well as insight/orientation for goals in decision- making. He remains in the ICU was a transfer order to medical floor. Status post speech therapy evaluation yesterday they did not note any overt signs or symptoms of aspiration or dysphagia. He also underwent barium swallow study which also did not any gross abnormalities. He however continues to indicate feeling as if things are getting "stuck "mid throat. Scheduled for further evaluation via EGD today by . Cardiology continues to follow, tentatively scheduled for cardiac catheterization later today or tomorrow. Patient is seen in his room as nurse is preparing him to transport to for procedure. He is alert, he is oriented. However when I asked him where he is going he is unable to tell me. Asked him what type of procedure he was going to have he is unable to. Ask him if he is going to have a procedure to assess his swallowing he indicates yes. Ask him if he recalls conversation with community relations director about his heart he tells me no. Ask him if he can tell me what is going on with his heart what may be planned to evaluate it further he is unable to tell me. He does not remember me from yesterday. He denies shortness of breath. Denies any GI complaints except feels like the food will not go down. Endorses when he swallows it feels painful in his mid throat and like it will not pass. Indicates he is not having any leg pain. Endorses he has a poor appetite secondary to his throat issue. Explore conversation with him yesterday regarding calling his siblings he does not remember this him if he called them he tells me know. Again explore if he would want to designate 1 of his siblings as a healthcare surrogate to serve in the case of an emergency and he is incapacitated he indicates that they are all too far away and that he does not keep in touch with him and he would rather not. I again ask which one he would want me to call he indicates he does not need any of them called. Exam benign. Trace pedal edema R > L. Objective Vital Signs: Vital Signs 12/15/17 14:00 12/15/17 16:00 12/15/17 18:00 Temperature 97.7 F Pulse Rate 83 83 94 H Respiratory Rate 14 Blood Pressure 145/106 H Pulse Oximetry 100 12/15/17 20:00 12/15/17 20:39 12/15/17 22:00 Temperature 97.9 F Pulse Rate 96 H 86 Respiratory Rate 21 Blood Pressure 143/98 H Pulse Oximetry 100 100 12/16/17 00:00 12/16/17 00:33 12/16/17 04:00 Temperature 98.4 F Pulse Rate 89 108 H Respiratory Rate 16 16 20 Blood Pressure 155/102 H Pulse Oximetry 97 96 Intake & Output 12/15/17 12/16/17 12/16/17 18:59 06:59 18:59 Intake Total 1490 / 1490 390 / 390 Balance 1490 / 1490 390 / 390 Weight 79.8 kg Intake: IV 1050 / 1050 150 / 150 D5W/1/2 NS Inj 1,000 ML @ 42 1000 / 1000 mls/hr IV.CONT .[id number] ORTIZ Rx# :[id number] Zosyn 3.375 GM Premix 50 ML @ 50 / 50 150 / 150 100 mls/hr IV.SIG Q6H ORTIZ Rx#: [id number] Oral 440 / 440 240 / 240 Other: # Voids 4 4 Date of Last Bowel Movement 12/15/17 12/15/17 # Bowel Movements 1 3 Physical Exam: CONSTITUTIONAL/GENERAL: This is a thin male, in no apparent distress, alert cooperative TUBES/LINES/DRAINS:PIV BUE SKIN: No jaundice, rashes, or lesions. chronic vascular discoloration Bilateral lower legs No wounds seen anteriorly. skin warm, dry however feet cool to touch. CARDIOVASCULAR: Regular rate and rhythm . Trace pedal edema R> L. Trace edema left hand. Feet cool, pedal pulses faint. RESPIRATORY/CHEST: Symmetric, unlabored respirations. Clear to auscultation. Breath sounds equal bilaterally. GASTROINTESTINAL: Abdomen soft, rounded, non-tender, nondistended. No palpable masses. +ascites. No guarding. Bowel sounds present. MUSCULOSKELETAL: Extremities without clubbing, cyanosis. Trace edema lower legs/ pedal. No joint tenderness or effusion noted. No calf tenderness. No mottling or clubbing. chronic vascular discoloration Bilateral lower legs. Rt clavicle larger than right, nontender. NEUROLOGICAL: Awake and alert, oriented x3. Limited to poor insight about medical conditions/prognosis. Motor and sensory grossly within normal limits. Follows commands. Moves all extremities. PSYCHIATRIC: No obvious anxiety/depression. no apparent hallucinations or other psychotic thought process. Diagnostic Tests Laboratory: Laboratory Results - last 72 hr 12/10/17 12/10/17 12/14/17 15:23 15:23 00:57 WBC RBC Hgb Hct MCV MCH MCHC RDW Plt Count MPV Prelim Diff (Auto) Neut % (Auto) Lymph % (Auto) [place] % (Auto) Eos % (Auto) Baso % (Auto) Neut # (Auto) Lymph # (Auto) [place] # (Auto) Eos # (Auto) Baso # (Auto) WBC Differential Diff Scan Differential Comment Platelet Estimate Platelet Morphology Sodium Potassium Chloride Carbon Dioxide Anion Gap BUN Creatinine Estimated GFR POC Glucose 161 H Random Glucose Calcium Total Bilirubin AST ALT Alkaline Phosphatase Total Protein Albumin Ceruloplasmin 36 IgA 207 Endomysial Ab Titer ND Endomysial IgA Ab ND Tiss Transglutamin IgG ND Tiss Transglutamin IgA Less than 1 Celiac Disease Interp HCV RNA Genotype Not detected 12/14/17 12/14/17 12/14/17 03:55 03:55 13:33 WBC 12.5 H RBC 4.35 L Hgb 15.7 Hct 47.2 MCV 108.5 H MCH 36.1 H MCHC 33.3 RDW 14.8 Plt Count 52 L MPV 11.2 H Prelim Diff (Auto) Slide review pending Neut % (Auto) 91.5 H Lymph % (Auto) 3.7 L [place] % (Auto) 4.5 Eos % (Auto) 0.0 Baso % (Auto) 0.3 Neut # (Auto) 11.5 H Lymph # (Auto) 0.5 L [place] # (Auto) 0.6 Eos # (Auto) 0.0 Baso # (Auto) 0.0 WBC Differential . Diff Scan Auto diff confirmed Differential Comment . Platelet Estimate Low L Platelet Morphology Normal Sodium 144 Potassium 3.3 L Chloride 106 Carbon Dioxide 27.8 Anion Gap 10 BUN 33 H Creatinine 1.18 Estimated GFR 61 L POC Glucose 178 H Random Glucose 166 H Calcium 8.4 L Total Bilirubin 2.9 H AST 283 H ALT 483 H Alkaline Phosphatase 80 Total Protein 5.9 L Albumin 2.8 L Ceruloplasmin IgA Endomysial Ab Titer Endomysial IgA Ab Tiss Transglutamin IgG Tiss Transglutamin IgA Celiac Disease Interp HCV RNA Genotype 12/14/17 12/15/17 12/15/17 17:07 00:29 12:33 WBC RBC Hgb Hct MCV MCH MCHC RDW Plt Count MPV Prelim Diff (Auto) Neut % (Auto) Lymph % (Auto) [place] % (Auto) Eos % (Auto) Baso % (Auto) Neut # (Auto) Lymph # (Auto) [place] # (Auto) Eos # (Auto) Baso # (Auto) WBC Differential Diff Scan Differential Comment Platelet Estimate Platelet Morphology Sodium 146 H Potassium 4.5 D Chloride 108 H Carbon Dioxide 30.5 Anion Gap 8 BUN 28 H Creatinine 1.14 Estimated GFR 64 L POC Glucose 162 H 221 H Random Glucose 179 H Calcium 8.3 L Total Bilirubin AST ALT Alkaline Phosphatase Total Protein Albumin Ceruloplasmin IgA Endomysial Ab Titer Endomysial IgA Ab Tiss Transglutamin IgG Tiss Transglutamin IgA Celiac Disease Interp HCV RNA Genotype 12/15/17 12/16/17 12/16/17 18:18 06:07 10:00 WBC RBC Hgb Hct MCV MCH MCHC RDW Plt Count MPV Prelim Diff (Auto) Neut % (Auto) Lymph % (Auto) [place] % (Auto) Eos % (Auto) Baso % (Auto) Neut # (Auto) Lymph # (Auto) [place] # (Auto) Eos # (Auto) Baso # (Auto) WBC Differential Diff Scan Differential Comment Platelet Estimate Platelet Morphology Sodium 145 Potassium 3.7 D Chloride 102 Carbon Dioxide 32.5 H Anion Gap 11 BUN 34 H Creatinine 1.36 H Estimated GFR 52 L POC Glucose 161 H 127 H Random Glucose 173 H Calcium 8.8 Total Bilirubin 3.7 H AST 225 H ALT 408 H Alkaline Phosphatase 89 Total Protein 6.9 D Albumin 3.4 Ceruloplasmin IgA Endomysial Ab Titer Endomysial IgA Ab Tiss Transglutamin IgG Tiss Transglutamin IgA Celiac Disease Interp HCV RNA Genotype 12/16/17 11:04 WBC RBC Hgb Hct MCV MCH MCHC RDW Plt Count MPV Prelim Diff (Auto) Neut % (Auto) Lymph % (Auto) [place] % (Auto) Eos % (Auto) Baso % (Auto) Neut # (Auto) Lymph # (Auto) [place] # (Auto) Eos # (Auto) Baso # (Auto) WBC Differential Diff Scan Differential Comment Platelet Estimate Platelet Morphology Sodium Potassium Chloride Carbon Dioxide Anion Gap BUN Creatinine Estimated GFR POC Glucose 185 H Random Glucose Calcium Total Bilirubin AST ALT Alkaline Phosphatase Total Protein Albumin Ceruloplasmin IgA Endomysial Ab Titer Endomysial IgA Ab Tiss Transglutamin IgG Tiss Transglutamin IgA Celiac Disease Interp HCV RNA Genotype Result Diagrams: 12/14/17 03:55 12/16/17 10:00 Microbiology: Microbiology 12/11/17 04:15 Aerobic Blood Culture - Final Blood - Peripheral No growth in 5 days Anaerobic Blood Culture - Final No growth in 5 days 12/11/17 04:20 Aerobic Blood Culture - Final Blood - Peripheral No growth in 5 days Anaerobic Blood Culture - Final No growth in 5 days Imaging: Impressions Barium Swallow X-Ray 12/15/17 00:00 CONCLUSION: Negative exam. Assessment and Plan - Disease Oriented Problem List (1) V tach (2) Hypoglycemia (3) Elevated troponin (4) Acute renal failure (5) High transaminase levels (6) Cardiomyopathy (7) Hypertension Pertinent Non-Medical Issues: Psychosocial: Most recently patient is homeless. He served in the [employer], spent time in [place]. Follows with [facility] the [place]. Spiritual: Believes in God, but does not want technical manager chemical plant visit Legal:Patient is alert and oriented 3. However he appears to have somewhat limited or poor insight into medical conditions. Appears he has been following up with medical appointments at the [facility]. Not clear that he has full insight and ability to make medical decisions at this time. He indicates he does not have advanced directives or health care surrogate. He indicates he has 12 siblings he provided me the name of 3 today. He is not and has no children. He does not wish to designate anyone as a healthcare surrogate. Per [place] statutes if patient incapacitated proxy decision making would fall to majority of the 12 siblings. Ethical issues impacting care: No ethical issues identified Important Contacts: Brother Jus [phone] brother Tamica [phone] Sister Kecia [phone] Jaqueline Agarwal [place] [facility] / psych social worker @ [place] [phone] . Prognosis: This patient was admitted with complaints of overall "not feeling well". EMS found him to be in V. tach, he required cardioversion course. Cardiology notes he may require cardiac catheterization however this would have limited benefit due to patient would not be a candidate for revascularization. + cardiomyopathy , EF 20 % per cardiology. Overall patient with poor long-term prognosis secondary to multiorgan disease status including cardiac, liver, which may be compounded by his homeless status and inability to care for self. Some acute renal dysfunction which appears to be improving. Plan: * Legal decision maker:Patient is alert and oriented 3. However he appears to have somewhat limited or poor insight into medical conditions. Appears he has been following up with medical appointments at the [facility]. Not clear that he has full insight and ability to make medical decisions at this time. He indicates he does not have advanced directives or health care surrogate. He indicates he has 12 siblings he provided me the name of 3 today. He is not and has no children. He does not wish to designate anyone as a healthcare surrogate. Per [place] statutes if patient incapacitated proxy decision making would fall to majority of the 12 siblings. * Consider PSYCH consult to opine on pt capacity to make medical decisions, as pt history,recall etc appears to fluctuate * Goals: Patient is most focused on establishing housing for a comfortable place to sleep following hospital discharge. He also indicates that he would agree to having his swallowing evaluated though was not certain if he wants to stay in the hospital for this. He appears to have poor insight into his medical conditions and prognosis. * CODE STATUS: Full code * SYMPTOMS: --Leg pain- poss 2/2 hypomagnesia,? Vascular disease, indicates has improved during hospitalization. CV following, patient not a candidate for revascularization, cardiac catheterization would be of limited benefit-- cardiology notes plan cardiac cath Friday via radial approach. --Dizziness-not currently endorsing any dizziness but endorses out of the hospital dizziness and near syncope when he first would try to walk. This may be multifactorial as he appears to have vascular disease, he was also hypoglycemic upon admission have been reported to have poor oral intake. + V. tach event during presentation may have with cardiac ectopy. CT brain negative for acute process. --Dysphagia-patient endorses pain with swallowing as well as difficulty swallowing onset during acute hospitalization. However he reported to nursing that this is been a known issue and that he had underwent a partial GI workup for this outpatient. He reports difficulty swallowing water and pills. He feels like it will not go down. He indicates prior to hospitalization his appetite was good and he was eating and swallowing fine though again this is not what he told nursing. s/p ST eval, barium swallow eval, negative for dysphagia. EGD pending today for further evaluation. * Palliative care will continue to follow during hospital course as condition evolves, to assist patient/decision-maker with understanding of medical conditions, weighing benefits/burdens of treatment options, for clarification of goals of treatment. Additionally will assist with any symptoms of palliative concern Attestation Attestation: To help prompt me to consider important information that might be impacting today's encounter and assessment, information from prior notes written by myself or my colleagues may have been "brought forward" into today's note. My signature on this note, however, is an attestation that I personally performed the exam, history, and/or decision-making noted today, and, unless otherwise indicated, the interactions with patient, family, and staff as well as the review of records all occurred today. I also attest that the listed assessment and stated plan reflect my best clinical judgment today based on the combination of historical information, prior notes, and today's exam/ interactions. When time spent is documented, it refers only to time spent today by the signer, or if indicated, combined time spent today by collaborating physician/nurse practitioner.
[2017-12-16 13:19] LABS: Mean Corpuscular Hemoglobin 35.9 pg (27.0-34.0); Mean Corpuscular Volume 112.1 fL (80.0-100.0); Mean Platelet Volume 10.4 fL (7.0-11.0); Platelet Count 31 th/mm3 (150-450); Red Blood Count 4.46 mil/mm3 (4.50-5.90); Red Cell Distribution Width 16.6 % (11.6-17.2); White Blood Count 18.8 th/mm3 (4.0-11.0)
[2017-12-16 14:36] LABS: INR 1.6 Ratio; Prothrombin Time 16.1 sec (9.8-11.6)
[2017-12-16] MEDS: Dextrose 5%/NaCl 0.45% Inj 1,000 ML IV.CONT SCH (16:44)
--- NOTE | 2017-12-16 16:58 | P.PN ---
Subjective Interval history: adolescent specialist Notes: Patient is a 67-year-old homeless who was brought into the emergency department 12/09/17 for shortness of breath and tachycardia and was found to have sustained V-tach. He did not convert with amiodarone and was cardioverted in the ER. He is a very poor historian but gives history of long-standing alcohol and tobacco abuse. His workup in the ER revealed multiple abnormal labs including BUN 32 creatinine 2.5, bicarb was only 8 and lactic acid was 12.1. His liver enzymes were elevated and INR was 4. His bilirubin was 5.4 AST was 842 and ALT of 399. His discriminant function was elevated and patient was placed on IV steroids for alcoholic hepatitis. But patient gives a history of stopping alcohol approximately a month ago. Dr. Efe Mcconnell was consulted for V. tach and elevated troponin. He recommended continuing amiodarone possible cardiac catheterization and evaluation for AICD once the creatinine improves. A 2D echo official read: showed EF 35-40%, RV pressure overload RV dilation and severe TR and a possible apical thrombus with severe apical hypokinesis. I discussed with Dr. Mcconnell-his impression is global hypokinesis with EF 20%, he did not see an apical thrombus but he will re-evaluate. With possible apical thrombus patient was started on IV heparin by hospitalist. Patient was also continued on IV amiodarone Today patient was found to be more lethargic, less responsive and was transferred to the ICU. Critical care medicine was consulted. I evaluated the patient immediately. He is lethargic but wakes up on stimulation protecting airway. Chest x-ray shows increasing pulmonary infiltrates. CT abdomen pelvis chest and brain is pending at this time. Ammonia level is also pending but GI has started Xifaxan and lactulose. Lactic acid today is 10.3 and patient is currently receiving bicarbonate infusion. His metabolic acidosis has improved on ABG. However clinically his respiratory status has worsened. I will discontinue amiodarone infusion due to acute liver failure. Start him on Coreg 3.125 mg twice daily. Use as needed IV Lopressor for tachycardia. I will also discontinue the IV heparin due to severe coagulopathy. Discussed with Dr. Mcconnell Clinically slightly improved less lethargic. More awake. Creatinine slightly improved to 2 now. Lactic acid almost cleared 2.5 now. AST/ALT continues to increase 2861/1306. CT chest/abd shows moderate pleural effusion, moderate ascites, left lower lobe infiltrate. Urine output 700 mL in 24 hours. Plan for paracentesis to rule out SBP 12/13: Seen in his bedroom, at this time appropriate, alert and oriented. 12/14: GI specialist awaiting for Hemochromatosis tests, PCR pending for Hepatitis C, AMA pending, CHARIS negative, IgA pending, ASMA negative IgA and celiac disease pending, A1A 172, Ceruloplasmin pending, Fe 4137, Iron sat 29, Stable discussed with nurse Miss Decker, replaced Potassium today in 3.3, has Thrombocytopenia today 53 following no signs of bleeding. No nausea, vomit or diarrhea. Hospitalist Notes: 12/15: Seen in his bedroom and discussed with his Nurse Miss Decker the patient is not eating well he states he has some difficulty to eat, specially for solid food, he will get Cardiac Catheterization next 12/17/17, and possible EGD for tomorrow performed Barium Swallow was negative. 12/16: Stable in his bedroom, discussed with nurse will go for EGD later today, was cleared by position classification specialist also will have Cardiac cath by tomorrow today worsening Thrombocytopenia, may need Platelet transfusion as needed. follow laboratory in am tomorrow. no nausea, vomit or diarrhea. Physical Exam Vital signs: Vital Signs 12/15/17 18:00 12/15/17 20:00 12/15/17 20:39 Temperature 97.9 F Pulse Rate 94 H 96 H Respiratory Rate 21 Blood Pressure 143/98 H Pulse Oximetry 100 100 12/15/17 22:00 12/16/17 00:00 12/16/17 00:33 Temperature Pulse Rate 86 89 Respiratory Rate 16 16 Blood Pressure Pulse Oximetry 97 12/16/17 04:00 Temperature 98.4 F Pulse Rate 108 H Respiratory Rate 20 Blood Pressure 155/102 H Pulse Oximetry 96 Intake & Output 12/15/17 12/16/17 12/16/17 18:59 06:59 18:59 Intake Total 1490 / 1490 390 / 390 550 / 550 Balance 1490 / 1490 390 / 390 550 / 550 Weight 79.8 kg Intake: IV 1050 / 1050 150 / 150 550 / 550 D5W/1/2 NS Inj 1,000 ML @ 42 1000 / 1000 500 / 500 mls/hr IV.CONT .[id number] ORTIZ Rx# :[id number] Zosyn 3.375 GM Premix 50 ML @ 50 / 50 150 / 150 50 / 50 100 mls/hr IV.SIG Q6H ORTIZ Rx#: [id number] Oral 440 / 440 240 / 240 Other: # Voids 4 4 Date of Last Bowel Movement 12/15/17 12/15/17 # Bowel Movements 1 3 Narrative: GENERAL: Alert and oriented in no acute distress. SKIN: Warm and dry. Mildly jaundiced ENT: No nasal bleeding or discharge. Mucous membranes dry CARDIOVASCULAR: Regular rate and rhythm. No murmurs RESPIRATORY: Clear to auscultation bilateral, no wheezing or crackles. GASTROINTESTINAL: Abdomen soft, non-tender, nondistended. MUSCULOSKELETAL: No clubbing cyanosis or edema. NEUROLOGICAL: No focal deficits. - Urinary Catheter Management Condom Cath placed during this visit: no Results - Labs CBC & Chem 7: 12/16/17 12:25 12/16/17 10:00 Laboratory Results - last 24 hr 12/10/17 12/10/17 12/15/17 15:23 15:23 18:18 WBC RBC Hgb Hct MCV MCH MCHC RDW Plt Count MPV Hematology Comments PT INR Sodium Potassium Chloride Carbon Dioxide Anion Gap BUN Creatinine Estimated GFR POC Glucose 161 H Random Glucose Calcium Total Bilirubin AST ALT Alkaline Phosphatase Total Protein Albumin Ceruloplasmin 36 IgA 207 Tiss Transglutamin IgG ND Celiac Disease Interp HCV RNA Genotype Not detected 12/16/17 12/16/17 12/16/17 06:07 10:00 11:04 WBC RBC Hgb Hct MCV MCH MCHC RDW Plt Count MPV Hematology Comments PT INR Sodium 145 Potassium 3.7 D Chloride 102 Carbon Dioxide 32.5 H Anion Gap 11 BUN 34 H Creatinine 1.36 H Estimated GFR 52 L POC Glucose 127 H 185 H Random Glucose 173 H Calcium 8.8 Total Bilirubin 3.7 H AST 225 H ALT 408 H Alkaline Phosphatase 89 Total Protein 6.9 D Albumin 3.4 Ceruloplasmin IgA Tiss Transglutamin IgG Celiac Disease Interp HCV RNA Genotype 12/16/17 12/16/17 12:25 14:16 WBC 18.8 H RBC 4.46 L Hgb 16.0 Hct 50.0 MCV 112.1 H D MCH 35.9 H MCHC 32.0 RDW 16.6 Plt Count 31 L D MPV 10.4 Hematology Comments PT 16.1 H INR 1.6 Sodium Potassium Chloride Carbon Dioxide Anion Gap BUN Creatinine Estimated GFR POC Glucose Random Glucose Calcium Total Bilirubin AST ALT Alkaline Phosphatase Total Protein Albumin Ceruloplasmin IgA Tiss Transglutamin IgG Celiac Disease Interp HCV RNA Genotype Microbiology 12/11/17 04:15 Blood - Peripheral Aerobic Blood Culture - Final No growth in 5 days 12/11/17 04:15 Blood - Peripheral Anaerobic Blood Culture - Final No growth in 5 days 12/11/17 04:20 Blood - Peripheral Aerobic Blood Culture - Final No growth in 5 days 12/11/17 04:20 Blood - Peripheral Anaerobic Blood Culture - Final No growth in 5 days Assessment and Plan - Plan 1. Acute Metabolic Encephalopathy/alcohol dependence Improved. 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 Ammonia level 34 on Lactulose and Xifaxan, Supplement Multivitamin Thiamine Continue CIWA protocol, no signs of Withdrawal. 2. Respiratory Insufficiency/COPD Bronchodilator, Mucolytic and Incentive spirometry CT of the chest-left lower lobe infiltrate and moderate effusions -Effusions most likely from third spacing -Legionella Negative.continue Zosyn 3. Sustained Ventricular Tachycardia, Cardiomyopathy with EF 20%, questioned Alcoholic Cardiomyopathy/possible apical thrombus Severe Lactic acidosis. Patient cardioverted in ER, was on IV Amiodarone, discontinued due to Liver failure, given Lidocaine infusion on Coreg, was on Esmolol for Atrial Flutter with RVR. Discontinued Heparin due to coagulopathy, for Cardiac Cath scheduled for Tomorrow. 4. Acute Hepatitis with liver failure/Liver cirrhosis/Ascites continue IV steroids, discriminating factor elevated. continue Xifaxan and Lactulose. 5. Acute Kidney Failure Improved. 6. Probable Sepsis, to rule out SBP, following, blood culture, sputum culture, continue Zosyn 7. Coagulopathy secondary to Liver failure 8. thrombocytopenia platelet count today 31 may need platelet transfusion depend of evolution. 9. Alcoholic Hepatitis Maddreys Discriminant factor over 32 on Steroids. 10. Dysphagia status post WNL Barium Swallow and will have EGD later today. Bilateral lower extremity SCDs. Avoid chemical DVT prophylaxis due to coagulopathy and Thrombocytopenia [id number] IV Protonix for GI prophylaxis Palliative care consult for goals of care Code Status: Full code. Discussed Condition With: patient and nurse. Discharge Planning: Patient is deteriorating with veru poor prognosis, consult palliative care
[2017-12-16] MEDS: Acetaminophen 325 MG Tablet PO PRN (21:21)
[2017-12-17] MEDS: MethylPREDNISolone Sod Succinate Inj 40 MG/ML Vial IV.PUSH SCH ×4 (04:51→21:30)
[2017-12-17] MEDS: Piperacil/Tazo 3.375 GM Premix 50 ML IV.SIG SCH ×4 (05:31→23:35)
--- NOTE | 2017-12-17 08:19 | P.PN ---
Subjective Interval history: rehab specialist Notes: Patient is a 67-year-old homeless who was brought into the emergency department 12/09/17 for shortness of breath and tachycardia and was found to have sustained V-tach. He did not convert with amiodarone and was cardioverted in the ER. He is a very poor historian but gives history of long-standing alcohol and tobacco abuse. His workup in the ER revealed multiple abnormal labs including BUN 32 creatinine 2.5, bicarb was only 8 and lactic acid was 12.1. His liver enzymes were elevated and INR was 4. His bilirubin was 5.4 AST was 842 and ALT of 399. His discriminant function was elevated and patient was placed on IV steroids for alcoholic hepatitis. But patient gives a history of stopping alcohol approximately a month ago. Dr. Efe Mcconnell was consulted for V. tach and elevated troponin. He recommended continuing amiodarone possible cardiac catheterization and evaluation for AICD once the creatinine improves. A 2D echo official read: showed EF 35-40%, RV pressure overload RV dilation and severe TR and a possible apical thrombus with severe apical hypokinesis. I discussed with Dr. Mcconnell-his impression is global hypokinesis with EF 20%, he did not see an apical thrombus but he will re-evaluate. With possible apical thrombus patient was started on IV heparin by hospitalist. Patient was also continued on IV amiodarone Today patient was found to be more lethargic, less responsive and was transferred to the ICU. Critical care medicine was consulted. I evaluated the patient immediately. He is lethargic but wakes up on stimulation protecting airway. Chest x-ray shows increasing pulmonary infiltrates. CT abdomen pelvis chest and brain is pending at this time. Ammonia level is also pending but GI has started Xifaxan and lactulose. Lactic acid today is 10.3 and patient is currently receiving bicarbonate infusion. His metabolic acidosis has improved on ABG. However clinically his respiratory status has worsened. I will discontinue amiodarone infusion due to acute liver failure. Start him on Coreg 3.125 mg twice daily. Use as needed IV Lopressor for tachycardia. I will also discontinue the IV heparin due to severe coagulopathy. Discussed with Dr. Mcconnell Clinically slightly improved less lethargic. More awake. Creatinine slightly improved to 2 now. Lactic acid almost cleared 2.5 now. AST/ALT continues to increase 2861/1306. CT chest/abd shows moderate pleural effusion, moderate ascites, left lower lobe infiltrate. Urine output 700 mL in 24 hours. Plan for paracentesis to rule out SBP 12/13: Seen in his bedroom, at this time appropriate, alert and oriented. 12/14: GI specialist awaiting for Hemochromatosis tests, PCR pending for Hepatitis C, AMA pending, CHARIS negative, IgA pending, ASMA negative IgA and celiac disease pending, A1A 172, Ceruloplasmin pending, Fe 4137, Iron sat 29, Stable discussed with nurse Miss Decker, replaced Potassium today in 3.3, has Thrombocytopenia today 53 following no signs of bleeding. No nausea, vomit or diarrhea. Hospitalist Notes: 12/15: Seen in his bedroom and discussed with his Nurse Miss Decker the patient is not eating well he states he has some difficulty to eat, specially for solid food, he will get Cardiac Catheterization next 12/17/17, and possible EGD for tomorrow performed Barium Swallow was negative. 12/16: Stable in his bedroom, discussed with nurse will go for EGD later today, was cleared by senior accounting specialist also will have Cardiac cath by tomorrow today worsening Thrombocytopenia, may need Platelet transfusion as needed. follow laboratory in am tomorrow. 12/17: Seen in his bedroom, stable no nausea, vomit or diarrhea, EGD was cancelled and discussed with GI specialist he does not see the need for EGD the patient had negative Barium swallow and is able to eat better, discussed by him with doctor Mcconnell he will proceed with Cardiac cath tomorrow. Physical Exam Vital signs: Vital Signs 12/16/17 10:00 12/16/17 12:00 12/16/17 14:00 Temperature 99 F Pulse Rate 80 91 H 91 H Respiratory Rate 20 Blood Pressure 124/87 Pulse Oximetry 99 12/16/17 16:00 12/16/17 18:00 12/16/17 20:00 Temperature 98.1 F 97.8 F Pulse Rate 96 H 99 H 94 H Respiratory Rate 18 18 Blood Pressure 139/103 H 144/82 H Pulse Oximetry 96 98 12/17/17 00:00 12/17/17 04:00 Temperature 98.0 F 97.9 F Pulse Rate 83 64 Respiratory Rate 15 12 Blood Pressure 151/89 H 141/101 H Pulse Oximetry 94 L 98 Intake & Output 12/16/17 12/17/17 12/17/17 18:59 06:59 18:59 Intake Total 1240 / 1240 340 / 340 500 / 500 Balance 1240 / 1240 340 / 340 500 / 500 Weight 76.6 kg Intake: IV 600 / 600 100 / 100 500 / 500 D5W/1/2 NS Inj 1,000 ML @ 42 500 / 500 500 / 500 mls/hr IV.CONT .[id number] ORTIZ Rx# :[id number] Zosyn 3.375 GM Premix 50 ML @ 100 / 100 100 / 100 100 mls/hr IV.SIG Q6H ORTIZ Rx#: [id number] Oral 640 / 640 240 / 240 Other: # Voids 4 3 Date of Last Bowel Movement 12/15/17 12/16/17 # Bowel Movements 1 Weight On Admission 79.8 kg Narrative: GENERAL: Alert and oriented in no acute distress. SKIN: Warm and dry. Mildly jaundiced ENT: No nasal bleeding or discharge. Mucous membranes dry CARDIOVASCULAR: Regular rate and rhythm. No murmurs RESPIRATORY: Clear to auscultation bilateral, no wheezing or crackles. GASTROINTESTINAL: Abdomen soft, non-tender, nondistended. MUSCULOSKELETAL: No clubbing cyanosis or edema. NEUROLOGICAL: No focal deficits. - Urinary Catheter Management Condom Cath placed during this visit: no Results - Labs CBC & Chem 7: 12/17/17 14:41 12/17/17 14:41 Laboratory Results - last 24 hr 12/10/17 12/16/17 12/16/17 15:23 10:00 11:04 WBC RBC Hgb Hct MCV MCH MCHC RDW Plt Count MPV Hematology Comments PT INR Sodium 145 Potassium 3.7 D Chloride 102 Carbon Dioxide 32.5 H Anion Gap 11 BUN 34 H Creatinine 1.36 H Estimated GFR 52 L POC Glucose 185 H Random Glucose 173 H Calcium 8.8 Total Bilirubin 3.7 H AST 225 H ALT 408 H Alkaline Phosphatase 89 Total Protein 6.9 D Albumin 3.4 Mitochondria M2 IgG Ab Less than 20.0 HCV RNA Genotype Not detected 12/16/17 12/16/17 12/16/17 12:25 14:16 23:57 WBC 18.8 H RBC 4.46 L Hgb 16.0 Hct 50.0 MCV 112.1 H D MCH 35.9 H MCHC 32.0 RDW 16.6 Plt Count 31 L D MPV 10.4 Hematology Comments PT 16.1 H INR 1.6 Sodium Potassium Chloride Carbon Dioxide Anion Gap BUN Creatinine Estimated GFR POC Glucose 178 H Random Glucose Calcium Total Bilirubin AST ALT Alkaline Phosphatase Total Protein Albumin Mitochondria M2 IgG Ab HCV RNA Genotype Microbiology 12/11/17 04:15 Blood - Peripheral Aerobic Blood Culture - Final No growth in 5 days 12/11/17 04:15 Blood - Peripheral Anaerobic Blood Culture - Final No growth in 5 days 12/11/17 04:20 Blood - Peripheral Aerobic Blood Culture - Final No growth in 5 days 12/11/17 04:20 Blood - Peripheral Anaerobic Blood Culture - Final No growth in 5 days Assessment and Plan - Plan 1. Acute Metabolic Encephalopathy/alcohol dependence Improved. 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 Ammonia level 34 on Lactulose and Xifaxan, Supplement Multivitamin Thiamine Continue CIWA protocol, no signs of Withdrawal. 2. Respiratory Insufficiency/COPD Bronchodilator, Mucolytic and Incentive spirometry CT of the chest-left lower lobe infiltrate and moderate effusions -Effusions most likely from third spacing -Legionella Negative.continue Zosyn 3. Sustained Ventricular Tachycardia, Cardiomyopathy with EF 20%, questioned Alcoholic Cardiomyopathy/possible apical thrombus Severe Lactic acidosis. Patient cardioverted in ER, was on IV Amiodarone, discontinued due to Liver failure, given Lidocaine infusion on Coreg, was on Esmolol for Atrial Flutter with RVR. Discontinued Heparin due to coagulopathy, for Cardiac Cath for 12/18/17 4. Acute Hepatitis with liver failure/Liver cirrhosis/Ascites continue IV steroids, discriminating factor elevated. continue Xifaxan and Lactulose. 5. Acute Kidney Failure Improved. 6. Probable Sepsis, to rule out SBP, following, blood culture, sputum culture, continue Zosyn 7. Coagulopathy secondary to Liver failure 8. thrombocytopenia platelet count today 31 may need platelet transfusion depend of evolution. 9. Alcoholic Hepatitis Maddreys Discriminant factor over 32 on Steroids. 10. Dysphagia status post WNL Barium Swallow negative, EGD cancelled. no need for this test. Bilateral lower extremity SCDs. Avoid chemical DVT prophylaxis due to coagulopathy and Thrombocytopenia [id number] IV Protonix for GI prophylaxis Palliative care consult for goals of care Code Status: Full Code. Discussed Condition With: patient, Nurse, Doctor Lizzy GI specialist. GI specialist CARDIOTHORACIC SURGEON Discharge Planning: Patient is deteriorating with veru poor prognosis, consult palliative care
[2017-12-17] MEDS: Pentoxifylline 400 MG Controlled Release Tablet PO SCH ×3 (08:34→17:38)
[2017-12-17] MEDS: rifAXIMin 550 MG Tablet PO SCH ×2 (08:35→20:31)
--- NOTE | 2017-12-17 09:26 | P.PNGI ---
Subjective Interval history: Pt sitting on couch. NPO for cardiac cath today. Pt reports some mild abdominal pain. Denies nausea, vomiting. States was not able to eat much for dinner last night because of the dysphagia. He is able to take his pills when they are mixed with apple sauce. Physical Exam Vital signs: Vital Signs 12/16/17 10:00 12/16/17 12:00 12/16/17 14:00 Temperature 99 F Pulse Rate 80 91 H 91 H Respiratory Rate 20 Blood Pressure 124/87 Pulse Oximetry 99 12/16/17 16:00 12/16/17 18:00 12/16/17 20:00 Temperature 98.1 F 97.8 F Pulse Rate 96 H 99 H 94 H Respiratory Rate 18 18 Blood Pressure 139/103 H 144/82 H Pulse Oximetry 96 98 12/17/17 00:00 12/17/17 04:00 Temperature 98.0 F 97.9 F Pulse Rate 83 64 Respiratory Rate 15 12 Blood Pressure 151/89 H 141/101 H Pulse Oximetry 94 L 98 Intake & Output 12/16/17 12/17/17 12/17/17 18:59 06:59 18:59 Intake Total 1240 / 1240 340 / 340 500 / 500 Balance 1240 / 1240 340 / 340 500 / 500 Weight 76.6 kg Intake: IV 600 / 600 100 / 100 500 / 500 D5W/1/2 NS Inj 1,000 ML @ 42 500 / 500 500 / 500 mls/hr IV.CONT .[id number] Rx# :[id number] Zosyn 3.375 GM Premix 50 ML @ 100 / 100 100 / 100 100 mls/hr IV.SIG Q6H ORTIZ Rx#: [id number] Oral 640 / 640 240 / 240 Other: # Voids 4 3 Date of Last Bowel Movement 12/15/17 12/16/17 # Bowel Movements 1 Weight On Admission 79.8 kg - Constitutional no acute distress - Routine HEENT Exam Head: Present: normocephalic, atraumatic - Routine Abdominal Exam Present: soft, normoactive bowel sounds, distended. Absent: tenderness - Routine Skin Exam Present: dry, warm - Routine Neurological Exam Present: alert, oriented X3 - Urinary Catheter Management Condom Cath placed during this visit: no Results - Labs CBC & Chem 7: 12/16/17 12:25 12/16/17 10:00 Laboratory Results - last 24 hr 12/10/17 12/16/17 12/16/17 15:23 10:00 11:04 WBC RBC Hgb Hct MCV MCH MCHC RDW Plt Count MPV Hematology Comments PT INR Sodium 145 Potassium 3.7 D Chloride 102 Carbon Dioxide 32.5 H Anion Gap 11 BUN 34 H Creatinine 1.36 H Estimated GFR 52 L POC Glucose 185 H Random Glucose 173 H Calcium 8.8 Total Bilirubin 3.7 H AST 225 H ALT 408 H Alkaline Phosphatase 89 Total Protein 6.9 D Albumin 3.4 Mitochondria M2 IgG Ab Less than 20.0 HCV RNA Genotype Not detected HCV RNA (PCR) IUs/ml Less than 15 HCV RNA PCR log IUs/ml Less than 1.18 12/16/17 12/16/17 12/16/17 12:25 14:16 23:57 WBC 18.8 H RBC 4.46 L Hgb 16.0 Hct 50.0 MCV 112.1 H D MCH 35.9 H MCHC 32.0 RDW 16.6 Plt Count 31 L D MPV 10.4 Hematology Comments PT 16.1 H INR 1.6 Sodium Potassium Chloride Carbon Dioxide Anion Gap BUN Creatinine Estimated GFR POC Glucose 178 H Random Glucose Calcium Total Bilirubin AST ALT Alkaline Phosphatase Total Protein Albumin Mitochondria M2 IgG Ab HCV RNA Genotype HCV RNA (PCR) IUs/ml HCV RNA PCR log IUs/ml Microbiology 12/11/17 04:15 Blood - Peripheral Aerobic Blood Culture - Final No growth in 5 days 12/11/17 04:15 Blood - Peripheral Anaerobic Blood Culture - Final No growth in 5 days 12/11/17 04:20 Blood - Peripheral Aerobic Blood Culture - Final No growth in 5 days 12/11/17 04:20 Blood - Peripheral Anaerobic Blood Culture - Final No growth in 5 days Assessment and Plan - Plan Assessment: - Elevated LFTs Labs consistent with cirrhosis. Hypoalbuminemia, coagulopathy, and thrombocytopenia Pt grunts but will not stay awake to answer any questions LFTs likely multifactorial given recent V tach, possibly shocked liver, also noted to have (+) Hep C antibody According to record, pt reported heavy drinking however according to admission note pt stated that he quit drinking 3 days prior to admission. Labs consistent with ETOH hepatitis known cirrhosis, diagnosed a year ago by the [place], known Hepatitis C, treatment naive. Denies history of IV drug use, current or previous illicit drug use, tattoos, high risk sexual behavior, and previous blood transfusions. Pt reports he was drinking about four beers a day prior to coming in but has been trying to quit, states last ETOH was two days prior to admission Liver US --> Ultrasound findings suggesting some hepatic insufficiency. Liver is somewhat nodular with increased hepatic echotexture suggesting fatty infiltration/cirrhosis. Abdominal ascites. Bilateral pleural effusions. Mild pelvocaliectasis of the right renal collecting system. Mild mural thickening of the gallbladder. This is nonspecific and may be secondary to passive congestion associated with the presumed hepatic insufficiency. CT abdomen and pelvis W IV contrast (12/10) No obstruction or focal acute inflammatory changes are demonstrated. Moderate ascites. Liver Work UP CHARIS and ASMA negative. AMA <20. Celiac panel negative. AAT-172 Ferritin-4137 , hfe pending Ceruloplasmin-36. AMA pending. Hep C genotype not detected. - Dysphagia- pt reports since admission has been having difficulty with swallowing solid food, feels that the food gets stuck and tries to regurgitate it back up. Has been unable to swallow his pills. Denies history of dysphagia at home. Can not recall when his last EGD was - V-tach in route to hospital- no response to Amiodarone- converted after cardioversion- cardiology following, planning on cardiac cath on Sunday 12/17 (12/15) Pt complaining of dysphagia since being in hospital, only with solids no issues with liquids. Having difficulty with swallowing pills. Cardiology planning on cath 12/17, will order [employer] ARTISTIC DIRECTOR eval and barium swallow, possible EGD pending on cath findings and cardiology clearance Rest of liver work up still pending Pt is alert and oriented x 3 today (12/16) Pt with continued dysphagia. Had some orange juice and a few bites of applesauce this morning to take his medication. Pt was made NPO, I removed his breakfast tray from the table. Per cardiology they would like us to do EGD prior to pt having cardiac cath that is planned for tomorrow. Pt agreeable to proceed with EGD today. Complaining of some abdominal soreness. Denies nausea, vomiting. Barium swallow normal. Speech evaluated pt who states he tolerated all consistencies without any over s/symptoms of aspiration Addendum- EGD cancelled- platelet count came back at 31, INR still pending (12/17) EGD cancelled for yesterday due to low platelets, INR came back at 1.6. Pt currently NPO, planned for cardiac cath today. Pt reports wasn't able to eat much yesterday because of the dysphagia. He does better with soft foods. He is able to take his pills in apple sauce. Reports some mild abdominal pain. Denies nausea, vomiting. Plan No plans for EGD at this time Case discussed with Dr. Mcconnell- plans for cath tomorrow Recommend soft diet when pt able to eat again HFE pending Lactulose, Xifaxan, Trental, Solumedrol Alcohol cessation Monitor labs Further recommendations to follow Pt has been seen and examined by myself and Dr. Ball and this note is written on his behalf
[2017-12-17] MEDS: Magnesium Oxide 400 MG Tablet PO SCH (10:19)
[2017-12-17] MEDS: Dextrose 5%/NaCl 0.45% Inj 1,000 ML IV.CONT SCH (13:36)
[2017-12-17 15:57] LABS: Hematocrit 48.7 % (39.0-51.0); Hemoglobin 16.3 gm/dL (13.0-17.0); Mean Corpuscular HGB Conc 33.5 % (32.0-36.0); Mean Corpuscular Hemoglobin 36.1 pg (27.0-34.0); Mean Corpuscular Volume 107.7 fL (80.0-100.0); Mean Platelet Volume 10.8 fL (7.0-11.0); Platelet Count 45 th/mm3 (150-450); Red Blood Count 4.52 mil/mm3 (4.50-5.90); Red Cell Distribution Width 15.2 % (11.6-17.2)
[2017-12-17 16:12] LABS: Calcium 8.8 mg/dL (8.5-10.1); Potassium 3.8 meq/L (3.5-5.1)
[2017-12-18] MEDS: Sod Chloride 0.9% Inj 1,000 ML IV.CONT SCH ×5 (03:31→23:50)
[2017-12-18] MEDS ORDERED: Chlorhexidine Gluconate 2% 1 Pack (2 Cloths) TOPICAL SCH (03:45)
[2017-12-18] MEDS ORDERED: Sodium Chlor 0.9% Inj 500 ML IV.SIG SCH (04:00)
[2017-12-18] MEDS: MethylPREDNISolone Sod Succinate Inj 40 MG/ML Vial IV.PUSH SCH ×2 (04:07→12:54)
[2017-12-18 04:18] LABS: Baso % (Auto) 0.1 % (0.0-2.0); Hematocrit 43.5 % (39.0-51.0); Hemoglobin 14.7 gm/dL (13.0-17.0); Lymph # (Auto) 0.4 th/mm3 (1.0-4.8); Lymph % (Auto) 3.1 % (9.0-44.0); Mean Corpuscular HGB Conc 33.7 % (32.0-36.0); Mean Corpuscular Hemoglobin 35.9 pg (27.0-34.0); Mean Corpuscular Volume 106.7 fL (80.0-100.0); Mean Platelet Volume 11.1 fL (7.0-11.0); Mono # (Auto) 0.5 th/mm3 (0.0-0.9); Mono % (Auto) 4.4 % (0.0-8.0); Neut # (Auto) 11.2 th/mm3 (1.8-7.7); Neut % (Auto) 92.4 % (16.0-70.0); Platelet Count 41 th/mm3 (150-450); Red Blood Count 4.08 mil/mm3 (4.50-5.90); Red Cell Distribution Width 15.3 % (11.6-17.2); White Blood Count 12.1 th/mm3 (4.0-11.0)
[2017-12-18 04:41] LABS: Calcium 8.1 mg/dL (8.5-10.1); Carbon Dioxide 29.6 meq/L (21.0-32.0); Potassium 3.5 meq/L (3.5-5.1)
[2017-12-18 04:47] LABS: INR 1.6 Ratio; Prothrombin Time 16.1 sec (9.8-11.6)
[2017-12-18 05:01] LABS: Platelet Morphology Normal (Normal)
[2017-12-18] MEDS: Piperacil/Tazo 3.375 GM Premix 50 ML IV.SIG SCH ×2 (06:25→12:55)
[2017-12-18] MEDS: Magnesium Oxide 400 MG Tablet PO SCH (08:22)
[2017-12-18] MEDS: Pentoxifylline 400 MG Controlled Release Tablet PO SCH ×3 (08:22→17:23)
[2017-12-18] MEDS: rifAXIMin 550 MG Tablet PO SCH ×2 (08:23→21:49)
[2017-12-18] MEDS ORDERED: Heparin 10,000 UNITS/10 ML Vial (for IV use) ONE (08:37)
[2017-12-18] MEDS ORDERED: Heparin/NS PF Inj 1,000 ML ONE (08:37)
[2017-12-18] MEDS ORDERED: fentaNYL Citrate Inj 100 MCG/2 ML Ampul ONE (08:37)
--- NOTE | 2017-12-18 09:25 | CATHPROC ---
[facility] Report Study Information Study Number Admission Scheduled Start Study Start [id number] Dec 09 2017 1:28PM 12/17/2017 Dec 18 2017 8:28AM [facility] Cardiac Pacer/ICD Admit Source Facility Department Emergency department [facility] - Safety Analyst Physician and Clinical Staff Initial Efe Temple Digital Production Artist Eugenio Canela,RN Recorder Anat Freeman,RT(R) Scrub Cristal Hutton,RT(R) (BS) Procedures Performed Procedure Location (Site) Vessel Name Angiogram LV LV Ventricle Coronary Angiograms LCA Left Coronary Coronary Angiograms RCA Right Coronary L Heart Cath Equipment Time Spa Receptionist Description Size Mfg Part Number Used/Scraped TRANSDUCER, TRUWAVE [id number] 08:56 SEGOVIA ORONA * Used W/STOCKCOCK *[id number] 08:56 MALLINCKRODT SYRINGE, ANGIOMAT 150ML 150ML *[id number] Used 2SUB [id number] 08:56 [employer] BLANKET,WARM AIR CCL * Used *[id number] 08:56 [employer] PACK, CCL CUSTOM * Used *[id number] 08:56 [employer] SUPPORT, ARTERIAL ADULT 73756 *[id number] Used [id number] 08:56 [employer] PACER PEN, SKIN DUAL W/ RULER * Used *[id number] PIG ANG 145 DXTERITY [id number] 09:08 [employer] FR 5 Used CATHETER *[id number] BAND, RADIAL COMPRESSION TR [id number] 09:16 [employer] MEDICAL 24CM Used SHORT 24 *[id number] 08:56 [employer] WIRE, EXCHANGE 260CM 3MMJ 260CM Used *[id number] 08:56 NAMIC MANIFOLD, 4 PORT * Used *[id number] TUBING, PRESSURE INJECTION [id number] 09:08 NAMIC 72" Used 72" *[id number] 08:56 [employer] OMNIPAQUE, 350 MG, 100ML 100ML [id number] Used 09:10 [employer] OMNIPAQUE, 350 MG, 150ML 150ML [id number] Used 09:16 [employer] OMNIPAQUE, 350 MG, 50ML 50ML [id number] Used 09:10 [employer] OMNIPAQUE, 350 MG, 50ML 50ML [id number] Used 08:56 [employer] JELCO NEEDLE 4056 *[id number] Used CATHETER, FR5 OPTITORQUE [id number] 08:53 [employer] FR 5 Used RADIAL TIG 4.0 *[id number] SHEATH, FR6 TRANSRADIAL 80-1060 08:56 [employer] FR 6 Used SLENDER 10CM *[id number] Equipment Model, Serial, Lot Number and Expiration Data Description Model Number Serial Number Lot Number Expiration Date PIG ANG 145 DXTERITY CATHETER [id number] 07-18-2019 History: Current Medications Medication Dosage/Unit Route Frequency Last Date/Time Taken Beta Johnny History: Allergies Allergy Reaction No Known Allergies History: Risk Factors Family History of Hypertension Dyslipidemia Previous IN Previous Heart Failure Premature CAD Yes No Yes No Yes Prior Valve Prior PCI Prior CABG Surgery No No No Cerebrovascular Peripheral Artery Chronic Lung On Dialysis Diabetes Disease Disease Disease No No Yes No No History: Symptoms/Diagnosis Selection Items SOB History: Other Current Smoker Method Packs a Day Years Used Pack Years Yes Cigarettes 1 51 51 Labs Hgb (g/dl) Hct (%) WBC (l/cumm) Platelets (thousands) 11.60-17.00 35.00-51.00 4.00-11.00 150.00-450.00 14.7 43.5 12.1 41 Glucose (mg/dl) BUN (mg/dl) Creatinine (mg/dl) BUN:Creatinine (1:x) 74.00-106.00 7.00-18.00 0.50-1.30 10.00-20.00 154 32 1.0 32 Na (meq/l) K (meq/l) 136.00-145.00 3.50-5.10 145 3.5 INR (PTT:PT) 0.90-1.10 1.6 Troponin I (ng/ml) CPK-MB (ng/ML) 0.02-0.05 0.50-3.60 0.41 Not Drawn Medication Medication Total Dose (Bolus/Oral) Medication Total Dosage/Unit 1% XYLOCAINE 20 mL FENTANYL 25 mcg RADIAL COCKTAIL 5 mL (Bolus) VERSED 1 mg Medications (Bolus/Oral) Medication Time Given Dosage/Unit Administered By Reason VERSED 12/18/2017 8:46:42 AM 1 mg Eugenio Canela 1 mg VERSED given in lab by Eugenio Canela RN in Right Forearm via Peripheral IV. Ordered by Kerline Mcconnell. FENTANYL 12/18/2017 8:50:19 AM 25 mcg Eugenio Canela 25 mcg FENTANYL given in lab by Eugenio Canela RN in Right Forearm via Peripheral IV. Ordered by Efe Manzano. 1% XYLOCAINE 12/18/2017 8:52:55 AM 20 mL Efe Mcconnell 20 mL 1% XYLOCAINE given in lab by Efe Mcconnell in Right Radial via Subcutaneous. Ntg 200mcg Verapamil 2.5mg Heparin RADIAL COCKTAIL 12/18/2017 8:56:25 AM 5 mL (Bolus) Efe Mcconnell 2500U 5 mL (Bolus) RADIAL COCKTAIL given in lab by Efe Mcconnell in Right Radial via Radial. Using [Soljimmyio n Name]. Reason: Ntg 200mcg Verapamil 2.5mg Heparin 2500U. Medication (Drip) Medication Time Given Dosage/Unit Concentration/Unit Diluent (ml) Solution IV Solutions 12/18/2017 8:43:17 AM 50 mL (IV) NaCl .9 IV Solutions given in lab by Eugenio Canela RN in Right Forearm via Peripheral IV. Pump/Drip Flow usin g NaCl .9. Initial Case Assessment Cardiovascular Edema Present Moderate Circulatory - Right Pulses Dorsalis Pedis Femoral Radial 2 3 3 Scale (0,1,2,3,4,d) Scale (0,1,2,3,4,d) Neurological State Oriented to time-place- Alert Moves all extremities person Chronological Log Time Study Chronological Log 8:28:05 Patient arrived via Bed. 8:40:17 MD arrived. 8:42:49 Patient Name, D.O.B, / Armband Verified By R.N. 8:42:53 Consent signed by the physician and the patient and verified by the Safety Analyst staff. 8:42:55 Pre-op and post- op instructions given; patient acknowledges understanding of instructions . 8:42:57 Allens test performed on the right radial and ulnar artery. 8:42:59 Patient has been NPO for More than 6Hrs. 8:42:59 Skin Breakdown- bruising and edema. gonsalo on head. 8:43:09 Patient Warmer Placed on the Table. 8:43:12 Madeleine Prominences Protected 8:43:16 A # 20 IV was noted in the Forearm (left). Grade = 0 8:43:17 A # 18 IV was noted in the Forearm (right). Grade = 0 8:43:17 IV Solutions given in lab by Eugenio Canela RN in Right Forearm via Peripheral IV. Pump/Drip Flow using NaCl .9. 8:43:19 History and physical on the chart or being dictated. Assessment: Initial Case, Edema=Mod 8:43:19 Right Pulses: Carlito Ped=2, Femoral=3, Radial=3 Neurological: State=Alert, Ox3, CERVANTES 8:43:24 Reference ECG taken Vitals capture started with the following parameters, Patient=Adult, Interval=5 min, Initial Pre oqrmm=820 mmHg, 8:43:32 Deflation Rate=5 mmHg, Cuff placed on Left Arm 8:44:07 HR=84 bpm, HJFD=559/97 mmhg, SpO2=96.0 % 8:46:24 Right Radial prepped with 2% chlorhexidine, and draped after a 3 min. waiting time. 8:46:42 1 mg VERSED given in lab by Eugenio Canela RN in Right Forearm via Peripheral IV. Ordered by Efe Mcconnell. 8:49:04 HR=68 bpm, NOZK=885/83 mmhg, SpO2=92.0 % 8:49:49 Pressure channel 1 zeroed. 8:50:19 25 mcg FENTANYL given in lab by Eugenio Canela RN in Right Forearm via Peripheral IV. Ordered by Efe Mcconnell. Time Out. Correct patient, correct procedure, correct physician, labs, allergies, and equipment verified with supervisor laboratory 8:51:50 team present. Fire risk assesment completed (see hard stop sheet for coding). Time Out Concu rred by MD and individual staff in procedure. 8:52:10 Case Start 8:52:55 20 mL 1% XYLOCAINE given in lab by Efe Mcconnell in Right Radial via Subcutaneous. 8:54:05 HR=55 bpm, COVX=351/83 mmhg, SpO2=95 % 8:55:08 Access site was Right Radial Artery . A SHEATH, FR6 TRANSRADIAL SLENDER 10CM FR 6 was advanced into the Radial (right) using the Rosa Elena paulson 8:56:04 technique. 5 mL (Bolus) RADIAL COCKTAIL given in lab by Efe Mcconnell in Right Radial via Radial. Using [So lution Name]. 8:56:25 Reason: Ntg 200mcg Verapamil 2.5mg Heparin 2500U. A CATHETER, FR5 OPTITORQUE RADIAL TIG 4.0 FR 5 was advanced over a wire. OMNIPAQUE, 350 MG, 100M L 100ML 8:57:24 was used for injections. 8:59:06 HR=80 bpm, DVSQ=230/88 mmhg, SpO2=92 % Recorded Pressure: Ao, HR=73, Condition=Condition 1 9:00:22 (Aorta) Ao 139/70/100 9:01:11 The LCA was injected and visualized at various angles. OMNIPAQUE, 350 MG, 100ML 100ML used. 9:04:01 HR=92 bpm, JWXC=135/89 mmhg, SpO2=92 % 9:04:34 The RCA was injected and visualized at various angles. OMNIPAQUE, 350 MG, 150ML 150ML used. 9:09:06 HR=78 bpm, QJEP=817/86 mmhg, SpO2=92 % After removing the current catheter a PIG ANG 145 DXTERITY CATHETER FR 5 was advanced over a WIR E, EXCHANGE 9:09:47 260CM 3MMJ 260CM. Recorded Pressure: LV, HR=77, Condition=Condition 1 9:11:16 (Left Ventricle) LV 150/5/18 9:12:45 The LV was injected at 8 cc/sec for a total of 25. OMNIPAQUE, 350 MG, 50ML 50ML used. Recorded Pressure: LV, Ao, HR=80, Condition=Condition 1 9:13:36 (Left Ventricle) LV 152/7/26, (Aorta) Ao 152/79/110 9:14:07 HR=75 bpm, PTPV=432/89 mmhg, SpO2=95.0 % 9:14:31 Catheter was removed 9:14:45 Case End (Physician broke scrub) Radial Compression Device Used. 13 mLs of air placed in BAND, RADIAL COMPRESSION TR SHORT 24 24C M. Affected 9:16:00 hand 96 % O2 saturation. 9:16:26 No case complications noted. 9:18:08 Holding Area notified. 9:18:40 A Left Heart Cath was performed. 9:19:08 HR=70 bpm, CFYW=280/92 mmhg, SpO2=96 % 9:22:41 Patient moved to stretcher End Study - Contrast Media Used In Study Contrast Total Opened (mL) Total Used (mL) Total Wasted (mL) Omnipaque 150 100 50 End Study - Maximum Contrast Load Max Contrast Load (mL) 395.5 End Study - Radiation Exposure Fluoro Time (minutes) 7.6 End Study - Patient Disposition Complications Transferred To Interventional Outcome No Telemetry Bed No attempt made
--- NOTE | 2017-12-18 10:01 | MA ---
cc: Efe Mcconnell MD DATE: 12/18/2017 BRIEF HISTORY: Jaxson Saunders is a 67-year-old man who presented to the hospital with sustained rapid ventricular tachycardia requiring cardioversion. Echo shows a severe cardiomyopathy. His liver tests and renal indices were severely elevated. Those have improved. It was decided to go ahead and perform catheterization prior to him having a defibrillator. His platelet count is low and his INR was elevated, it was felt that it was adequate for a radial artery approach. PROCEDURE PERFORMED: Left heart catheterization, left ventriculography, coronary angiography, right radial arterial access. DESCRIPTION OF PROCEDURE: The patient was brought to the cardiac catheterization lab in a fasting state. He received 1 mg of Versed and 25 mg of IV fentanyl for sedation. Using 1% lidocaine for local anesthesia, the right radial artery was easily accessed. There was some mild resistance passing a guidewire through the elbow region, but this was accomplished without difficulty and a Salyer catheter was used to image both coronary arteries. This was exchanged to an angled pigtail catheter for an LV gram on pullback. The sheath was removed in standard fashion with the Terumo band placed. A cocktail administered at the start of the procedure included 2.5 mg of verapamil, 200 mcg of nitroglycerin, and 2000 units of heparin. FINDINGS: 1. Hemodynamics: Left ventricular pressure is 152/77 with an end diastolic pressure of 26. Aortic pressure is 152/79 with a mean of 110. There was no gradient during pullback from the left ventricle to the aorta. 2. Left ventriculography: Left ventriculography shows a mildly dilated left ventricle with very severe global hypokinesis. There is 1 to 2+ mitral regurgitation. Estimated ejection fraction is only 15%. 3. Coronary angiography: Coronary circulation is right dominant. All 3 coronary arteries were of good caliber. Left main coronary artery was normal. Left anterior descending artery has a 35% irregular mid stenosis and about a 25% distal mid stenosis. The remainder of the LAD and diagonal system appear normal. Ramus intermediate branch is large and has about 20% proximal eccentric stenosis. Circumflex artery appears normal. Right coronary artery has about 5% proximal and mid irregularities. CONCLUSION: 1. Elevated left ventricular end-diastolic pressure. 2. Very severely impaired left ventricular function. 3. Very mild nonocclusive coronary artery disease. RECOMMENDATIONS: We will refer to Dr. Merly MULLEN. MD Jimbo Tompkins , 09:25 AM , 09:32 AM
[2017-12-18] MEDS ORDERED: Iohexol 350 MG/ML 100 ML Vial (for Cath Lab) IVCONTRAST ONE (12:42)
--- NOTE | 2017-12-18 13:15 | P.PNGI ---
Subjective Interval history: Pt resting in bed, returned from cardiac cath. Has been NPO. Physical Exam Vital signs: Vital Signs 12/17/17 16:00 12/17/17 20:00 12/17/17 22:00 Temperature 97.5 F L 97.6 F Pulse Rate 82 74 73 Respiratory Rate 17 13 Blood Pressure 148/99 H 152/93 H Pulse Oximetry 98 97 12/17/17 22:15 12/18/17 00:00 12/18/17 00:09 Temperature 97.4 F L 97.1 F L Pulse Rate 79 78 78 Respiratory Rate 18 18 Blood Pressure 140/85 141/72 H Pulse Oximetry 97 96 12/18/17 03:58 12/18/17 04:00 12/18/17 08:00 Temperature 97.2 F L 97.4 F L Pulse Rate 62 83 78 Respiratory Rate 18 18 Blood Pressure 137/98 H 147/89 H Pulse Oximetry 94 L 94 L 12/18/17 09:30 12/18/17 12:45 Temperature 97.2 F L Pulse Rate 73 Respiratory Rate 18 Blood Pressure 138/70 Pulse Oximetry 93 L 93 L Intake & Output 12/17/17 12/18/17 12/18/17 18:59 06:59 18:59 Intake Total 1125 / 1125 50 / 50 55 / 55 Balance 1125 / 1125 50 / 50 55 / 55 Weight 79.2 kg Intake: IV 600 / 600 50 / 50 55 / 55 Heparin/NS PF Inj 1,000 ML @ 0 5 / 5 mls/hr .ROUTE .STK-MED [facility] Rx#: [id number] D5W/1/2 NS Inj 1,000 ML @ 42 500 / 500 mls/hr IV.CONT .[id number] [facility] Rx# :[id number] Zosyn 3.375 GM Premix 50 ML @ 100 / 100 50 / 50 50 / 50 100 mls/hr IV.SIG Q6H [facility] Rx#: [id number] Oral 525 / 525 Other: # Voids 5 2 Date of Last Bowel Movement 12/17/17 12/17/17 - Constitutional no acute distress - Routine HEENT Exam Head: Present: normocephalic, atraumatic - Routine Abdominal Exam Present: soft, normoactive bowel sounds. Absent: tenderness, distended - Routine Skin Exam Present: dry, warm - Routine Neurological Exam Present: alert, oriented X3 - Urinary Catheter Management Condom Cath placed during this visit: no Results - Labs CBC & Chem 7: 12/18/17 02:44 12/18/17 02:44 Laboratory Results - last 24 hr 12/17/17 12/17/17 12/18/17 14:41 14:41 01:55 WBC 15.0 H RBC 4.52 Hgb 16.3 Hct 48.7 MCV 107.7 H D MCH 36.1 H MCHC 33.5 RDW 15.2 Plt Count 45 L D MPV 10.8 Prelim Diff (Auto) Neut % (Auto) Lymph % (Auto) [place] % (Auto) Eos % (Auto) Baso % (Auto) Neut # (Auto) Lymph # (Auto) [place] # (Auto) Eos # (Auto) Baso # (Auto) WBC Differential Diff Scan Differential Comment Platelet Estimate Platelet Morphology PT INR Sodium 143 Potassium 3.8 Chloride 103 Carbon Dioxide 31.0 Anion Gap 9 BUN 33 H Creatinine 1.22 Estimated GFR 59 L POC Glucose 162 H Random Glucose 140 H Calcium 8.8 12/18/17 12/18/17 12/18/17 02:44 02:44 02:44 WBC 12.1 H RBC 4.08 L Hgb 14.7 Hct 43.5 MCV 106.7 H MCH 35.9 H MCHC 33.7 RDW 15.3 Plt Count 41 L MPV 11.1 H Prelim Diff (Auto) Slide review pending Neut % (Auto) 92.4 H Lymph % (Auto) 3.1 L [place] % (Auto) 4.4 Eos % (Auto) 0.0 Baso % (Auto) 0.1 Neut # (Auto) 11.2 H Lymph # (Auto) 0.4 L [place] # (Auto) 0.5 Eos # (Auto) 0.0 Baso # (Auto) 0.0 WBC Differential . Diff Scan Auto diff confirmed Differential Comment . Platelet Estimate Low L Platelet Morphology Normal PT 16.1 H INR 1.6 Sodium 145 Potassium 3.5 Chloride 106 Carbon Dioxide 29.6 Anion Gap 9 BUN 32 H Creatinine 1.00 Estimated GFR 74 L POC Glucose Random Glucose 154 H Calcium 8.1 L 12/18/17 12/18/17 06:24 12:53 WBC RBC Hgb Hct MCV MCH MCHC RDW Plt Count MPV Prelim Diff (Auto) Neut % (Auto) Lymph % (Auto) [place] % (Auto) Eos % (Auto) Baso % (Auto) Neut # (Auto) Lymph # (Auto) [place] # (Auto) Eos # (Auto) Baso # (Auto) WBC Differential Diff Scan Differential Comment Platelet Estimate Platelet Morphology PT INR Sodium Potassium Chloride Carbon Dioxide Anion Gap BUN Creatinine Estimated GFR POC Glucose 157 H 138 H Random Glucose Calcium Assessment and Plan - Plan Assessment: - Elevated LFTs Labs consistent with cirrhosis. Hypoalbuminemia, coagulopathy, and thrombocytopenia Pt grunts but will not stay awake to answer any questions LFTs likely multifactorial given recent V tach, possibly shocked liver, also noted to have (+) Hep C antibody According to record, pt reported heavy drinking however according to admission note pt stated that he quit drinking 3 days prior to admission. Labs consistent with ETOH hepatitis known cirrhosis, diagnosed a year ago by the [place], known Hepatitis C, treatment naive. Denies history of IV drug use, current or previous illicit drug use, tattoos, high risk sexual behavior, and previous blood transfusions. Pt reports he was drinking about four beers a day prior to coming in but has been trying to quit, states last ETOH was two days prior to admission Liver US --> Ultrasound findings suggesting some hepatic insufficiency. Liver is somewhat nodular with increased hepatic echotexture suggesting fatty infiltration/cirrhosis. Abdominal ascites. Bilateral pleural effusions. Mild pelvocaliectasis of the right renal collecting system. Mild mural thickening of the gallbladder. This is nonspecific and may be secondary to passive congestion associated with the presumed hepatic insufficiency. CT abdomen and pelvis W IV contrast (12/10) No obstruction or focal acute inflammatory changes are demonstrated. Moderate ascites. Liver Work UP CHARIS and ASMA negative. AMA <20. Celiac panel negative. AAT-172 [id number] , hfe pending Ceruloplasmin-36. AMA pending. Hep C genotype not detected. - Dysphagia- pt reports since admission has been having difficulty with swallowing solid food, feels that the food gets stuck and tries to regurgitate it back up. Has been unable to swallow his pills. Denies history of dysphagia at home. Can not recall when his last EGD was - V-tach in route to hospital- no response to Amiodarone- converted after cardioversion- cardiology following, planning on cardiac cath on Sunday 12/17 (12/15) Pt complaining of dysphagia since being in hospital, only with solids no issues with liquids. Having difficulty with swallowing pills. Cardiology planning on cath 12/17, will order [employer] eval and barium swallow, possible EGD pending on cath findings and cardiology clearance Rest of liver work up still pending Pt is alert and oriented x 3 today (12/16) Pt with continued dysphagia. Had some orange juice and a few bites of applesauce this morning to take his medication. Pt was made NPO, I removed his breakfast tray from the table. Per cardiology they would like us to do EGD prior to pt having cardiac cath that is planned for tomorrow. Pt agreeable to proceed with EGD today. Complaining of some abdominal soreness. Denies nausea, vomiting. Barium swallow normal. Speech evaluated pt who states he tolerated all consistencies without any over s/symptoms of aspiration Addendum- EGD cancelled- platelet count came back at 31, INR still pending (12/17) EGD cancelled for yesterday due to low platelets, INR came back at 1.6. Pt currently NPO, planned for cardiac cath today. Pt reports wasn't able to eat much yesterday because of the dysphagia. He does better with soft foods. He is able to take his pills in apple sauce. Reports some mild abdominal pain. Denies nausea, vomiting. (12/18) Pt has been NPO for cardiac cath today. No GI complaints. Recommend soft diet, EGD not possible at this time. Case discussed with Dr. Mcconnell and Dr. Leone yesterday Plan Recommend soft diet when pt able to eat again HFE pending Lactulose, Xifaxan, [place] to DC Solumedrol and switch to PO Prednisolone Alcohol cessation Monitor labs Our service will sign off, please reconsult as needed Have pt follow up with GI after DC Pt has been seen and examined by myself and Dr. Ball and this note is written on his behalf
--- NOTE | 2017-12-18 14:29 | P.PNIM ---
Subjective Interval history: Patient seen after cardiac catherization. he has no complaints. he stated his nausea improving. Denied any pain. patient asking when he can go home in order to pay home bills. Physical Exam Vital signs: Vital Signs 12/17/17 16:00 12/17/17 20:00 12/17/17 22:00 Temperature 97.5 F L 97.6 F Pulse Rate 82 74 73 Respiratory Rate 17 13 Blood Pressure 148/99 H 152/93 H Pulse Oximetry 98 97 12/17/17 22:15 12/18/17 00:00 12/18/17 00:09 Temperature 97.4 F L 97.1 F L Pulse Rate 79 78 78 Respiratory Rate 18 18 Blood Pressure 140/85 141/72 H Pulse Oximetry 97 96 12/18/17 03:58 12/18/17 04:00 12/18/17 08:00 Temperature 97.2 F L 97.4 F L Pulse Rate 62 83 78 Respiratory Rate 18 18 Blood Pressure 137/98 H 147/89 H Pulse Oximetry 94 L 94 L 12/18/17 09:30 12/18/17 12:45 Temperature 97.2 F L Pulse Rate 73 Respiratory Rate 18 Blood Pressure 138/70 Pulse Oximetry 93 L 93 L Intake & Output 12/17/17 12/18/17 12/18/17 18:59 06:59 18:59 Intake Total 1125 / 1125 50 / 50 55 / 55 Balance 1125 / 1125 50 / 50 55 / 55 Weight 79.2 kg Intake: IV 600 / 600 50 / 50 55 / 55 Heparin/NS PF Inj 1,000 ML @ 0 5 / 5 mls/hr .ROUTE .STK-MED [facility] Rx#: [id number] D5W/1/2 NS Inj 1,000 ML @ 42 500 / 500 mls/hr IV.CONT .[id number] [facility] Rx# :[id number] Zosyn 3.375 GM Premix 50 ML @ 100 / 100 50 / 50 50 / 50 100 mls/hr IV.SIG Q6H [facility] Rx#: [id number] Oral 525 / 525 Other: # Voids 5 2 Date of Last Bowel Movement 12/17/17 12/17/17 - Constitutional no acute distress - Routine Neck Exam Present: supple, full ROM - Routine Respiratory Exam Present: CTA bilaterally - Routine Cardiovascular Exam Present: RRR, S1, S2 Comments: no r/m/g - Routine Abdominal Exam Present: soft, normoactive bowel sounds Comments: no TTP - Urinary Catheter Management Condom Cath placed during this visit: no Results - Labs CBC & Chem 7: 12/18/17 02:44 12/18/17 02:44 Laboratory Results - last 24 hr 12/17/17 12/17/17 12/18/17 14:41 14:41 01:55 WBC 15.0 H RBC 4.52 Hgb 16.3 Hct 48.7 MCV 107.7 H D MCH 36.1 H MCHC 33.5 RDW 15.2 Plt Count 45 L D MPV 10.8 Prelim Diff (Auto) Neut % (Auto) Lymph % (Auto) [place] % (Auto) Eos % (Auto) Baso % (Auto) Neut # (Auto) Lymph # (Auto) [place] # (Auto) Eos # (Auto) Baso # (Auto) WBC Differential Diff Scan Differential Comment Platelet Estimate Platelet Morphology PT INR Sodium 143 Potassium 3.8 Chloride 103 Carbon Dioxide 31.0 Anion Gap 9 BUN 33 H Creatinine 1.22 Estimated GFR 59 L POC Glucose 162 H Random Glucose 140 H Calcium 8.8 12/18/17 12/18/17 12/18/17 02:44 02:44 02:44 WBC 12.1 H RBC 4.08 L Hgb 14.7 Hct 43.5 MCV 106.7 H MCH 35.9 H MCHC 33.7 RDW 15.3 Plt Count 41 L MPV 11.1 H Prelim Diff (Auto) Slide review pending Neut % (Auto) 92.4 H Lymph % (Auto) 3.1 L [place] % (Auto) 4.4 Eos % (Auto) 0.0 Baso % (Auto) 0.1 Neut # (Auto) 11.2 H Lymph # (Auto) 0.4 L [place] # (Auto) 0.5 Eos # (Auto) 0.0 Baso # (Auto) 0.0 WBC Differential . Diff Scan Auto diff confirmed Differential Comment . Platelet Estimate Low L Platelet Morphology Normal PT 16.1 H INR 1.6 Sodium 145 Potassium 3.5 Chloride 106 Carbon Dioxide 29.6 Anion Gap 9 BUN 32 H Creatinine 1.00 Estimated GFR 74 L POC Glucose Random Glucose 154 H Calcium 8.1 L 12/18/17 12/18/17 06:24 12:53 WBC RBC Hgb Hct MCV MCH MCHC RDW Plt Count MPV Prelim Diff (Auto) Neut % (Auto) Lymph % (Auto) [place] % (Auto) Eos % (Auto) Baso % (Auto) Neut # (Auto) Lymph # (Auto) [place] # (Auto) Eos # (Auto) Baso # (Auto) WBC Differential Diff Scan Differential Comment Platelet Estimate Platelet Morphology PT INR Sodium Potassium Chloride Carbon Dioxide Anion Gap BUN Creatinine Estimated GFR POC Glucose 157 H 138 H Random Glucose Calcium Assessment and Plan - Plan Acute Metabolic Encephalopathy -improving due to alcoholism. 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 -Ammonia level 34 on Lactulose and Xifaxan, Supplement Multivitamin Thiamine Alcoholism -no signs of withdrawals. -continue CIWA protocol. Respiratory Insufficiency/COPD Bronchodilator, Mucolytic and Incentive spirometry - CT of the chest-left lower lobe infiltrate and moderate effusions -Effusions most likely from third spacing -Legionella Negative -clinically symptoms seems to resolved so d/c zosyn and place on augmetin and flagyl. Sustained Ventricular Tachycardia, -Cardiomyopathy with EF 20%, questioned Alcoholic Cardiomyopathy/possible apical thrombus - Patient cardioverted in ER, was on IV Amiodarone, discontinued due to Liver failure, given Lidocaine infusion on Coreg, was on Esmolol for Atrial Flutter with RVR. -cardiac cath done today 12/[address] Mcconnell showing elevated left ventricular end-diastolic pressure, severely impaired left ventricular function. - mild nonocclusive coronary artery disease. -recommend AICD by Dr. Moreland Acute Hepatitis with liver failure/Liver cirrhosis/Ascites -continue Xifaxan and Lactulose. -spoke to aminata WILL and stated and place on prednisone 40 mg PO Daily for 28 days then taper off. -d/c solumedrol start prednisone. Acute Kidney Failure -resolved. thrombocytopenia -due to liver disease and alcoholism. no signs of active bleeding. Dysphagia status post WNL Barium Swallow negative, EGD cancelled. no need for this test. Bilateral lower extremity SCDs. Avoid chemical DVT prophylaxis due to coagulopathy and Thrombocytopenia
[2017-12-18] MEDS: metroNIDAZOLE 500 MG Tablet PO SCH ×2 (14:48→23:07)
[2017-12-18] MEDS: Dextrose 5%/NaCl 0.45% Inj 1,000 ML IV.CONT SCH (14:50)
--- NOTE | 2017-12-18 15:50 | P.PNPAL ---
Reason for Visit Reason for visit: a. To assist with evaluation and management of symptoms including: leg pain, dizziness, dysphagia b. To assist medical decision maker(s) with: better understanding of current medical conditions; weighing benefits/burdens of medical treatment options; making medical treatment decisions. Subjective Subjective/Interval History: Patient seen today to follow-up on throat pain, dysphagia, goals following cardiac catheterization procedure. He has been transferred out of ICU. EGD held off based on barium swallow evaluation which was negative for any abnormalities. He has indicated improvement in swallowing since this time. GI has signed off and recommends outpatient follow-up. s/ p cardiac cath today: 1. Elevated left ventricular end-diastolic pressure. 2. Very severely impaired left ventricular function. EF 15%, severe global hypokinesis. 3. Very mild nonocclusive coronary artery disease Cardiology has consulted Dr. Moreland for evaluation for possible AICD. Labs unremarkable. Pt seen in room, seated on side of bed. He is oriented to person, year place. Ask him if he had with this. Ask him what procedure he has had done he tells me he does not know. Ask him if he had his heart evaluated by the granulator machine operator , he agrees with findings, he tells me he does not know the doctor does. Ask him if he recalls any recommendations for evaluation by an heart doctor. He does not. Review with him that they have recommended him for an implanted defibrillator. Explained that this would provide electrical rhythm shock to correct a lethal rhythm ask him if he would want this type of implanted device. He says that he does not really know if he needs one that he might think about it in 1 day if he needs that he could get it. ask him about the GIs recommendations regards to his swallowing he is unable to tell me anything further. He has not contacted his family as of yet. He denies pain. He denies dyspnea. Indicates he has been ambulating fine. Indicates he has been eating fine, that his swallowing is fine. Nursing indicates he ambulates around the room and does his own thing. Following exam, call to pt 3 siblings listed, as he continues to appear slightly confused. Left VM with my contact information. Advance Directives Living Will: Never completed Health Care Surrogate: Never completed Durable Power of Senior Gis Analyst: Never completed Objective Vital Signs: Vital Signs 12/17/17 16:00 12/17/17 20:00 12/17/17 22:00 Temperature 97.5 F L 97.6 F Pulse Rate 82 74 73 Respiratory Rate 17 13 Blood Pressure 148/99 H 152/93 H Pulse Oximetry 98 97 12/17/17 22:15 12/18/17 00:00 12/18/17 00:09 Temperature 97.4 F L 97.1 F L Pulse Rate 79 78 78 Respiratory Rate 18 18 Blood Pressure 140/85 141/72 H Pulse Oximetry 97 96 12/18/17 03:58 12/18/17 04:00 12/18/17 08:00 Temperature 97.2 F L 97.4 F L Pulse Rate 62 83 78 Respiratory Rate 18 18 Blood Pressure 137/98 H 147/89 H Pulse Oximetry 94 L 94 L 12/18/17 09:30 12/18/17 12:45 Temperature 97.2 F L Pulse Rate 73 Respiratory Rate 18 Blood Pressure 138/70 Pulse Oximetry 93 L 93 L Intake & Output 12/17/17 12/18/17 12/18/17 18:59 06:59 18:59 Intake Total 1125 / 1125 50 / 50 105 / 105 Balance 1125 / 1125 50 / 50 105 / 105 Weight 79.2 kg Intake: IV 600 / 600 50 / 50 105 / 105 Heparin/NS PF Inj 1,000 ML @ 0 5 / 5 mls/hr .ROUTE .STK-MED [facility] Rx#: [id number] D5W/1/2 NS Inj 1,000 ML @ 42 500 / 500 mls/hr IV.CONT .[id number] [facility] Rx# :[id number] Zosyn 3.375 GM Premix 50 ML @ 100 / 100 50 / 50 100 / 100 100 mls/hr IV.SIG Q6H [facility] Rx#: [id number] Oral 525 / 525 Other: # Voids 5 2 Date of Last Bowel Movement 12/17/17 12/17/17 Physical Exam: CONSTITUTIONAL/GENERAL: This is a thin male, in no apparent distress, alert cooperative TUBES/LINES/DRAINS:PIV UE SKIN: No jaundice, rashes, or lesions. chronic vascular discoloration Bilateral lower legs No wounds seen anteriorly. skin warm, dry however feet cool to touch. CARDIOVASCULAR: Regular rate and rhythm . Trace pedal edema. Trace edema left hand. Feet cool, pedal pulses faint. RESPIRATORY/CHEST: Symmetric, unlabored respirations. Clear to auscultation. Breath sounds equal bilaterally. GASTROINTESTINAL: Abdomen soft, rounded, non-tender, nondistended. No palpable masses. +ascites. No guarding. Bowel sounds present. MUSCULOSKELETAL: Extremities without clubbing, cyanosis. Trace edema lower legs/ pedal. No joint tenderness or effusion noted. No calf tenderness. No mottling or clubbing. chronic vascular discoloration Bilateral lower legs. Rt clavicle larger than right, nontender. NEUROLOGICAL: Awake and alert, oriented x3. Limited to poor insight about medical conditions/prognosis. Motor and sensory grossly within normal limits. Follows commands. Moves all extremities. PSYCHIATRIC: No obvious anxiety/depression. no apparent hallucinations or other psychotic thought process. Diagnostic Tests Laboratory: Laboratory Results - last 72 hr 12/10/17 12/10/17 12/15/17 15:23 15:23 18:18 WBC RBC Hgb Hct MCV MCH MCHC RDW Plt Count MPV Prelim Diff (Auto) Neut % (Auto) Lymph % (Auto) [place] % (Auto) Eos % (Auto) Baso % (Auto) Neut # (Auto) Lymph # (Auto) [place] # (Auto) Eos # (Auto) Baso # (Auto) WBC Differential Diff Scan Differential Comment Platelet Estimate Platelet Morphology Hematology Comments PT INR Sodium Potassium Chloride Carbon Dioxide Anion Gap BUN Creatinine Estimated GFR POC Glucose 161 H Random Glucose Calcium Total Bilirubin AST ALT Alkaline Phosphatase Total Protein Albumin Ceruloplasmin 36 IgA 207 Mitochondria M2 IgG Ab Less than 20.0 Tiss Transglutamin IgG ND Celiac Disease Interp HCV RNA Genotype Not detected HCV RNA (PCR) IUs/ml Less than 15 HCV RNA PCR log IUs/ml Less than 1.18 12/16/17 12/16/17 12/16/17 06:07 10:00 11:04 WBC RBC Hgb Hct MCV MCH MCHC RDW Plt Count MPV Prelim Diff (Auto) Neut % (Auto) Lymph % (Auto) [place] % (Auto) Eos % (Auto) Baso % (Auto) Neut # (Auto) Lymph # (Auto) [place] # (Auto) Eos # (Auto) Baso # (Auto) WBC Differential Diff Scan Differential Comment Platelet Estimate Platelet Morphology Hematology Comments PT INR Sodium 145 Potassium 3.7 D Chloride 102 Carbon Dioxide 32.5 H Anion Gap 11 BUN 34 H Creatinine 1.36 H Estimated GFR 52 L POC Glucose 127 H 185 H Random Glucose 173 H Calcium 8.8 Total Bilirubin 3.7 H AST 225 H ALT 408 H Alkaline Phosphatase 89 Total Protein 6.9 D Albumin 3.4 Ceruloplasmin IgA Mitochondria M2 IgG Ab Tiss Transglutamin IgG Celiac Disease Interp HCV RNA Genotype HCV RNA (PCR) IUs/ml HCV RNA PCR log IUs/ml 12/16/17 12/16/17 12/16/17 12:25 14:16 23:57 WBC 18.8 H RBC 4.46 L Hgb 16.0 Hct 50.0 MCV 112.1 H D MCH 35.9 H MCHC 32.0 RDW 16.6 Plt Count 31 L D MPV 10.4 Prelim Diff (Auto) Neut % (Auto) Lymph % (Auto) [place] % (Auto) Eos % (Auto) Baso % (Auto) Neut # (Auto) Lymph # (Auto) [place] # (Auto) Eos # (Auto) Baso # (Auto) WBC Differential Diff Scan Differential Comment Platelet Estimate Platelet Morphology Hematology Comments PT 16.1 H INR 1.6 Sodium Potassium Chloride Carbon Dioxide Anion Gap BUN Creatinine Estimated GFR POC Glucose 178 H Random Glucose Calcium Total Bilirubin AST ALT Alkaline Phosphatase Total Protein Albumin Ceruloplasmin IgA Mitochondria M2 IgG Ab Tiss Transglutamin IgG Celiac Disease Interp HCV RNA Genotype HCV RNA (PCR) IUs/ml HCV RNA PCR log IUs/ml 12/17/17 12/17/17 12/17/17 11:17 14:41 14:41 WBC 15.0 H RBC 4.52 Hgb 16.3 Hct 48.7 MCV 107.7 H D MCH 36.1 H MCHC 33.5 RDW 15.2 Plt Count 45 L D MPV 10.8 Prelim Diff (Auto) Neut % (Auto) Lymph % (Auto) [place] % (Auto) Eos % (Auto) Baso % (Auto) Neut # (Auto) Lymph # (Auto) [place] # (Auto) Eos # (Auto) Baso # (Auto) WBC Differential Diff Scan Differential Comment Platelet Estimate Platelet Morphology Hematology Comments PT INR Sodium 143 Potassium 3.8 Chloride 103 Carbon Dioxide 31.0 Anion Gap 9 BUN 33 H Creatinine 1.22 Estimated GFR 59 L POC Glucose 141 H Random Glucose 140 H Calcium 8.8 Total Bilirubin AST ALT Alkaline Phosphatase Total Protein Albumin Ceruloplasmin IgA Mitochondria M2 IgG Ab Tiss Transglutamin IgG Celiac Disease Interp HCV RNA Genotype HCV RNA (PCR) IUs/ml HCV RNA PCR log IUs/ml 12/18/17 12/18/17 12/18/17 01:55 02:44 02:44 WBC 12.1 H RBC 4.08 L Hgb 14.7 Hct 43.5 MCV 106.7 H MCH 35.9 H MCHC 33.7 RDW 15.3 Plt Count 41 L MPV 11.1 H Prelim Diff (Auto) Slide review pending Neut % (Auto) 92.4 H Lymph % (Auto) 3.1 L [place] % (Auto) 4.4 Eos % (Auto) 0.0 Baso % (Auto) 0.1 Neut # (Auto) 11.2 H Lymph # (Auto) 0.4 L [place] # (Auto) 0.5 Eos # (Auto) 0.0 Baso # (Auto) 0.0 WBC Differential . Diff Scan Auto diff confirmed Differential Comment . Platelet Estimate Low L Platelet Morphology Normal Hematology Comments PT 16.1 H INR 1.6 Sodium Potassium Chloride Carbon Dioxide Anion Gap BUN Creatinine Estimated GFR POC Glucose 162 H Random Glucose Calcium Total Bilirubin AST ALT Alkaline Phosphatase Total Protein Albumin Ceruloplasmin IgA Mitochondria M2 IgG Ab Tiss Transglutamin IgG Celiac Disease Interp HCV RNA Genotype HCV RNA (PCR) IUs/ml HCV RNA PCR log IUs/ml 12/18/17 12/18/17 12/18/17 02:44 06:24 12:53 WBC RBC Hgb Hct MCV MCH MCHC RDW Plt Count MPV Prelim Diff (Auto) Neut % (Auto) Lymph % (Auto) [place] % (Auto) Eos % (Auto) Baso % (Auto) Neut # (Auto) Lymph # (Auto) [place] # (Auto) Eos # (Auto) Baso # (Auto) WBC Differential Diff Scan Differential Comment Platelet Estimate Platelet Morphology Hematology Comments PT INR Sodium 145 Potassium 3.5 Chloride 106 Carbon Dioxide 29.6 Anion Gap 9 BUN 32 H Creatinine 1.00 Estimated GFR 74 L POC Glucose 157 H 138 H Random Glucose 154 H Calcium 8.1 L Total Bilirubin AST ALT Alkaline Phosphatase Total Protein Albumin Ceruloplasmin IgA Mitochondria M2 IgG Ab Tiss Transglutamin IgG Celiac Disease Interp HCV RNA Genotype HCV RNA (PCR) IUs/ml HCV RNA PCR log IUs/ml Result Diagrams: 12/18/17 02:44 12/18/17 02:44 Microbiology: Microbiology 12/11/17 04:15 Aerobic Blood Culture - Final Blood - Peripheral No growth in 5 days Anaerobic Blood Culture - Final No growth in 5 days 12/11/17 04:20 Aerobic Blood Culture - Final Blood - Peripheral No growth in 5 days Anaerobic Blood Culture - Final No growth in 5 days Procedures: 12/18/17 cardiac catheterization Assessment and Plan - Disease Oriented Problem List (1) V tach (2) Hypoglycemia (3) Elevated troponin (4) Acute renal failure (5) High transaminase levels (6) Cardiomyopathy (7) Hypertension - Symptom Scale (1) Dysphagia 0-10 Scale: Unable to quantify (2) Dizziness 0-10 Scale: Unable to quantify Pertinent Non-Medical Issues: Psychosocial: Most recently patient is homeless. He served in the [employer], spent time in [place]. Follows with the blue team at the [place]. Spiritual: Believes in God, but does not want field marketing director visit Legal:Patient is alert and oriented 3. However he appears to have somewhat limited or poor insight into medical conditions. Appears he has been following up with medical appointments at the [place] system. Not clear that he has full insight and ability to make medical decisions at this time. He indicates he does not have advanced directives or health care surrogate. He indicates he has 12 siblings he provided me the name of 3 today. He is not and has no children. He does not wish to designate anyone as a healthcare surrogate. Per [place] statutes if patient incapacitated proxy decision making would fall to majority of the 12 siblings. Ethical issues impacting care: No ethical issues identified Important Contacts: Brother Jus [phone] brother Tamica Saunders [phone] Sister Kecia [phone] Jaqueline Carleebernardino [place] [facility] / social worker psychiatric @ [place] [phone] . Prognosis: This patient was admitted with complaints of overall "not feeling well". EMS found him to be in V. tach, he required cardioversion course. Cardiology notes he may require cardiac catheterization however this would have limited benefit due to patient would not be a candidate for revascularization. + cardiomyopathy , EF 20 % per cardiology. Overall patient with poor long-term prognosis secondary to multiorgan disease status including cardiac, liver, which may be compounded by his homeless status and inability to care for self. Some acute renal dysfunction which appears to be improving. Code Status: Full Code Plan: * Legal decision maker:Patient is alert and oriented 3. However he appears to have somewhat limited or poor insight into medical conditions. Appears he has been following up with medical appointments at the [place] system. Not clear that he has full insight and ability to make medical decisions at this time. He indicates he does not have advanced directives or health care surrogate. He indicates he has 12 siblings he provided me the name of 3 today. He is not and has no children. He does not wish to designate anyone as a healthcare surrogate. Per [place] statutes if patient incapacitated proxy decision making would fall to majority of the 12 siblings. * Consider PSYCH consult to opine on pt capacity to make medical decisions, as pt history,recall etc appears to fluctuate I did attempt to reach his 3 siblings on 12/18/17, VM left. * Goals: Patient is most focused on establishing housing for a comfortable place to sleep following hospital discharge. He also indicates that he would agree to having his swallowing evaluated though was not certain if he wants to stay in the hospital for this. He appears to have poor insight into his medical conditions and prognosis. * CODE STATUS: Full code * SYMPTOMS: --Leg pain- poss 2/2 hypomagnesia,? Vascular disease, indicates has improved during hospitalization. CV following, patient not a candidate for revascularization, cardiac catheterization would be of limited benefit-- s/p cardiac cath Friday via radial approach. --Dizziness-not currently endorsing any dizziness but endorses out of the hospital dizziness and near syncope when he first would try to walk. This may be multifactorial as he appears to have vascular disease, he was also hypoglycemic upon admission have been reported to have poor oral intake. + V. tach event during presentation may have with cardiac ectopy. CT brain negative for acute process. + decreased EF 15% per cardiac cath 12/18 --Dysphagia-patient endorses pain with swallowing as well as difficulty swallowing onset during acute hospitalization. However he reported to nursing that this is been a known issue and that he had underwent a partial GI workup for this outpatient. He reports difficulty swallowing water and pills. He feels like it will not go down. He indicates prior to hospitalization his appetite was good and he was eating and swallowing fine though again this is not what he told nursing. s/p ST eval, barium swallow eval, negative for dysphagia. EGD cx, GI signed off, f/up out pt as needed. Swallowing now improved * Palliative care will continue to follow during hospital course as condition evolves, to assist patient/decision-maker with understanding of medical conditions, weighing benefits/burdens of treatment options, for clarification of goals of treatment. Additionally will assist with any symptoms of palliative concern Attestation Attestation: To help prompt me to consider important information that might be impacting today's encounter and assessment, information from prior notes written by myself or my colleagues may have been "brought forward" into today's note. My signature on this note, however, is an attestation that I personally performed the exam, history, and/or decision-making noted today, and, unless otherwise indicated, the interactions with patient, family, and staff as well as the review of records all occurred today. I also attest that the listed assessment and stated plan reflect my best clinical judgment today based on the combination of historical information, prior notes, and today's exam/ interactions. When time spent is documented, it refers only to time spent today by the signer, or if indicated, combined time spent today by collaborating physician/nurse practitioner.
[2017-12-18] MEDS: Amoxicillin/Clavulanate 875/125 MG Tablet PO SCH (23:07)
[2017-12-19] MEDS: metroNIDAZOLE 500 MG Tablet PO SCH ×3 (05:04→21:49)
[2017-12-19] MEDS: predniSONE 20 MG Tablet PO SCH (09:14)
[2017-12-19] MEDS: Pentoxifylline 400 MG Controlled Release Tablet PO SCH ×3 (09:14→18:11)
[2017-12-19] MEDS: Amoxicillin/Clavulanate 875/125 MG Tablet PO SCH ×2 (09:15→21:51)
[2017-12-19] MEDS: Magnesium Oxide 400 MG Tablet PO SCH (09:15)
[2017-12-19] MEDS: rifAXIMin 550 MG Tablet PO SCH ×2 (09:15→21:48)
[2017-12-19] MEDS: Carvedilol 6.25 MG Tablet PO SCH ×2 (10:01→21:49)
[2017-12-19] MEDS: Sod Chloride 0.9% Inj 1,000 ML IV.CONT SCH ×2 (10:04→21:49)
[2017-12-19] MEDS: Dextrose 5%/NaCl 0.45% Inj 1,000 ML IV.CONT SCH (10:05)
--- NOTE | 2017-12-19 10:07 | P.PNCA ---
Subjective Interval history: No complaints Physical Exam Vital signs: Vital Signs 12/18/17 12:45 12/18/17 16:00 12/18/17 20:00 Temperature 97.2 F L 97.2 F L 97.5 F L Pulse Rate 73 77 81 Respiratory Rate 18 17 17 Blood Pressure 138/70 152/72 H 150/92 H Pulse Oximetry 93 L 97 92 L 12/18/17 20:07 12/18/17 23:59 12/19/17 00:00 Temperature 98.2 F Pulse Rate 70 87 89 Respiratory Rate 17 Blood Pressure 144/90 H Pulse Oximetry 94 L 12/19/17 02:18 12/19/17 04:00 12/19/17 06:17 Temperature 97.3 F L Pulse Rate 70 Respiratory Rate 17 18 18 Blood Pressure 146/99 H Pulse Oximetry 95 12/19/17 07:49 Temperature 97.7 F Pulse Rate 92 H Respiratory Rate 18 Blood Pressure 147/97 H Pulse Oximetry 98 Intake & Output 12/18/17 12/19/17 12/19/17 18:59 06:59 18:59 Intake Total 605 / 605 Balance 605 / 605 Intake: IV 105 / 105 Heparin/NS PF Inj 1,000 ML @ 0 5 / 5 mls/hr .ROUTE .STK-MED [facility] Rx#: [id number] Zosyn 3.375 GM Premix 50 ML @ 100 / 100 100 mls/hr IV.SIG Q6H [facility] Rx#: [id number] Oral 500 / 500 Other: # Voids 2 3 Date of Last Bowel Movement 12/18/17 # Bowel Movements 1 3 Narrative: Awake, more alert Chest CTA CV S1S2 RRR Tele artifact Right wrist OK No leg edema Tele: artifact Labs - CBC, BMP results not back - Urinary Catheter Management Condom Cath placed during this visit: no Assessment and Plan - Assessment (1) Acute renal failure Code(s): N17.9 - Acute kidney failure, unspecified Status: Acute Plan: Resolved pre-cath. Labs post cath pending (2) Cardiomyopathy Code(s): I42.9 - Cardiomyopathy, unspecified Status: Acute Plan: Severe nonischemic. EF 15-20%. Increase carvedilol to 6.26mg bid (3) Homeless single person Code(s): Z59.0 - Homelessness Status: Acute (4) Advanced cirrhosis of liver Code(s): K74.60 - Unspecified cirrhosis of liver Status: Acute Plan: INR elevated. Thrombocytopenic. (5) V tach Code(s): I47.2 - Ventricular tachycardia Status: Acute Plan: AICD Friday when Dr. Moreland returns. (2) Cardiomyopathy Qualifiers: Cardiomyopathy type: dilated Qualified Code(s): I42.0 - Dilated cardiomyopathy
--- NOTE | 2017-12-19 10:15 | P.PNIM ---
Subjective Interval history: patient has no complaints. Denied any chest pain, abdominal pain, N/V, cough or SOB. Physical Exam Vital signs: Vital Signs 12/18/17 12:45 12/18/17 16:00 12/18/17 20:00 Temperature 97.2 F L 97.2 F L 97.5 F L Pulse Rate 73 77 81 Respiratory Rate 18 17 17 Blood Pressure 138/70 152/72 H 150/92 H Pulse Oximetry 93 L 97 92 L 12/18/17 20:07 12/18/17 23:59 12/19/17 00:00 Temperature 98.2 F Pulse Rate 70 87 89 Respiratory Rate 17 Blood Pressure 144/90 H Pulse Oximetry 94 L 12/19/17 02:18 12/19/17 04:00 12/19/17 06:17 Temperature 97.3 F L Pulse Rate 70 Respiratory Rate 17 18 18 Blood Pressure 146/99 H Pulse Oximetry 95 12/19/17 07:49 Temperature 97.7 F Pulse Rate 92 H Respiratory Rate 18 Blood Pressure 147/97 H Pulse Oximetry 98 Intake & Output 12/18/17 12/19/17 12/19/17 18:59 06:59 18:59 Intake Total 605 / 605 Balance 605 / 605 Intake: IV 105 / 105 Heparin/NS PF Inj 1,000 ML @ 0 5 / 5 mls/hr .ROUTE .STK-MED [facility] Rx#: [id number] Zosyn 3.375 GM Premix 50 ML @ 100 / 100 100 mls/hr IV.SIG Q6H [facility] Rx#: [id number] Oral 500 / 500 Other: # Voids 2 3 Date of Last Bowel Movement 12/18/17 # Bowel Movements 1 3 - Constitutional no acute distress - Routine HEENT Exam Head: Present: normocephalic, atraumatic Eye: Present: EOMI, PERRL ENT: Present: mucous membranes moist - Routine Neck Exam Present: supple - Routine Respiratory Exam Present: CTA bilaterally - Routine Cardiovascular Exam Present: RRR, S1, S2 Comments: no r/m/g - Routine Abdominal Exam Present: soft, normoactive bowel sounds Comments: no TTP or peritoneal signs. - Urinary Catheter Management Condom Cath placed during this visit: no Results - Labs CBC & Chem 7: 12/18/17 02:44 12/18/17 02:44 Laboratory Results - last 24 hr 12/18/17 12/18/17 12/18/17 12:53 17:53 23:06 POC Glucose 138 H 162 H 116 H 12/19/17 05:06 POC Glucose 122 H Assessment and Plan - Plan Acute Metabolic Encephalopathy -improving due to alcoholism. 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 -Ammonia level 34 on Lactulose and Xifaxan, Supplement Multivitamin Thiamine Alcoholism -no signs of withdrawals. -continue CIWA protocol. Respiratory Insufficiency/COPD Bronchodilator, Mucolytic and Incentive spirometry - CT of the chest-left lower lobe infiltrate and moderate effusions -Effusions most likely from third spacing -Legionella Negative -clinically symptoms seems to resolved so d/c zosyn and place on augmetin and flagyl. last day will be tomorrow. Sustained Ventricular Tachycardia, -Cardiomyopathy with EF 20%, questioned Alcoholic Cardiomyopathy/possible apical thrombus - Patient cardioverted in ER, was on IV Amiodarone, discontinued due to Liver failure, given Lidocaine infusion on Coreg, was on Esmolol for Atrial Flutter with RVR. -cardiac cath done today 12/[address] Mcconnell showing elevated left ventricular end-diastolic pressure, severely impaired left ventricular function. - mild nonocclusive coronary artery disease. -ACID scheduled for friday. nonischemic cardiomyopathy -EF of 10-15%. carvedilol increase today by lead java programmer. Acute Hepatitis with liver failure/Liver cirrhosis/Ascites -continue Xifaxan and Lactulose. -s/p solumedrol -spoke to aminata WILL and stated and place on prednisone 40 mg PO Daily for 28 days then taper off. (1st does given today) Acute Kidney Failure -resolved. -pending labs since patient is post cath. thrombocytopenia -due to liver disease and alcoholism. no signs of active bleeding. -pending labs. Dysphagia status post WNL Barium Swallow negative, EGD cancelled. no need for this test. Bilateral lower extremity SCDs. Avoid chemical DVT prophylaxis due to coagulopathy and Thrombocytopenia Discharge Planning: patient scheduled for AICD. palliative care recommend Psych evaluation for capacity. Consult place, but patient seems to have the capacity to make medical decision.
[2017-12-19 11:11] LABS: Baso % (Auto) 0.2 % (0.0-2.0); Eos # (Auto) 0.1 th/mm3 (0.0-0.4); Eos % (Auto) 1.1 % (0.0-4.0); Hematocrit 46.3 % (39.0-51.0); Hemoglobin 15.5 gm/dL (13.0-17.0); Lymph # (Auto) 1.2 th/mm3 (1.0-4.8); Lymph % (Auto) 9.5 % (9.0-44.0); Mean Corpuscular HGB Conc 33.4 % (32.0-36.0); Mean Corpuscular Hemoglobin 35.8 pg (27.0-34.0); Mean Corpuscular Volume 107.1 fL (80.0-100.0); Mean Platelet Volume 11.2 fL (7.0-11.0); Mono # (Auto) 0.7 th/mm3 (0.0-0.9); Mono % (Auto) 5.7 % (0.0-8.0); Neut # (Auto) 10.2 th/mm3 (1.8-7.7); Neut % (Auto) 83.5 % (16.0-70.0); Platelet Count 60 th/mm3 (150-450); Red Blood Count 4.33 mil/mm3 (4.50-5.90); White Blood Count 12.2 th/mm3 (4.0-11.0)
[2017-12-19 11:36] LABS: Calcium 9.2 mg/dL (8.5-10.1); Carbon Dioxide 33.3 meq/L (21.0-32.0); Potassium 3.4 meq/L (3.5-5.1)
[2017-12-19 11:49] LABS: Platelet Morphology Normal (Normal)
[2017-12-20] MEDS: Sod Chloride 0.9% Inj 1,000 ML IV.CONT SCH ×2 (05:45→17:14)
[2017-12-20] MEDS: metroNIDAZOLE 500 MG Tablet PO SCH ×3 (05:49→21:45)
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
[2017-12-20] MEDS: Dextrose 5%/NaCl 0.45% Inj 1,000 ML IV.CONT SCH (08:36)
[2017-12-20] MEDS: Pentoxifylline 400 MG Controlled Release Tablet PO SCH ×3 (08:37→17:10)
[2017-12-20] MEDS: Magnesium Oxide 400 MG Tablet PO SCH (08:37)
[2017-12-20] MEDS: predniSONE 20 MG Tablet PO SCH (08:37)
[2017-12-20] MEDS: Carvedilol 6.25 MG Tablet PO SCH ×2 (08:37→20:19)
[2017-12-20] MEDS: rifAXIMin 550 MG Tablet PO SCH ×2 (08:37→20:19)
[2017-12-20] MEDS: Amoxicillin/Clavulanate 875/125 MG Tablet PO SCH ×2 (08:37→20:18)
--- NOTE | 2017-12-20 10:56 | P.PN ---
Subjective Interval history: Stable seen in his bedroom, no complaint, no nausea, vomit or diarrhea, will have AICD placement next 12/22/17. Physical Exam Vital signs: Vital Signs 12/19/17 12:00 12/19/17 15:13 12/19/17 20:00 Temperature 98.1 F 97.2 F L 98.5 F Pulse Rate 75 85 76 Respiratory Rate 17 18 Blood Pressure 148/92 H 143/88 H 138/85 Pulse Oximetry 93 L 95 97 12/19/17 23:00 12/20/17 00:00 12/20/17 04:00 Temperature 98.6 F 97.5 F L Pulse Rate 85 85 77 Respiratory Rate 18 18 Blood Pressure 158/88 H 136/80 Pulse Oximetry 93 L 97 12/20/17 08:00 Temperature 97.6 F Pulse Rate 85 Respiratory Rate 16 Blood Pressure 158/94 H Pulse Oximetry 91 L Intake & Output 12/19/17 12/20/17 12/20/17 18:59 06:59 18:59 Weight 79.2 kg Other: # Voids 3 Date of Last Bowel Movement 12/19/17 12/20/17 # Bowel Movements 1 Narrative: - Constitutional no acute distress - Routine HEENT Exam Head: Present: normocephalic, atraumatic Eye: Present: EOMI, PERRL ENT: Present: mucous membranes moist - Routine Neck Exam Present: supple - Routine Respiratory Exam Present: CTA bilaterally - Routine Cardiovascular Exam Present: RRR, S1, S2 Comments: no r/m/g - Routine Abdominal Exam Present: soft, normoactive bowel sounds Comments: no TTP or peritoneal signs. - Urinary Catheter Management Condom Cath placed during this visit: no - Urinary Catheter Management Condom Cath placed during this visit: no Results - Labs CBC & Chem 7: 12/19/17 10:21 12/19/17 10:21 Laboratory Results - last 24 hr 12/19/17 12/19/17 12/19/17 10:21 10:21 12:04 WBC 12.2 H RBC 4.33 L Hgb 15.5 Hct 46.3 MCV 107.1 H MCH 35.8 H MCHC 33.4 RDW 15.0 Plt Count 60 L D MPV 11.2 H Prelim Diff (Auto) Slide review pending Neut % (Auto) 83.5 H Lymph % (Auto) 9.5 [place] % (Auto) 5.7 Eos % (Auto) 1.1 Baso % (Auto) 0.2 Neut # (Auto) 10.2 H Lymph # (Auto) 1.2 [place] # (Auto) 0.7 Eos # (Auto) 0.1 Baso # (Auto) 0.0 WBC Differential . Diff Scan Auto diff confirmed Differential Comment . Platelet Estimate Low L Platelet Morphology Normal Sodium 143 Potassium 3.4 L Chloride 102 Carbon Dioxide 33.3 H Anion Gap 8 BUN 29 H Creatinine 1.05 Estimated GFR 70 L POC Glucose 110 Random Glucose 107 H Calcium 9.2 D 12/19/17 12/20/17 12/20/17 18:14 00:05 05:48 WBC RBC Hgb Hct MCV MCH MCHC RDW Plt Count MPV Prelim Diff (Auto) Neut % (Auto) Lymph % (Auto) [place] % (Auto) Eos % (Auto) Baso % (Auto) Neut # (Auto) Lymph # (Auto) [place] # (Auto) Eos # (Auto) Baso # (Auto) WBC Differential Diff Scan Differential Comment Platelet Estimate Platelet Morphology Sodium Potassium Chloride Carbon Dioxide Anion Gap BUN Creatinine Estimated GFR POC Glucose 202 H 143 H 108 Random Glucose Calcium Assessment and Plan - Plan Acute Metabolic Encephalopathy/alcohol dependence Improved. 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 Ammonia level 34 on Lactulose and Xifaxan, Supplement Multivitamin Thiamine Continue CIWA protocol, no signs of Withdrawal. Respiratory Insufficiency/COPD Bronchodilator, Mucolytic and Incentive spirometry - CT of the chest-left lower lobe infiltrate and moderate effusions -Effusions most likely from third spacing -Legionella Negative -clinically symptoms seems to resolved so d/c zosyn and place on augmetin and flagyl. last day will be today Sustained Ventricular Tachycardia, -Cardiomyopathy with EF 20%, questioned Alcoholic Cardiomyopathy/possible apical thrombus - Patient cardioverted in ER, was on IV Amiodarone, discontinued due to Liver failure, given Lidocaine infusion on Coreg, was on Esmolol for Atrial Flutter with RVR. -cardiac cath done today 12/[address] Mcconnell showing elevated left ventricular end-diastolic pressure, severely impaired left ventricular function. - mild nonocclusive coronary artery disease. -ACID scheduled for 12/22/17 nonischemic cardiomyopathy -EF of 10-15%. carvedilol increase today by md physician dermatologist. Acute Hepatitis with liver failure/Liver cirrhosis/Ascites -continue Xifaxan and Lactulose. -s/p solumedrol -spoke to aminata WILL and stated and place on prednisone 40 mg PO Daily for 28 days then taper off. (1st does given today) Acute Kidney Failure -resolved. thrombocytopenia -due to liver disease and alcoholism. no signs of active bleeding. -pending labs. Dysphagia status post WNL Barium Swallow negative, EGD cancelled. no need for this test. Psychiatry evaluation complete no further recommendations patient has capacity to take his own decisions. Bilateral lower extremity SCDs. Avoid chemical DVT prophylaxis due to coagulopathy and Thrombocytopenia Code Status: Full code. Discussed Condition With: patient Discharge Planning: patient scheduled for AICD. palliative care recommend Psych evaluation for capacity. Consult place, but patient seems to have the capacity to make medical decision.
[2017-12-21] MEDS: Sod Chloride 0.9% Inj 1,000 ML IV.CONT SCH ×3 (01:54→21:35)
[2017-12-21] MEDS: metroNIDAZOLE 500 MG Tablet PO SCH ×3 (05:31→21:33)
[2017-12-21] MEDS: Magnesium Oxide 400 MG Tablet PO SCH (08:25)
[2017-12-21] MEDS: Pentoxifylline 400 MG Controlled Release Tablet PO SCH ×3 (08:25→17:19)
[2017-12-21] MEDS: predniSONE 20 MG Tablet PO SCH (08:25)
[2017-12-21] MEDS: rifAXIMin 550 MG Tablet PO SCH ×2 (08:25→21:34)
[2017-12-21] MEDS: Dextrose 5%/NaCl 0.45% Inj 1,000 ML IV.CONT SCH (08:26)
[2017-12-21] MEDS: Carvedilol 6.25 MG Tablet PO SCH (08:26)
[2017-12-21] MEDS: Amoxicillin/Clavulanate 875/125 MG Tablet PO SCH ×2 (08:26→21:34)
--- NOTE | 2017-12-21 12:14 | P.PN ---
Subjective Interval history: Stable seen in his bedroom, no complaint, no nausea, vomit or diarrhea, will have AICD placement next 12/22/17. discussed with nurse Miss Avendaño the patient removed his IV lines asked her to get IV line as soon as possible and asked the patient not to remove lines also refusing oral medicines. complaint of Left arm edema will get US of the left arm. Physical Exam Vital signs: Vital Signs 12/20/17 16:00 12/20/17 16:24 12/20/17 20:00 Temperature 98.0 F 98 F Pulse Rate 91 H 82 Respiratory Rate 16 18 18 Blood Pressure 143/93 H 154/83 H Pulse Oximetry 97 97 12/20/17 23:55 12/21/17 00:00 12/21/17 03:20 Temperature 97.3 F L Pulse Rate 78 71 Respiratory Rate 18 18 Blood Pressure 155/92 H Pulse Oximetry 95 12/21/17 04:00 12/21/17 08:00 12/21/17 09:39 Temperature 97.5 F L 97.9 F Pulse Rate 94 H 84 88 Respiratory Rate 18 16 Blood Pressure 154/92 H 163/96 H Pulse Oximetry 95 97 Intake & Output 12/20/17 12/21/17 12/21/17 18:59 06:59 18:59 Intake Total 400 / 400 1200 / 1200 900 / 900 Balance 400 / 400 1200 / 1200 900 / 900 Weight 79.2 kg Intake: IV 1000 / 1000 900 / 900 NS Inj 1,000 ML @ 100 mls/hr IV 1000 / 1000 900 / 900 .CONT .Q10H [facility] Rx#:[id number] Oral 400 / 400 200 / 200 Other: # Voids 1 4 Date of Last Bowel Movement 12/20/17 12/20/17 12/21/17 Narrative: - Constitutional no acute distress - Routine HEENT Exam Head: Present: normocephalic, atraumatic Eye: Present: EOMI, PERRL ENT: Present: mucous membranes moist - Routine Neck Exam Present: supple - Routine Respiratory Exam Present: CTA bilaterally - Routine Cardiovascular Exam Present: RRR, S1, S2 Comments: no r/m/g - Routine Abdominal Exam Present: soft, normoactive bowel sounds Comments: no TTP or peritoneal signs. - Urinary Catheter Management Condom Cath placed during this visit: no - Urinary Catheter Management Condom Cath placed during this visit: no Results - Labs CBC & Chem 7: 12/21/17 11:54 12/21/17 11:54 Laboratory Results - last 24 hr 12/20/17 12/20/17 12/21/17 17:28 23:54 05:35 POC Glucose 109 124 H 107 12/21/17 11:46 POC Glucose 144 H Assessment and Plan - Plan Acute Metabolic Encephalopathy/alcohol dependence Improved. 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 Ammonia level 34 on Lactulose and Xifaxan, Supplement Multivitamin Thiamine Continue CIWA protocol, no signs of Withdrawal. Respiratory Insufficiency/COPD Bronchodilator, Mucolytic and Incentive spirometry - CT of the chest-left lower lobe infiltrate and moderate effusions -Effusions most likely from third spacing -Legionella Negative -clinically symptoms seems to resolved so d/c zosyn and place on augmetin and flagyl. last day will be today Sustained Ventricular Tachycardia, -Cardiomyopathy with EF 20%, questioned Alcoholic Cardiomyopathy/possible apical thrombus - Patient cardioverted in ER, was on IV Amiodarone, discontinued due to Liver failure, given Lidocaine infusion on Coreg, was on Esmolol for Atrial Flutter with RVR. -cardiac cath done today 12/[address] Mcconnell showing elevated left ventricular end-diastolic pressure, severely impaired left ventricular function. - mild nonocclusive coronary artery disease. -ACID scheduled for 12/22/17 nonischemic cardiomyopathy -EF of 10-15%. carvedilol increase today by flask maker. Acute Hepatitis with liver failure/Liver cirrhosis/Ascites -continue Xifaxan and Lactulose. -s/p solumedrol -spoke to aminata WILL and stated and place on prednisone 40 mg PO Daily for 28 days then taper off. (1st does given today) Acute Kidney Failure -resolved. thrombocytopenia -due to liver disease and alcoholism. no signs of active bleeding. -pending labs. Dysphagia status post WNL Barium Swallow negative, EGD cancelled. no need for this test. Left upper extremity edema asked for Left arm Venous US. Psychiatry evaluation complete no further recommendations patient has capacity to take his own decisions. Bilateral lower extremity SCDs. Avoid chemical DVT prophylaxis due to coagulopathy and Thrombocytopenia Code Status: Full code Discussed Condition With: Patient and nurse miss Avendaño Discharge Planning: patient scheduled for AICD. palliative care recommend Psych evaluation for capacity. Consult place, but patient seems to have the capacity to make medical decision.
--- NOTE | 2017-12-21 12:45 | P.PNCA ---
Subjective Interval history: no complaints Physical Exam Vital signs: Vital Signs 12/20/17 16:00 12/20/17 16:24 12/20/17 20:00 Temperature 98.0 F 98 F Pulse Rate 91 H 82 Respiratory Rate 16 18 18 Blood Pressure 143/93 H 154/83 H Pulse Oximetry 97 97 12/20/17 23:55 12/21/17 00:00 12/21/17 03:20 Temperature 97.3 F L Pulse Rate 78 71 Respiratory Rate 18 18 Blood Pressure 155/92 H Pulse Oximetry 95 12/21/17 04:00 12/21/17 08:00 12/21/17 09:39 Temperature 97.5 F L 97.9 F Pulse Rate 94 H 84 88 Respiratory Rate 18 16 Blood Pressure 154/92 H 163/96 H Pulse Oximetry 95 97 Intake & Output 12/20/17 12/21/17 12/21/17 18:59 06:59 18:59 Intake Total 400 / 400 1200 / 1200 900 / 900 Balance 400 / 400 1200 / 1200 900 / 900 Weight 79.2 kg Intake: IV 1000 / 1000 900 / 900 NS Inj 1,000 ML @ 100 mls/hr IV 1000 / 1000 900 / 900 .CONT .Q10H [facility] Rx#:[id number] Oral 400 / 400 200 / 200 Other: # Voids 1 4 Date of Last Bowel Movement 12/20/17 12/20/17 12/21/17 Narrative: - Constitutional no acute distress - Routine HEENT Exam Head: Present: normocephalic, atraumatic Eye: Present: EOMI, PERRL ENT: Present: mucous membranes moist - Routine Neck Exam Present: supple - Routine Respiratory Exam Present: CTA bilaterally - Routine Cardiovascular Exam Present: RRR, S1, S2, +S3 Comments: no r/m/g - Routine Abdominal Exam Present: soft, normoactive bowel sounds Comments: no TTP or peritoneal signs. Ext no edema - Urinary Catheter Management Condom Cath placed during this visit: no Assessment and Plan - Assessment (1) Acute renal failure Code(s): N17.9 - Acute kidney failure, unspecified Status: Acute Plan: Resolved. (2) Cardiomyopathy Code(s): I42.9 - Cardiomyopathy, unspecified Status: Acute Plan: Severe nonischemic. EF 15-20%. Increase carvedilol to 12.5mg bid (3) Homeless single person Code(s): Z59.0 - Homelessness Status: Acute (4) Advanced cirrhosis of liver Code(s): K74.60 - Unspecified cirrhosis of liver Status: Acute Plan: INR elevated. Thrombocytopenic. (5) V tach Code(s): I47.2 - Ventricular tachycardia Status: Acute Plan: AICD Friday when Dr. Moreland returns. - Plan AICD tomorrow (2) Cardiomyopathy Qualifiers: Cardiomyopathy type: dilated Qualified Code(s): I42.0 - Dilated cardiomyopathy
[2017-12-21] MEDS ORDERED: Carvedilol 6.25 MG Tablet PO PRN (12:46)
[2017-12-21 12:54] LABS: Baso % (Auto) 0.4 % (0.0-2.0); Eos # (Auto) 0.1 th/mm3 (0.0-0.4); Eos % (Auto) 0.7 % (0.0-4.0); Hematocrit 44.4 % (39.0-51.0); Hemoglobin 14.9 gm/dL (13.0-17.0); Lymph # (Auto) 0.8 th/mm3 (1.0-4.8); Lymph % (Auto) 6.7 % (9.0-44.0); Mean Corpuscular HGB Conc 33.7 % (32.0-36.0); Mean Corpuscular Volume 106.8 fL (80.0-100.0); Mean Platelet Volume 10.9 fL (7.0-11.0); Mono # (Auto) 0.4 th/mm3 (0.0-0.9); Mono % (Auto) 3.7 % (0.0-8.0); Neut # (Auto) 10.6 th/mm3 (1.8-7.7); Neut % (Auto) 88.5 % (16.0-70.0); Platelet Count 55 th/mm3 (150-450); Red Blood Count 4.15 mil/mm3 (4.50-5.90); Red Cell Distribution Width 14.9 % (11.6-17.2)
[2017-12-21 13:25] LABS: Alanine Aminotransferase 220 U/L (12-78); Albumin 2.8 g/dL (3.4-5.0); Alkaline Phosphatase 93 U/L (45-117); Anion Gap 6 meq/L (5-15); Aspartate Aminotransferase 118 U/L (15-37); Blood Urea Nitrogen 19 mg/dL (7-18); Chloride 101 meq/L (98-107); Glomerular Filtration Rate 73 mL/min (>89); Glucose,Random 110 mg/dL (74-106); Sodium 139 meq/L (136-145)
[2017-12-21 13:26] LABS: Potassium 3.7 meq/L (3.5-5.1)
[2017-12-21] MEDS: Carvedilol 12.5 MG Tablet PO SCH (21:34)
[2017-12-22] MEDS: metroNIDAZOLE 500 MG Tablet PO SCH ×3 (06:00→22:02)
[2017-12-22 06:58] LABS: Baso % (Auto) 0.3 % (0.0-2.0); Eos # (Auto) 0.1 th/mm3 (0.0-0.4); Eos % (Auto) 0.8 % (0.0-4.0); Hematocrit 43.9 % (39.0-51.0); Hemoglobin 14.6 gm/dL (13.0-17.0); Lymph # (Auto) 1.6 th/mm3 (1.0-4.8); Lymph % (Auto) 13.3 % (9.0-44.0); Mean Corpuscular HGB Conc 33.2 % (32.0-36.0); Mean Corpuscular Hemoglobin 35.9 pg (27.0-34.0); Mean Corpuscular Volume 108.1 fL (80.0-100.0); Mean Platelet Volume 9.5 fL (7.0-11.0); Mono # (Auto) 0.8 th/mm3 (0.0-0.9); Mono % (Auto) 6.8 % (0.0-8.0); Neut # (Auto) 9.2 th/mm3 (1.8-7.7); Neut % (Auto) 78.8 % (16.0-70.0); Platelet Count 48 th/mm3 (150-450); Red Blood Count 4.06 mil/mm3 (4.50-5.90); Red Cell Distribution Width 14.6 % (11.6-17.2); White Blood Count 11.7 th/mm3 (4.0-11.0)
[2017-12-22 07:05] LABS: INR 1.4 Ratio; Prothrombin Time 14.5 sec (9.8-11.6)
[2017-12-22 07:21] LABS: Anion Gap 10 meq/L (5-15); Blood Urea Nitrogen 19 mg/dL (7-18); Carbon Dioxide 27.8 meq/L (21.0-32.0); Chloride 101 meq/L (98-107); Glomerular Filtration Rate Greater Than 89 mL/min (>89); Glucose,Random 105 mg/dL (74-106); Potassium 3.7 meq/L (3.5-5.1); Sodium 139 meq/L (136-145)
[2017-12-22 07:42] LABS: Ovalocytes 1+; Platelet Morphology Normal (Normal)
--- NOTE | 2017-12-22 08:13 | P.PN ---
Subjective Interval history: Stable seen in his bedroom, no complaint, no nausea, vomit or diarrhea, will have AICD placement next 12/22/17. discussed with nurse Kateryna the patient removed his IV lines asked her to get IV line as soon as possible and asked the patient not to remove lines also refusing oral medicines. complaint of Left arm edema will get US of the left arm. 12/22: Discussed with nurse Kateryna and with patient he refused today his AICD placement, awaiting for land conservation specialist, he will try to convince the patient having the procedure patient still NPO for procedure no nausea, vomit or diarrhea. Physical Exam Vital signs: Vital Signs 12/21/17 09:39 12/21/17 12:00 12/21/17 16:00 Temperature 97.3 F L 98.6 F Pulse Rate 88 62 73 Respiratory Rate 16 16 Blood Pressure 141/85 H 140/92 H Pulse Oximetry 98 98 12/21/17 17:09 12/21/17 20:00 12/22/17 00:00 Temperature 98.1 F 97.3 F L Pulse Rate 66 70 Respiratory Rate 18 18 18 Blood Pressure 130/81 156/94 H Pulse Oximetry 98 97 12/22/17 04:00 Temperature 97.5 F L Pulse Rate 67 Respiratory Rate 18 Blood Pressure 167/84 H Pulse Oximetry 98 Intake & Output 12/21/17 12/22/17 12/22/17 18:59 06:59 18:59 Intake Total 1460 / 1460 0 / 0 Output Total 200 / 200 Balance 1260 / 1260 0 / 0 Weight 79.8 kg Intake: IV 900 / 900 NS Inj 1,000 ML @ 100 mls/hr IV 900 / 900 .CONT .Q10H ORTIZ Rx#:[id number] Oral 560 / 560 0 / 0 Output: Urine 200 / 200 Other: # Voids 1 4 Date of Last Bowel Movement 12/21/17 # Bowel Movements 1 Narrative: - Constitutional no acute distress - Routine HEENT Exam Head: Present: normocephalic, atraumatic Eye: Present: EOMI, PERRL ENT: Present: mucous membranes moist - Routine Neck Exam Present: supple - Routine Respiratory Exam Present: CTA bilaterally - Routine Cardiovascular Exam Present: RRR, S1, S2 Comments: no r/m/g - Routine Abdominal Exam Present: soft, normoactive bowel sounds Comments: no TTP or peritoneal signs. - Urinary Catheter Management Condom Cath placed during this visit: no - Urinary Catheter Management Condom Cath placed during this visit: no Results - Labs CBC & Chem 7: 12/22/17 06:38 12/22/17 06:38 Laboratory Results - last 24 hr 12/21/17 12/21/17 12/21/17 11:46 11:54 11:54 WBC 12.0 H RBC 4.15 L Hgb 14.9 Hct 44.4 MCV 106.8 H MCH 36.0 H MCHC 33.7 RDW 14.9 Plt Count 55 L MPV 10.9 Prelim Diff (Auto) Slide review pending Neut % (Auto) 88.5 H Lymph % (Auto) 6.7 L Charles % (Auto) 3.7 Eos % (Auto) 0.7 Baso % (Auto) 0.4 Neut # (Auto) 10.6 H Lymph # (Auto) 0.8 L Charles # (Auto) 0.4 Eos # (Auto) 0.1 Baso # (Auto) 0.0 WBC Differential . Diff Scan Auto diff confirmed Differential Comment . Platelet Estimate Platelet Morphology Ovalocytes PT INR Sodium 139 Potassium 3.7 Chloride 101 Carbon Dioxide 32.0 Anion Gap 6 BUN 19 H Creatinine 1.01 Estimated GFR 73 L POC Glucose 144 H Random Glucose 110 H Calcium 8.0 L Total Bilirubin 3.4 H AST 118 H ALT 220 H Alkaline Phosphatase 93 Total Protein 6.0 L D Albumin 2.8 L 12/21/17 12/22/17 12/22/17 17:45 01:33 06:30 WBC RBC Hgb Hct MCV MCH MCHC RDW Plt Count MPV Prelim Diff (Auto) Neut % (Auto) Lymph % (Auto) Charles % (Auto) Eos % (Auto) Baso % (Auto) Neut # (Auto) Lymph # (Auto) Charles # (Auto) Eos # (Auto) Baso # (Auto) WBC Differential Diff Scan Differential Comment Platelet Estimate Platelet Morphology Ovalocytes PT INR Sodium Potassium Chloride Carbon Dioxide Anion Gap BUN Creatinine Estimated GFR POC Glucose 137 H 116 H 97 Random Glucose Calcium Total Bilirubin AST ALT Alkaline Phosphatase Total Protein Albumin 12/22/17 12/22/17 12/22/17 06:38 06:38 06:38 WBC 11.7 H RBC 4.06 L Hgb 14.6 Hct 43.9 MCV 108.1 H MCH 35.9 H MCHC 33.2 RDW 14.6 Plt Count 48 L MPV 9.5 Prelim Diff (Auto) Slide review pending Neut % (Auto) 78.8 H Lymph % (Auto) 13.3 Charles % (Auto) 6.8 Eos % (Auto) 0.8 Baso % (Auto) 0.3 Neut # (Auto) 9.2 H Lymph # (Auto) 1.6 Charles # (Auto) 0.8 Eos # (Auto) 0.1 Baso # (Auto) 0.0 WBC Differential . Diff Scan Auto diff confirmed Differential Comment . Platelet Estimate Low L Platelet Morphology Normal Ovalocytes 1+ H PT 14.5 H INR 1.4 Sodium 139 Potassium 3.7 Chloride 101 Carbon Dioxide 27.8 Anion Gap 10 BUN 19 H Creatinine 0.83 Estimated GFR Greater than 89 POC Glucose Random Glucose 105 Calcium 8.0 L Total Bilirubin AST ALT Alkaline Phosphatase Total Protein Albumin Assessment and Plan - Plan Acute Metabolic Encephalopathy/alcohol dependence Improved. 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 Ammonia level 34 on Lactulose and Xifaxan, Supplement Multivitamin Thiamine Continue CIWA protocol, no signs of Withdrawal. Respiratory Insufficiency/COPD Bronchodilator, Mucolytic and Incentive spirometry - CT of the chest-left lower lobe infiltrate and moderate effusions -Effusions most likely from third spacing -Legionella Negative -clinically symptoms seems to resolved treated with Zosyn. Sustained Ventricular Tachycardia, -Cardiomyopathy with EF 20%, questioned Alcoholic Cardiomyopathy/possible apical thrombus - Patient cardioverted in ER, was on IV Amiodarone, discontinued due to Liver failure, given Lidocaine infusion on Coreg, was on Esmolol for Atrial Flutter with RVR. -cardiac cath done today 12/[address] Mcconnell showing elevated left ventricular end-diastolic pressure, severely impaired left ventricular function. - mild nonocclusive coronary artery disease. -ACID scheduled for 12/22/17 nonischemic cardiomyopathy -EF of 10-15%. carvedilol increase today by motor analyst. Acute Hepatitis with liver failure/Liver cirrhosis/Ascites -continue Xifaxan and Lactulose. -s/p solumedrol -spoke to aminata WILL and stated and place on prednisone 40 mg PO Daily for 28 days then taper off. (1st does given today) Acute Kidney Failure -resolved. thrombocytopenia -due to liver disease and alcoholism. no signs of active bleeding. -pending labs. Dysphagia status post WNL Barium Swallow negative, EGD cancelled. no need for this test. Left upper extremity edema asked for Left arm Venous US. Psychiatry evaluation complete no further recommendations patient has capacity to take his own decisions. Bilateral lower extremity SCDs. Avoid chemical DVT prophylaxis due to coagulopathy and Thrombocytopenia Code Status: Full code. Discussed Condition With: Patient and Nurse Miss Avendaño. Discharge Planning: patient scheduled for AICD. Patient has the capacity to take his own decisions refusing AICD if not placed and Cardiology sign off the case to discharge home later today.
[2017-12-22] MEDS: Sod Chloride 0.9% Inj 1,000 ML IV.CONT SCH ×2 (08:22→18:21)
[2017-12-22] MEDS: Carvedilol 12.5 MG Tablet PO SCH ×2 (08:29→22:01)
[2017-12-22] MEDS: Magnesium Oxide 400 MG Tablet PO SCH (09:16)
[2017-12-22] MEDS: Amoxicillin/Clavulanate 875/125 MG Tablet PO SCH ×2 (09:16→22:01)
[2017-12-22] MEDS: Pentoxifylline 400 MG Controlled Release Tablet PO SCH ×3 (09:16→18:22)
[2017-12-22] MEDS: rifAXIMin 550 MG Tablet PO SCH ×2 (09:16→22:02)
[2017-12-22] MEDS: predniSONE 20 MG Tablet PO SCH (09:16)
[2017-12-22] MEDS: Dextrose 5%/NaCl 0.45% Inj 1,000 ML IV.CONT SCH (09:16)
[2017-12-22] MEDS ORDERED: Metoprolol Tartrate 25 MG Tablet PO SCH (11:00)
[2017-12-22] MEDS ORDERED: Sodium Chlor 0.9% Inj 500 ML IV.SIG SCH (11:00)
[2017-12-22] MEDS ORDERED: Chlorhexidine Gluconate 2% 1 Pack (2 Cloths) TOPICAL SCH (11:00)
--- NOTE | 2017-12-22 11:22 | US ---
EXAM DATE: 12/22/2017 10:39 AM EDT AGE/SEX: 67 years / Male INDICATIONS: Left arm swelling. IV removed yesterday from left arm. CLINICAL DATA: This is the patient's initial encounter. Patient reports that signs and symptoms have been present for 1 day and indicates a pain score of 0/10. MEDICAL/SURGICAL HISTORY: Hypertension. . COMPARISON: No prior exams available for comparison. FINDINGS: There is thrombosis involving the cephalic vein antecubital vein as well as the radial vei n. The brachial axillary and subclavian veins are patent. Other: None. CONCLUSION: 1. Superficial thrombus as above. Electronically signed by: Kasi Kapoor MD 12/22/2017 11:21 AM EDT
--- NOTE | 2017-12-23 08:27 | MB ---
cc: Sarah Moreland MD DATE: 12/22/2017 REASON FOR CONSULTATION: Ventricular tachycardia. REASON FOR CONSULTATION: Ventricular tachycardia. HISTORY OF PRESENT ILLNESS: Mr. Jaxson Saunders is a 67-year-old gentleman with a history of chronic smoker, congestive heart failure, cardiomyopathy. The gentleman is homeless, was admitted due to ventricular tachycardia. During hospitalization, he was cardioverted . He was seen by Dr. Mcconnell. Echocardiogram indicated ejection fraction of around 25%. Left heart catheterization was performed by Dr. Mcconnell that indicated nonocclusive disease. I was consulted for evaluation and management. The chart was reviewed. The patient was evaluated. ALLERGIES: NONE. SOCIAL HISTORY: The patient was still smoking before hospitalization. FAMILY HISTORY: Noncontributory to his current medical condition. MEDICATION: This gentleman is on acetaminophen. He is on amiodarone. He is on Coreg 12.5 mg a day. He is on magnesium. He is taking metronidazole. He is on rifaximin, thiamine. REVIEW OF SYSTEMS: He is feeling better. No chest pain or discomfort. PHYSICAL EXAMINATION: GENERAL: Alert, fully oriented. VITAL SIGNS: His blood pressure 138/82, pulse 77, respiratory rate 18. LUNGS: Ventilated. CARDIOVASCULAR: S1, S2. No gallop. No murmur. ABDOMEN: Soft. No mass. No bruits. EXTREMITIES: Left swelling. Electrocardiographic tracing indicates sinus rhythm with ST changes. LABORATORY DATA: Hemoglobin is 14.9, white blood cell 12. INR 1.4. Potassium 3.7, creatinine is 0.83. ASSESSMENT AND RECOMMENDATIONS: Mr. Saunders this morning has left arm swelling. Venous Doppler indicates peripheral . Dictation Ends Here. MD HERMINIA Borjas/debbie/kevin , 11:05 PM , 11:13 PM
[2017-12-23] MEDS: Carvedilol 12.5 MG Tablet PO SCH (09:17)
[2017-12-23] MEDS: predniSONE 20 MG Tablet PO SCH (09:17)
[2017-12-23] MEDS: Magnesium Oxide 400 MG Tablet PO SCH (09:17)
[2017-12-23] MEDS: Amoxicillin/Clavulanate 875/125 MG Tablet PO SCH (09:20)
[2017-12-23] MEDS: rifAXIMin 550 MG Tablet PO SCH (09:20)
[2017-12-23] MEDS: Pentoxifylline 400 MG Controlled Release Tablet PO SCH (09:21)
[2017-12-23] MEDS: metroNIDAZOLE 500 MG Tablet PO SCH (09:22)
[2017-12-23] MEDS: Sod Chloride 0.9% Inj 1,000 ML IV.CONT SCH (09:22)
[2017-12-23] MEDS: Dextrose 5%/NaCl 0.45% Inj 1,000 ML IV.CONT SCH (09:22)
[2017-12-23 11:58] VITALS: BP 139/91; PULSE 59; RESP 18; TEMP 97.3; O2SAT 97
--- NOTE | 2017-12-23 13:43 | P.PN ---
Subjective Interval history: Stable seen in his bedroom, no complaint, no nausea, vomit or diarrhea, will have AICD placement next 12/22/17. discussed with nurse Miss Avendaño the patient removed his IV lines asked her to get IV line as soon as possible and asked the patient not to remove lines also refusing oral medicines. complaint of Left arm edema will get US of the left arm. 12/22: Discussed with nurse Miss Avendaño and with patient he refused today his AICD placement, awaiting for consumer marketing specialist, he will try to convince the patient having the procedure patient still NPO for procedure 12/23: Stable in his bedroom, patient continue to refuse all kind of management, Cardiology okay to discharge if the patient refuse care, seen in his bedroom, stable no nausea, vomit or diarrhea,okay to discharge home. Physical Exam Vital signs: Vital Signs 12/22/17 16:00 12/22/17 19:50 12/22/17 20:00 Temperature 98.5 F Pulse Rate 77 78 78 Respiratory Rate 18 17 Blood Pressure 138/82 161/88 H Pulse Oximetry 98 97 12/23/17 00:00 12/23/17 00:11 12/23/17 01:06 Temperature 97.6 F Pulse Rate 89 72 Respiratory Rate 17 18 Blood Pressure 150/87 H Pulse Oximetry 98 12/23/17 04:00 12/23/17 04:19 12/23/17 07:53 Temperature 97.1 F L 97.1 F L Pulse Rate 85 94 H 93 H Respiratory Rate 17 17 Blood Pressure 160/94 H 155/89 H Pulse Oximetry 99 94 L 12/23/17 11:57 Temperature 97.3 F L Pulse Rate 59 L Respiratory Rate 18 Blood Pressure 139/91 H Pulse Oximetry 97 Intake & Output 12/22/17 12/23/17 12/23/17 18:59 06:59 18:59 Intake Total 0 / 0 Output Total 600 / 600 Balance -600 / -600 Intake: Oral 0 / 0 Output: Urine 600 / 600 Other: Date of Last Bowel Movement 12/21/17 12/21/17 Narrative: - Constitutional no acute distress - Routine HEENT Exam Head: Present: normocephalic, atraumatic Eye: Present: EOMI, PERRL ENT: Present: mucous membranes moist - Routine Neck Exam Present: supple - Routine Respiratory Exam Present: CTA bilaterally - Routine Cardiovascular Exam Present: RRR, S1, S2 Comments: no r/m/g - Routine Abdominal Exam Present: soft, normoactive bowel sounds Comments: no TTP or peritoneal signs. - Urinary Catheter Management Condom Cath placed during this visit: no - Urinary Catheter Management Condom Cath placed during this visit: no Results - Labs CBC & Chem 7: 12/22/17 06:38 12/22/17 06:38 Laboratory Results - last 24 hr 12/22/17 12/23/17 19:42 05:08 POC Glucose 99 87 Assessment and Plan - Plan Acute Metabolic Encephalopathy/alcohol dependence Improved. 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 Ammonia level 34 on Lactulose and Xifaxan, Supplement Multivitamin Thiamine Continue CIWA protocol, no signs of Withdrawal. Respiratory Insufficiency/COPD Bronchodilator, Mucolytic and Incentive spirometry - CT of the chest-left lower lobe infiltrate and moderate effusions -Effusions most likely from third spacing -Legionella Negative -clinically symptoms seems to resolved treated with Zosyn. will go home on Symbicort. Sustained Ventricular Tachycardia, -Cardiomyopathy with EF 20%, questioned Alcoholic Cardiomyopathy/possible apical thrombus - Patient cardioverted in ER, was on IV Amiodarone, discontinued due to Liver failure, given Lidocaine infusion on Coreg, was on Esmolol for Atrial Flutter with RVR. -cardiac cath done today 12/[address] Mcconnell showing elevated left ventricular end-diastolic pressure, severely impaired left ventricular function. - mild nonocclusive coronary artery disease. -ACID scheduled for 12/22/17, patient refused all care will go home now. Cardiology clear for discharge. nonischemic cardiomyopathy -EF of 10-15%. carvedilol was increased stable patient. Acute Hepatitis with liver failure/Liver cirrhosis/Ascites -continue Xifaxan and Lactulose. -s/p solumedrol -spoke to aminata WILL and stated and place on prednisone 40 mg PO Daily for 28 days then taper off. (1st does given today) follow by PCP in three days. Acute Kidney Failure -resolved. thrombocytopenia -due to liver disease and alcoholism. no signs of active bleeding. -pending labs. Dysphagia status post WNL Barium Swallow negative, EGD cancelled. no need for this test. Left upper extremity edema asked for Left arm Venous US. no pathology found. Psychiatry evaluation complete no further recommendations patient has capacity to take his own decisions. Bilateral lower extremity SCDs. Avoid chemical DVT prophylaxis due to coagulopathy and Thrombocytopenia Discharge today. Code Status: Full Code. Discussed Condition With: patient and nurse. Discharge Planning: patient scheduled for AICD. Patient has the capacity to take his own decisions Refused all care will go home today.
--- NOTE | 2017-12-23 13:49 | P.DS ---
Date of admission: 12/09/17 13:28 Primary care physician: No Primary Care Physician Attending physician on discharge: Rodrigo Leone Anticipated date of discharge: 12/23/17 Brief History from admission: 67-year-old homeless with a self-reported history of hypertension who called 911 due to a 1 day history of shortness of breath, fatigue. He was brought in by EMS, found to have monomorphic tachycardia which did not convert with amiodarone, however did convert after electric cardioversion. Patient says he is feeling better. He denies having any fevers, chills, nausea, vomiting, however has vomited on the floor. He does say that due to his shortness of breath, he has not eaten in over 2 days. DS: Diagnosis - Discharge Diagnosis (1) V tach Status: Acute (2) Hypoglycemia Status: Acute (3) Encounter for cardioversion procedure Status: Acute (4) Elevated troponin Status: Acute (5) Acute renal failure Status: Acute (6) High transaminase levels Status: Acute (7) Cardiomyopathy Status: Acute (8) A-fib Status: Acute DS: Medications - Discharge Medications Prescriptions: budesonide-formoterol [Symbicort] 2 puff INHALATION Q12H #1 bottle carvedilol [Coreg] 12.5 mg PO BID #60 tab magnesium oxide 400 mg PO DAILY #30 tab multivitamin with folic acid [Thera] 1 tab PO DAILY #30 tab prednisone [Deltasone] 20 mg PO DAILY #46 tab rifaximin [Xifaxan] 550 mg PO Q12HR #60 tab thiamine HCl (vitamin B1) 100 mg PO BID #30 tab DS: Summary Hospital Course: Stable seen in his bedroom, no complaint, no nausea, vomit or diarrhea, will have AICD placement next 12/22/17. discussed with nurse Miss Avendaño the patient removed his IV lines asked her to get IV line as soon as possible and asked the patient not to remove lines also refusing oral medicines. complaint of Left arm edema will get US of the left arm. 12/22: Discussed with nurse Miss Avendaño and with patient he refused today his AICD placement, awaiting for medical insurance coding specialist, he will try to convince the patient having the procedure patient still NPO for procedure 12/23: Stable in his bedroom, patient continue to refuse all kind of management, Cardiology okay to discharge if the patient refuse care, seen in his bedroom, stable no nausea, vomit or diarrhea,okay to discharge home. Assessment and Plan - Plan Acute Metabolic Encephalopathy/alcohol dependence Improved. 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 Ammonia level 34 on Lactulose and Xifaxan, Supplement Multivitamin Thiamine Continue CIWA protocol, no signs of Withdrawal. Respiratory Insufficiency/COPD Bronchodilator, Mucolytic and Incentive spirometry - CT of the chest-left lower lobe infiltrate and moderate effusions -Effusions most likely from third spacing -Legionella Negative -clinically symptoms seems to resolved treated with Zosyn. will go home on Symbicort. Sustained Ventricular Tachycardia, -Cardiomyopathy with EF 20%, questioned Alcoholic Cardiomyopathy/possible apical thrombus - Patient cardioverted in ER, was on IV Amiodarone, discontinued due to Liver failure, given Lidocaine infusion on Coreg, was on Esmolol for Atrial Flutter with RVR. -cardiac cath done today 12/[address] Mcconnell showing elevated left ventricular end-diastolic pressure, severely impaired left ventricular function. - mild nonocclusive coronary artery disease. -ACID scheduled for 12/22/17, patient refused all care will go home now. Cardiology clear for discharge. nonischemic cardiomyopathy -EF of 10-15%. carvedilol was increased stable patient. Acute Hepatitis with liver failure/Liver cirrhosis/Ascites -continue Xifaxan and Lactulose. -s/p solumedrol -spoke to aminata WILL and stated and place on prednisone 40 mg PO Daily for 28 days then taper off. (1st does given today) follow by PCP in three days. Acute Kidney Failure -resolved. thrombocytopenia -due to liver disease and alcoholism. no signs of active bleeding. -pending labs. Dysphagia status post WNL Barium Swallow negative, EGD cancelled. no need for this test. Left upper extremity edema asked for Left arm Venous US. no pathology found. Psychiatry evaluation complete no further recommendations patient has capacity to take his own decisions. Bilateral lower extremity SCDs. Avoid chemical DVT prophylaxis due to coagulopathy and Thrombocytopenia Discharge today. Code Status: Full Code. Discussed Condition With: patient and nurse. Discharge Planning: patient scheduled for AICD. Patient has the capacity to take his own decisions Refused all care will go home today. - Time Spent with Patient Total time spent providing and/or coordinating discharge services: Greater than 30 minutes Exam Vital signs: Vital Signs 12/22/17 16:00 12/22/17 19:50 12/22/17 20:00 Temperature 98.5 F Pulse Rate 77 78 78 Respiratory Rate 18 17 Blood Pressure 138/82 161/88 H Pulse Oximetry 98 97 12/23/17 00:00 12/23/17 00:11 12/23/17 01:06 Temperature 97.6 F Pulse Rate 89 72 Respiratory Rate 17 18 Blood Pressure 150/87 H Pulse Oximetry 98 12/23/17 04:00 12/23/17 04:19 12/23/17 07:53 Temperature 97.1 F L 97.1 F L Pulse Rate 85 94 H 93 H Respiratory Rate 17 17 Blood Pressure 160/94 H 155/89 H Pulse Oximetry 99 94 L 12/23/17 11:57 Temperature 97.3 F L Pulse Rate 59 L Respiratory Rate 18 Blood Pressure 139/91 H Pulse Oximetry 97 Intake & Output 12/22/17 12/23/17 12/23/17 18:59 06:59 18:59 Intake Total 0 / 0 Output Total 600 / 600 Balance -600 / -600 Intake: Oral 0 / 0 Output: Urine 600 / 600 Other: Date of Last Bowel Movement 12/21/17 12/21/17 Narrative: - Constitutional no acute distress - Routine HEENT Exam Head: Present: normocephalic, atraumatic Eye: Present: EOMI, PERRL ENT: Present: mucous membranes moist - Routine Neck Exam Present: supple - Routine Respiratory Exam Present: CTA bilaterally - Routine Cardiovascular Exam Present: RRR, S1, S2 Comments: no r/m/g - Routine Abdominal Exam Present: soft, normoactive bowel sounds Comments: no TTP or peritoneal signs. - Urinary Catheter Management Condom Cath placed during this visit: no - Urinary Catheter Management Condom Cath placed during this visit: no Results Procedures completed during hospitalization: Cardiac Cath Labs on day of discharge: Labs from last 24 hours 12/23/17 12/22/17 05:08 19:42 POC Glucose 87 99 - Impressions ITS Impressions Abdomen/Bladder Ultrasound 12/09/17 00:00 CONCLUSION: 1. Mild right-sided hydronephrosis. Mild ascites and bilateral pleural effusions. Chest CT 12/10/17 00:00 CONCLUSION: 1. Moderate bilateral pleural effusions with compressive/dependent atelectasis. 2. A more focal area of consolidation involves the left lower lobe which may represent pneumonia in the proper clinical setting. Follow-up to resolution is recommended. 3. Enlarged heart, especially the right atrium. 4. Coronary artery calcification. Chest X-Ray 12/10/17 00:00 CONCLUSION: Increasing bibasilar parenchymal changes much worse on the left. Developing pleural effusions. Head CT 12/10/17 00:00 CONCLUSION: 1. No acute intracranial abnormality. 2. Old left frontal lobe infarct. 3. Left maxillary sinus disease partly seen. Increased attenuation material present, probably inspissated and desiccated debris although some blood in the sinus could appear similar. . Liver Ultrasound 12/10/17 00:00 CONCLUSION: 1. Ultrasound findings suggesting some hepatic insufficiency. Liver is somewhat nodular with increased hepatic echotexture suggesting fatty infiltration/cirrhosis. 2. Abdominal ascites. Bilateral pleural effusions. 3. Mild pelvocaliectasis of the right renal collecting system. 4. Mild mural thickening of the gallbladder. This is nonspecific and may be secondary to passive congestion associated with the presumed hepatic insufficiency Abdomen/Pelvis CT 12/10/17 09:15 CONCLUSION: 1. No obstruction or focal acute inflammatory changes are demonstrated. 2. Moderate ascites. 3. Atherosclerotic aorta. 4. Enlarged heart. CT chest to follow. Barium Swallow X-Ray 12/15/17 00:00 CONCLUSION: Negative exam. Venous Doppler Study 12/22/17 00:00 CONCLUSION: 1. Superficial thrombus as above. Discharge Plan - Discharge Disposition Patient Disposition: 01 Discharge Home - Discharge Condition Condition: Stable - Discharge Order Discharge Orders: Discharge Order (Routine); Ordered 12/23/17 Ordered By: Rodrigo Leone Cardiology Clear for Discharge (Routine); Ordered 12/23/17 Ordered By: Sarah Moreland - Discharge Details Anticipated Discharge Date: 12/23/17 - Physicians Team Primary Care Provider: Primary Care Physici,No Attending Provider: Rodrigo Leone Other Providers: Efe Mcconnell MD ; Sarah Moreland MD ; Bree Lofton MD ; Crispin Gastelum MD ; Krysta,Humana ; Marcial Dixon MD ; Wayne Gage MD ; Chet Benítez MD
[2017-12-25 17:12] LABS: Specimen HFE WB Whole Blood
== END 2017-12-23 15:12 | disposition home or self-care (01) ==
LOC: NEPE 11:18 → NEDA 13:28 → HCIS 16:05 → N03 12-10 10:52 → N06 12-17 22:11
PROVIDERS: ADMIT Internal Medicine; ATTEND Internal Medicine